=== PATIENT | female | born 1945 | race Caucasian/White ===

== ENCOUNTER → 2018-08-30 | Outpatient (CLI) | payer MEDICARE, OTHER ==
[~2018-08-30] MED LIST: GASTROGRAFIN SOLUTION 30ML (Q9963) As Ordered; ISOVUE-370 76% 100ML VIAL (Q9967) As Ordered
== END ==
LOC: M RAD 11:05
DX: R10.11 Right upper quadrant pain (principal)
CPT/HCPCS: Q9963

== ENCOUNTER 2018-09-27 08:17 | Day surgery (SDC) | payer MEDICARE, OTHER ==
[2018-09-27] MEDS ORDERED: PROPOFOL 200 MG/20 ML VIAL As Ordered (09:27)
[2018-09-27] MEDS ORDERED: ONDANSETRON 4MG/2ML VIAL (J2405) As Ordered (09:27)
[2018-09-27] MEDS ORDERED: fentaNYL 250 MCG/5 ML INJECTION (J3010) As Ordered (09:27)
[2018-09-27] MEDS ORDERED: LIDOCAINE 2% INJ 100 MG/5 ML SDV (FOR ANES.) As Ordered (09:27)
[2018-09-27] MEDS ORDERED: dexameTHASONE 4 MG/ML 1ML VIAL (J1100) As Ordered (09:27)
[2018-09-27] MEDS ORDERED: ROCURONIUM BROMIDE 50 MG/5 ML VIAL As Ordered (09:27)
[2018-09-27] MEDS ORDERED: MIDAZOLAM INJ 2 MG/2 ML VIAL (J2250) As Ordered (09:27)
[2018-09-27] MEDS ORDERED: GLYCOPYRROLATE INJ 0.2 MG/ML 2 ML VIAL As Ordered ×3 (09:27→09:28)
[2018-09-27] MEDS ORDERED: NEOSTIGMINE 10 MG/10 ML VIAL (J2710) As Ordered (09:28)
[2018-09-27] MEDS ORDERED: ePHEDrine SULFATE 25 MG/5 ML(5MG/ML) SYRINGE As Ordered (09:29)
[2018-09-27] MEDS: BUPIVACAINE/EPIN 0.25% 30 ML VIAL As Ordered (10:15)
[2018-09-27] MEDS: LR 1,000 ML IV (10:25)
[2018-09-27] MEDS ORDERED: NORCO, ANEXSIA 5/325MG TABLET (HYDROcodone/ACETAMINOPHEN) PO (10:45)
[2018-09-27] MEDS ORDERED: fentaNYL 100 MCG/2 ML INJECTION (J3010) IV (10:45)
[2018-09-27] MEDS: ONDANSETRON 4MG/2ML VIAL (J2405) IV (10:50)
[2018-09-27] MEDS: PERCOCET 5MG/325MG TAB PO ×2 (10:50→11:23)
[2018-09-27] MEDS: PANTOPRAZOLE 40MG TAB (PROTONIX) PO (11:35)
== END 2018-09-27 13:30 | disposition home or self-care (01) ==
LOC: M SDC 08:17
DX: K80.10 Calculus of gallbladder with chronic cholecystitis without obstruction (principal); I10 Essential (primary) hypertension; F41.9 Anxiety disorder, unspecified; F32.9 Major depressive disorder, single episode, unspecified; I73.9 Peripheral vascular disease, unspecified; M19.041 Primary osteoarthritis, right hand; M19.042 Primary osteoarthritis, left hand; M54.2 Cervicalgia; E66.9 Obesity, unspecified; Z68.39 Body mass index [BMI] 39.0-39.9, adult; Z79.899 Other long term (current) drug therapy; Z79.01 Long term (current) use of anticoagulants; Z79.82 Long term (current) use of aspirin; Z90.710 Acquired absence of both cervix and uterus; Z98.51 Tubal ligation status; Z85.43 Personal history of malignant neoplasm of ovary; Z92.3 Personal history of irradiation; Z98.41 Cataract extraction status, right eye; Z98.42 Cataract extraction status, left eye; Z96.1 Presence of intraocular lens; Z98.84 Bariatric surgery status; Z87.891 Personal history of nicotine dependence
CPT/HCPCS: 47562

== ENCOUNTER → 2018-12-02 | Outpatient (REF) | payer MEDICARE, OTHER ==
[~2018-12-02] MED LIST changes: +AMLO5TAB6 PO; +ASPI1TAB PO; +FLUO20CA8 PO; +GABA-843 PO; -GASTROGRAFIN SOLUTION 30ML (Q9963) As Ordered; -ISOVUE-370 76% 100ML VIAL (Q9967) As Ordered; +LOSA100T50 PO; +PANT40TA3 PO; +PLAV1TAB2 PO; +SPIR-10 PO; +TYLE325T5 PO
[2018-12-03 13:50] LABS: AMORPHOUS SEDIMENT SMALL (NEGATIVE); APPEARANCE, URINE CLEAR (CLEAR); BACTERIA, URINE AUTO NEGATIVE (NEGATIVE); BILIRUBIN, URINE AUTO NEGATIVE (NEGATIVE); BLOOD, URINE BLOOD NEGATIVE (NEGATIVE); COLOR, URINE AMBER (YELLOW); GLUCOSE, URINE (UA) AUTO NEGATIVE (NEGATIVE); KETONE, URINE AUTO NEGATIVE (NEGATIVE); LEUKOCYTE ESTERASE, URINE AUTO NEGATIVE (NEGATIVE); MUCUS, URINE SMALL (NEGATIVE); NITRITE, URINE AUTO POSITIVE (NEGATIVE); PROTEIN, URINE AUTO NEGATIVE (NEGATIVE); RBC, URINE AUTO 2 /HPF (0-3); SPECIFIC GRAVITY URINE AUTO 1.011 (1.002-1.035); SQUAMOUS EPITHELIAL CELL UR AU 0 /HPF (0-6); WBC, URINE AUTO 0 /HPF (0-3)
== END ==
LOC: M LAB REF 13:02
PROVIDERS: ATTEND Physician Assistant
DX: N39.0 Urinary tract infection, site not specified (principal)

== ENCOUNTER 2019-02-14 06:22 | Day surgery (SDC) | payer MEDICARE, OTHER ==
[~2019-02-14] VITALS: Ht 162.6 cm; Wt 97.9 kg
[~2019-02-14 06:22] MED LIST changes: -NORCOTAB PO
[2019-02-14] MEDS ORDERED: LR 1,000 ML IV ONE (07:00)
[2019-02-14] MEDS ORDERED: BUPIVACAINE/EPIN 0.25% 30 ML VIAL As Ordered ONE (07:07)
[2019-02-14] MEDS ORDERED: LIDOCAINE 2% INJ 100 MG/5 ML SDV (FOR ANES.) As Ordered ONE (07:18)
[2019-02-14] MEDS ORDERED: ROCURONIUM BROMIDE 50 MG/5 ML VIAL As Ordered ONE (07:18)
[2019-02-14] MEDS ORDERED: PROPOFOL 200 MG/20 ML VIAL As Ordered ONE (07:18)
[2019-02-14] MEDS ORDERED: fentaNYL 250 MCG/5 ML INJECTION (J3010) As Ordered ONE (07:19)
[2019-02-14] MEDS ORDERED: MIDAZOLAM INJ 2 MG/2 ML VIAL (J2250) As Ordered ONE (07:20)
[2019-02-14] MEDS ORDERED: ONDANSETRON 4MG/2ML VIAL (J2405) As Ordered ONE (08:51)
[2019-02-14] MEDS ORDERED: dexameTHASONE 4 MG/ML 1ML VIAL (J1100) As Ordered ONE (08:52)
[2019-02-14] MEDS ORDERED: KETOROLAC 60 MG/2 ML VIAL (J1885) As Ordered ONE (08:52)
[2019-02-14] MEDS ORDERED: SUGAMMADEX SODIUM 500 MG/5 ML VIAL (BRIDION) As Ordered ONE (09:24)
[2019-02-14] MEDS ORDERED: PHENYLephrine HCL 500 MCG/5 ML (100MCG/ML) SYRINGE (J2370) As Ordered ONE (09:28)
[2019-02-14] MEDS ORDERED: fentaNYL 100 MCG/2 ML INJECTION (J3010) IV PRN (10:00)
[2019-02-14] MEDS ORDERED: NORCO, ANEXSIA 5/325MG TABLET (HYDROcodone/ACETAMINOPHEN) PO PRN (10:00)
[2019-02-14] MEDS ORDERED: ONDANSETRON 4MG/2ML VIAL (J2405) IV PRN (10:00)
[2019-02-14] MEDS ORDERED: PERCOCET 5MG/325MG TAB PO PRN (10:00)
[2019-02-14] MEDS ORDERED: METOCLOPRAMIDE INJ 10MG/2ML VIAL (J2765) IV PRN (10:00)
[2019-02-14] MEDS ORDERED: LR 1,000 ML IV SCH (10:00)
[2019-02-14 12:30] VITALS: BP 119/65
[2019-02-14] MEDS ORDERED: NORCOTAB PO (12:47)
--- NOTE | 2019-02-14 17:48 | RO ---
DATE OF PROCEDURE: 02/14/2019 PREOPERATIVE DIAGNOSIS: Abdominal adhesions and small bowel obstruction. POSTOPERATIVE DIAGNOSIS: Abdominal adhesions and small bowel obstruction. PROCEDURE: Laparoscopic lysis of adhesions. SURGEON: Dr. Carlos Lyle AUTO RADIATOR MECHANIC: None. ANESTHESIA: General. ESTIMATED BLOOD LOSS: 5 mL. COMPLICATIONS: None. INDICATIONS FOR PROCEDURE: The patient is a 73-year-old female who has had multiple abdominal surgeries as well as extensive adhesions that I noticed on a laparoscopic cholecystectomy for her last year. Since her gallbladder surgery, she has had at least four hospitalizations for small bowel obstruction. Therefore, she is coming in today for lysis of adhesions. Risks and benefits of the procedure not limited to but including bleeding, infection, hernia formation, damage to surrounding structures, possible need for further surgery were discussed in detail with the patient, informed consent was obtained and procedure was planned. DESCRIPTION OF PROCEDURE: The patient was brought back to operating room three. after sufficient sedation, the abdomen was sterilely prepped and draped. Next, a time-out was done to confirm proper patient and proper procedure. Following that, a 5 mm incision was made in left lower quadrant, Veress needle was inserted and the abdomen was insufflated to 15 mmHg. Next, the Veress needle was removed and a 5 mm Optiview port was used to gain access to the abdomen. Once the abdomen was entered, there were extensive adhesions. I was able to place another port in the left lower quadrant. From there, using the Enseal, I was able to take down some of the omental adhesions laterally, enough to get a third port in the mid left abdomen as well. Next, using a combination of blunt and sharp dissection using some sharp scissors as well as the Enseal, I was able to take down multiple adhesions of small and large bowel along the entire left side of the abdomen past midline. Once this was all completed, there were no signs of any injury, was unable to run the bowel due to the multiple fibrous adhesions covering the entire small intestine but all the large, thick bands that were stuck to the abdominal wall were taken down; hopefully this will relieve some of her issues. The abdomen was then desufflated. Skin incisions were closed with #4-0 Vicryl subcuticular sutures. The abdomen was cleaned and dried. Steri-Strips, 4x4 and tape were applied thus ending procedure.
== END 2019-02-14 12:45 | disposition home or self-care (01) ==
LOC: M SDC 06:22
PROVIDERS: ATTEND Surgery
DX: N73.6 Female pelvic peritoneal adhesions (postinfective) (principal); I10 Essential (primary) hypertension; I73.9 Peripheral vascular disease, unspecified; I87.2 Venous insufficiency (chronic) (peripheral); F41.9 Anxiety disorder, unspecified; F32.9 Major depressive disorder, single episode, unspecified; K22.70 Barrett's esophagus without dysplasia; K21.9 Gastro-esophageal reflux disease without esophagitis; M12.9 Arthropathy, unspecified; M54.2 Cervicalgia; E66.9 Obesity, unspecified; Z68.37 Body mass index [BMI] 37.0-37.9, adult; Z79.899 Other long term (current) drug therapy; Z79.01 Long term (current) use of anticoagulants; Z79.82 Long term (current) use of aspirin; Z90.710 Acquired absence of both cervix and uterus; Z78.0 Asymptomatic menopausal state; Z98.51 Tubal ligation status; Z72.3 Lack of physical exercise; Z98.84 Bariatric surgery status; Z96.1 Presence of intraocular lens; Z98.41 Cataract extraction status, right eye; Z98.42 Cataract extraction status, left eye
CPT/HCPCS: 58660; 93925; 93970; J0690; J1100; J1885; J2250; J2370; J2405; J3010

== ENCOUNTER → 2019-02-14 | Outpatient (CLI) | payer MEDICARE, OTHER ==
[~2019-02-14] MED LIST changes: +COLA100C5 PO; +NORCOTAB PO
--- NOTE | 2019-02-14 17:40 | REP ---
Bilateral lower extremity arterial Doppler ultrasound: History: Peripheral vascular disease. Findings: Ankle brachial indices are essentially normal 0.9 on the right and 1.6 on the left. On the right, there is monophasic flow in the distal posterior tibial and distal anterior tibial artery segments which suggests mild distal calf disease. No proximal disease is apparent. The patient gives a history of a remote prior vascular surgery in the left groin, details unknown. The aorta and iliac vessels were obscured by bowel gas. The patient apparently underwent laparoscopic surgery than morning of this exam. Monophasic flow waveforms are noted in the left lower extremity arteries throughout. Velocity chart left lower extremity artery: left common femoral artery 201 cm/S Profunda 52 Proximal SFA 67 Mid SFA 64 Distal SFA 63 Popliteal 43 Proximal SUSY 16 Tibioperoneal trunk 35 Proximal ASSISTANT PROFESSOR OF CHEMISTRY 18 Distal ASSISTANT PROFESSOR OF CHEMISTRY 76 Distal SUSY 76 Velocity chart left lower extremity arteries: Left common femoral artery 121 cm/S Profunda 74 Proximal SFA 96 Mid SFA 110 Distal SFA 85 Popliteal 65 Proximal AT A 36 Tibioperoneal trunk 52 Proximal ASSISTANT PROFESSOR OF CHEMISTRY 35 Distal ASSISTANT PROFESSOR OF CHEMISTRY 33 Distal SUSY 54 Electronically Signed by Amandeep Castro MD 02/14/2019 07:19 P
--- NOTE | 2019-02-14 17:53 | REP ---
Bilateral lower extremity duplex venous ultrasound: Venous insufficiency study. Peripheral vascular disease. Findings: The deep veins are anechoic and fully compressible on two-dimensional scanning from the groin to the popliteal fossa bilaterally in the lower extremities. Color flow and spectral Doppler interrogation show no evidence of DVT. Reflux evaluation: No venous reflux was observed in the right lower extremity veins. The greater saphenous vein measures 5.2 mm in AP dimension at the proximal saphenofemoral junction, 3.4 mm at midthigh, and 3.2 mm at the knee. The lesser saphenous vein measures 2 mm in AP dimension. On the left there is a minimal common femoral vein segment reflux. No other reflux is seen in the left lower extremity. The greater saphenous vein measures 7.2 mm proximally, 3.1 mm at midthigh, and 3.8 mm at the knee. The lesser saphenous vein measures 1.5 mm. Electronically Signed by Amandeep Castro MD 02/14/2019 07:20 P
== END ==
LOC: M RAD 12:54
PROVIDERS: ATTEND Surgery Vascular Surgery
DX: I73.9 Peripheral vascular disease, unspecified (principal); I87.2 Venous insufficiency (chronic) (peripheral)

== ENCOUNTER → 2019-03-28 | Outpatient (CLI) | payer MEDICARE, OTHER ==
[~2019-03-28] MED LIST changes: -ASPI1TAB PO; +ASPI81TA26 PO; +ATROPINE SULF 1MG/10ML SYRINGE (J0461) As Ordered ONE; +BUPIVACAINE HCL 0.5% 10 ML VIAL As Ordered ONE; +HEPARIN 1,000 UNITS/ML 10ML VIAL (FOR RADIOLOGY& DIALYSIS ONLY) As Ordered ONE; +HYDR-3715 PO; +ISOVUE-300 61% 100ML VIAL (Q9967) As Ordered ONE; +LIDOCAINE 2% MDV 20 ML VIAL As Ordered ONE; +MIDAZOLAM INJ 2 MG/2 ML VIAL (J2250) As Ordered ONE; +diphenhydrAMINE INJ 50MG/ML VIAL (J1200) As Ordered ONE; +fentaNYL 100 MCG/2 ML INJECTION (J3010) As Ordered ONE
--- NOTE | 2019-04-06 11:00 | REPIR ---
DATE OF PROCEDURE: 03/28/2019 ATTENDING SURGEON: Dr. Jeffrey Hart ASSISTANTS: Zayra Chambers and Brittny Proctor PREOPERATIVE DIAGNOSES: 1. Bilateral lower extremity claudication. 2. Aortoiliac atherosclerotic occlusive disease. 3. Symptomatic claudication left greater, than right. POSTOPERATIVE DIAGNOSES: 1. Bilateral lower extremity claudication. 2. Aortoiliac atherosclerotic occlusive disease. 3. Symptomatic claudication left greater, than right. PROCEDURES: Aortogram. Iliofemoral angiogram. Selective left common femoral artery catheter placement with left lower extremity angiogram. MYNX closure of the right common femoral arteriotomy. Aortic angioplasty with 12 x 80 balloon and 18 x 40 balloon. INDICATION: The patient is a 73-year-old female with previous angioplasty and stenting of her iliac vessels who now has bilateral lower extremity claudication. The patient will undergo an angiogram with possible angioplasty, stent and/or atherectomy. Risks, benefits, and alternative treatment options have been discussed with the patient. ANESTHESIA: Local with sedation with 2 mg Versed, 100 mcg of fentanyl and 20 mL of 2% lidocaine mixed with 0.5% Marcaine, Benadryl 50 mg. FLUORO TIME: 28.2 minutes. CONTRAST: 16.5 mL PROCEDURE: Patient was taken to the angiography suite, placed supine on the angiography room table, and the right common femoral artery was cannulated using a micropuncture needle. Catheter was placed in the aorta and an aortogram was performed showing approximate 80% stenosis in the aorta. The aorta was then angioplastied with a 12 x 80 followed by an 18 x 40 balloon. A completion aortogram showed resolution of the stenosis with excellent flow through the aorta into the aorta by iliac and femoral graft. Catheters and wires were removed. The sheath was removed and the MYNX closure device was used to close the arteriotomy in the right common femoral artery with an additional 10 minutes adjunctive pressure applied for hemostasis. Dressings were then applied. The patient tolerated procedure well. All instrument, sponge and needle counts were correct at the end the case. There were no complications. Dr. Hart was present for and directed the entire case. The patient was transferred to [place] [facility] area and subsequently discharged in stable condition.
== END | disposition home or self-care (01) ==
LOC: M IRPRO 08:06
PROVIDERS: ATTEND Surgery Vascular Surgery
DX: I70.0 Atherosclerosis of aorta (principal); I70.213 Atherosclerosis of native arteries of extremities with intermittent claudication, bilateral legs
CPT/HCPCS: 36246; 37246; 75625; C1725; C1760; C1769; C1887; C1894; J1200; J2250; J3010; Q9967

== ENCOUNTER → 2019-04-05 | Outpatient (CLI) | payer MEDICARE, OTHER ==
[~2019-04-05] MED LIST changes: -ATROPINE SULF 1MG/10ML SYRINGE (J0461) As Ordered ONE; -BUPIVACAINE HCL 0.5% 10 ML VIAL As Ordered ONE; -HEPARIN 1,000 UNITS/ML 10ML VIAL (FOR RADIOLOGY& DIALYSIS ONLY) As Ordered ONE; -ISOVUE-300 61% 100ML VIAL (Q9967) As Ordered ONE; +ISOVUE-370 76% 100ML VIAL (Q9967) As Ordered ONE; -LIDOCAINE 2% MDV 20 ML VIAL As Ordered ONE; -MIDAZOLAM INJ 2 MG/2 ML VIAL (J2250) As Ordered ONE; -diphenhydrAMINE INJ 50MG/ML VIAL (J1200) As Ordered ONE; -fentaNYL 100 MCG/2 ML INJECTION (J3010) As Ordered ONE
--- NOTE | 2019-04-06 09:31 | REP ---
CT chest with IV contrast: History: Solitary pulmonary nodule. Comparison CT study: January 18, 2019. There is a chest CT study from December 17, 2018 as well. These to prior studies were done at [facility]. The earlier study was read as showing scattered areas of patchy ground-glass opacity in the right upper and right lower lobe. CT contrast dose: 75 ml of intravenous Isovue [address] findings: Preliminary steel post installer radiographs demonstrate surgical clips in the central abdomen. There are sutures along the greater curvature side of the stomach suggesting gastric sleeve resection. There is a hiatal hernia again noted. No adrenal lesion is seen on either side. There is a granulomatous calcification in the spleen. Fatty infiltration is noted in the liver. The visualized upper abdominal structures are otherwise unremarkable. There is no evidence of pleural or pericardial effusion. Moderate vascular calcification is seen including right and left coronary artery distribution calcifications. No hilar or mediastinal mass or adenopathy is observed. There is a granuloma in the right lower lobe. Above this, there is a 19 mm ground-glass opacity in the superior segment right lower lobe. This is unchanged from December 17, 2018 and January 18, 2019 prior studies. No other persistent ground-glass opacity is seen. No other significant pulmonary nodule is appreciated. No bony destructive lesion is seen. Impression: There is a persistent 19 mm ground-glass opacity nodule in the right lower lobe. Non solid nodules under 20 mm are Lung RADS category two lesions with the recommendation for a 12-month follow-up chest CT. Pulmonary medicine evaluation could be considered. Electronically Signed by Amandeep Castro MD 04/06/2019 03:37 P
== END ==
LOC: M RAD 14:09
PROVIDERS: ATTEND Physician Assistant
DX: R91.1 Solitary pulmonary nodule (principal)
CPT/HCPCS: 71260; Q9967

== ENCOUNTER → 2019-05-17 | Outpatient (CLI) | payer MEDICARE, OTHER ==
[~2019-05-17] MED LIST changes: -ISOVUE-370 76% 100ML VIAL (Q9967) As Ordered ONE
--- NOTE | 2019-05-17 11:32 | REP ---
Bilateral lower extremity arterial Doppler ultrasound: History: Atherosclerosis, peripheral vascular disease. Findings: Ankle brachial indices are 0.96 on the right and decreased at the 0.60 on the left. Monophasic flow waveforms are noted throughout the arteries in the left lower extremity. The left common femoral artery is somewhat dilated post endarterectomy. Diffuse atherosclerotic changes are noted. No high-grade stenosis is detected. Right lower extremity arterial Doppler velocity chart: Right KUNAL 148 cm/S D I A 79 CF A 104 Profunda 71 Proximal SFA 73 Mid SFA 76 Distal SFA 77 Popliteal 45 Proximal AT A 31 Tibioperoneal trunk 41 Proximal CHANNEL PROCESS PLANT OPERATOR 21 Distal CHANNEL PROCESS PLANT OPERATOR 17 Distal AT A 102 Left lower extremity arterial Doppler velocity chart: Left KUNAL 63 cm/S D I A 66 CF A 136/79 Profunda 32 Proximal SFA 61 Mid SFA 70 Distal SFA 64 Popliteal 67 Proximal AT A 26 Tibioperoneal trunk 58 Proximal CHANNEL PROCESS PLANT OPERATOR 58 Distal CHANNEL PROCESS PLANT OPERATOR 67 Distal AT A 33 Electronically Signed by Amandeep Castro MD 05/17/2019 11:22 A
--- NOTE | 2019-05-17 11:41 | REP ---
ABDOMINAL AORTIC SONOGRAPHY: HISTORY: Peripheral vascular disease. FINDINGS: Atherosclerotic plaquing is seen in the abdominal aorta. No aneurysm is observed. Aortic dimensions at the diaphragmatic hiatus proximally are 2.6 x 2.5 cm, AP by transverse respectively. The aorta borders are obscured by bowel gas at the level of the main renal arteries. At mid aortic level, normal-caliber is observed, 2.4 x 2.2 cm. The distal aorta measures 2.0 x 2.2 cm. Right and left common iliac arteries are normal in caliber measuring 0.9 and 1.0 cm in greatest AP dimension, respectively. IMPRESSION: No aneurysm seen. Electronically Signed by Amandeep Castro MD 05/17/2019 12:27 P
== END ==
LOC: M RAD 08:44
PROVIDERS: ATTEND Physician Assistant
DX: I70.0 Atherosclerosis of aorta (principal); I73.9 Peripheral vascular disease, unspecified; Z95.5 Presence of coronary angioplasty implant and graft

== ENCOUNTER 2019-10-12 08:06 | Inpatient (IN) | payer MEDICARE, OTHER ==
[~2019-10-12] VITALS: Ht 162.6 cm; Wt 106.8 kg
[2019-10-12] MEDS ORDERED: LOSA100T5 PO (09:21)
[2019-10-12] MEDS ORDERED: AZEL1SPR3 NARES (09:21)
[2019-10-12] MEDS ORDERED: APAP325T4 PO (09:21)
[2019-10-12] MEDS ORDERED: MORPHINE 4 MG/ML 1ML VIAL/SYRINGE (J2270) IV PRN (10:45)
[2019-10-12] MEDS ORDERED: NS 1,000 ML IV SCH (10:45)
[2019-10-12] MEDS ORDERED: NS 1,000 ML IV ONE (11:00)
--- NOTE | 2019-10-12 11:12 | REP ---
Portable chest x-ray: Sitting AP view. History: Preop. Comparison chest x-ray: January 18, 2019. Findings: Monitoring electrodes are seen. Heart is borderline in size unchanged. Pulmonary vasculature is slightly cephalized. . There is no evidence of infiltrate or pleural effusion. No evidence of pulmonary edema. Impression: Borderline heart size. Cephalization. Otherwise no acute disease. Electronically Signed by Amandeep Castro MD 10/12/2019 11:04 A
[2019-10-12] MEDS ORDERED: PERCOCET 5MG/325MG TAB PO PRN (15:00)
[2019-10-12] MEDS ORDERED: MORPHINE 2 MG/ML 1ML VIAL (J2270) IV PRN (15:00)
[2019-10-12] MEDS ORDERED: KETOROLAC 30 MG/ML VIAL (J1885) IV PRN (15:00)
[2019-10-12] MEDS ORDERED: ONDANSETRON 4MG/2ML VIAL (J2405) IV PRN (15:00)
[2019-10-12] MEDS ORDERED: ACETAMINOPHEN TAB 650MG DOSE (2X325MG) PO PRN (15:00)
[2019-10-12] MEDS: PERCOCET 5MG/325MG TAB PO PRN ×2 (16:17→23:25)
[2019-10-12 16:50] VITALS: BP 151/68
[2019-10-12] MEDS: ENOXAPARIN 40 MG/0.4 ML SYRINGE (J1650) SC SCH (17:39)
[2019-10-12] MEDS: PANTOPRAZOLE 40MG INJ (PROTONIX) (C9113) IV SCH (17:39)
[2019-10-12] MEDS: LR 1,000 ML IV SCH (17:39)
[2019-10-12 20:00] VITALS: BP 139/74
[2019-10-12] MEDS: SENOKOT S TAB PO SCH (20:44)
[2019-10-13] MEDS: LR 1,000 ML IV SCH ×3 (01:30→20:31)
--- NOTE | 2019-10-13 04:48 | HPEPDOC ---
General Surgery H&P Date of Admission Oct 12, 2019 Attending Physician: RAS MANRIQUE MD History and Physical CHIEF COMPLAINT: abdominal pain HISTORY OF PRESENT ILLNESS: Patient is a 74 year old female with multiple prior histories of adhesive small bowel obstruction got transferred to our institution after presenting at [facility] ED at about 2 am today with complaints of crampy abdominal pain on her upper abdomen that stated roughly at about 9 pm last night similar to her previous episodes of bowel obstruction. She felt nauseated and had at least one episode of vomiting. At [facility] was diagnosed to have bowel bostuction on CT and subsequently transferred to our ED. In the ED she felt better although she still has occasional crampy abdominal pain and has not had any vomiting, still felt bloated. Patient has had multiple abdominal surgeries including open aortic surgery of some sort so patient could not recall what the exact nature was. She also has had a hysterectomy performed. She had an elective lysis of adhesions performing Dr. Lyle on 02/14/2019 to hopefully alleviate her bowel obstructions. Since then patient reports at least 2 attacks. One lasted for a few days and she did not go to the hospital. Since being transferred patient continues to complain of bloating, mild cramps but there is no longer nauseated. Her last bowel movement was 4 days ago. Patient reports baseline constipation. ALLERGIES: Please see below. HOME MEDICATIONS: Please see below. PAST MEDICAL HISTORY: 1. Peripheral vascular disease. 2. Hypertension 3. Anxiety 4. Depression. PAST SURGICAL HISTORY: 1. Tubal ligation 1973 2. Leg bypass in 1985, 1988, 1999 3. Gastric sleeve 2012 4. Hysterectomy 2013 5. Laparoscopic cholecystectomy 2017 6. Laparoscopic lysis of adhesion 2018 7. Aortic surgery.. PERSONAL/SOCIAL HISTORY: Patient quit smoking more than 30 years ago. Reports light alcohol drinking about 4 a week, denies drug use. REVIEW OF SYSTEMS: GENERAL: Symptoms of the abdominal pain as been ongoing for a few days but otherwise was in her usual state of health. HEENT: Denies blurred vision and double vision. Denies ear symptoms. Denies hoarseness. NECK: Denies any neck pain. CARDIOVASCULAR: Denies chest pain and palpitations. MUSCULOSKELETAL: Denies arthralgias, back pain and thrombophlebitis. SKIN: Denies rash. NEUROLOGIC: Denies headache, stroke and transient ischemic attack. PSYCHIATRIC: Denies anxiety and depression. ENDOCRINE: Denies thyroid disease. HEMATOLOGY/ONCOLOGY: Denies any bleeding or clotting disorder. HEART: Denies any chest pains, palpitations, paroxysmal dyspnea, orthopnea. PULMONARY: She reports no history of COPD, asthma, sleep apnea but has a spot in her lungs which they are. The following up with CT. GASTROINTESTINAL: See HPI. GENITOURINARY: Denies dysuria, frequency, hematuria and nocturia. ENDOCRINE: Denies polydipsia, polyphagia, polyuria, heat or cold intolerance. INFECTIOUS: Denies any recent upper respiratory tract infection, UTI, need for use of antibiotics. NUTRITION: Reports good appetite. PHYSICAL EXAMINATION: VITAL SIGNS: Please see below. GENERAL APPEARANCE: Patient seen on the stretcher able to lay down flat and sitting up with minimal discomfort otherwise looks fairly comfortable in no acute distress. Awake, alert, oriented. HEENT: Normocephalic, atraumatic. [place] palpebral conjunctivae. Anicteric sclerae. Lips moist. CHEST: No chest wall abnormalities. Normal respiratory motion/effort. NECK: Supple. No thyromegaly. No lymphadenopathies. LUNGS: Lung sounds are clear to auscultation bilaterally. No wheezing appreciated. HEART: No chest wall abnormalities. Heart rate and rhythm are regular with no murmurs. ABDOMEN: Moderately obese abdomen, mildly distended, tympanitic to percussion. There is prominent tympany at the midabdomen just above the umbilicus. She is minimally uncomfortable on deep palpation at the center of her abdomen with no noticeable tenderness or guarding. SKIN: Warm, moist. EXTREMITIES: Extremities have no deformities. No edema identified. NEUROLOGICAL: Awake, alert, oriented. ANCILLARIES: . LABORATORY DATA: Please see below. Outside laboratories reviewed MICROBIOLOGY: Please see below. IMAGING: Outside CT from [facility] gastric sleeve. Postcholecystectomy. Post hysterectomy. Postsurgical changes in the retroperitoneum. Moderate hiatal hernia Dilated small bowel loops in the midabdomen with transition point in the pelvis to collapsed indicating obstruction. Proximal small bowel is also laceration suspicion for a closed loop obstruction. Trace free fluid IMPRESSION AND PLAN: Small bowel obstruction secondary to adhesions. Patient has had multiple adhesive bowel obstructions all of it has resolved with nonoperative therapy and is familiar with the treatment for bowel obstruction, rationale for it. She has entertained elective laparoscopic lysis of adhesions early this year but still has had repeated obstructions. This current obstruction was about roughly a day old. She is not showing any signs of peritonitis or severe systemic inflammatory response. Don't think she has any threatened bowel at this point. A think it is prudent to start with nonoperative therapy. She feels mildly improved and is not that much nauseated though he still suggest placing the nasogastric tube to decompress her proximal bowel. She is concerned about this as she has had a gastric sleeve and this NG tube may not work too well because of this as it does not accumulate much fluid since she is clinically improved (hold off on this. I reviewed the images of the outside CT and do agree that she most likely has an obstruction. I would continue to observe her and do serial examination and replete her electrolytes if need be for the next 48-72 hours and if it does not resolve she is aware that she might need surgery. I reviewed the operative notes by Dr. Lyle when he did the lysis of adhesions back in January and depending on the degree of distention the may start with laparoscopy but given the nature of the adhesions are not just at the abdominal wall and most likely located at the retroperitoneum and in the pelvis that there is a good possibility that this may need to be converted to open surgery if need be. Patient's been aware of this and voices understanding. Vital Signs Vital Signs Date Time Temp Pulse Resp B/P (MAP) Pulse Ox O2 Delivery O2 Flow Rate FiO2 10/12/19 23:55 18 10/12/19 23:25 Room Air 10/12/19 20:00 98.1 79 139/74 (95) 93 I&Os I&O- Last 24 Hours up to 6 AM 10/13/19 06:00 Intake Total 1090 ml Output Total 200 ml Balance 890 ml Laboratory Data Labs 24H Laboratory Tests 2 10/12/19 10:46: Lactic Acid Level 1.6 Home Medications Scheduled Amlodipine Besylate (Amlodipine Besylate) 5 Mg Tab, 5 MG PO DAILY, (Reported) Aspirin (Aspirin EC) 81 Mg Tab, 81 MG PO DAILY, (Reported) Clopidogrel Bisulfate (Plavix) 75 Mg Tab, 75 MG PO DAILY, (Reported) Docusate Sodium (Colace) 100 Mg Cap, 100 MG PO DAILY, (Reported) Fluoxetine Hcl (Fluoxetine HCl) 20 Mg Cap, 20 MG PO DAILY, (Reported) Losartan/Hydrochlorothiazide (Losartan-Hctz 100-25 mg Tab) 1 Each Tablet, 1 TAB PO DAILY, (Reported) Pantoprazole Sodium (Pantoprazole Sodium) 40 Mg Tab, 40 MG PO DAILY, (Reported) Spironolactone (Spironolactone) 25 Mg Tab, 25 MG PO DAILY, (Reported) Scheduled PRN Acetaminophen (Acetaminophen) 325 Mg Tablet, 650 MG PO Q4H PRN for PAIN, (Reported) Azelastine HCl (Azelastine HCl) 0.1% [place].pump, 2 SPRAY NARES BID PRN for ALLERGIES, (Reported) Allergies Coded Allergies: No Known Allergies (Unverified , 06/27/15) A-FIB/CHADSVASC A-FIB History Current/History of A-Fib/PAF?: No Current PO Anticoag Therapy: No RAS MANRIQUE MD Oct 13, 2019 04:47
[2019-10-13] MEDS ORDERED: MOM 30ML SUSPENSION UDC PO ONE (05:15)
[2019-10-13 06:00] VITALS: BP 133/61
[2019-10-13] MEDS: PERCOCET 5MG/325MG TAB PO PRN ×2 (06:33→14:51)
--- NOTE | 2019-10-13 07:21 | ECGEPIP ---
[facility] - ED Test Date: 2019-10-12 Pat Name: MOO BRIONES Department: Room: - Gender: Female [employer]: : [id number] Requested By: ZI Murphy Order Number: [id number] [place] MD: Kevon Gold Measurements Intervals Cade Rate: 70 P: 60 DE: 177 QRS: 33 QRSD: 81 T: 44 QT: 414 QTc: 449 Interpretive Statements SINUS RHYTHM NONSPECIFIC T WAVE ABNORMALITIES NO PRIORS FOR COMPARISON Electronically Signed on 10-13-2019 7:21:42 EST by Kevon Gold
[2019-10-13 07:33] LABS: BASO # 0.1 10^3/uL (0.0-0.2); BASO % 0.6 % (0.0-1.0); EOS # 0.1 10^3/uL (0.0-0.5); EOS % 1.6 % (0.0-3.0); HEMATOCRIT 33.6 % (36.0-47.0); HEMOGLOBIN 10.6 g/dl (12.0-15.5); LYMPH # 1.1 10^3/uL (1.5-5.0); LYMPH % 12.4 % (24.0-44.0); MEAN CORPUSCULAR HEMOGLOBIN 31.6 pg (27.0-33.0); MEAN CORPUSCULAR HGB CONC 31.5 g/dl (32.0-36.5); MEAN CORPUSCULAR VOLUME 100.3 fl (80.0-96.0); MONO # 1.1 10^3/uL (0.0-0.8); MONO % 12.1 % (0.0-5.0); NEUTROPHILS # 6.4 10^3/uL (1.5-8.5); NEUTROPHILS % 72.8 % (36.0-66.0); PLATELET COUNT, AUTOMATED 258 10^3/uL (150-450); RED BLOOD COUNT 3.35 10^6/uL (4.00-5.40); WHITE BLOOD COUNT 8.7 10^3/uL (4.0-10.0)
[2019-10-13 07:58] LABS: CALCIUM LEVEL 9.3 MG/DL (8.8-10.2); CREATININE FOR GFR 1.09 MG/DL (0.55-1.30); GLOMERULAR FILTRATION RATE 52.5 (>39); POTASSIUM SERUM 3.6 MEQ/L (3.5-5.1)
[2019-10-13] MEDS: SENOKOT S TAB PO SCH ×2 (09:27→20:30)
[2019-10-13] MEDS: ENOXAPARIN 40 MG/0.4 ML SYRINGE (J1650) SC SCH (09:27)
[2019-10-13] MEDS: PANTOPRAZOLE 40MG INJ (PROTONIX) (C9113) IV SCH (09:27)
--- NOTE | 2019-10-13 11:51 | REP ---
Abdomen series: Two views. History: Followup small bowel obstruction. Comparison study: December 19, 2018. Findings: There are surgical sutures in the left upper quadrant and surgical clips are seen distributed in periaortic and left inguinal region as well as in the right upper quadrant. There are air-fluid levels in multiple mildly dilated small bowel loops in the central abdomen. There is an air-fluid level in the right colon and some stool seen in the left colon. Air in the rectum. No colonic distension. Flank stripes are intact. Left psoas margin is intact. The right psoas margin is obscured by gas. There is no evidence of free intraperitoneal air. Impression: There are some dilated small bowel loops in the central abdomen displaying air-fluid levels. Partial small bowel obstruction pattern versus localized ileus. Postoperative changes. No evidence of free air. Electronically Signed by Amandeep Castro MD 10/13/2019 12:10 P
--- NOTE | 2019-10-13 12:57 | IPNPDOC ---
Subjective General Date/Time Seen The patient was seen on 10/13/19 at 12:51. Subject Chief Complaint/History The patient is a 74-year-old female admitted with a reason for visit of Small Bowel Obstruction. Patient feels mildly more distended today. She denies any nausea. She reports not passing any flatus. She reports occasional abdominal cramping. Current Medications Current Medications Current Medications Medications (Trade) Dose Ordered Sig/Mary Route PRN Reason Start Time Stop Time Status Last Admin Dose Admin Acetaminophen (Tylenol Tab) 650 mg Q4HP PRN PO MILD PAIN or TEMP > 101 10/12/19 15:00 Enoxaparin Sodium (Lovenox) 40 mg DAILY SC 10/12/19 09:00 10/13/19 09:27 Home Med (Med Rec Complete!) ASDIRECTED XX 10/12/19 09:30 10/12/19 09:28 DC Ketorolac Tromethamine (ToRADol) 15 mg Q6HP PRN IV MILD/MODERATE PAIN (PS 1-7) 10/12/19 15:00 10/17/19 14:59 Lactated Ringer's 1,000 ml @ 100 mls/hr Q10H IV 10/12/19 14:51 10/13/19 09:27 Morphine Sulfate (Morphine Sulfate Inj) 4 mg Q30M PRN IV SEVERE PAIN (PS 8-10) 10/12/19 10:45 10/12/19 15:00 DC 10/12/19 11:18 Morphine Sulfate (Morphine Sulfate Inj) 4 mg Q4H PRN IV SEVERE PAIN (PS 8-10) 10/12/19 15:00 Ondansetron HCl (ZOFRAN INJection) 4 mg Q6HP PRN IV NAUSEA OR VOMITING 10/12/19 15:00 Oxycodone/ Acetaminophen (Percocet 5mg/ 325mg Tablet) 1 tab Q4H PRN PO MILD/MODERATE PAIN (PS 1-7) 10/12/19 15:00 10/13/19 06:33 Oxycodone/ Acetaminophen (Percocet 5mg/ 325mg Tablet) 2 tab Q6H PRN PO SEVERE PAIN (PS 8-10) 10/12/19 15:00 Pantoprazole Sodium (Protonix) 40 mg DAILY IV 10/12/19 09:00 10/13/19 09:27 Senna/Docusate Sodium (Senokot S) 1 tab BID PO 10/12/19 21:00 10/13/19 09:27 Sodium Chloride 1,000 ml @ 125 mls/hr Q8H IV 10/12/19 10:45 10/12/19 10:48 DC Allergies Coded Allergies: No Known Allergies (Unverified , 06/27/15) Objective Physical Examination Examination GENERAL APPEARANCE: Overall looks comfortable. SKIN: Warm and dry. LUNGS: Clear to auscultation bilaterally. No wheezing appreciated. HEART: No chest wall abnormalities. Regular rate and rhythm with no murmurs ap preciated. ABDOMEN: Abdomen is seems little bit more distended, more tympanitic to percussion. Mild discomfort on deep palpation around mid abdomen with no guarding, soft. Vital Signs Vital Signs Date Time Temp Pulse Resp B/P (MAP) Pulse Ox O2 Delivery O2 Flow Rate FiO2 10/13/19 07:03 18 Room Air 10/13/19 06:00 97.7 83 133/61 (85) 95 I&Os I&O- Last 24 Hours up to 6 AM 10/13/19 06:00 Intake Total 2290 ml Output Total 200 ml Balance 2090 ml Laboratory Data Labs 24H Laboratory Tests 2 10/13/19 06:47: Immature Granulocyte % (Auto) 0.5, Neutrophils (%) (Auto) 72.8H, Lymphocytes (%) (Auto) 12.4L, Monocytes (%) (Auto) 12.1H, Eosinophils (%) (Auto) 1.6, Basophils (%) (Auto) 0.6, Neutrophils # (Auto) 6.4, Lymphocytes # (Auto) 1.1L, Monocytes # (Auto) 1.1H, Eosinophils # (Auto) 0.1, Basophils # (Auto) 0.1, Nucleated Red Blood Cells % (auto) 0.0, Anion Gap 6L, Glomerular Filtration Rate 52.5, Calcium Level 9.3 CBC/BMP Laboratory Tests 10/13/19 06:47 Impression Small bowel obstruction from adhesions [place] and she does not require a nasogastric tube for decompression and she is denying any nausea. On the other hand she seems a little bit more distended today. We will await the results of the x-ray. I told her that we may need to repeat the CT. I reviewed the CAT scan results as well as the previous operative report of Dr. Lyle on the diagnostic laparoscopy. Seems like she does have a lot of adhesions both interbowel and into the retroperitoneum and probably in the pelvis which may not be amenable to laparoscopic release. We will continue monitoring. Continue with nothing by mouth. Plan / VTE VTE Prophylaxis Ordered?: Yes RAS MANRIQUE MD Oct 13, 2019 12:57
[2019-10-13 14:08] VITALS: BP 132/61
[2019-10-13 20:26] VITALS: BP 117/57
[2019-10-14 06:48] VITALS: BP 135/64
[2019-10-14] MEDS: LR 1,000 ML IV SCH ×2 (06:52→21:01)
[2019-10-14] MEDS: PANTOPRAZOLE 40MG INJ (PROTONIX) (C9113) IV SCH (08:32)
[2019-10-14] MEDS: SENOKOT S TAB PO SCH ×2 (08:32→21:02)
[2019-10-14] MEDS: ENOXAPARIN 40 MG/0.4 ML SYRINGE (J1650) SC SCH (08:32)
[2019-10-14] MEDS: PERCOCET 5MG/325MG TAB PO PRN ×2 (08:44→16:01)
--- NOTE | 2019-10-14 10:00 | REP ---
Three views abdomen: 10/14/2019. Indication: Small bowel obstruction. Comparison: Yesterday. Findings: Multiple dilated bowel loops and air-fluid levels are redemonstrated. There is no free intraperitoneal air. Multiple surgical clips are present. There is no evidence of organomegaly. Impression: Persistent dilated small bowel loops and air-fluid levels. New small bowel obstruction versus ileus. Electronically Signed by Julio Acharya DO 10/14/2019 09:52 A
[2019-10-14 14:00] VITALS: BP 131/60
[2019-10-14 20:00] VITALS: BP 171/70
[2019-10-14 21:33] VITALS: BP 142/80
[2019-10-15] MEDS: LR 1,000 ML IV SCH (04:00)
[2019-10-15 06:13] VITALS: BP 160/80
[2019-10-15] MEDS: SENOKOT S TAB PO SCH (09:00)
[2019-10-15] MEDS: PANTOPRAZOLE 40MG INJ (PROTONIX) (C9113) IV SCH (09:00)
[2019-10-15] MEDS: ENOXAPARIN 40 MG/0.4 ML SYRINGE (J1650) SC SCH (09:00)
--- NOTE | 2019-10-15 11:53 | REP ---
ABDOMEN SERIES: THREE VIEWS. HISTORY: Followup small bowel obstruction. COMPARISON STUDY: October 14, 2019 FINDINGS: There are air-fluid levels again noted in mildly prominent small bowel loops. There are a few right colonic air-fluid levels and left colonic air-fluid levels visible today as well. There are sutures and clips in the abdomen. Air is seen in the rectum and descending colon. IMPRESSION: Air-fluid levels in mildly prominent small bowel loops persist. There is some gas in the proximal and distal colon with air-fluid levels in the large bowel as well. Electronically Signed by Amandeep Castro MD 10/15/2019 05:01 P
--- NOTE | 2019-10-25 09:48 | DS.PDOC ---
Discharge Summary General Date of Admission Oct 12, 2019 at 14:51 Date of Discharge 10/15/2019 Attending Physician: RAS MANRIQUE MD Discharge Summary PROCEDURES PERFORMED DURING STAY: None. ADMITTING DIAGNOSES: 1. Small bowel obstruction secondary to adhesions. DISCHARGE DIAGNOSES: 1. Small bowel obstruction resolved. COMPLICATIONS/CHIEF COMPLAINT: Small Bowel Obstruction. 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 She felt nauseated and had at least one episode of vomiting. At [facility] was diagnosed to have bowel bostuction on CT and subsequently transferred to our ED. In the ED she felt better although she still has occasional crampy abdominal pain and has not had any vomiting, still felt bloated. Patient has had multiple abdominal surgeries including open aortic surgery of some sort so patient could not recall what the exact nature was. She also has had a hysterectomy performed. She had an elective lysis of adhesions performing Dr. Lyle on 02/14/2019 to hopefully alleviate her bowel obstructions. Since then patient reports at least 2 attacks. One lasted for a few days and she did not go to the hospital. Since being transferred patient continues to complain of bloating, mild cramps but there is no longer nauseated. Her last bowel movement was 4 days ago. Patient reports baseline constipation. HOSPITAL COURSE: Patient was evaluated in the emergency room and noted to be stable. She was already starting to feel better at the time that I saw her, nasogastric tube placement for bowel decompression was held off. She was admitted and given IV fluid hydration. She slowly felt better by the next morning was having a lot less cramping and mild improvement off the abdominal distention. She reports nausea without had resolved at that time. I gave her. Wheezing that she has baseline constipation and she had 4 loose bowel movements that they continue to improve her abdominal distention. She was started on clear liquids which she to lerated and she had additional 2 spontaneous loose bowel movements so following day. She was evaluated by Dr. Lyle the next day and was deemed stable enough to go home and was instructed to maintain soft diet. DISCHARGE MEDICATIONS: Please see below. ALLERGIES: Please see below. PHYSICAL EXAMINATION ON DISCHARGE: VITAL SIGNS: Please see below. GENERAL: Comfortable HEENT: Normocephalic, atraumatic, pink palpebral conjunctiva NECK: Short, supple, no jugular venous distention CARDIOVASCULAR EXAMINATION: Regular heart rate and rhythm without murmurs RESPIRATORY EXAMINATION: Clear breath sounds auscultation bilaterally without wheezing ABDOMINAL EXAMINATION: Obese, round, soft, minimally distended. Nontender on palpation EXTREMITIES: No edema NEUROLOGICAL EXAMINATION: Awake, alert, oriented LABORATORY DATA: Please see below. IMAGING: She had a CT scan abdomen and pelvis performed at an outside hospital. Follow-up x-rays were performed in our institution on October 13, October 14 in 10/15/2019 PROGNOSIS: Good ACTIVITY: As tolerated. DIET: Maintain soft diet until reevaluated in the clinic DISCHARGE PLAN: Patient is instructed to call my office in follow-up within one week's time DISPOSITION: 01 Home, Self-Care. DISCHARGE INSTRUCTIONS: 1. As above. ITEMS TO FOLLOWUP ON ON OUTPATIENT: 1. Symptom check. DISCHARGE CONDITION: Stable. TIME SPENT ON DISCHARGE: Greater than 30 minutes. Discharge Medications Scheduled Amlodipine Besylate (Amlodipine Besylate) 5 Mg Tab, 5 MG PO DAILY, (Reported) Aspirin (Aspirin EC) 81 Mg Tab, 81 MG PO DAILY, (Reported) Clopidogrel Bisulfate (Plavix) 75 Mg Tab, 75 MG PO DAILY, (Reported) Docusate Sodium (Colace) 100 Mg Cap, 100 MG PO DAILY, (Reported) Fluoxetine Hcl (Fluoxetine HCl) 20 Mg Cap, 20 MG PO DAILY, (Reported) Losartan/Hydrochlorothiazide (Losartan-Hctz 100-25 mg Tab) 1 Each Tablet, 1 TAB PO DAILY, (Reported) Pantoprazole Sodium (Pantoprazole Sodium) 40 Mg Tab, 40 MG PO DAILY, (Reported) Spironolactone (Spironolactone) 25 Mg Tab, 25 MG PO DAILY, (Reported) Scheduled PRN Acetaminophen (Acetaminophen) 325 Mg Tablet, 650 MG PO Q4H PRN for PAIN, (Reported) Azelastine HCl (Azelastine HCl) 0.1% [place].pump, 2 SPRAY NARES BID PRN for ALLER GIES, (Reported) Allergies Coded Allergies: No Known Allergies (Unverified , 06/27/15) RAS MANRIQUE MD Oct 25, 2019 09:48
== END 2019-10-15 13:00 | disposition home or self-care (01) | DRG 390 ==
LOC: EDBD 08:06 → M ED 08:06 → M ED INP 14:51 → M MS4PR 16:55
PROVIDERS: ADMIT Surgery; ATTEND Surgery
DX: K56.50 Intestinal adhesions [bands], unspecified as to partial versus complete obstruction (principal); I10 Essential (primary) hypertension; I73.9 Peripheral vascular disease, unspecified; F41.9 Anxiety disorder, unspecified; F32.9 Major depressive disorder, single episode, unspecified; Z87.891 Personal history of nicotine dependence; Z79.899 Other long term (current) drug therapy; Z79.82 Long term (current) use of aspirin

== ENCOUNTER → 2019-10-31 | Outpatient (CLI) | payer MEDICARE, OTHER ==
[~2019-10-31] MED LIST changes: +APAP325T4 PO; +AZEL1SPR3 NARES; +E-Z-PAQUE 96% w/w SUSP 176GM BTL As Ordered ONE; +LOSA100T5 PO
--- NOTE | 2019-10-31 16:58 | REP ---
Small bowel follow-through The procedure was performed under the direct supervision of Dr. Browning. The images were reviewed with Dr. Browning. The lithographic photographer film shows no organomegaly or pathological masses. The intestinal gas pattern is nonspecific. There are multiple surgical clips noted throughout the abdomen. Liquid barium was administered and the barium column was followed through the small bowel to the level of the terminal ileum. Small bowel transit time is approximately 90 minutes . During fluoroscopy gentle palpation shows all loops are freely movable and pliable. There are no fixed or angulated loops. The small bowel mucosal pattern is normal in course and caliber. There is no transition to suggest a partial small bowel obstruction. Spot filming of the terminal ileum shows it to be unremarkable. Impression: Small bowel follow-through examination within normal limits. 1.2 minutes of fluoro time was utilized for this procedure. Electronically Signed by ARNALDO Bansal 10/31/2019 04:49 P Electronically Signed by Carlos Browning MD 10/31/2019 04:49 P
== END ==
LOC: M RAD 08:12
PROVIDERS: ATTEND Surgery
DX: K56.600 Partial intestinal obstruction, unspecified as to cause (principal)

== ENCOUNTER → 2019-12-21 | Outpatient (CLI) | payer MEDICARE, OTHER ==
[~2019-12-21] MED LIST changes: -E-Z-PAQUE 96% w/w SUSP 176GM BTL As Ordered ONE; +FLUO20CA20 PO; -FLUO20CA8 PO
--- NOTE | 2019-12-21 15:42 | REP ---
CT of the chest without IV contrast for follow-up of a single lesion in the right lung: Comparisons are the prior study of 04/05/2019 as well as an outside chest CT dated 01/18/2019. There is a focal ground-glass density in the right lower lobe on image 50 measuring 18 mm in diameter. This is unchanged in size from both prior studies, therefore likely benign. Just inferior to this on image 54 is a stable calcified granuloma in the right lower lobe, also unchanged from both prior studies. There are no other nodules or masses or pleural effusions. There is no mediastinal or axillary lymph node enlargement. The study is insensitive for hilar lymph node enlargement in the absence of IV contrast. The unenhanced thoracic aorta is unremarkable except for calcified atheroma. Cardiac size is normal. There is no pericardial effusion. The visualized upper abdominal contents are unremarkable except for splenic calcified granulomas, unchanged. The adrenals are unremarkable. There is a fixed hiatal hernia with surgical clips along the wall of the hernia, unchanged. Impression: Stable 18 ml ground-glass density in the right lower lobe, unchanged from both prior studies, therefore likely benign. Benign right lower lobe calcified granuloma, unchanged. Hiatal hernia with surgical clips, unchanged. No adenopathy. No acute cardiopulmonary findings. The the Electronically Signed by Carlos Almonte MD 12/21/2019 03:34 P
== END ==
LOC: M RAD 14:35
PROVIDERS: ATTEND Internal Medicine Pulmonary Disease
DX: R91.8 Other nonspecific abnormal finding of lung field (principal); J84.10 Pulmonary fibrosis, unspecified; I70.0 Atherosclerosis of aorta; K44.9 Diaphragmatic hernia without obstruction or gangrene; D73.89 Other diseases of spleen

== ENCOUNTER → 2020-01-19 | Outpatient (CLI) | payer MEDICARE, OTHER ==
--- NOTE | 2020-01-19 10:41 | REP ---
Clinical: Atherosclerotic disease. Screening for abdominal aortic aneurysm. Technique: Real time [place]utch[place] scale ultrasound examination using curved array transducer. Findings: Abdominal aorta demonstrates ectasia without evidence for aneurysm. No periaortic fluid collections are identified. Proximal aorta 2.4 x 2.6 cm. Mid aorta (renal artery level) 1.9 x 2.1 cm. Mid aorta 1.8 x 2.1 cm. Distal aorta 1.8 x 1.7 cm. Right common iliac artery 1.4 cm maximal diameter. Left common iliac artery 1.4 cm maximal diameter. Impression: Proximal ectasia without evidence for aneurysm. Electronically Signed by Shar Edmond MD 01/19/2020 10:32 A
--- NOTE | 2020-01-19 10:53 | REP ---
Bilateral lower extremity arterial Doppler ultrasound: History: Atherosclerotic disease. Claudication. Comparison study May 17, 2019. Ankle brachial indices are measured at 0.93 on the right and 0.62 on the left. Distal abdominal aortic peak systolic flow velocity is normal at the 124 cm/sec. The left common femoral artery is dilated at the left lung of the graft anastomoses as before. There is stenotic elevated flow velocity of 256 and 1 cm/sec at the level of the graft anastomoses at the CF A. Monophasic arterial Doppler waveforms are noted throughout the left lower extremity. Biphasic waveforms are noted on the right to the level of the proximal calf. Via peroneal trunk and distal posterior tibial and anterior tibial artery wave forms are monophasic. Velocity chart right lower extremity arteries: Right KUNAL 130 cm/S E I A 128 CF A 111 Profunda 95 Proximal SFA 100 Mid SFA 92 Distal SFA 79 Popliteal 46 Proximal AT A 57 Tibioperoneal trunk 29 Mid DRY MILL OPERATOR 828 Distal DRY MILL OPERATOR 38 Distal AT A 33 Dorsalis pedis artery 29 Velocity chart left lower extremity arteries: Left KUNAL 151 cm/S E I A 45 CF A 173/251 Profunda 35 Proximal SFA 83 Mid SFA 71 Distal SFA 68 Popliteal 60 Proximal AT A 47 Tibioperoneal trunk 65 Mid DRY MILL OPERATOR 52 Distal DRY MILL OPERATOR 35 Distal AT A 39 Dorsalis pedis 31 Electronically Signed by Amandeep Castro MD 01/19/2020 10:45 A
== END ==
LOC: M RAD 07:40
PROVIDERS: ATTEND Physician Assistant
DX: I70.213 Atherosclerosis of native arteries of extremities with intermittent claudication, bilateral legs (principal); I77.811 Abdominal aortic ectasia; I70.0 Atherosclerosis of aorta

== ENCOUNTER → 2020-03-05 | Outpatient (CLI) | payer MEDICARE, OTHER ==
[~2020-03-05] MED LIST changes: +HEPARIN 1,000 UNITS/ML 10ML VIAL (FOR RADIOLOGY& DIALYSIS ONLY)(J1644-10) As Ordered ONE; +ISOVUE-300 61% 50ML VIAL (Q9967) As Ordered ONE; +LIDOCAINE 1% MDV 20ML VIAL As Ordered ONE; +MIDAZOLAM INJ 2 MG/2 ML VIAL (J2250) As Ordered ONE; +fentaNYL 100 MCG/2 ML INJECTION (J3010) As Ordered ONE
[2020-03-05 09:04] LABS: HEMATOCRIT 37.8 % (36.0-47.0); HEMOGLOBIN 12.2 g/dl (12.0-15.5); MEAN CORPUSCULAR HEMOGLOBIN 30.7 pg (27.0-33.0); MEAN CORPUSCULAR HGB CONC 32.3 g/dl (32.0-36.5); MEAN CORPUSCULAR VOLUME 95.2 fl (80.0-96.0); PLATELET COUNT, AUTOMATED 315 10^3/uL (150-450); RED BLOOD COUNT 3.97 10^6/uL (4.00-5.40); WHITE BLOOD COUNT 7.9 10^3/uL (4.0-10.0)
[2020-03-05 09:15] LABS: INR 1.13; PROTHROMBIN TIME 14.2 SECONDS (11.8-14.0)
[2020-03-05 09:25] LABS: CREATININE FOR GFR 1.08 MG/DL (0.55-1.30); GLOMERULAR FILTRATION RATE 53.1 (>39); POTASSIUM SERUM 3.6 MEQ/L (3.5-5.1)
--- NOTE | 2020-03-05 10:37 | ROOPDOC ---
[facility] Report Of Operation Report of Operation DATE OF PROCEDURE: 03/05/20 PREPROCEDURE DIAGNOSES: 1. Atherosclerosis the [place] vessels with short distance lifestyle limiting claudication and increasing left lower extremity pain 2. Atherosclerosis of arterial non-autologous bypass graft, left femoral anastomosis POSTPROCEDURE DIAGNOSES: Same PROCEDURE: 1. Ultrasound-guided access right common femoral artery 2. Aortoiliofemoral arteriogram with oblique views of the right iliac vessels 3. Bilateral lower extremity runoff 4. Angioplasty right limb of bypass and external iliac artery with a 7 x 100 M ustang balloon 5. Completion arteriogram 6. Mynx closure right common femoral artery SURGEON: Mariano Moody MD ANESTHESIA: Local anesthesia 9 mL lidocaine. Moderate intravenous conscious sedation was supervised by Dr. Moody. The patient was independently monitored by registered nurse assigned to the Department of radiology using automated blood pressure, EKG, and pulse oximetry. The details sedation record is permanently stored in the hospital information system. The following is a presedation record: Start time 09:27, stop time 10:04, Versed 1 mg IV, fentanyl 50 g IV. INDICATION FOR PROCEDURE: This is a very pleasant 74-year-old patient with long- standing profound peripheral vascular disease status post unknown bypass operations in the past. She has had multiple abdominal surgeries so I'm not sure if her abdominal incision is due to an aorto femoral bypass or if it is simply due to her previous abdominal surgeries. She does have an incision in the left groin but not the right, so it is unclear she just had a bifurcated graft with an iliac anastomosis on the right femoral anastomosis on the left or possibly something different. Her surgeries were done a long time ago elsewhere, and she says she has had redo surgeries as well, but she is not sure with the original surgery was. We have a CT scan read from 2016, but no images with the read, and unfortunately the radiologist did not comment on her bypasses. Therefore we plan to access her right common femoral artery and attempt to perform images of the left lower extremity with potential intervention depending on the type of bypass we see, versus only imaging and future open intervention if needed. The patient did quit smoking in the past, which we are very pleased about, so we want to meet her residential with any additional intervention we can provide to help her with her perfusion. She can only walk very short distances and has a long recovery time with her claudication and has had increasing pain in the left lower extremity. We had a long talk about continuing exercise as tolerated, and the patient is willing to do so. She is very compliant in trying hard to improve her situation, but her pain is severe and she can do so little with her claudication limitations. INTERPRETATION: 1. It appears the patient has an aorto bi-limbed bypass with the right limb anastomosed to the distal common iliac artery near the origin of the external iliac artery. There is good flow distal to this in the external iliac artery and hypogastric, but on oblique images it appears there is some heavy posterior wall plaque right in this area. It was unclear if this is flow-limiting, but after angioplasty with a 7 x 100 balloon, we did not know a waist on the balloon and therefore I do not feel she required a stent for this area. The left limb of the bypasses anastomosis to the common femoral artery, and there is about an 80% stenosis at this anastomosis. 2. The right common femoral artery is widely patent and runs off until widely patent profunda and superficial femoral artery with good flow down through the popliteal artery. The tibial disease on the right is profound, as it is on the left. There is significant collateral circulation, but all 3 tibials on the right have heavy disease. The anterior tibial artery is the best flow, and is fairly well patent to the midcalf word occludes and faintly reconstitutes towards the ankle on the dorsal pedis artery. The tibioperoneal trunk is open for a centimeter or 2, then occludes and I do not see significant reconstitution of either the peroneal or the posterior tibial artery although there are dense collaterals throughout the calf that appeared to be perfusing the lower leg and foot. 3. The left common femoral artery distal to the anastomosis is patent and there is good flow into the profunda and the SFA. The popliteal artery is also patent but we see heavy tibial disease again on the left. The anterior tibial artery is again the best of the three-minute occludes by calf and then comes back to collateral circulation towards the ankle. The TP trunk is open for about a centimeter and then occludes but has collateral circulation that trickles down to faintly reperfuse the distal posterior tibial artery and peroneal artery at the ankle. REPORT OF OPERATION: Patient was brought to the angiographic suite in stable condition and placed supine on the fluoroscopic table. Her bilateral groins were prepped and draped in sterile fashion. A timeout was performed. Local anesthesia was administered to skin and subcutaneous tissue over her right common femoral artery and a microneedle was used to access the artery under ultrasound guidance. A wire was passed through this access and the needle was removed. A 4 Sami glide sheath was placed and flushed with saline. A Glidewire and on a flush catheter were advanced into the aorta just distal to the renal arteries and aortoiliofemoral arteriograms with oblique views were performed, please see interpretation above. We attempted to go up and over the bifurcation of the aortobifem bypass graft but were unable to do so, and the physics of this usually make it impossible but we thought we would try to see if we can get better pictures in the left, but were unsuccessful. We therefore advance the catheter as far as we could into the left limb of the aortobifem bypass and ru noff images were performed. Please see interpretation above. We then performed runoff of the right lower extremity through the existing sheath, please see interpretation above. We then exchange the sheath for a 5 Sami sheath and flushed sheath with saline, and then advanced a 7 x 100 [place] balloon across the distal limb of the right side of the bypass and the external iliac artery and with inflation, we did not note a waist in the balloon and I do not think the plaque we see is flow-limiting. We then removed the balloon and after completion images were obtained, we deployed a Mynx closure device under fluoroscopic guidance. Pressure was held for 10 minutes and sterile dressings were applied. The patient tolerated the procedure well and the sedation well, was taken to recovery in stable condition. ESTIMATED BLOOD LOSS: Approximately 2 mL. COMPLICATIONS: None. PLAN: We will see the patient back in clinic to check her groin access site and see how she is feeling. We have discussed with her at length the proper way to pursue an exercise program to help with her distal tibial disease claudication. As for her left common femoral anastomosis stenosis, I believe the patient will require an open revision. It appears that she either has stenosis from the way the graft was anastomosis the artery, new atherosclerosis, or possibly intimal hyperplasia, it is unclear from the images. I do not think a walking program alone will be enough to alleviate her symptoms on the left lower extremity due to this inflow stenosis. However, there is enough flow to keep the graft from clotting in my opinion at this time. Therefore, we will start with a walking program and work towards a revision in the near future. Her tibial disease is severe bilaterally, and may eventually require antegrade procedures to try to open outflow, but I like her to try walking program first. She does have a treadmill and is willing to try, so we will see how far she can get with this before pursuing a more risky antegrade procedure to improve tibial flow. Okay to resume home diet medications. MARIANO MOODY MD Mar 05, 2020 10:37
[2020-03-05 14:23] VITALS: BP 137/65
== END ==
LOC: M IRPRO 08:30
PROVIDERS: ATTEND Surgery Vascular Surgery
DX: I70.213 Atherosclerosis of native arteries of extremities with intermittent claudication, bilateral legs (principal); I70.222 Atherosclerosis of native arteries of extremities with rest pain, left leg; I70.511 Atherosclerosis of nonautologous biological bypass graft(s) of the extremities with intermittent claudication, right leg

== ENCOUNTER → 2020-04-27 | Outpatient (CLI) | payer MEDICARE, OTHER ==
[~2020-04-27] MED LIST changes: -HEPARIN 1,000 UNITS/ML 10ML VIAL (FOR RADIOLOGY& DIALYSIS ONLY)(J1644-10) As Ordered ONE; -ISOVUE-300 61% 50ML VIAL (Q9967) As Ordered ONE; -LIDOCAINE 1% MDV 20ML VIAL As Ordered ONE; -MIDAZOLAM INJ 2 MG/2 ML VIAL (J2250) As Ordered ONE; -fentaNYL 100 MCG/2 ML INJECTION (J3010) As Ordered ONE
--- NOTE | 2020-04-27 15:03 | REP ---
CAROTID ULTRASOUND: Real-time ultrasound evaluation and duplex Doppler interrogation of the extracranial carotid vasculature is performed. There is mild plaquing and narrowing in both carotid bulbs extending into the internal and external carotid arteries. Luminal narrowing is less than 50%. There is no evidence of hemodynamically significant stenosis of either internal carotid artery. Normal flow velocities are seen. The vertebral arteries demonstrate normal direction of flow. RIGHT LEFT Peak systolic velocity ICA 47.1 cm/s 61.7 cm/s End diastolic velocity ICA 19.8 cm/s 18.9 cm/s Peak systolic velocity CCA 75.6 cm/s 90.30 cm/s Peak systolic velocity ECA 113 cm/s 83.8 cm/s ICA/CCA ratio 0.62 0.68 IMPRESSION: Bilateral luminal narrowing of the internal carotid arteries less than 50%. No evidence of hemodynamically significant stenosis. Electronically Signed by Carlos Browning MD 04/27/2020 02:54 P
== END ==
LOC: M RAD 13:50
PROVIDERS: ATTEND Internal Medicine Cardiovascular Disease
DX: R09.89 Other specified symptoms and signs involving the circulatory and respiratory systems (principal); I65.23 Occlusion and stenosis of bilateral carotid arteries; I73.9 Peripheral vascular disease, unspecified

== ENCOUNTER → 2020-07-31 | Outpatient (CLI) | payer MEDICARE, OTHER ==
[~2020-07-31] MED LIST changes: +AMLO1TAB24 PO; -AMLO5TAB6 PO; +ATOR40TA75 PO; +DICY1CAP8 PO; +PANT40TA29 PO; -PANT40TA3 PO; +ZOFR4TAB16 PO
--- NOTE | 2020-08-27 17:27 | REP ---
NON-CONTRAST CHEST CT DATE: 07/31/2020 at 02:22 p.m. CLINICAL: Follow up abnormal lung findings. COMPARISON: 01/18/2020, 12/21/2019. FINDINGS: A part-solid lesion in the apical right lower lobe measures roughly 2.3 cm maximal diameter (image 53) and demonstrates central soft tissue component which may be slightly increased when compared to prior examination. Right hilar adenopathy cannot be excluded. Ongoing chronic emphysematous disease again noted. No effusion. No further consolidation or nodule. Mediastinum demonstrates atherosclerotic changes to the thoracic aorta and coronary arteries without aortic aneurysm or cardiomegaly. No pericardial effusion. A moderate paraesophageal gastric hiatal hernia is noted. Musculoskeletal structures demonstrate age-related degenerative changes. IMPRESSION: * Part-solid lesion in the apical right upper lobe appears slightly more prominent than prior examination. Consider PET CT followup and/or biopsy. * Chronic emphysematous disease with scattered bronchiectasis and scarring, stable. * Moderate stable hiatal hernia. MTDD
== END ==
LOC: M RAD 14:00
PROVIDERS: ATTEND Internal Medicine Pulmonary Disease
DX: R91.8 Other nonspecific abnormal finding of lung field (principal); J43.9 Emphysema, unspecified; K44.9 Diaphragmatic hernia without obstruction or gangrene

== ENCOUNTER 2020-08-19 12:35 | Inpatient (IN) | payer MEDICARE, OTHER ==
[~2020-08-19] VITALS: Ht 162.6 cm; Wt 92.2 kg
[~2020-08-19 12:35] MED LIST changes: -ATOR40TA75 PO; -DICY1CAP8 PO; -ZOFR4TAB16 PO
[2020-08-19 14:25] VITALS: BP 165/72
--- NOTE | 2020-08-19 15:09 | HPEPDOC ---
[facility] Medical History & Physical Date of Admission Aug 19, 2020 Date of Service: Aug 19, 2020 Attending Physician: SHEREE HILL MD History and Physical CHIEF COMPLAINT: DIARRHEA HISTORY OF PRESENT ILLNESS: 75 yo F with a hx of numerous abdominal surgeries and SBOs, HTN, depresion, anxiety and PVD, presenting to [facility] as a direct transfer [facility] due to persistent nausea and vomiting which started at approximately 1800 yesterday evening. Patient states that she ate at a baby shower, some calzone, chicken wings, and started vomiting and having profuse diarrhea which at first contained stool and progressed to watery consistency. She denies blood in vomitus or stool, denies hx of dark stools. She endorses moderate to severe epigastric as well as LUQ and RUQ pain. She is feeling chills. Denies palpitations, shortness of breath. Reviewed [facility] records. On arrival to ED BP 168/109, HR 116, RR 23, SpO2 97% on RA, T 97.1. WBC 17.2, neut 88%, Hgb 14.0, Hct 41.9, PLT 359. LA 6.0. AG 21. CL 94 CO2, BUN 23. Lipase and amylase wnl. Trop 0.01. EKG NSR. CT abdo pelvis wo contrast was performed, no acute findings incl SBO. Admitted to Med/Surg for treatment of acute volume depletion 2/2 vomiting and diarrhea likely related to gastroenteritis. PAST MEDICAL HISTORY: 1. Peripheral vascular disease. 2. Hypertension 3. Anxiety 4. Depression. 5. Hammer's Esophagus PAST SURGICAL HISTORY: 1. Tubal ligation 1973 2. Leg bypass in 1985, 1988, 1999 3. Gastric sleeve 2012 4. Hysterectomy 2013 5. Laparoscopic cholecystectomy 2017 6. Laparoscopic lysis of adhesion 2018 7. Aortic surgery. SOCIAL HISTORY: 1. Former smoker, quit ~30 years ago 2. Occasional etoh use 3. Denies illicit drug use FAMILY HISTORY: no family history of HTN, CAD, cancer ALLERGIES: Please see below. REVIEW OF SYSTEMS: CONSTITUTIONAL: denies fevers, chills, HEENT: denies vision changes CARDIOVASCULAR: denies chest pain, palpitations. RESPIRATORY: denies cough, shortness of breath. GASTROINTESTINAL: reports diarrhea, abdominal pain GENITOURINARY: denies dysuria, discharge. SKIN: denies rashes. MUSCULOSKELETAL: denies joint pain. NEUROLOGICAL: denies focal neurological weakness, numbness, headache, seizures. PSYCHIATRIC: denies active SI, plan. HOME MEDICATIONS: Please see below. PHYSICAL EXAMINATION: General: NAD, comfortable HEENT: PERRLA, EOMI, sclerae clear Neck: supple, normal ROM, no JVD Resp: lungs CTAB, no wheeze, no rales, no crackles CVS: RRR, normal S1, S2, no murmurs Abdo: moderate to severe pain in epigastriu, LUQ and RUQ. soft, no masses, no hepatosplenomegaly, BS+, no rebound tenderness, no involuntary guarding Extremities: no edema, pulses 2+ MSK: no joint deformities, normal ROM Neuro: no focal neuro deficits, moving all 4 extremities Psych: calm, cooperative, AAO x 3 LABORATORY DATA: See below. IMAGING: (08/19/20) [facility] CT abdo wo contrast: no acute intraabdominal pathology. MICROBIOLOGY: Please see below. ASSESSMENT: 75 yo F with a hx . PLAN: 75 yo F with a hx of numerous abdominal surgeries and SBOs, HTN, depresion, anxiety and PVD, presenting to [facility] as a direct transfer [facility] due to persistent nausea and vomiting. Hypovolemic secondary to GI losses, likely gastroenteritis. #Gastritis - obtain GI pane - IVF LR - Zofran prn for vomiting - CLD, AAT - labs reviewed, WBC 10.5 - at this stage, do not believe antibiotics to be warranted, will monitor overnight for fevers. - c/w fluid repletion #Hypovolemia 2/2 gastroenteritis - IVF LR 150 cc/hr - repeat LA (LA 6.0 in [facility] this morning) --> 1.5 - extra IVF boluses as needed - repeat BMP in am - does not meet SIRS criteria #HTN: - continue home meds - losartan 100 mg daily - amlodipine 5 mg daily - spironolactone 25 mg daily #GERD/Hammer's Esophagus - PPI daily #Chest pain - trop, EKG negative at OSH - repeat trop, EKG - resolved #Hx of Angina? - states follows with Dr. Crook - last stress test 4 months ago, reports normal - attempt to obtain records in the morning - check lipid panel - takes atorvastatin 40 mg qhs at home, resume #PVD: - takes ASA/plavix - gabapentin 300 mg daily - being followed by Dr. Moody as outpatient - being planned for Fem/Fem bypass in [facility] in near future #Depression - continue home med - fluoxetine 20 mg daily PO DVT ppx: lovenox 40 mg SC daily, TEDs, SCDs Admited for OBS Dispo: home upon medical clearance Home Medications Scheduled Amlodipine Besylate (Amlodipine Besylate) 5 Mg Tab, 5 MG PO DAILY Aspirin (Aspirin EC) 81 Mg Tab, 81 MG PO DAILY Atorvastatin Calcium (Atorvastatin Calcium) 40 Mg Tablet, 40 MG PO QHS Clopidogrel Bisulfate (Plavix) 75 Mg Tab, 75 MG PO DAILY Dicyclomine HCl (Dicyclomine HCl) 10 Mg Capsule, 10 MG PO BID Docusate Sodium (Colace) 100 Mg Cap, 100 MG PO DAILY Fluoxetine Hcl (Fluoxetine HCl) 20 Mg Cap, 20 MG PO DAILY Losartan/Hydrochlorothiazide (Losartan-Hctz 100-25 mg Tab) 1 Each Tablet, 1 TAB PO DAILY Pantoprazole Sodium (Pantoprazole Sodium) 40 Mg Tab, 40 MG PO DAILY Spironolactone (Spironolactone) 25 Mg Tab, 25 MG PO DAILY Scheduled PRN Acetaminophen (Acetaminophen) 325 Mg Tablet, 650 MG PO Q4H PRN for PAIN Azelastine HCl (Azelastine HCl) 0.1% [place].pump, 2 SPRAY NARES BID PRN for ALLERGIES Ondansetron HCl (Zofran) 4 Mg Tablet, 4 MG PO Q6-8HP PRN for nausea/vomiting Allergies Coded Allergies: No Known Allergies (Unverified , 06/27/15) A-FIB/CHADSVASC A-FIB History Current/History of A-Fib/PAF?: No Current PO Anticoag Therapy: No SHEREE HILL MD Aug 19, 2020 15:09
[2020-08-19] MEDS ORDERED: ONDANSETRON 4MG/2ML VIAL IV PRN (15:15)
[2020-08-19] MEDS ORDERED: ATOR40TA75 PO (15:31)
[2020-08-19 17:00] LABS: BASO % 0.2 % (0.0-1.0); EOS % 0.4 % (0.0-3.0); HEMATOCRIT 34.5 % (36.0-47.0); HEMOGLOBIN 11.2 g/dl (12.0-15.5); LYMPH # 1.6 10^3/uL (1.5-5.0); LYMPH % 14.4 % (24.0-44.0); MEAN CORPUSCULAR HEMOGLOBIN 30.4 pg (27.0-33.0); MEAN CORPUSCULAR HGB CONC 32.5 g/dl (32.0-36.5); MEAN CORPUSCULAR VOLUME 93.8 fl (80.0-96.0); MONO # 1.1 10^3/uL (0.0-0.8); MONO % 10.4 % (0.0-5.0); NEUTROPHILS # 8.1 10^3/uL (1.5-8.5); NEUTROPHILS % 74.1 % (36.0-66.0); PLATELET COUNT, AUTOMATED 286 10^3/uL (150-450); RED BLOOD COUNT 3.68 10^6/uL (4.00-5.40); WHITE BLOOD COUNT 10.9 10^3/uL (4.0-10.0)
[2020-08-19] MEDS: LR 1,000 ML IV SCH ×2 (17:03→23:51)
[2020-08-19 17:20] LABS: ALBUMIN 3.3 GM/DL (3.2-5.2); BILIRUBIN,TOTAL 0.3 MG/DL (0.2-1.0); CALCIUM LEVEL 8.4 MG/DL (8.8-10.2); CREATININE FOR GFR 0.99 MG/DL (0.55-1.30); GLOMERULAR FILTRATION RATE 58.5 (>39); MAGNESIUM LEVEL 1.9 MG/DL (1.8-2.4); POTASSIUM SERUM 3.9 MEQ/L (3.5-5.1); TOTAL PROTEIN 6.7 GM/DL (6.4-8.2)
[2020-08-19] MEDS ORDERED: ACETAMINOPHEN TAB 650MG DOSE (2X325MG) PO PRN (18:30)
[2020-08-19] MEDS: amLODIPine 5 MG TAB PO SCH (18:40)
[2020-08-19] MEDS ORDERED: ATORVASTATIN 20 MG TAB PO SCH (21:00)
[2020-08-19 22:00] VITALS: BP 128/68
[2020-08-20 06:00] VITALS: BP 106/50
[2020-08-20] MEDS: LR 1,000 ML IV SCH ×2 (06:39→13:23)
[2020-08-20 06:52] LABS: BASO % 0.5 % (0.0-1.0); EOS # 0.2 10^3/uL (0.0-0.5); EOS % 2.4 % (0.0-3.0); HEMATOCRIT 31.3 % (36.0-47.0); HEMOGLOBIN 10.4 g/dl (12.0-15.5); LYMPH # 1.4 10^3/uL (1.5-5.0); MEAN CORPUSCULAR HEMOGLOBIN 31.2 pg (27.0-33.0); MEAN CORPUSCULAR HGB CONC 33.2 g/dl (32.0-36.5); MONO # 0.9 10^3/uL (0.0-0.8); MONO % 11.4 % (0.0-5.0); NEUTROPHILS % 66.4 % (36.0-66.0); PLATELET COUNT, AUTOMATED 251 10^3/uL (150-450); RED BLOOD COUNT 3.33 10^6/uL (4.00-5.40); WHITE BLOOD COUNT 7.5 10^3/uL (4.0-10.0)
[2020-08-20 07:17] LABS: ALBUMIN 2.8 GM/DL (3.2-5.2); ALT/SGPT 14 U/L (12-78); BILIRUBIN,TOTAL 0.4 MG/DL (0.2-1.0); BLOOD UREA NITROGEN 14 MG/DL (7-18); CALCIUM LEVEL 8.6 MG/DL (8.8-10.2); CARBON DIOXIDE LEVEL 29 MEQ/L (21-32); CHLORIDE LEVEL 107 MEQ/L (98-107); CHOLESTEROL LEVEL 100 MG/DL (<200); CHOLESTEROL RISK RATIO 2.222 (<5); CREATININE FOR GFR 0.85 MG/DL (0.55-1.30); GLOMERULAR FILTRATION RATE > 60.0 (>39); GLUCOSE, FASTING 88 MG/DL (70-100); HDL CHOLESTEROL 45 MG/DL (>40); LDL CHOLESTEROL 38 MG/DL (<100); MAGNESIUM LEVEL 1.9 MG/DL (1.8-2.4); NON-HDL-C 55 MG/DL; POTASSIUM SERUM 3.7 MEQ/L (3.5-5.1); SODIUM LEVEL 139 MEQ/L (136-145); TRIGLYCERIDES LEVEL 86 MG/DL (<150)
[2020-08-20] MEDS ORDERED: PANTOPRAZOLE 40MG TAB (PROTONIX) PO SCH (09:00)
[2020-08-20] MEDS ORDERED: ENOXAPARIN 40MG/0.4ML SYRINGE (J1650 PER 10MG) SC SCH (09:00)
[2020-08-20] MEDS ORDERED: ASPIRIN 81 MG ENTERIC TAB PO SCH (09:00)
[2020-08-20] MEDS ORDERED: FLUoxetine 20 MG CAP PO SCH (09:00)
[2020-08-20] MEDS ORDERED: SPIRONOLACTONE 25 MG TAB PO SCH (09:00)
[2020-08-20] MEDS ORDERED: DOCUSATE SODIUM 100 MG CAP PO SCH (09:00)
[2020-08-20] MEDS ORDERED: CLOPIDOGREL 75 MG TAB PO SCH (09:00)
[2020-08-20 09:36] VITALS: BP 128/66
[2020-08-20] MEDS: amLODIPine 5 MG TAB PO SCH (09:36)
[2020-08-20 14:00] VITALS: BP 133/62
[2020-08-20] MEDS ORDERED: DICYCLOMINE 10 MG CAP PO SCH (15:00)
[2020-08-20] MEDS ORDERED: ZOFR4TAB16 PO (15:53)
[2020-08-20] MEDS ORDERED: DICY1CAP8 PO (15:53)
--- NOTE | 2020-08-20 16:33 | DS.PDOC ---
Discharge Summary General Date of Admission Aug 19, 2020 at 14:15 Date of Discharge 08/20/2020 Attending Physician: SHEREE HILL MD Discharge Summary PROCEDURES PERFORMED DURING STAY: [None]. ADMITTING DIAGNOSES: Gastritis Hypovolemia secondary to gastroenteritis Hypertension GERD Hammer's Esophagus Chest pain PVD Depression DISCHARGE DIAGNOSES: Gastritis Hypovolemia secondary to gastroenteritis Hypertension GERD Hammer's Esophagus Chest pain PVD Depression COMPLICATIONS/CHIEF COMPLAINT: Vomiting Diarrhea. HISTORY OF PRESENT ILLNESS: 75 yo F with a hx of numerous abdominal surgeries and SBOs, HTN, depresion, anxiety and PVD, presenting to [facility] as a direct [facility] due to persistent nausea and vomiting which started at approximately 1800 yesterday evening. Patient states that she ate at a baby shower, some calzone, chicken wings, and started vomiting and having profuse diarrhea which at first contained stool and progressed to watery consistency. She denies blood in vomitus or stool, denies hx of dark stools. She endorses moderate to severe epigastric as well as LUQ and RUQ pain. She is feeling chills. Denies palpitations, shortness of breath. Reviewed [facility] records. On arrival to ED BP 168/109, HR 116, RR 23, SpO2 97% on RA, T 97.1. WBC 17.2, neut 88%, Hgb 14.0, Hct 41.9, PLT 359. LA 6.0. AG 21. CL 94 CO2, BUN 23. Lipase and amylase wnl. Trop 0.01. EKG NSR. CT abdo pelvis wo contrast was performed, no acute findings incl SBO. Admitted to Med/Surg for treatment of acute volume depletion 2/2 vomiting and diarrhea likely related to gastroenteritis. HOSPITAL COURSE: #Gastritis #Gastroenteritis - GI panel negative - IVF LR - Zofran prn for vomiting - diet gradually advanced, tolerating regular diet on DC - labs reviewed, WBC 10.5 #Hypovolemia 2/2 gastroenteritis - IVF LR 150 cc/hr - repeat LA (LA 6.0 in [facility] this morning) --> 1.5 - extra IVF boluses as needed #HTN: - continue home meds - losartan 100 mg daily - amlodipine 5 mg daily - spironolactone 25 mg daily #GERD/Hammer's Esophagus - PPI daily #Chest pain - trop, EKG negative at OSH - repeat trop, EKG - resolved #Hx of Angina - states follows with Dr. Crook - last stress test 4 months ago, reports normal - takes atorvastatin 40 mg qhs at home, resume #PVD: - takes ASA/plavix - gabapentin 300 mg daily - being followed by Dr. Moody as outpatient - being planned for Fem/Fem bypass in [facility] in near future #Depression - continue home med - fluoxetine 20 mg daily PO DISCHARGE MEDICATIONS: Please see below. ALLERGIES: Please see below. PHYSICAL EXAMINATION ON DISCHARGE: VITAL SIGNS: Please see below. HEENT: PERRLA, EOMI, sclerae clear Neck: supple, normal ROM, no JVD Resp: lungs CTAB, no wheeze, no rales, no crackles CVS: RRR, normal S1, S2, no murmurs Abdo: mild pain in epigastrium, LUQ and RUQ. soft, no masses, no hepatosplenomegaly, BS+, no rebound tenderness, no involuntary guarding Extremities: no edema, pulses 2+ MSK: no joint deformities, normal ROM Neuro: no focal neuro deficits, moving all 4 extremities Psych: calm, cooperative, AAO x 3 LABORATORY DATA: Please see below. IMAGING: (08/19/20) [facility] CT abdo wo contrast: no acute intraabdominal pathology. PROGNOSIS: good ACTIVITY: [As tolerated]. DIET: as tolerated DISCHARGE PLAN: home with PCP follow up DISPOSITION: home DISCHARGE INSTRUCTIONS: 1. follow up with PCP in 3-5 days 2. take medications as prescribed 3. if you develop severe abdominal pain, nausea, vomiting, chest pain, seizure or otherwise worsening of your symptoms, please call 911 or return to the nearest ED. ITEMS TO FOLLOWUP ON ON OUTPATIENT: 1. Tolerating PO DISCHARGE CONDITION: [Stable]. TIME SPENT ON DISCHARGE: Greater than minutes. Vital Signs/I&Os Vital Signs Date Time Temp Pulse Resp B/P (MAP) Pulse Ox O2 Delivery O2 Flow Rate FiO2 08/20/20 14:00 98.1 75 16 133/62 (85) 95 Room Air I&O- Last 24 Hours up to 6 AM 08/20/20 06:00 Intake Total 750 ml Output Total 1000 ml Balance -250 ml Laboratory Data Labs 24H Laboratory Tests 2 08/20/20 06:06: Immature Granulocyte % (Auto) 0.3, Neutrophils (%) (Auto) 66.4H, Lymphocytes (%) (Auto) 19.0L, Monocytes (%) (Auto) 11.4H, Eosinophils (%) (Auto) 2.4, Basophils (%) (Auto) 0.5, Neutrophils # (Auto) 5.0, Lymphocytes # (Auto) 1.4L, Monocytes # (Auto) 0.9H, Eosinophils # (Auto) 0.2, Basophils # (Auto) 0.0, Nucleated Red Blood Cells % (auto) 0.0, Anion Gap 3L, Glomerular Filtration Rate > 60.0, Calcium Level 8.6L, Magnesium Level 1.9, Total Bilirubin 0.4, Aspartate Amino Transf (AST/SGOT) 9, Alanine Aminotransferase (ALT/SGPT) 14, Alkaline Phosphatase 74, Total Protein 6.0L, Albumin 2.8L, Albumin/Globulin Ratio 0.9L, Triglycerides Level 86, Total Cholesterol 100, LDL Cholesterol 38, Non-HDL Cholesterol (LDL + VLDL) 55, Total HDL Cholesterol 45, Cholesterol/HDL Ratio 2.222 CBC/BMP Laboratory Tests 08/20/20 06:06 Microbiology Microbiology 08/20/20 Stool Occult Blood ([facility]) - Final, Complete 08/20/20 Gastrointestinal Tract Panel (PCR), Received Pending Discharge Medications Scheduled Amlodipine Besylate (Amlodipine Besylate) 5 Mg Tab, 5 MG PO DAILY, (Reported) Aspirin (Aspirin EC) 81 Mg Tab, 81 MG PO DAILY, (Reported) Atorvastatin Calcium (Atorvastatin Calcium) 40 Mg Tablet, 40 MG PO QHS, (Reported) Clopidogrel Bisulfate (Plavix) 75 Mg Tab, 75 MG PO DAILY, (Reported) Dicyclomine HCl (Dicyclomine HCl) 10 Mg Capsule, 10 MG PO BID Docusate Sodium (Colace) 100 Mg Cap, 100 MG PO DAILY, (Reported) Fluoxetine Hcl (Fluoxetine HCl) 20 Mg Cap, 20 MG PO DAILY, (Reported) Losartan/Hydrochlorothiazide (Losartan-Hctz 100-25 mg Tab) 1 Each Tablet, 1 TAB PO DAILY, (Reported) Pantoprazole Sodium (Pantoprazole Sodium) 40 Mg Tab, 40 MG PO DAILY, (Reported) Spironolactone (Spironolactone) 25 Mg Tab, 25 MG PO DAILY, (Reported) Scheduled PRN Acetaminophen (Acetaminophen) 325 Mg Tablet, 650 MG PO Q4H PRN for PAIN, (Reported) Azelastine HCl (Azelastine HCl) 0.1% [place].pump, 2 SPRAY NARES BID PRN for ALLERGIES, (Reported) Ondansetron HCl (Zofran) 4 Mg Tablet, 4 MG PO Q6-8HP PRN for nausea/vomiting Allergies Coded Allergies: No Known Allergies (Unverified , 06/27/15) SHEREE HILL MD Aug 20, 2020 16:33
--- NOTE | 2020-08-21 06:16 | ECGEPIP ---
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
== END 2020-08-20 18:26 | disposition home or self-care (01) | DRG 392 ==
LOC: M MSPAV 14:15
PROVIDERS: ADMIT Internal Medicine; ATTEND Family Medicine
DX: K52.9 Noninfective gastroenteritis and colitis, unspecified (principal); I10 Essential (primary) hypertension; E86.1 Hypovolemia; Z79.899 Other long term (current) drug therapy; Z79.82 Long term (current) use of aspirin; F32.9 Major depressive disorder, single episode, unspecified; F41.9 Anxiety disorder, unspecified; Z87.891 Personal history of nicotine dependence; K22.70 Barrett's esophagus without dysplasia; I73.9 Peripheral vascular disease, unspecified; K21.9 Gastro-esophageal reflux disease without esophagitis

== ENCOUNTER → 2020-10-01 | Outpatient (CLI) | payer MEDICARE, OTHER ==
[~2020-10-01] MED LIST changes: +ATOR40TA75 PO; +DICY1CAP8 PO; +ISOVUE-370 76% 100ML VIAL As Ordered ONE; +ZOFR4TAB16 PO
--- NOTE | 2020-10-01 11:37 | REP ---
INDICATION: ATHSCL NONAUT BIO BYPASS OF EXTRM W/ CLAUDICATION. COMPARISON: 07/31/2020 01/18/2020 TECHNIQUE: Bolus of 100 mL Isovue 370 scanning to the chest with coronal and sagittal reconstructions FINDINGS: Lungs are less well inflated than on the previous study smaller lying interstitial fibrotic change in dependent atelectatic change peripherally and in the bases respectively. Ground-glass opacity lateral basal segment of the right lower lobe is again seen. Is similar in size to the 07/31/2020 exam a smaller solid component adjacent to it appears to be 6.5 mm, not much changed. No effusion, pleural-based mass or calcifications. No pneumothorax or no infiltrates. No other masses or opacities. Heart size unchanged. Specific chamber enlargement. The aorta shows calcification without aneurysm or dissection. The main, right and left pulmonary arteries and mediastinum were unremarkable. The lobar and visible segmental pulmonary arteries are without any definite filling defects or vessel cut off. There is no mediastinal, hilar, axillary or supraclavicular pathologic sized adenopathy. Bones show diffuse degenerative disc changes with disc space narrowing and marginal osteophytes throughout the thoracic spine but no compression deformity or destructive lesion. Medial clavicles, left AC joint and visualized scapula as well as ribs were unremarkable. A moderate-sized hiatal hernia again seen. Upper abdominal structures will be described in the CT abdomen report IMPRESSION: 1. There is no aortic aneurysm or dissection on this CT angiogram. The central mediastinal, hilar, lobar and segmental pulmonary arteries are without filling defects. 2. Chronic interstitial and fibrotic changes in the lung iglesias with ground-glass opacity and a smaller solid nodule lower component in the lateral basal segment right lower lobe unchanged from 07/31/2020. Ground-glass component seen as far back as 01/18/2019, the more solid nodular component to this opacity was new on the 08/19 study compared to the 01/19 study. Neoplasm not excluded. <Electronically signed by Jb Flowers > 10/01/20 [id number]
--- NOTE | 2020-10-01 12:40 | REP ---
INDICATION: ATHSCL NONAUT BIO BYPASS OF EXTRM W/ CLAUDICATION FILE RM COMPARISON: CT 01/18/2019, CTA 05/22/2016 TECHNIQUE: CT angiogram of the abdomen and pelvis was performed with intravenous administration of 100 cc of Isovue 370, without oral contrast. 3D MIP reconstruction images performed. FINDINGS: Abdominal aorta: There is no evidence of abdominal aortic aneurysm or dissection. Scattered small atherosclerotic calcifications in the aorta. There are multiple surgical clips adjacent to the aorta in the appearance unchanged from the outside CT 01/18/[address] angio 05/22/2016. There is some mild calcification of the origins of the celiac axis and SMA with minimal narrowing of those origins, stable. Likewise calcifications in the proximal renal arteries at their origins noted with mild narrowing on the left, less than 50%. Appears to be a left external iliac to femoral graft unchanged. Surgical clips and heavier calcifications at the anastomosis are stable. The right common and external iliac arteries were unremarkable. The right common femoral artery is unremarkable. These vessels are similar in diameter in the right and left groin below the anastomosis. Contrast density is symmetric on both sides. Lung bases: Some minor basilar fibrotic changes are noted, stable heart size unchanged. Moderate-sized hiatal hernia and surgical clips from prior gastric bypass noted. Liver: Normal Gallbladder: Surgically absent. Spleen: Normal. Adrenals: Slight thickening of adrenal limbs suggesting some mild adrenal hyperplasia. No mass. Pancreas: Normal. Kidneys: There is lobation evident without hydronephrosis, mass or stone. Some cortical thinning on the left interpolar region stable. No hydronephrosis Small and large bowel: Small bowel loops unremarkable. Colon with a few scattered diverticula on the left but no signs of colitis diverticulitis stricture or mass. Free fluid: None Adenopathy: None. Appendix: Not inflamed. Pelvis: Status post hysterectomy, no mass. No ventral or inguinal hernia. Osseous structures: Degenerative disc and facet arthritic changes noted in the lumbar and thoracic spine. No compression deformity. Degenerative changes pelvis hips and left greater than right SI joint stable. IMPRESSION: Postsurgical changes left external iliac to common femoral bypass graft with surgical clips in the inguinal region patency of vessel in graft and symmetric appearance of the common femoral and profunda femoral arteries both sides. Stable atherosclerotic calcifications aorta and origin of abdominal arteries with less than 50% stenosis left renal artery as before no significant stenosis celiac axis and SMA takeoff. The chronic changes left kidney with some cortical thinning interpolar region. No new findings Chronic degenerative changes of the spine pelvis stable. <Electronically signed by Jb Flowers > 10/01/20 [id number]
== END ==
LOC: M RAD 09:10
PROVIDERS: ATTEND Surgery Vascular Surgery
DX: I70.512 Atherosclerosis of nonautologous biological bypass graft(s) of the extremities with intermittent claudication, left leg (principal)
CPT/HCPCS: 71275; 74174; Q9967

== ENCOUNTER 2020-12-10 10:00 | Inpatient (IN) | payer MEDICARE, OTHER ==
--- NOTE | 2020-12-07 09:59 | HPEPDOC ---
[facility] Medical History & Physical Date of Admission Dec 17, 2020 Date of Service: Dec 17, 2020 History and Physical HISTORY OF PRESENT ILLNESS: The patient is a 75-year-old female with long- standing atherosclerosis of the [place] arteries and a history of aortobifemoral bypass with stenosis of the left limb of the bypass at the anastomosis with the left common femoral artery. The patient continues to report lifestyle limiting claudication. Plan is to proceed with revision of the femoral aspect of her iliofemoral bypass, new endarterectomy with patch angioplasty and a re- anastomosis of the distal graft as per Dr. Moody 12/17/20. PAST MEDICAL HISTORY: Hypertension Anxiety Depression Dyslipidemia GERD Obesity. BMI 39.5 PAST SURGICAL HISTORY: Tubal ligation 1974 Bypass procedures 1985, 1988, 1999 Gastric sleeve 2013 Hysterectomy 2013 Laparoscopic cholecystectomy 2017 Laparoscopic lysis of adhesions 2018 Left lower extremity arteriogram 03/05/[address] Moody SOCIAL HISTORY: Former smoker FAMILY HISTORY: Father with history of rheumatic fever, sister with history of lung cancer ALLERGIES: Please see below. REVIEW OF SYSTEMS: As noted in HPI otherwise 10 point review of systems unremarkable. HOME MEDICATIONS: Please see below. PHYSICAL EXAMINATION: GENERAL APPEARANCE: NAD HEENT:MMM CARDIOVASCULAR: RRR. LUNGS:CTA ABDOMEN: Soft, nontender EXTREMITIES: Gait steady, distal pulses not palpable but strong Doppler signals present right DP and PT, monophasic signals present left DP and PT. Feet are warm and well-perfused and no ulcers are noted. NEUROLOGICAL: Alert and oriented x3, moves all extremities equally, no focal neurologic deficits noted. 10/01/20 CTA of the chest reveals widely patent left subclavian axillary arterial system, with good runoff, which would be adequate inflow for a left axillopro jamal bypass. CT of the abdomen and pelvis shows good inflow through the proximal aspect of the left iliac bypass graft, but stenosis at the femoral anastomosis and within the femoral vessel near the anastomosis. ASSESSMENT/PLAN: 75 yo female with long-standing atherosclerosis of the [place] arteries and a history of aortobifemoral bypass with stenosis of the left limb of the bypass at the anastomosis with the left common femoral artery. The patient continues to report lifestyle limiting claudication. Plan is to proceed with revision of the femoral aspect of her iliofemoral bypass, new endarterectomy with patch angioplasty and a re-anastomosis of the distal graft as per Dr. Moody 12/17/20. The procedure, risks, benefits and alternatives have been reviewed with the patient as per Dr. Moody. Informed consent is obtained and placed with the chart. Transfusion consent is obtained and placed in the chart. Medical clearance has been requested and will be placed with the chart. Cardiac clearance and stress test has been requested and will be placed with the chart. NPO IV fluids as per anesthesia. Admission labs to include CBC, BMP, INR, PTT, type and screen Ancef 2 g IV preoperatively. Patient is advised not to hold aspirin. The pt is instructed to hold Plavix 5 days prior to surgery. Continue statin. Vital Signs Admission vital signs pending. Laboratory Data Labs 24H Admission labs pending. Home Medications Scheduled Amlodipine Besylate (Amlodipine Besylate) 5 Mg Tab, 5 MG PO DAILY Aspirin (Aspirin EC) 81 Mg Tab, 81 MG PO DAILY Atorvastatin Calcium (Atorvastatin Calcium) 40 Mg Tablet, 40 MG PO QHS Bifidobacterium Infantis (Align) 10.5 Mg Tab.chew, 1 TAB PO DAILY Biotin (Biotin) 1 Mg Capsule, 1 MG PO DAILY Cholecalciferol (Vitamin D3) (Vitamin D3) 1,000 Unit Tablet, 1,000 UNITS PO DAILY Clopidogrel Bisulfate (Plavix) 75 Mg Tab, 75 MG PO DAILY Docusate Sodium (Colace) 100 Mg Cap, 100 MG PO DAILY Fluoxetine Hcl (Fluoxetine HCl) 20 Mg Cap, 20 MG PO DAILY Losartan/Hydrochlorothiazide (Losartan-Hctz 100-25 mg Tab) 1 Each Tablet, 1 TAB PO DAILY Multivitamins (Thera M Plus Tablet) 1 Each Tablet, 1 TAB PO QAM Pantoprazole Sodium (Pantoprazole Sodium) 40 Mg Tab, 40 MG PO DAILY Spironolactone (Spironolactone) 25 Mg Tab, 25 MG PO DAILY Scheduled PRN Acetaminophen (Acetaminophen) 325 Mg Tablet, 650 MG PO Q4H PRN for PAIN Azelastine HCl (Azelastine HCl) 0.1% [place].pump, 2 SPRAY NARES BID PRN for ALLERGIES Allergies Coded Allergies: No Known Allergies (Unverified , 12/04/20) A-FIB/CHADSVASC A-FIB History Current/History of A-Fib/PAF?: No Sara Alexandra Dec 07, 2020 09:33
[~2020-12-10] VITALS: Ht 162.6 cm; Wt 104.3 kg
[~2020-12-10 10:00] MED LIST changes: +ALIG10.5 PO; +BIOT1CAP2 PO; +D31000TA2 PO; +GABA-282 PO; -GABA-843 PO; -ISOVUE-370 76% 100ML VIAL As Ordered ONE; +VITMTA PO
[2020-12-17] VITALS (8 sets, daily range): BP systolic 119–131; BP diastolic 51–67
--- OUTSIDE RECORDS SUMMARY | 2020-12-17 06:20 | CCD | Continuity of Care Document ---
Author Author Nicci BRANHAM PA Organization Unknown Address [address] [place] [address] Phone [phone] Care Team Providers Care Cold Working Supervisor Name Role Phone Fernando Wilkerson MD AUTM [phone] Bert Warner DO AUTM [phone] Mateo Crook MD AUTM [phone] Shar Tolbert MD AUTM [phone] Denis Blanca MD AUTM [phone] Israel Montenegro MD AUTM [phone] Parag Beckwith MD AUTM [phone] Problems Active Problems Provider Date Essential hypertension Andre Collins M.D. Onset: 05/2011 Mixed hyperlipidemia Andre Collins M.D. Onset: 03/06 Morbid obesity Andre Collins M.D. Onset: 2010 Gastroesophageal reflux disease Andre Collins M.D. O nset: 03/06/2011 Peripheral vascular disease Andre Collins M.D. Onset : 03/06/2011 Varicose veins of lower extremity with inflammation Rivka Collins M.D. Onset: 03/06/2011 Adjustment disorder with depressed mood Andre Collins M.D. Onset: 03/06/2011 Carcinoma in situ of uterus Andre Collins M.D. Onset : 03/15/2012 Degeneration of lumbar intervertebral disc Guido Collins M.D. Onset: 03/15/2012 History of bypass of stomach Andre Collins M.D. 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 Tobacco Use Start: Unknown Never Used Smokeless Tobacco ETOH Use Occasionally consumes alcohol Tobacco Use Start: Unknown End: Unknown Patient is a former smoker 1987 Recreational Drug Use Denies Drug Use Smoking Status Reviewed: 12/06/20 Patient is a former smoker qu it 1987 Exercise Type/Frequency Exercises regularly Sun Exposure Use less than 15 SPF Seat Belt/Car Seat Always uses seat belt Smoke Alarms Yes Smoke Alarms Carbon Monoxide Detector: Yes Allergies, Adverse Reactions, Alerts Description No Known Drug Allergies Medications Active Medications SIG Qnty Indications Ordering Provide r Date Zofran 4mg Tablets 1 by mouth every 6-8 hours as needed nausea and vomiting. Unknown 08/20/2020 Acetaminophen 325mg Tablets 2 by mouth every 4 h as needed pain Unknown 019 Aspirin Adult Low Dose 81mg Tablet s DR 1 by mouth every day 90tabs Beth Ross FNP 10/07/20 19 Amlodipine Besylate 5mg Tablets take one tablet by mouth daily for blood pressure 90tabs I10 Rajwinderac Beth carver FNP 03/23/2018 Pantoprazole Sodium 40mg Tablets D R take one tablet by mouth every day for heartburn/acid reflux 90tabs Eli Underwood M.D. 05/15/2017 Azelastine HCL (Nasal) 0.1% Soluti on 2 sprays in each nostril every evening 90ml Julio Underwood M.D. 05/15/2017 Losartan Potassium/Hydrochlorothiazide 100-25mg Tablets take one tablet by mouth every morning for blood pressure 90 tabs I10 Eli Underwood M.D. 02/03/2017 Plavix 75mg Tablets 1 by mouth every day 90tabs Beth Ross FNP 09/27/2013 Fluoxetine HCL 20mg Capsules 1 by mouth every day 90caps F43.21 Beth Ross FNP 01/08/2010 Stool Softener 100mg Capsules take one capsule by mouth daily 90caps Beth Ross FNP 00/ Milk Of Magnesia 400mg/5ML Suspens ion takes one capful every other day as needed Unkno wn Align 4mg Capsules daily Unknown Atorvastatin Calcium 80mg Tablets take one tablet by mouth every day for cholesterol Unknow n History Medications Dicyclomine HCL 10mg Capsules take 1 tablet 2 times a day Unknown 08/20/2020 - 12/06/2020 Immunizations CPT Code Status Date Vaccine Lot # [id number] Given 09/18/2017 Pneumococcal Vaccine [id number] Given 08/05/2016 Prevnar 13 For Adults [id number] Vital Signs Date Vital Result Comment 12/06/2020 1:34pm BP Systolic 133 mmHg BP Diastolic 70 mmHg Heart Rate 102 /min Body Temperature 96.8 F Respiratory Rate 20 /min Height 63.0 inches 5'3" Weight 232.38 lb O2 % BldC Oximetry 98 % Peak Expiratory Flow Rate 314 Estimated Peak Flow Rate Welch Body Weight 115 lb BMI (Body Mass Index) 41.2 kg/m2 08/29/2020 11:19am BP Systolic 123 mmHg BP Diastolic 65 mmHg Heart Rate 76 /min Body Temperature 97.8 F Respiratory Rate 22 /min Height 63.0 inches 5'3" Weight 228.12 lb O2 % BldC Oximetry 98 % Peak Expiratory Flow Rate 314 Estimated Peak Flow Rate Welch Body Weight 115 lb BMI (Body Mass Index) 40.4 kg/m2 Results Test Acquired Date Facility Test Result H/L Range Note CBC No Diff 12/07/2020 [facility] CBC No Diff (SEE NOTE) 1 WBC 8.7 10^3/uL 4.2 - 11.0 RBC 3.94 10^6/uL Low 4.20 - 5.40 Hemoglobin 12.2 g/dL 12.0 - 16.0 Hematocrit 36.7 % Low 37.0 - 47.0 MCV 93.1 fL 81.0 - 101 MCH 31.0 pg 27.0 - 34.0 MCHC 33.2 g/dL 31.0 - 36.0 RDW 12.9 % 11.5 - 14.5 Platelets 275 10^3/uL 150 - 450 MPV 9.3 fL 7.4 - 10.4 Basic Metabolic Panel 12/07/2020 [facility] Basic Metabolic Pane (SEE NOTE) 2 Sodium 136 mEq/L 134 - 153 Potassium 4.0 mEq/L 3.6 - 5.0 Chloride 96 mEq/L Low 98 - 107 Co2 29 mEq/L 22 - 30 Glucose 116 mg/dL High 65 - 110 BUN 24 mg/dL High 7 - 21 Creatinine 1.1 mg/dL 0.7 - 1.5 BUN/Creat 22 8 - 27 Calcium 9.2 mg/dL 8.4 - 10.2 Anion Gap 11.0 mmol/L 8.0 - 16.0 Age 75 yrs Afr Amer GFR >60 Non-Aa GFR 52 mL/min 3 Laboratory test finding 09/29/2020 [facility] Coronavirus Covid-19 Not Detected Not Detected 4 Laboratory test finding 09/25/2020 [facility] BUN 17 mg/dL 7 - 21 Creatinine Serum 09/25/2020 [facility] Creatinine 1.1 mg/dL 0.7 - 1.5 Age 75 yrs Non-Aa GFR 52 mL/min Afr Amer GFR >60 5 Comprehensive Metabolic Panel 09/05/2020 [facility] Comprehensive Metabo (SEE NOTE) 6 Sodium 135 mEq/L 134 - 153 Potassium 4.2 mEq/L 3.6 - 5.0 Chloride 99 mEq/L 98 - 107 Co2 23 mEq/L 22 - 30 Glucose 152 mg/dL High 65 - 110 BUN 24 mg/dL High 7 - 21 Creatinine 1.1 mg/dL 0.7 - 1.5 BUN/Creat 22 8 - 27 Total Protein 7.9 g/dL 6.3 - 8.2 Albumin 4.7 g/dL 3.9 - 5.0 Globulin 3.2 GM/DL 2.4 - 3.2 A/G Ratio 1.5 0.8 - 2.0 Calcium 10.5 mg/dL High 8.4 - 10.2 Total Bili <0.7 mg/dL 0.2 - 1.3 Alkaline Phos 116 U/L 38 - 126 Sgot/Ast 15 U/L 5 - 40 SGPT/Alt 15 U/L 7 - 56 Anion Gap 13.0 mmol/L 8.0 - 16.0 Age 75 yrs Non-Aa GFR 52 mL/min Afr Amer GFR >60 7 Laboratory test finding [facility]05[facility] Lipase Serum 28 U/L 13 - 60 Lactic Acid (Lactate) B 09/05/2020 [facility] Lactic Acid 3.5 mmol/L Critical high 0.2 - 2.2 Call/ Read Back CALLED TO RICH By: [facility] Date/Time 09.05.20 @ 1145 CBC W/Automated Diff 09/05/2020 [facility] CBC W/Automated Diff (SEE NOTE) 8 WBC 12.8 10^3/uL High 4.2 - 11.0 RBC 4.24 10^6/uL 4.20 - 5.40 Hemoglobin 12.9 g/dL 12.0 - 16.0 Hematocrit 38.5 % 37.0 - 47.0 MCV 90.8 fL 81.0 - 101 MCH 30.4 pg 27.0 - 34.0 MCHC 33.5 g/dL 31.0 - 36.0 RDW 13.3 % 11.5 - 14.5 Platelets 363 10^3/uL 150 - 450 MPV 9.6 fL 7.4 - 10.4 Neut 84.4 % High 37.0 - 80.0 Lymph 8.4 % Low 25.0 - 40.0 Cache 5.9 % 3.0 - 8.0 Eos 0.5 % 0.0 - 7.0 Baso 0.3 % 0.0 - 2.5 %Ig 0.5 % High 0.0 - 0.0 %NRBC 0.0 % 0.0 - 0.0 #Neut 10.81 10^3/uL High 2.00 - 6.90 #Lymph 1.08 10^3/uL 0.60 - 3.40 #Cache 0.76 10^3/uL 0.00 - 0.90 #Eos 0.06 10^3/uL 0.00 - 0.70 #Baso 0.04 10^3/uL 0.00 - 0.20 #Ig 0.06 10^3/uL 0.00 - 0.10 #NRBC 0.00 10^3/uL 0.00 - 0.00 Manual Diff NOT INDICATED RBC Morph NOT INDICATED Laboratory test finding 08/19/2020 [facility] Culture Blood (SEE NOTE) 9 Laboratory test finding 08/19/2020 [facility] Culture Blood (SEE NOTE) 10 Laboratory test finding 08/19/2020 [facility] GI Panel COMMENT 11 CBC W/Automated Diff 08/19/2020 [facility] CBC W/Automated Diff (SEE NOTE) 12 WBC 17.3 10^3/uL High 4.2 - 11.0 RBC 4.62 10^6/uL 4.20 - 5.40 Hemoglobin 14.0 g/dL 12.0 - 16.0 Hematocrit 41.9 % 37.0 - 47.0 MCV 90.7 fL 81.0 - 101 MCH 30.3 pg 27.0 - 34.0 MCHC 33.4 g/dL 31.0 - 36.0 RDW 13.2 % 11.5 - 14.5 Platelets 359 10^3/uL 150 - 450 MPV 9.7 fL 7.4 - 10.4 Neut 88.0 % High 37.0 - 80.0 Lymph 6.8 % Low 25.0 - 40.0 Cache 4.1 % 3.0 - 8.0 Eos 0.1 % 0.0 - 7.0 Baso 0.3 % 0.0 - 2.5 %Ig 0.7 % High 0.0 - 0.0 %NRBC 0.0 % 0.0 - 0.0 #Neut 15.26 10^3/uL High 2.00 - 6.90 #Lymph 1.18 10^3/uL 0.60 - 3.40 #Cache 0.71 10^3/uL 0.00 - 0.90 #Eos 0.02 10^3/uL 0.00 - 0.70 #Baso 0.05 10^3/uL 0.00 - 0.20 #Ig 0.12 10^3/uL High 0.00 - 0.10 #NRBC 0.00 10^3/uL 0.00 - 0.00 Manual Diff NOT INDICATED RBC Morph NOT INDICATED Lactic Acid (Lactate) B 08/19/2020 [facility] Lactic Acid 6.0 mmol/L Critical high 0.2 - 2.2 Call/ Read Back CALLED TO DR. GONZALEZ <SEE NOTE> 13 By: JUSTO Date/Time 08/19/20 @ 0800 Laboratory test finding 08/19/2020 [facility] Troponin T <0.01 NG/ML 0.00 - 0.10 14 Amylase 57 U/L 30 - 110 Lipase Serum 28 U/L 13 - 60 Comprehensive Metabolic Panel 08/19/2020 [facility] Comprehensive Metabo (SEE NOTE) 15 Sodium 135 mEq/L 134 - 153 Potassium 4.0 mEq/L 3.6 - 5.0 Chloride 94 mEq/L Low 98 - 107 Co2 20 mEq/L Low 22 - 30 Glucose 195 mg/dL High 65 - 110 BUN 23 mg/dL High 7 - 21 Creatinine 1.3 mg/dL 0.7 - 1.5 BUN/Creat 18 8 - 27 Total Protein 8.1 g/dL 6.3 - 8.2 Albumin 4.9 g/dL 3.9 - 5.0 Globulin 3.2 GM/DL 2.4 - 3.2 A/G Ratio 1.5 0.8 - 2.0 Calcium 10.7 mg/dL High 8.4 - 10.2 Total Bili <0.7 mg/dL 0.2 - 1.3 Alkaline Phos 115 U/L 38 - 126 Sgot/Ast 15 U/L 5 - 40 SGPT/Alt 14 U/L 7 - 56 Anion Gap 21.0 mmol/L High 8.0 - 16.0 Age 75 yrs Non-Aa GFR 43 mL/min Afr Amer GFR >60 16 1 COMPLETE BLOOD COUNT 2 BASIC METABOLIC PANEL 3 Male GFR Interprentation 20-49 yrs >60 mL/min Normal 50-59 yrs >56 mL/min Normal 60-69 yrs >49 mL/min Normal 70-79yrs >42 mL/min Normal 80 and above >35 mL/min Normal Female GFR Interpretation 20-39 yrs >60 mL/min Normal 40-49 yrs >58 mL/min Normal 50-59 yrs >51 mL/min Normal 60-69 yrs >45 mL/min Normal 70-79 yrs >39 mL/min Normal 80 and above >32 mL/min Normal 4 This nucleic acid amplificat ion test was developed and its performance characteristics determined by [employer]. Nucleic acid amplification tests include PCR and TMA. This test has not been FDA cleared or approved. This test has been authorized by FDA under an Emergency Use Authorization (EUA). This test is only authorized for the duration of time the declaration that circumstances exist justifying the authorization of the emergency use of in vitro diagnostic tests for detection of SARS-CoV-2 virus and/or diagnosis of COVID-19 infection under section 564(b)(1) of the Act, 21 U.S.C. 360bbb-3(b) (1), unless the authorizatio n is terminated or revoked sooner. When diagnostic testing is negative, the possibility of a false negative result should be considered in the context of a patient's recent exposures and the presence of clinical signs and symptoms consistent with COVID-19. An individual without symptoms of COVID-19 and who is not shedding SARS-CoV-2 virus would expect to have a negative (not detected) result in this assay. 5 Male GFR Interprentation 20-49 yrs >60 mL/min Normal 50-59 yrs >56 mL/min Normal 60-69 yrs >49 mL/min Normal 70-79yrs >42 mL/min Normal 80 and above >35 mL/min Normal Female GFR Interpretation 20-39 yrs >60 mL/min Normal 40-49 yrs >58 mL/min Normal 50-59 yrs >51 mL/min Normal 60-69 yrs >45 mL/min Normal 70-79 yrs >39 mL/min Normal 80 and above >32 mL/min Normal 6 COMPREHENSIVE METABOLIC PANE L 7 Male GFR Interprentation 20-49 yrs >60 mL/min Normal 50-59 yrs >56 mL/min Normal 60-69 yrs >49 mL/min Normal 70-79yrs >42 mL/min Normal 80 and above >35 mL/min Normal Female GFR Interpretation 20-39 yrs >60 mL/min Normal 40-49 yrs >58 mL/min Normal 50-59 yrs >51 mL/min Normal 60-69 yrs >45 mL/min Normal 70-79 yrs >39 mL/min Normal 80 and above >32 mL/min Normal 8 COMPLETE BLOOD COUNT 9 _CULTURE BLOOD_ TEST [place] [address] CLIA# [id number] SEE SCANNED REPORT { PRELIM 10 _CULTURE BLOOD_ TEST PERFORMED AT [address] [address] CLIA# [id number] SEE SCANNED REPORT { PRELIM 11 Test cancelled at client's r equest. PER MANIFEST: NO SPEC Test not performed Test not performed Test not performed Test not performed Test not performed Test not performed Test not performed Test not performed Test not performed Test not performed Test not performed Test not performed Test not performed Test not performed Test not performed Test not performed Test not performed Test not performed Test not performed Test not performed Test not performed 12 COMPLETE BLOOD COUNT [address] MEREDITH 14 TROPONIN T 0.1 ng/ml Recommended as the clinical th reshold value for Troponin T. 15 COMPREHENSIVE METABOLIC PANE L 16 Male GFR Interprentation 20-49 yrs >60 mL/min Normal 50-59 yrs >56 mL/min Normal 60-69 yrs >49 mL/min Normal 70-79yrs >42 mL/min Normal 80 and above >35 mL/min Normal Female GFR Interpretation 20-39 yrs >60 mL/min Normal 40-49 yrs >58 mL/min Normal 50-59 yrs >51 mL/min Normal 60-69 yrs >45 mL/min Normal 70-79 yrs >39 mL/min Normal 80 and above >32 mL/min Normal Procedures Date Code Description Status 06/20/2020 [id number] Bone Mineral Density Test Comple keren 2018 [id number] Mammogram Completed Medical Devices Description No Information Available Encounters Type Date Location Provider Dx Diagnosis Office Visit 12/06/2020 1:30p Main Office Lila Branham PA Z01.818 Encounter for other preprocedural examination I10 Essential (primary) hyperten saloni E78.2 Mixed hyperlipidemia I70.213 Athscl [place] arteries of ex trm w intrmt juwan, bi legs Office Visit 08/29/2020 10:45a Main Office Lila Branham PA K29.60 Other gastritis without bleeding I73.9 Peripheral vascular disease, unspecified I10 Essential (primary) hyperten saloni R19.7 Diarrhea, unspecified Assessments Date Code Description Provider 12/06/2020 Z01.818 Encounter for other preprocedura l examination Lila Branham PA 12/06/2020 I10 Essential (primary) hypertension Lila Branham PA 12/06/2020 E78.2 Mixed hyperlipidemia Lila Branham PA 12/06/2020 I70.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 Lila Branham PA 08/29/2020 K29.60 Other gastritis without bleeding Lila Branham PA 08/29/2020 I73.9 Peripheral vascular disease, uns pecified Lila Branham PA 08/29/2020 I10 Essential (primary) hypertension Lila Branham PA 08/29/2020 R19.7 Diarrhea, unspecified Lila Morris PA Plan of Treatment No Information Available Functional Status Functional Condition Comment Date Status Glasses Active Independent with all ADL's Activ e Independent with all IADL's Acti ve Mental Status Mental Condition Comment Date Status None Active Referrals Refer to Reason for Referral Status Appt Date Andrea Lopez MD pc due for routine EGD with hi story of Hammer's Esophagus and hiatal hernia but recently she has been experiencing "attacks" of diarrhea and abdominal pain- should have colonoscopy at the same time as EGD Closed 09/13/2020 [phone]
--- OUTSIDE RECORDS SUMMARY | 2020-12-17 06:21 | CCD | Continuity of Care Document ---
Author Author Maria De Jesus Resource Schedule, Lawrence C Organization Unknown Address [address] [place] [address] Phone [phone] Care Team Providers Care Link Trainer Mechanic Name Role Phone [facility] AUTM Unav ailable Problems Active Problems Provider Date Essential hypertension Andrea Lopez MD Onset: 09/11/2020 Pure hypercholesterolemia Andrea Lopez MD Onset: 020 Screening for malignant neoplasm of colon Andrea Lopez MD Onset: 09/18/2020 Intestinal obstruction Andrea Lopez MD Onset: 09/13/2020 Social History Type Date Description Comments Sex Unknown Tobacco Use Start: Unknown End: Unknown Quit Tobacco Use Start: Unknown Never Smoked Cigars Tobacco Use Start: Unknown Never Smoked A Pipe Tobacco Use Start: Unknown Never Used Smokeless Tobacco ETOH Use Occasionally consumes alcohol Tobacco Use Start: Unknown End: Unknown Patient is a former smoker Recreational Drug Use Denies Drug Use Allergies, Adverse Reactions, Alerts Description No Known Drug Allergies Medications Active Medications SIG Qnty Indications Ordering Provide r Date Suprep Bowel Prep Kit 17.5-3.13-1.6GM/177ML Solution use as directed 7pm and 6 hours before colonoscopy Andrea Lopez MD 09/19/[address] see preprocedure instructions 4tabs Andrea Lopez MD 09/19/2020 Miralax 17GM/Scoop Powder see preprocedure instructions. 238gm Andrea Lopez MD 09/19/2020 Zofran 4mg Tablets take 1 tab by mouth every 8 hours for nausea 2tabs Andrea Lopez MD 2019 Zofran 4mg Tablets take 1 tab by mouth every 6-8 hours for nausea. max daily dose is 4 tabs. Unknown Amlodipine Besylate 5mg Tablets 1 by mouth every day Unknown Pantoprazole Sodium 40mg Tablets D R 1 by mouth every day Unknown Losartan Potassium/Hydrochlorothiazide 100-25mg Tablets 1 by mouth every day Unknown 000 Plavix 75mg Tablets 1 by mouth every day Unknown Fluoxetine HCL 20mg Capsules 1 by mouth every day Unknown Stool Softener 100mg Capsules take one capsule by mouth daily Unknown 0 Atorvastatin Calcium 40mg Tablets 1 by mouth every day Unknown Spironolactone 25mg Tablets 1 by mouth every day Unknown Align 4mg Capsules 1 by mo uth every day Unknown Immunizations Description No Information Available Vital Signs Date Vital Result Comment 09/13/2020 1:41pm BP Systolic 136 mmHg BP Diastolic 69 mmHg Heart Rate 82 /min Body Temperature 97.8 F Respiratory Rate 16 /min Weight 222.00 lb Weight 100.699 kg Height 64 inches 5'4" BMI (Body Mass Index) 38.1 kg/m2 BSA (Body Surface Area) 2.05 m2 Results Description No Information Available Procedures Description No Information Available Medical Devices Description No Information Available Encounters Description No Information Available Assessments Date Code Description Provider 09/18/2020 Z12.11 Encounter for screening for aga gnant neoplasm of colon Andrea Lopez MD 09/13/2020 K56.600 Partial intestinal obstruction, unspecified as to cause Andrea Lopez MD Plan of Treatment Future Appointment(s):* 10/04/2020 6:00 am - Andrea Lopez MD at [facility] 09/18/2020 - Andrea Lopez MD* Z12.11 Encounter for screening for malignant neoplasm of colon* Comments:* Impression: Screening colonoscopy without GI symptomsPlan: Colonoscopy. The operative procedure with its risks benefits and alternatives were also reviewed. Risks include but are not limited to perforation and bleeding. Patient tells me that she understands and has no questions Functional Status Description No Information Available Mental Status Description No Information Available Referrals Description No Information Available
--- OUTSIDE RECORDS SUMMARY | 2020-12-17 06:21 | CCD | Continuity of Care Document ---
Author Author Nicci PETTY PA-C Organization Unknown Address [address] [place] [address], [facility] [place] [address] Phone [phone] Care Team Providers Care Nurse Epidemiologist Name Role Phone Sara Alexandra AUTM [phone] Calvin Kaye MD AUTM [phone] France Moody MD AUTM [phone] Eli Underwood MD AUTM [phone] Problems Active Problems Provider Date Dyspnea Mateo Crook MD Onset: 04/09/2020 Mitral valve disorder Mateo Crook MD Onset: 04/09/2020 Chronic pulmonary heart disease Mateo Crook MD Onset: 0 04/09/2020 Peripheral vascular disease Mateo Crook MD Onset: 04/09 Body mass index 30+ - obesity Mateo Crook MD Onset: 09/2020 Benign hypertensive heart disease without congestive h eart failure Mateo Crook MD Onset: 04/09/2020 Precordial pain Mateo Crook MD Onset: 04/09/2020 Electrocardiogram abnormal Mateo Crook MD Onset: 2019 Carotid bruit Mateo Crook MD Onset: 04/09/2020 Dietary management surveillance Danielle Petty PA-C Onset: 10/03/2020 Carotid artery occlusion Danielle Petty PA-C Onset: 020 Pure hypercholesterolemia Danielle Petty PA-C Onset: 2019 Aortic valve disorder Danielle Petty PA-C Onset: 10/03/2020 Social History Type Date Description Comments Sex Unknown ETOH Use Consumes 3 beers per week Tobacco Use Start: Unknown End: Unknown Patient is a former smoker Quit 1985 smoked 2ppd for 18 years Smoking Status Reviewed: 10/03/20 Patient is a former smoker Qu it 1985 smoked 2ppd for 18 years Exercise Type/Frequency Walks sporadically On Tr eadmill very short amount of time Exercise Type/Frequency Does housework daily Exercise Limitations Shortness Of Breath Exercise Limitations Weakness Exercise Limitations Fatigue Exercise Limitations Muscle Pain Allergies, Adverse Reactions, Alerts Description No Known Drug Allergies Medications Active Medications SIG Qnty Indications Ordering Provide r Date Atorvastatin Calcium 40mg Tablets 1 by mouth every night at bedtime 30tabs R07.2 Mateo Crook MD 04/09/2020 I73.9 R09.89 Amlodipine Besylate 5mg Tablets 1 by mouth every day Unknown 04/08/[address] 1 by mouth every day Unknown 04/08/2020 Colace 100mg Capsules 1 by mouth once a day Unknown 04/08/2020 Pantoprazole Sodium 40mg Tablets D R 1 by mouth every day Unknown 04/08/2020 Acetaminophen 325mg Tablets 1-2 every 4 hours as needed Unknown 04/08/2020 Losartan Potassium/Hydrochlorothiazide 100-25mg Tablets 1 by mouth every day Unknown 020 Spironolactone 25mg Tablets 1 by mouth every day Unknown 04/08/2020 Fluoxetine HCL 20mg Capsules 1 po qd Unknown 09/19/2010 Plavix 75mg Tablets 1 po qd 14tabs Unknown 09/19/2010 History Medications Gabapentin 300mg Capsules 1 by mouth two times a day Unknown 04/08/2020 - 08/2020 Losartan Potassium 100mg Tablets 1 by mouth every night at bedtime Unknown 08/2020 - 04/08/2020 Gabapentin 300mg Capsules 1 by mouth as needed Unknown 04/08/2020 - 01/2020 Immunizations Description No Information Available Vital Signs Date Vital Result Comment 10/03/2020 10:07am Weight 226.00 lb Home Weight 224lb Height 64 inches 5'4" BMI (Body Mass Index) 38.8 kg/m2 Heart Rate 68 /min Regular Respiratory Rate 16 /min BP Systolic Right Arm 126 mmHg sitting, large cuf f BP Diastolic Right Arm 74 mmHg sitting, large cu ff BP Systolic Left Arm 128 mmHg sitting BP Diastolic Left Arm 74 mmHg sitting 06/06/2020 12:29pm Weight 229.00 lb Home Weight 227lb Height 64 inches 5'4" BMI (Body Mass Index) 39.3 kg/m2 Heart Rate 72 /min regular Respiratory Rate 16 /min BP Systolic Sitting 111 mmHg large cuff, Ra BP Diastolic Sitting 66 mmHg large cuff, Ra BP Systolic Lying Down 123 mmHg BP Diastolic Lying Down 72 mmHg Results Description No Information Available Procedures Date Code Description Status 10/03/2020 72553 ECG 12-Lead Completed 05/07/2020 40706 Treadmill/Pharmacological Monito ring Completed 05/07/2020 15518 Myocardial Perfusion Spect Multi ple Completed 04/27/2020 89364 Echocardiogram 2-D Doppler Color Completed 04/09/2020 17197 ECG 12-Lead Completed Medical Devices Description No Information Available Encounters Type Date Location Provider Dx Diagnosis Office Visit 10/03/2020 10:15a Main Office Danielle Petty PA-C Z01.8 10 Encounter for preprocedural cardiovascular examination I11.9 Hypertensive heart disease w ithout heart failure R94.31 Abnormal electrocardiogram [ ECG] [EKG] I35.8 Other nonrheumatic aortic va lve disorders I34.8 Other nonrheumatic mitral va lve disorders E78.00 Pure hypercholesterolemia, u nspecified I65.23 Occlusion and stenosis of bi lateral carotid arteries I73.9 Peripheral vascular disease, unspecified Z71.3 Dietary counseling and surve illance Office Visit 06/06/2020 12:00p Main Office Mateo Crook MD R07.2 Precordial pain R06.02 Shortness of breath R94.31 Abnormal electrocardiogram [ ECG] [EKG] I11.9 [facility] I34.0 Nonrheumatic mitral (valve) insufficiency I73.9 Peripheral vascular disease, unspecified Office Visit 04/09/2020 2:00p Main Office Mateo Crook MD R07.2 Precordial pain R06.02 Shortness of breath R94.31 Abnormal electrocardiogram [ ECG] [EKG] I11.9 Hypertensive heart disease w ithout heart failure I34.0 Nonrheumatic mitral (valve) insufficiency I27.81 Cor pulmonale (chronic) I73.9 Peripheral vascular disease, unspecified R09.89 Oth symptoms and signs invol ving the circ and resp systems Z68.39 Body mass index (BMI) 39.0-3 9.9, adult Assessments Date Code Description Provider 10/03/2020 Z01.810 Encounter for preprocedural card iovascular examination Danielle Petty, PA-C 10/03/2020 I11.9 Hypertensive heart disease witho ut heart failure Danielle Petty, PA-C 10/03/2020 R94.31 Abnormal electrocardiogram [ECG] [EKG] Danielle Petty, PA-C 10/03/2020 I35.8 Other nonrheumatic aortic valve disorders Danielle Handyw, PA-C 10/03/2020 I34.8 Other nonrheumatic mitral valve disorders Danielle Handyw, PA-C 10/03/2020 E78.00 Pure hypercholesterolemia, unspe cified Danielle Handyw, PA-C 10/03/2020 I65.23 Occlusion and stenosis of bilate ral carotid arteries Danielle Handyjazmyne, PA-C 10/03/2020 I73.9 Peripheral vascular disease, uns pecified Danielle Handyjazmyne, PA-C 10/03/2020 Z71.3 Dietary counseling and surveilla nce Danielle Handyjazmyne, CO-C 06/06/2020 R07.2 Precordial pain Mateo Crook MD 06/06/2020 R06.02 Shortness of breath Mateo arce MD 06/06/2020 R94.31 Abnormal electrocardiogram [ECG] [EKG] Mateo Crook MD 06/06/2020 I11.9 Hypertensive heart disease witho fl heart failure Mateo Crook MD 06/06/2020 I34.0 Nonrheumatic mitral (valve) insu fficiency Mateo Crook MD 06/06/2020 I73.9 Peripheral vascular disease, uns pecified Mateo Crook MD 05/07/2020 R07.2 Precordial pain Stress Nuclear/R eg Treadmill 05/07/2020 R06.02 Shortness of breath Stress Nucle ar/Reg Treadmill 05/07/2020 R94.31 Abnormal electrocardiogram [ECG] [EKG] Stress Nuclear/Reg Treadmill 05/07/2020 I73.9 Peripheral vascular disease, uns pecified Stress Nuclear/Reg Treadmill 04/27/2020 R06.02 Shortness of breath ECHO 04/27/2020 R94.31 Abnormal electrocardiogram [ECG] [EKG] ECHO 04/27/2020 I11.9 Hypertensive heart disease witho ut heart failure ECHO 04/27/2020 I34.0 Nonrheumatic mitral (valve) insu fficiency ECHO 04/27/2020 I27.20 Pulmonary hypertension, unspecif ied ECHO 04/09/2020 R07.2 Precordial pain Mateo Crook MD 04/09/2020 R06.02 Shortness of breath Mateo arce MD 04/09/2020 R94.31 Abnormal electrocardiogram [ECG] [EKG] Mateo Crook MD 04/09/2020 I11.9 Hypertensive heart disease witho ut heart failure Mateo Crook MD 04/09/2020 I34.0 Nonrheumatic mitral (valve) insu fficiency Mateo Crook MD 04/09/2020 I27.81 Cor pulmonale (chronic) Mateo Crook MD 04/09/2020 I73.9 Peripheral vascular disease, uns pecified Mateo Crook MD 04/09/2020 R09.89 Other specified symp toms and signs involving the circulatory and respiratory systems Mateo Crook MD 04/09/2020 Z68.39 Body mass index (BMI) 39.0-39.9, adult Mateo Crook MD Plan of Treatment Future Appointment(s):* 04/04/2021 9:45 am - Danielle Petty PA-C at Main Office 10/03/2020 - Danielle Petty PA-C* Z01.810 Encounter for preprocedural cardiovascular examination * I11.9 Hypertensive heart disease without heart failure * R94.31 Abnormal electrocardiogram [ECG] [EKG] * I35.8 Other nonrheumatic aortic valve disorders * I34.8 Other nonrheumatic mitral valve disorders * E78.00 Pure hypercholesterolemia, unspecified * I65.23 Occlusion and stenosis of bilateral carotid arteries * I73.9 Peripheral vascular disease, unspecified * Z71.3 Dietary counseling and surveillance * All * Follow up:* 6 month follow up. Functional Status Functional Condition Comment Date Status Independent with all ADL's Activ e Mental Status Description No Information Available Referrals Description No Information Available
--- OUTSIDE RECORDS SUMMARY | 2020-12-17 06:21 | CCD | Continuity of Care Document ---
Author Author Nicci MOODY MD Organization Unknown Address [address] [facility], [address] [place] [address] Phone [phone] Care Team Providers Care Judge Clerk Name Role Phone AUTM Unavailable Eli Underwood M.D. AUTM [phone] Problems Description No Information Available Social History Type Date Description Comments Sex Unknown ETOH Use 4 A Week Recreational Drug Use Denies Drug Use Tobacco Use Start: 11/30/61 End: 11/30/89 Patient is a forme r smoker Hx: 2 ppd x 28 years. Quit 30 years ago. Smoking Status Reviewed: 08/23/20 Patient is a former smoker Hx : 2 ppd x 28 years. Quit 30 years ago. Allergies, Adverse Reactions, Alerts Description No Known Drug Allergies Medications Active Medications SIG Qnty Indications Ordering Provide r Date Losartan Potassium 100mg Tablets 1 by mouth once a day Unknown Aspir-[address] 1 by mouth every day Unknown Clopidogrel Bisulfate 75mg Tablets 1 by mouth every day Unknown Fluoxetine HCL 20mg Capsules 1 by mouth every day Unknown Pantoprazole Sodium 40mg Tablets D R daily -- one tablet in morning 1/2 hour before breakfast Unknown Spironolactone 25mg Tablets 1 by mouth every day Unknown Amlodipine Besylate 5mg Tablets by mouth every night Unknown Acetaminophen 325mg Tablets take 2 tabs, every 6 hours as needed for pain. Unknown Colace 100mg Capsules 1 by mouth every day Unknown Atorvastatin Calcium 40mg Tablets 1 qd Unknown Immunizations Description No Information Available Vital Signs Date Vital Result Comment 10/22/2020 2:26pm BP Systolic 126 mmHg BP Diastolic 68 mmHg Height 64 inches 5'4" Weight 230.00 lb BMI (Body Mass Index) 39.5 kg/m2 [place] Body Weight 120 lb Weight 104.328 kg BSA (Body Surface Area) 2.08 m2 09/20/2020 11:01am BP Systolic 139 mmHg BP Diastolic 85 mmHg Height 64 inches 5'4" Weight 229.38 lb BMI (Body Mass Index) 39.4 kg/m2 [place] Body Weight 120 lb Weight 104.044 kg BSA (Body Surface Area) 2.07 m2 Results Test Acquired Date Facility Test Result H/L Range Note BUN & Creatinine ([facility]) 09/25/[address] [address] [phone] BUN 17 mg/dL 7 - 21 Creatinine Serum 09/25/[address] [address] [phone] Creatinine 1.1 mg/dL 0.7 - 1.5 Age 75 yrs Non-Aa GFR 52 mL/min Afr Amer GFR >60 1 1 Male GFR Interprentation 20-49 yrs >60 mL/min Normal 50-59 yrs >56 mL/min Normal 60-69 yrs >49 mL/min Normal 70-79yrs >42 mL/min Normal 80 and above >35 mL/min Normal Female GFR Interpretation 20-39 yrs >60 mL/min Normal 40-49 yrs >58 mL/min Normal 50-59 yrs >51 mL/min Normal 60-69 yrs >45 mL/min Normal 70-79 yrs >39 mL/min Normal 80 and above >32 mL/min Normal Procedures Description No Information Available Medical Devices Description No Information Available Encounters Type Date Location Provider Dx Diagnosis Office Visit 09/20/2020 10:45a [facility] France howard MD I70.512 Athscl nonaut bio bypass of extrm w intr [place], left leg R09.89 Oth symptoms and signs invol ving the circ and resp systems Office Visit 08/23/2020 10:30a [facility] Shon Kaye MD R91.8 Other nonspecific abnormal finding of arlette ng field Z87.891 Personal history of nicotine dependence 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/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 Office Visit 06/11/2020 1:45p [facility] France howard MD I70.213 Athscl [place] arteries of extrm w intrmt juwan, bi legs 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ju[place], right leg Office Visit 05/10/2020 9:30a [facility] France howard MD I70.213 Athscl [place] arteries of extrm w intrmt [place], bi legs Z95.828 Presence of other vascular i mplants and grafts 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juwan, right leg Assessments Date Code Description Provider 09/20/2020 I70.512 Atherosclerosis of n onautologous biological bypass graft(s) of the extremities with intermittent claudication, left leg France Moody MD 09/20/2020 R09.89 Other specified symp toms and signs involving the circulatory and respiratory systems France Moody MD 08/23/2020 R91.8 Other nonspecific abnormal findi ng of lung field Calvin Kaye MD 08/23/2020 Z87.891 Personal history of nicotine dep endence Calvin Kaye MD 08/23/2020 Z79.02 halfway (current) use of a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/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 Calvin Kaye MD 06/11/2020 I70.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, bilateral legs France Moody MD 06/11/2020 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, right leg France Moody MD 05/10/2020 I70.213 Atherosclerosis of [place] arteri es of extremities with inter France Moody MD 05/10/2020 Z95.828 Presence of other vascular impla nts and grafts France Moody MD 05/10/2020 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, right leg France Moody MD Plan of Treatment Future Appointment(s):* 02/28/2021 11:00 am - Calvin Kaye MD at [facility] 09/20/2020 - France Moody MD* I70.512 Atherosclerosis of nonautologous biological bypass graft(s) of the extremities with intermittent claudication, left leg * R09.89 Other specified symptoms and signs involving the circulatory and respiratory systems Functional Status Description No Information Available Mental Status Description No Information Available Referrals Refer to Reason for Referral Status Appt Date Radiology/Procedure NO PRIOR AUTH REQ [id number] Closed
--- OUTSIDE RECORDS SUMMARY | 2020-12-17 06:21 | CCD | Continuity of Care Document ---
Author Organization Unknown Address Unknown Phone Unavailable Care Team Providers Care Resident Programs Assistant Name Role Phone Fernando Wilkerson MD AUTM [phone] Bert Warner DO AUTM [phone] Mateo Crook MD AUTM [phone] Shar Tolbert MD AUTM [phone] Denis Blanca MD AUTM [phone] Israel Montenegro MD AUTM [phone] Parag Beckwith MD AUTM [phone] Problems Active Problems Provider Date Essential hypertension [...] End: Unknown Patient is a former smoker quit 1987 Recreational Drug Use Denies Drug Use Smoking Status Reviewed: 08/29/20 Patient is a former smoker qu it 1987 Exercise Type/Frequency Exercises regularly Sun Exposure Use less than 15 SPF Seat Belt/Car Seat Always uses seat belt Smoke Alarms Yes Smoke Alarms Carbon Monoxide Detector: Yes Allergies, Adverse Reactions, Alerts Description No Known Drug Allergies Medications Active Medications SIG Qnty Indications Ordering Provide r Date Dicyclomine HCL 10mg Capsules take 1 tablet 2 times a day Unknown 08/20/2020 Zofran 4mg Tablets 1 by mouth every 6-8 hours as needed nausea and vomiting. Unknown 08/20/2020 Acetaminophen 325mg Tablets 2 by mouth every 4 h as needed pain Unknown 019 Aspirin Adult Low Dose 81mg Tablet s DR 1 by mouth every day 90tabs Eli Underwood M.D. 06/2019 Gabapentin 300mg Capsules 1 by mouth every night for radicular hand symptoms prn 90caps M47.22 Eli Underwood M.D. 03/23/2018 Amlodipine Besylate 5mg Tablets take one tablet by mouth daily for blood pressure 90tabs I10 Beth Brenner FNP 03/23/2018 Pantoprazole Sodium 40mg Tablets D [...] Tablets 1 by mouth every day 90tabs Eli Underwood M.D. 09/27/2013 Fluoxetine HCL 20mg Capsules 1 by mouth every day 90caps F43.21 Eli Underwood M.D. 010 Stool Softener 100mg Capsules take one capsule by mouth daily Eli Le M.D. Milk Of Magnesia 400mg/5ML Suspens ion takes one capful every other day Unknown Atorvastatin Calcium 40mg Tablets take one tablet by mouth every day for cholesterol Unknow n Immunizations CPT Code Status Date Vaccine Lot # [id number] Given 09/18/2017 Pneumococcal Vaccine [id number] Given 08/05/2016 Prevnar 13 For Adults [id number] Vital Signs Date Vital Result Comment 08/29/2020 11:19am BP Systolic 123 mmHg BP Diastolic 65 mmHg Heart Rate 76 /min Body Temperature 97.8 F Respiratory Rate 22 /min Height 63.0 inches 5'3" Weight 228.12 lb O2 % BldC Oximetry 98 % Peak Expiratory Flow Rate 314 Estimated Peak Flow Rate [place] Body Weight 115 lb BMI (Body Mass Index) 40.4 kg/m2 05/01/2020 4:33pm BP Systolic 149 mmHg BP Diastolic 76 mmHg Heart Rate 87 /min Body Temperature 96.5 F Respiratory Rate 32 /min Height 63.0 inches 5'3" O2 % BldC Oximetry 97 % Peak Expiratory Flow Rate 315 Estimated Peak Flow Rate [place] Body Weight 115 lb Results Test Acquired Date Facility Test Result H/L Range Note Laboratory test finding 09/29/2020 [facility] Coronavirus Covid-19 Not Detected Not Detected 1 Laboratory test finding 09/25/2020 [facility] BUN 17 mg/dL 7 - 21 Creatinine Serum 09/25/2020 [facility] Creatinine 1.1 mg/dL 0.7 - 1.5 Age 75 yrs Non-Aa GFR 52 mL/min Afr Amer GFR >60 2 CBC W/Automated Diff 09/05/2020 [facility] CBC W/Automated Diff (SEE NOTE) 3 WBC 12.8 10^3/uL High 4.2 - 11.0 [...] Lymph 8.4 % Low 25.0 - 40.0 [place] 5.9 % 3.0 - 8.0 Eos 0.5 % 0.0 - 7.0 Baso 0.3 % 0.0 - 2.5 %Ig 0.5 % High 0.0 - 0.0 %NRBC 0.0 % 0.0 - 0.0 #Neut 10.81 10^3/uL High 2.00 - 6.90 #Lymph 1.08 10^3/uL 0.60 - 3.40 #[place] 0.76 10^3/uL 0.00 - 0.90 #Eos 0.06 10^3/uL 0.00 - 0.70 #Baso 0.04 10^3/uL 0.00 - 0.20 #Ig 0.06 10^3/uL 0.00 - 0.10 #NRBC 0.00 10^3/uL 0.00 - 0.00 Manual Diff NOT INDICATED RBC Morph NOT INDICATED Lactic Acid (Lactate) B 09/05/2020 [facility] Lactic Acid 3.5 mmol/L Critical high 0.2 - 2.2 Call/ Read Back CALLED TO RICH By: [facility] Date/Time 09.05.20 @ 2024 Laboratory test finding 09/05/2020 [facility] Lipase Serum 28 U/L 13 - 60 Comprehensive Metabolic Panel 09/05/2020 [facility] Comprehensive Metabo (SEE NOTE) 4 Sodium 135 mEq/L 134 - 153 Potassium [...] 52 mL/min Afr Amer GFR >60 5 Laboratory test finding 08/19/2020 [facility] Culture Blood (SEE NOTE) 6 Laboratory test finding 08/19/2020 [facility] l Culture Blood (SEE NOTE) 7 Laboratory test finding 08/19/2020 [facility] GI Panel COMMENT 8 CBC W/Automated Diff 08/19/2020 [facility] CBC W/Automated Diff (SEE NOTE) 9 WBC 17.3 10^3/uL High 4.2 - 11.0 [...] Lymph 6.8 % Low 25.0 - 40.0 [place] 4.1 % 3.0 - 8.0 Eos 0.1 % 0.0 - 7.0 Baso 0.3 % 0.0 - 2.5 %Ig 0.7 % High 0.0 - 0.0 %NRBC 0.0 % 0.0 - 0.0 #Neut 15.26 10^3/uL High 2.00 - 6.90 #Lymph 1.18 10^3/uL 0.60 - 3.40 #[place] 0.71 10^3/uL 0.00 - 0.90 #Eos 0.02 10^3/uL 0.00 - 0.70 #Baso 0.05 10^3/uL 0.00 - 0.20 #Ig 0.12 10^3/uL High 0.00 - 0.10 #NRBC 0.00 10^3/uL 0.00 - 0.00 Manual Diff NOT INDICATED RBC Morph NOT INDICATED Lactic Acid (Lactate) B 08/19/2020 [facility] Lactic Acid 6.0 mmol/L Critical high 0.2 - 2.2 Call/ Read Back CALLED TO DR. GONZALEZ <SEE NOTE> 10 By: JUSTO Date/Time 08/19/20 @ 0800 Laboratory test finding 08/19/2020 [facility] Troponin T <0.01 NG/ML 0.00 - 0.10 11 Amylase 57 U/L 30 - 110 Lipase Serum 28 U/L 13 - 60 Comprehensive Metabolic Panel 08/19/2020 [facility] Comprehensive Metabo (SEE NOTE) 12 Sodium 135 mEq/L 134 - 153 Potassium [...] GFR 43 mL/min Afr Amer GFR >60 13 1 This nucleic acid amplificat ion test was developed and its performance characteristics determined by [employer]. Nucleic acid amplification tests include PCR and [...] negative (not detected) result in this assay. 2 Male GFR Interprentation 20-49 yrs >60 mL/min Normal 50-59 yrs >56 mL/min Normal 60-69 yrs >49 mL/min Normal 70-79yrs >42 mL/min Normal 80 and above >35 mL/min Normal Female GFR Interpretation 20-39 yrs >60 mL/min Normal 40-49 yrs >58 mL/min Normal 50-59 yrs >51 mL/min Normal 60-69 yrs >45 mL/min Normal 70-79 yrs >39 mL/min Normal 80 and above >32 mL/min Normal 3 COMPLETE BLOOD COUNT 4 COMPREHENSIVE METABOLIC PANE L 5 Male GFR Interprentation 20-49 yrs >60 [...] 80 and above >32 mL/min Normal 6 _CULTURE BLOOD_ [place] [address] CLIA# [id number] SEE SCANNED REPORT { PRELIM 7 _CULTURE BLOOD_ [place] [address] CLIA# [id number] SEE SCANNED REPORT { PRELIM 8 Test cancelled at client's r equest. PER [...] performed Test not performed Test not performed 9 COMPLETE BLOOD COUNT [address] MEREDITH 11 TROPONIN T 0.1 ng/ml Recommended as the clinical th reshold value for Troponin T. 12 COMPREHENSIVE METABOLIC PANE L 13 Male GFR Interprentation 20-49 yrs >60 mL/min [...] Normal Procedures Date Code Description Status 06/20/2020 [id number] Bone Mineral Density Test Comple keren 2018 [id number] Mammogram Completed Medical Devices Description No Information Available Encounters Type Date Location Provider Dx Diagnosis Office Visit 08/29/2020 10:45a Main Office Petrmaliaosta, Lila Sj PA K29.60 Other gastritis without bleeding I73.9 Peripheral vascular disease, unspecified I10 Essential (primary) hyperten saloni R19.7 Diarrhea, unspecified Office Visit 05/01/2020 4:30p Main Office Roseanna Davis PA-C I10 Essential (primary) hypertension E78.2 Mixed hyperlipidemia R06.02 Shortness of breath Assessments Date Code Description Provider 08/29/2020 K29.60 Other gastritis without bleeding Petrancosta, Lila [place], PA 08/29/2020 I73.9 Peripheral vascular disease, uns pecified Petrancosta, Illa [place], PA 08/29/2020 I10 Essential (primary) hypertension Petrancosta, Lila [place], PA 08/29/2020 R19.7 Diarrhea, unspecified Petrancost a, Lila [place], PA 05/01/2020 I10 Essential (primary) hypertension Roseanna Davis PA-C 05/01/2020 E78.2 Mixed hyperlipidemia Simona Davis PA-C 05/01/2020 R06.02 Shortness of breath Mindy Davis by, KOURTNEY Plan of Treatment No Information Available Functional [...] colonoscopy at the same time as EGD Scheduled 09/13/2020 [phone]
--- OUTSIDE RECORDS SUMMARY | 2020-12-17 06:21 | CCD | Continuity of Care Document ---
Author Author Nicci BRANHAM PA Organization Unknown Address [address] [place] [address] Phone [phone] Care Team Providers Care Turnaround Engineer Name Role Phone Fernando Wilkerson MD AUTM [phone] Bert Warner DO AUTM [phone] Mateo Crook MD AUTM [phone] Shar Tolbert MD AUTM [phone] Denis Blanca MD AUTM [phone] Israel Montenegro MD AUTM [phone] Parag Beckwith MD AUTM [phone] Problems Active Problems Provider Date Essential hypertension [...] CPT Code Status Date Vaccine Lot # [id number] Given 09/18/2017 Pneumococcal Vaccine [id number] Given 08/05/2016 Prevnar 13 For Adults [id number] Vital Signs Date Vital Result Comment 12/06/2020 1:34pm BP Systolic 133 mmHg BP Diastolic 70 mmHg Heart Rate 102 /min Body Temperature 96.8 F Respiratory Rate 20 /min Height 63.0 inches 5'3" Weight 232.38 lb O2 % BldC Oximetry 98 % Peak Expiratory Flow Rate 314 Estimated Peak Flow Rate [place] Body Weight 115 lb BMI (Body Mass Index) 41.2 kg/m2 08/29/2020 11:19am BP Systolic 123 mmHg BP Diastolic 65 mmHg Heart Rate 76 /min Body Temperature 97.8 F Respiratory Rate 22 /min Height 63.0 inches 5'3" Weight 228.12 lb O2 % BldC Oximetry 98 % Peak Expiratory Flow Rate 314 Estimated Peak Flow Rate [place] Body Weight 115 lb BMI (Body Mass Index) 40.4 kg/m2 Results Test Acquired Date Facility Test Result H/L Range Note Laboratory test finding 09/29/2020 [facility] Coronavirus Covid-19 Not Detected Not Detected 1 Laboratory test finding 09/25/2020 [facility] BUN 17 mg/dL 7 - 21 Creatinine Serum 09/25/2020 [facility] Creatinine 1.1 mg/dL 0.7 - 1.5 Age 75 yrs Non-Aa GFR 52 mL/min Afr Amer GFR >60 2 CBC W/Automated Diff 09/05/2020 [facility] CBC W/Automated Diff (SEE NOTE) 3 WBC [...] Lymph 8.4 % Low 25.0 - 40.0 [place]offey 5.9 % 3.0 - 8.0 Eos 0.5 % 0.0 - 7.0 Baso 0.3 % 0.0 - 2.5 %Ig 0.5 % High 0.0 - 0.0 %NRBC 0.0 % 0.0 - 0.0 #Neut 10.81 10^3/uL High 2.00 - 6.90 #Lymph 1.08 10^3/uL 0.60 - 3.40 #Coffey 0.76 10^3/uL 0.00 - 0.90 #Eos 0.06 10^3/uL 0.00 - 0.70 #Baso 0.04 10^3/uL 0.00 - 0.20 #Ig 0.06 10^3/uL 0.00 - 0.10 #NRBC 0.00 10^3/uL 0.00 - 0.00 Manual Diff NOT INDICATED RBC Morph NOT INDICATED Lactic Acid (Lactate) B 09/05/2020 [facility] Lactic Acid 3.5 mmol/L Critical high 0.2 - 2.2 Call/ Read Back CALLED TO RICH By: [facility] Date/Time 09.05.20 @ 3739 Laboratory test finding 09/05/2020 [facility] Lipase Serum 28 U/L 13 - 60 Comprehensive Metabolic Panel 09/05/2020 [facility] Comprehensive Metabo (SEE NOTE) 4 [...] GFR >60 5 Laboratory test finding 08/19/2020 [facility] l Culture Blood (SEE NOTE) 6 Laboratory test finding 08/19/2020 [facility] l Culture Blood (SEE NOTE) 7 Laboratory test finding 08/19/2020 [facility] GI Panel COMMENT 8 CBC W/Automated Diff 08/19/2020 [facility] CBC W/Automated Diff (SEE NOTE) 9 WBC [...] Lymph 6.8 % Low 25.0 - 40.0 Coffey 4.1 % 3.0 - 8.0 Eos 0.1 % 0.0 - 7.0 Baso 0.3 % 0.0 - 2.5 %Ig 0.7 % High 0.0 - 0.0 %NRBC 0.0 % 0.0 - 0.0 #Neut 15.26 10^3/uL High 2.00 - 6.90 #Lymph 1.18 10^3/uL 0.60 - 3.40 #Coffey 0.71 10^3/uL 0.00 - 0.90 #Eos 0.02 10^3/uL 0.00 - 0.70 #Baso 0.05 10^3/uL 0.00 - 0.20 #Ig 0.12 10^3/uL High 0.00 - 0.10 #NRBC 0.00 10^3/uL 0.00 - 0.00 Manual Diff NOT INDICATED RBC Morph NOT INDICATED Lactic Acid (Lactate) B 08/19/2020 [facility] Lactic Acid 6.0 mmol/L Critical high 0.2 - 2.2 Call/ Read Back CALLED TO DR. GONZALEZ <SEE NOTE> 10 By: [facility] Date/Time 08/19/20 @ 0800 Laboratory test finding 08/19/2020 [facility] Troponin T <0.01 NG/ML 0.00 - 0.10 11 Amylase 57 U/L 30 - 110 Lipase Serum 28 U/L 13 - 60 Comprehensive Metabolic Panel 08/19/2020 [facility] Comprehensive Metabo (SEE NOTE) 12 [...] developed and its performance characteristics determined by [employer]. Nucleic acid amplification tests include PCR and [...] Normal 6 _CULTURE BLOOD_ TEST PERFORMED AT [address] [address] CLIA# [id number] SEE SCANNED REPORT { PRELIM 7 _CULTURE BLOOD_ TEST PERFORMED AT [address] [id number] CLIA# [id number] SEE SCANNED REPORT { PRELIM 8 Test [...] Normal Procedures Date Code Description Status 06/20/2020 411185032 Bone Mineral Density Test Comple keren 2018 [id number] Mammogram Completed Medical Devices Description No Information Available Encounters Type Date Location Provider Dx Diagnosis Office Visit 08/29/2020 10:45a Main Office Lila Branham PA K29.60 Other gastritis without bleeding I73.9 Peripheral vascular disease, unspecified I10 Essential (primary) hyperten saloni R19.7 Diarrhea, unspecified Assessments Date Code Description Provider 12/06/2020 I10 Essential (primary) hypertension Lila Branham PA 12/06/2020 I73.9 Peripheral vascular disease, uns pecified Lila Branham PA 12/06/2020 E78.2 Mixed hyperlipidemia Lila Branham PA 12/06/2020 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
--- OUTSIDE RECORDS SUMMARY | 2020-12-17 06:21 | CCD | Continuity of Care Document ---
Author Author Nicci CARPIO M.D. Organization Unknown Address [address] [place] [address] Phone [phone] Care Team Providers Care Pressure Tank Operator Name Role Phone Fernando Wilkerson MD AUTM [phone] Bert Warner DO AUTM [phone] Mateo Crook MD AUTM [phone] Shar Tolbert MD AUTM [phone] Denis Blanca MD AUTM [phone] Israel Montenegro MD AUTM [phone] Parag Beckwith MD AUTM [phone] Problems Active Problems Provider Date Essential hypertension [...] every day for heartburn/acid reflux 90tabs Eli Carpio M.D. 05/15/2017 Azelastine HCL (Nasal) 0.1% Soluti on 2 sprays in each nostril every evening 90ml Julio Carpio M.D. 05/15/2017 Losartan Potassium/Hydrochlorothiazide 100-25mg Tablets take one tablet by mouth every morning for blood pressure 90 tabs I10 Eli Carpio M.D. 02/03/2017 Plavix 75mg Tablets 1 by [...] CPT Code Status Date Vaccine Lot # [id number] Given 09/18/2017 Pneumococcal Vaccine [id number] Given 08/05/2016 Prevnar 13 For Adults [id number] Vital Signs Date Vital Result Comment 12/06/2020 1:34pm BP Systolic 133 mmHg BP Diastolic 70 mmHg Heart Rate 102 /min Body Temperature 96.8 F Respiratory Rate 20 /min Height 63.0 inches 5'3" Weight 232.38 lb O2 % BldC Oximetry 98 % Peak Expiratory Flow Rate 314 Estimated Peak Flow Rate [place] Body Weight 115 lb BMI (Body Mass Index) 41.2 kg/m2 08/29/2020 11:19am BP Systolic 123 mmHg BP Diastolic 65 mmHg Heart Rate 76 /min Body Temperature 97.8 F Respiratory Rate 22 /min Height 63.0 inches 5'3" Weight 228.12 lb O2 % BldC Oximetry 98 % Peak Expiratory Flow Rate 314 Estimated Peak Flow Rate [place] Body Weight 115 lb BMI (Body Mass Index) 40.4 kg/m2 Results Test Acquired Date Facility Test Result H/L Range Note CBC No Diff 12/07/2020 [facility] CBC No Diff (SEE NOTE) 1 [...] 7.4 - 10.4 Basic Metabolic Panel 12/07/2020 [facility] Basic Metabolic Pane (SEE NOTE) 2 [...] 52 mL/min 3 Laboratory test finding 09/29/2020 [facility] Coronavirus Covid-19 Not Detected Not Detected 4 Laboratory test finding 09/25/2020 [facility] BUN 17 mg/dL 7 - 21 Creatinine Serum 09/25/2020 [facility] Creatinine 1.1 mg/dL 0.7 - 1.5 Age 75 yrs Non-Aa GFR 52 mL/min Afr Amer GFR >60 5 Comprehensive Metabolic Panel 09/05/2020 [facility] Comprehensive Metabo (SEE NOTE) 6 Sodium [...] GFR >60 7 Laboratory test finding 09/05[facility] Lipase Serum 28 U/L 13 - 60 Lactic Acid (Lactate) B 09/05/2020 [facility] Lactic Acid 3.5 mmol/L Critical high 0.2 - 2.2 Call/ Read Back CALLED TO RICH By: [facility] Date/Time 09.05.20 @ 1145 CBC W/Automated Diff 09/05/2020 [facility] CBC W/Automated Diff (SEE NOTE) 8 [...] Lymph 8.4 % Low 25.0 - 40.0 [place] 5.9 % 3.0 - 8.0 Eos 0.5 % 0.0 - 7.0 Baso 0.3 % 0.0 - 2.5 %Ig 0.5 % High 0.0 - 0.0 %NRBC 0.0 % 0.0 - 0.0 #Neut 10.81 10^3/uL High 2.00 - 6.90 #Lymph 1.08 10^3/uL 0.60 - 3.40 #[place]orter 0.76 10^3/uL 0.00 - 0.90 #Eos 0.06 10^3/uL 0.00 - 0.70 #Baso 0.04 10^3/uL 0.00 - 0.20 #Ig 0.06 10^3/uL 0.00 - 0.10 #NRBC 0.00 10^3/uL 0.00 - 0.00 Manual Diff NOT INDICATED RBC Morph NOT INDICATED Laboratory test finding 08/19/2020 [facility] Culture Blood (SEE NOTE) 9 Laboratory test finding 08/19/2020 [facility] Culture Blood (SEE NOTE) 10 Laboratory test finding 08/19/2020 [facility] GI Panel COMMENT 11 CBC W/Automated Diff 08/19/2020 [facility] CBC W/Automated Diff (SEE NOTE) 12 [...] Lymph 6.8 % Low 25.0 - 40.0 [place] 4.1 % 3.0 - 8.0 Eos 0.1 % 0.0 - 7.0 Baso 0.3 % 0.0 - 2.5 %Ig 0.7 % High 0.0 - 0.0 %NRBC 0.0 % 0.0 - 0.0 #Neut 15.26 10^3/uL High 2.00 - 6.90 #Lymph 1.18 10^3/uL 0.60 - 3.40 #Porter 0.71 10^3/uL 0.00 - 0.90 #Eos 0.02 10^3/uL 0.00 - 0.70 #Baso 0.05 10^3/uL 0.00 - 0.20 #Ig 0.12 10^3/uL High 0.00 - 0.10 #NRBC 0.00 10^3/uL 0.00 - 0.00 Manual Diff NOT INDICATED RBC Morph NOT INDICATED Lactic Acid (Lactate) B 08/19/2020 [facility] Lactic Acid 6.0 mmol/L Critical high 0.2 - 2.2 Call/ Read Back CALLED TO DR. GONZALEZ <SEE NOTE> 13 By: JUSTO Date/Time 08/19/20 @ 0800 Laboratory test finding 08/19/2020 [facility] Troponin T <0.01 NG/ML 0.00 - 0.10 14 Amylase 57 U/L 30 - 110 Lipase Serum 28 U/L 13 - 60 Comprehensive Metabolic Panel 08/19/2020 [facility] Comprehensive Metabo (SEE NOTE) 15 [...] developed and its performance characteristics determined by [employer]. Nucleic acid amplification tests include PCR and [...] COUNT 9 _CULTURE BLOOD_ [place] [address] CLIA# [id number] SEE SCANNED REPORT { PRELIM 10 _CULTURE BLOOD_ TEST PERFORMED AT [address] [address] CLIA# [id number] SEE SCANNED REPORT { PRELIM 11 Test [...] Normal Procedures Date Code Description Status 06/20/2020 [id number] Bone Mineral Density Test Comple keren 2018 [id number] Mammogram Completed Medical Devices Description No Information Available Encounters Type Date Location Provider Dx Diagnosis Office Visit 12/06/2020 1:30p Main Office Lila Branham PA Z01.818 Encounter for other preprocedural examination I10 Essential (primary) hyperten saloni E78.2 Mixed hyperlipidemia I70.213 Athscl [place] arteries of ex trm w intrmt juwan, [...] Lila Branham PA 12/06/2020 I70.213 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
--- OUTSIDE RECORDS SUMMARY | 2020-12-17 06:21 | CCD | Continuity of Care Document ---
Author Author Nicci PETTY PA-C Organization Unknown Address [address] [place] [address], [facility] [place] [address] Phone [phone] Care Team Providers Care Manager Of Construction Name Role Phone Sara Alexandra AUTM [phone] Calvin Kaye MD AUTM [phone] France Moody MD AUTM [phone] Eli Underwood MD AUTM [phone] Andrea Lopez MD AUTM [phone] Problems Active Problems Provider Date Dyspnea Mateo [...] Carotid bruit Mateo Crook MD Onset: 04/09/2020 Aortic valve disorder LISA Galvez-Rivka Onset: 10/03/2020 Pure hypercholesterolemia LISA Galvez-C Onset: 2019 Carotid artery occlusion LISA Galvez-C Onset: 020 Dietary management surveillance Danielle Petty PA-C Onset: 10/03/2020 Social History Type Date Description Comments Sex Unknown ETOH Use Consumes 3 beers per week Tobacco Use Start: Unknown End: Unknown Patient is a former smoker Quit 1985 smoked 2ppd for 18 years Smoking Status Reviewed: 12/03/20 Patient is a former smoker Qu it 1986 smoked 2ppd for 18 years Exercise Type/Frequency Walks sporadically On Tr eadmill very short amount of time Exercise Type/Frequency Does housework daily Exercise Limitations Shortness Of Breath Exercise Limitations Weakness Exercise Limitations Fatigue Exercise Limitations Muscle Pain Allergies, Adverse Reactions, Alerts Description No Known Drug Allergies Medications Active Medications SIG Qnty Indications Ordering Provide r Date Atorvastatin Calcium 80mg Tablets 1 by mouth every night at bedtime 90tabs R07.2 Mateo Crook MD 12/03/2020 I73.9 R09.89 Align 4mg Capsules 1 by mo [facility] every day Unknown 12/02/2020 Amlodipine Besylate 5mg Tablets 1 by mouth every day Unknown 04/08/[address] 1 by mouth every day Unknown 04/08/2020 Colace 100mg Capsules 1 by mouth once a day Unknown 04/08/2020 Pantoprazole Sodium 40mg Tablets D R 1 by mouth every day Unknown 04/08/2020 Losartan Potassium/Hydrochlorothiazide 100-25mg Tablets 1 by mouth every day Unknown 020 Spironolactone 25mg Tablets 1 by mouth every day Unknown 04/08/2020 Fluoxetine HCL 20mg Capsules 1 po qd Unknown 09/19/2010 Plavix 75mg Tablets 1 po qd 14tabs Unknown 09/19/2010 Immunizations Description No Information Available Vital Signs Date Vital Result Comment 12/03/2020 9:09am Weight 228.00 lb Home Weight 223lb Home weight Height 64 inches 5'4" BMI (Body Mass Index) 39.1 kg/m2 Heart Rate 72 /min Regular Respiratory Rate 16 /min BP Systolic Right Arm 128 mmHg sitting, large cuf f BP Diastolic Right Arm 76 mmHg sitting, large cu ff BP Systolic Left Arm 132 mmHg sitting BP Diastolic Left Arm 76 mmHg sitting 10/03/2020 10:07am Weight 226.00 lb Home Weight 224lb Height 64 inches 5'4" BMI (Body Mass Index) 38.8 kg/m2 Heart Rate 68 /min Regular Respiratory Rate 16 /min BP Systolic Right Arm 126 mmHg sitting, large cuf f BP Diastolic Right Arm 74 mmHg sitting, large cu ff BP Systolic Left Arm 128 mmHg sitting BP Diastolic Left Arm 74 mmHg sitting Results Description No Information Available Procedures Date Code Description Status 12/03/2020 67920 ECG 12-Lead Completed 10/03/2020 70897 ECG 12-Lead Completed Medical Devices Description No Information Available Encounters Type Date Location Provider Dx Diagnosis Office Visit 12/03/2020 9:15a Main Office Danielle Petty PA-C Z01.8 10 [...] Dietary counseling and surve illance Office Visit 10/03/2020 10:15a Main Office Danielle [...] (valve) insufficiency I73.9 Peripheral vascular disease, unspecified Assessments Date Code Description Provider 12/03/2020 Z01.810 Encounter for preprocedural card iovascular examination Danielle Petty PA-C 12/03/2020 I11.9 Hypertensive heart disease witho ut heart failure Danielle Petty PA-C 12/03/2020 R94.31 Abnormal electrocardiogram [ECG] [EKG] Danielle Petty PA-C 12/03/2020 I35.8 Other nonrheumatic aortic valve disorders Danielle Handyw, PA-C 12/03/2020 I34.8 Other nonrheumatic mitral valve disorders Danielle Handyw, PA-C 12/03/2020 E78.00 Pure hypercholesterolemia, unspe cified Danielle Handyw, PA-C 12/03/2020 I65.23 Occlusion and stenosis of bilate ral carotid arteries Danielle Handyw, PA-C 12/03/2020 I73.9 Peripheral vascular disease, uns pecified Danielle Handyw, PA-C 12/03/2020 Z71.3 Dietary counseling and surveilla nce Danielle Petty, PA-C 10/03/2020 Z01.810 Encounter for preprocedural card iovascular examination Danielle Petty, PA-C 10/03/2020 I11.9 Hypertensive heart disease witho ut heart failure Danielle Petty, HI-C 10/03/2020 R94.31 Abnormal electrocardiogram [ECG] [EKG] Danielle Handyw, PA-C 10/03/2020 I35.8 Other nonrheumatic aortic valve disorders Danielle Handyw, PA-C 10/03/2020 I34.8 Other nonrheumatic mitral valve disorders Danielle Handyw, PA-C 10/03/2020 E78.00 Pure hypercholesterolemia, unspe cified Danielle Handyw, PA-C 10/03/2020 I65.23 Occlusion and stenosis of bilate ral carotid arteries Danielle Handyw, PA-C 10/03/2020 I73.9 Peripheral vascular disease, uns pecified Danielle Handyw, PA-C 10/03/2020 Z71.3 Dietary counseling and surveilla nce Danielle Petty, PA-C 06/06/2020 R07.2 Precordial pain Mateo Crook MD 06/06/2020 R06.02 Shortness of breath Mateo arce MD 06/06/2020 R94.31 Abnormal electrocardiogram [ECG] [EKG] Mateo Crook MD 06/06/2020 I11.9 Hypertensive heart disease witho ut heart failure Mateo Crook MD 06/06/2020 I34.0 Nonrheumatic mitral (valve) insu fficiency Mateo Crook MD 06/06/2020 I73.9 Peripheral vascular disease, uns pecified Mateo Crook MD Plan of Treatment Future Appointment(s):* 06/04/2021 10:15 am - Danielle Petty PA-C at Main Office 12/03/2020 - Danielle Petty PA-C* Z01.810 Encounter for preprocedural cardiovascular examination* New Labs:* Basic Metabolic Profile, Scheduled: 12/03/20 * Complete Blood Count, Scheduled: 12/03/20 * I11.9 Hypertensive heart disease without heart failure* New Labs:* Comprehensive Metabolic Profil, Scheduled: 01/28/21 * R94.31 Abnormal electrocardiogram [ECG] [EKG] * I35.8 Other nonrheumatic aortic valve disorders * I34.8 Other nonrheumatic mitral valve disorders * E78.00 Pure hypercholesterolemia, unspecified* New Labs:* Comprehensive Metabolic Profil, Scheduled: 01/28/21 * Lipid Panel, Scheduled: 01/28/21 * Recommendations:* 1. Increase atorvastatin to 80 mg one pill every evening. 2. Do fasting lab work in about 8 weeks. * I65.23 Occlusion and stenosis of bilateral carotid arteries * I73.9 Peripheral vascular disease, unspecified* New Medication:* Atorvastatin Calcium 80 mg - 1 by mouth every night at bedtime * Z71.3 Dietary counseling and surveillance * All * Follow up:* 6 month follow up. Functional Status Functional Condition Comment Date Status Independent with all ADL's Activ e Mental Status Description No Information Available Referrals Description No Information Available
--- OUTSIDE RECORDS SUMMARY | 2020-12-17 06:21 | CCD | Continuity of Care Document ---
Author Author Nicci PETTY PA-C Organization Unknown Address [address] [place] [address], [place] [address] Phone [phone] Care Team Providers Care Business Specialist Name Role Phone Sara Alexandra AUTM [phone] Calvin Kaye MD AUTM [phone] France Moody MD AUTM [phone] Eli Underwood MD AUTM [phone] Andrea Lopez MD AUTM [phone] Problems Active Problems Provider Date Dyspnea Mateo [...] by mouth every night at bedtime 90tabs E78.00 Mateo Crook MD 12/03/2020 I65.23 I73.9 Align 4mg Capsules 1 by mo [facility] every day Unknown 12/02/2020 Amlodipine Besylate [...] Diastolic Left Arm 74 mmHg sitting Results Test Acquired Date Facility Test Result H/L Range Note CBC No Diff 12/07/2020 [place] [address] [phone] CBC No Diff (SEE NOTE) 1 WBC [...] 7.4 - 10.4 Basic Metabolic Panel 12/07/2020 [place], [place] [id number] [phone] Basic Metabolic Pane (SEE NOTE) 2 Sodium [...] GFR >60 Non-Aa GFR 52 mL/min 3 1 COMPLETE BLOOD COUNT 2 BASIC METABOLIC [...] mL/min Normal Procedures Date Code Description Status 12/03/2020 75603 ECG 12-Lead Completed 10/03/2020 74220 ECG 12-Lead Completed Medical Devices Description No [...] unspecified Z71.3 Dietary counseling and surve illance Assessments Date Code Description Provider 12/03/2020 Z01.810 Encounter for preprocedural card iovascular examination Danielle Petty PA-C 12/03/2020 I11.9 Hypertensive heart disease witho ut heart failure Danielle Petty PA-C 12/03/2020 R94.31 Abnormal electrocardiogram [ECG] [EKG] Danielle Petty PA-C 12/03/2020 I35.8 Other nonrheumatic aortic valve disorders Danielle Petty PA-C 12/03/2020 I34.8 Other nonrheumatic mitral valve disorders Danielle Petty PA-C 12/03/2020 E78.00 Pure hypercholesterolemia, unspe cified Danielle Petty PA-C 12/03/2020 I65.23 Occlusion and stenosis of bilate ral carotid arteries Danielle Petty PA-C 12/03/2020 I73.9 Peripheral vascular disease, uns pecified Danielle Petty, PA-C 12/03/2020 Z71.3 Dietary counseling and surveilla LISA Chen-C 10/03/2020 Z01.810 Encounter for preprocedural card iovascular examination VALDEMAR GalvezC 10/03/2020 I11.9 Hypertensive heart disease witho ut heart failure LISA Galvez-C 10/03/2020 R94.31 Abnormal electrocardiogram [ECG] [EKG] LISA Galvez-C 10/03/2020 I35.8 Other nonrheumatic aortic valve disorders LISA Galvez-C 10/03/2020 I34.8 Other nonrheumatic mitral valve disorders LISA Galvez-C 10/03/2020 E78.00 Pure hypercholesterolemia, unspe cified LISA Galvez-C 10/03/2020 I65.23 Occlusion and stenosis of bilate ral carotid arteries LISA Galvez-C 10/03/2020 I73.9 Peripheral vascular disease, uns pecified Danielle Petty, LISA-C 10/03/2020 Z71.3 Dietary counseling and surveilla lisette Petty PA-C Plan of Treatment Future Appointment(s):* 06/04/2021 10:15 [...] disorders * E78.00 Pure hypercholesterolemia, unspecified* New Medication:* Atorvastatin Calcium 80 mg - 1 by mouth every night at bedtime * New Labs:* Comprehensive Metabolic Profil, Scheduled: 01/28/21 * Lipid Panel, Scheduled: 01/28/21 * Recommendations:* 1. Increase atorvastatin to 80 mg one pill every evening. 2. Do fasting lab work in about 8 weeks. * I65.23 Occlusion and stenosis of bilateral carotid arteries* New Medication:* Atorvastatin Calcium 80 mg - 1 by mouth every night at bedtime * I73.9 Peripheral vascular disease, unspecified* New [...]
--- OUTSIDE RECORDS SUMMARY | 2020-12-17 06:22 | CCD | Continuity of Care Document ---
Author Author Nicci CARPIO M.D. Organization Unknown Address [address] [place] [address] Phone [phone] Care Team Providers Care Memory Care Program Resident Name Role Phone Fernando Wilkerson MD AUTM [phone] Bert Warner DO AUTM [phone] Mateo Crook MD AUTM [phone] Shar Tolbert MD AUTM [phone] Denis Blanca MD AUTM [phone] Israel Montenegro MD AUTM [phone] Parag Beckwith MD AUTM [phone] Problems Active Problems Provider Date Essential hypertension [...] 1 by mouth every day 90tabs Eli Carpio M.D. 06/2019 Gabapentin 300mg Capsules 1 by mouth every night for radicular hand symptoms prn 90caps M47.22 Eli Carpio M.D. 03/23/2018 Amlodipine Besylate 5mg Tablets take one tablet by mouth daily for blood pressure 90tabs I10 PleBeth de la cruz FNP 03/23/2018 Pantoprazole Sodium 40mg Tablets D [...] 1 by mouth every day 90tabs Eli Carpio M.D. 09/27/2013 Fluoxetine HCL 20mg Capsules 1 by mouth every day [facility] F43.21 Eli Carpio M.D. 010 Stool Softener 100mg Capsules take one capsule by mouth daily 90caps Eli Carpio M.D. Milk Of Magnesia 400mg/5ML Suspens ion takes one capful every other day Unknown Atorvastatin Calcium 40mg Tablets take one tablet by mouth every day for cholesterol Unknow n Immunizations CPT Code Status Date Vaccine Lot # [id number] Given 09/18/2017 Pneumococcal Vaccine [id number] Given 08/05/2016 Prevnar 13 For Adults [id number] Vital Signs Date Vital Result Comment 08/29/2020 11:19am BP Systolic 123 mmHg BP Diastolic 65 mmHg Heart Rate 76 /min Body Temperature 97.8 F Respiratory Rate 22 /min Height 63.0 inches 5'3" Weight 228.12 lb O2 % BldC Oximetry 98 % Peak Expiratory Flow Rate 314 Estimated Peak Flow Rate [place] Body Weight 115 lb BMI (Body Mass Index) 40.4 kg/m2 05/01/2020 4:33pm BP Systolic 149 mmHg BP Diastolic 76 mmHg Heart Rate 87 /min Body Temperature 96.5 F Respiratory Rate 32 /min Height 63.0 inches 5'3" O2 % BldC Oximetry 97 % Peak Expiratory Flow Rate 315 Estimated Peak Flow Rate [place] Body Weight 115 lb Results Test Acquired Date Facility Test Result H/L Range Note Laboratory test finding 09/25/2020 [facility] BUN 17 mg/dL 7 - 21 Creatinine Serum 09/25/2020 [facility] Creatinine 1.1 mg/dL 0.7 - 1.5 Age 75 yrs Non-Aa GFR 52 mL/min Afr Amer GFR >60 1 CBC W/Automated Diff 09/05/2020 [facility] CBC W/Automated Diff (SEE NOTE) 2 WBC 12.8 10^3/uL High 4.2 - 11.0 [...] Lymph 8.4 % Low 25.0 - 40.0 [place] 5.9 % 3.0 - 8.0 Eos 0.5 % 0.0 - 7.0 Baso 0.3 % 0.0 - 2.5 %Ig 0.5 % High 0.0 - 0.0 %NRBC 0.0 % 0.0 - 0.0 #Neut 10.81 10^3/uL High 2.00 - 6.90 #Lymph 1.08 10^3/uL 0.60 - 3.40 #[place] 0.76 10^3/uL 0.00 - 0.90 #Eos 0.06 10^3/uL 0.00 - 0.70 #Baso 0.04 10^3/uL 0.00 - 0.20 #Ig 0.06 10^3/uL 0.00 - 0.10 #NRBC 0.00 10^3/uL 0.00 - 0.00 Manual Diff NOT INDICATED RBC Morph NOT INDICATED Lactic Acid (Lactate) B 09/05/2020 [facility] Lactic Acid 3.5 mmol/L Critical high 0.2 - 2.2 Call/ Read Back CALLED TO RICH By: [facility] Date/Time 09.05.20 @ 4927 Laboratory test finding 09/05/2020 [facility] Lipase Serum 28 U/L 13 - 60 Comprehensive Metabolic Panel 09/05/2020 [facility] Comprehensive Metabo (SEE NOTE) 3 Sodium 135 mEq/L 134 - 153 Potassium [...] GFR 52 mL/min Afr Amer GFR >60 4 Laboratory test finding 08/19/2020 [facility] Culture Blood (SEE NOTE) 5 Laboratory test finding 08/19/2020 [facility] Culture Blood (SEE NOTE) 6 Laboratory test finding 08/19/2020 [facility] GI Panel COMMENT 7 CBC W/Automated Diff 08/19/2020 [facility] CBC W/Automated Diff (SEE NOTE) 8 WBC 17.3 10^3/uL High 4.2 - 11.0 [...] Lymph 6.8 % Low 25.0 - 40.0 [place] 4.1 % 3.0 - 8.0 Eos 0.1 % 0.0 - 7.0 Baso 0.3 % 0.0 - 2.5 %Ig 0.7 % High 0.0 - 0.0 %NRBC 0.0 % 0.0 - 0.0 #Neut 15.26 10^3/uL High 2.00 - 6.90 #Lymph 1.18 10^3/uL 0.60 - 3.40 #[place] 0.71 10^3/uL 0.00 - 0.90 #Eos 0.02 10^3/uL 0.00 - 0.70 #Baso 0.05 10^3/uL 0.00 - 0.20 #Ig 0.12 10^3/uL High 0.00 - 0.10 #NRBC 0.00 10^3/uL 0.00 - 0.00 Manual Diff NOT INDICATED RBC Morph NOT INDICATED Lactic Acid (Lactate) B 08/19/2020 [facility] Lactic Acid 6.0 mmol/L Critical high 0.2 - 2.2 Call/ Read Back CALLED TO DR. GONZALEZ <SEE NOTE> 9 By: [facility] Date/Time 08/19/20 @ 0800 Laboratory test finding 08/19/2020 [facility] Troponin T <0.01 NG/ML 0.00 - 0.10 10 Amylase 57 U/L 30 - 110 Lipase Serum 28 U/L 13 - 60 Comprehensive Metabolic Panel 08/19/2020 [facility] Comprehensive Metabo (SEE NOTE) 11 Sodium 135 mEq/L 134 - 153 Potassium [...] GFR 43 mL/min Afr Amer GFR >60 12 1 Male GFR Interprentation 20-49 yrs >60 mL/min Normal 50-59 yrs >56 mL/min Normal 60-69 yrs >49 mL/min Normal 70-79yrs >42 mL/min Normal 80 and above >35 mL/min Normal Female GFR Interpretation 20-39 yrs >60 mL/min Normal 40-49 yrs >58 mL/min Normal 50-59 yrs >51 mL/min Normal 60-69 yrs >45 mL/min Normal 70-79 yrs >39 mL/min Normal 80 and above >32 mL/min Normal 2 COMPLETE BLOOD COUNT 3 COMPREHENSIVE METABOLIC PANE L 4 Male GFR Interprentation 20-49 yrs >60 mL/min Normal 50-59 yrs >56 mL/min Normal 60-69 yrs >49 mL/min Normal 70-79yrs >42 mL/min Normal 80 and above >35 mL/min Normal Female GFR Interpretation 20-39 yrs >60 mL/min Normal 40-49 yrs >58 mL/min Normal 50-59 yrs >51 mL/min Normal 60-69 yrs >45 mL/min Normal 70-79 yrs >39 mL/min Normal 80 and above >32 mL/min Normal 5 _CULTURE BLOOD_ [place] [address] CLIA# [id number] SEE SCANNED REPORT { PRELIM 6 _CULTURE BLOOD_ [place] [address] CLIA# [id number] SEE SCANNED REPORT { PRELIM 7 Test cancelled at [facility] equ[facility]. PER MANIFEST: NO SPEC Test [...] performed Test not performed Test not performed 8 COMPLETE BLOOD COUNT [address] MEREDITH 10 TROPONIN T 0.1 ng/ml Recommended as the clinical th reshold value for Troponin T. 11 COMPREHENSIVE METABOLIC PANE L 12 Male GFR Interprentation 20-49 yrs >60 mL/min [...] Normal Procedures Date Code Description Status 06/20/2020 [id number] Bone Mineral Density Test Comple keren 2018 [id number] Mammogram Completed Medical Devices Description No Information [...] Provider 08/29/2020 K29.60 Other gastritis without bleeding Petrancosta Lila Vigo, PA 08/29/2020 I73.9 Peripheral vascular disease, uns pecified Petrancosta, Lila Vigo, PA 08/29/2020 I10 Essential (primary) hypertension JordanaLila PA 08/29/2020 R19.7 Diarrhea, unspecified Petrancost a Lila Sj, PA 05/01/2020 I10 Essential (primary) hypertension Roseanna Davis PA-C 05/01/2020 E78.2 Mixed hyperlipidemia Sctimothy, She KOURTNEY ambrose 05/01/2020 R06.02 Shortness of breath Mindy Davis PA-C Plan of Treatment No Information Available Functional [...] the same time as EGD Scheduled 09/13/2020 [phone]
--- OUTSIDE RECORDS SUMMARY | 2020-12-17 06:22 | CCD | Continuity of Care Document ---
Author Author Nicci MOODY MD Organization Unknown Address [address] [facility] [address] [facility], [address] [place] [address] Phone [phone] Care Team Providers Care It Manager Name Role Phone AUTM Unavailable Eli Underwood M.D. AUTM [phone] Problems Description No Information Available Social History [...] Capsules 1 by mouth every day Unknown Gabapentin 300mg Capsules 1 by mouth twice a day Unknown Pantoprazole Sodium 40mg Tablets D [...] every day Unknown Atorvastatin Calcium 40mg Tablets Mateo Crook M.D. Immunizations Description No Information Available Vital Signs Date Vital Result Comment 09/20/2020 11:01am BP Systolic 139 mmHg BP Diastolic 85 mmHg Height 64 inches 5'4" Weight 229.38 lb BMI (Body Mass Index) 39.4 kg/m2 [place] Body Weight 120 lb Weight 104.044 kg 08/23/2020 10:31am BP Systolic 120 mmHg BP Diastolic 78 mmHg Heart Rate 80 /min O2 % BldC Oximetry 97 % Room Air Height 64 inches 5'4" Weight 230.00 lb BMI (Body Mass Index) 39.5 kg/m2 [place] Body Weight 120 lb Weight 104.328 kg Results Description No Information Available Procedures Description No Information Available Medical Devices Description No Information Available Encounters Type Date Location Provider Dx Diagnosis Office Visit 08/23/2020 10:30a [facility] Pulmonary/Thoracic [facility] freda Kaye MD R91.8 Other nonspecific abnormal finding of arlette ng [facility] Z87.891 Personal history of nicotine dependence Z79.02 group home (current) use of a 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/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 Office Visit 06/11/2020 1:45p [facility] France howard MD I70.213 Athscl [place] arteries of extrm w intrmt [place], bi legs 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[place], right leg Office Visit 05/10/2020 9:30a [facility] France howard MD I70.213 Athscl [place] arteries of extrm w intrmt [place], bi legs Z95.828 Presence of other vascular i mplants and grafts 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[place], right leg Assessments Date Code Description Provider 08/23/2020 R91.8 Other nonspecific abnormal findi ng of lung field Calvin Kaye MD 08/23/2020 Z87.891 Personal history of nicotine dep endence Calvin Kaye MD 08/23/2020 Z79.02 manager terminal (current) use of a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/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 Calvin Kaye MD 06/11/2020 I70.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, bilateral legs France Moody MD 06/11/2020 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, right leg France Moody MD 05/10/2020 I70.213 Atherosclerosis of [place] arteri es of extremities with inter France Moody MD 05/10/2020 Z95.828 Presence of other vascular impla nts and grafts France Moody MD 05/10/2020 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
--- OUTSIDE RECORDS SUMMARY | 2020-12-17 06:22 | CCD | Continuity of Care Document ---
Author Author Nicci LOPEZ MD Organization Unknown Address [address] [place] [address] Phone [phone] Care Team Providers Care Drapery Worker Name Role Phone [facility] AUTM Unav ailable Problems Active Problems Provider Date Essential hypertension Andrea Lopez MD Onset: 09/11/2020 Pure hypercholesterolemia Andrea Lopez MD Onset: 020 Intestinal obstruction Andrea Lopez MD Onset: 09/13/2020 [...] Ordering Provide r Date Zofran 4mg Tablets take 1 tab by [...] Date Location Provider Dx Diagnosis Office Visit 09/13/2020 1:30p [facility] Andrea Lopez MD K 56.600 Partial intestinal obstruction, unspecified as to cause Assessments Date Code Description Provider 09/13/2020 K56.600 Partial intestinal obstruction, unspecified as to cause Andrea Lopez MD Plan of Treatment No Information Available Functional Status Description No Information Available Mental Status Description No Information Available Referrals Description No Information Available
--- OUTSIDE RECORDS SUMMARY | 2020-12-17 06:23 | CCD ---
Author Author [facility] Organization [facility] Address Unknown Phone Unavailable Care Team Providers Care Android Platform Developer Name Role Phone Ya Moody MD Unavailable Unavailable Ya Moody MD Unavailable Unavailable Ya Moody MD Unavailable Unavailable Ya Moody MD Unavailable Unavailable Ya Moody MD Unavailable Unavailable Ya Moody MD Unavailable Unavailable Ya Moody MD Unavailable Unavailable Ya Moody MD Unavailable Unavailable Ya Moody MD Unavailable Unavailable Ya Moody MD Unavailable Unavailable Ya Moody MD Unavailable Unavailable Ya Moody MD Unavailable Unavailable Ya Moody MD Unavailable Unavailable Ya Moody MD Unavailable Unavailable Autumn Fox Unavailable Unavailable Autumn Fox Unavailable Unavailable Autumn Fox Unavailable Unavailable Autumn Fox Unavailable Unavailable Autumn Fox Unavailable Unavailable Symenow, Autumn Danielle PA Unavailable Unavailable Symenow, Autumn Danielle PA Unavailable Unavailable Symenow, Autumn Danielle PA Unavailable Unavailable Symenow, Autumn Danielle PA Unavailable Unavailable Symenow, Autumn Danielle PA Unavailable Unavailable Symenow, Autumn Danielle PA Unavailable Unavailable Symenow, Autumn Danielle PA Unavailable Unavailable Symenow, Autumn Danielle PA Unavailable Unavailable Symenow, Autumn Danielle PA Unavailable Unavailable Symenow, Autumn Danielle PA Unavailable Unavailable Symenow, Autumn Danielle PA Unavailable Unavailable Symenow, Autumn Danielle PA Unavailable Unavailable Symenow, Autumn Danielle PA Unavailable Unavailable Symenow, Autumn Danielle PA Unavailable Unavailable Symenow, Autumn Danielle PA Unavailable Unavailable Symenow, Autumn Danielle PA Unavailable Unavailable Symenow, Autumn Danielle PA Unavailable Unavailable Symenow, Autumn Danielle PA Unavailable Unavailable Symenow, Autumn Danielle PA Unavailable Unavailable Symenow, Autumn Danielle PA Unavailable Unavailable Symenow, Autumn Danielle PA Unavailable Unavailable Symenow, Autumn Danielle PA Unavailable Unavailable Symenow, Autumn Danielle PA Unavailable Unavailable Symenow, Autumn Danielle PA Unavailable Unavailable Symenow, Autumn Danielle PA Unavailable Unavailable Symenow, Autumn Danielle PA Unavailable Unavailable Symenow, Autumn Danielle PA Unavailable Unavailable Symenow, Autumn Danielle PA Unavailable Unavailable Symenow, Autumn Danielle PA Unavailable Unavailable Symenow, Autumn Danielle PA Unavailable Unavailable Symenow, Autumn Danielle PA Unavailable Unavailable JULIANAAYCarlos CORTES MD Unavailable Unavailable JULIANAAYCarlos CORTES MD Unavailable Unavailable Carlos MANRIQUE MD Unavailable Unavailable Carlos MANRIQUE MD Unavailable Unavailable Carlos MANRIQUE MD Unavailable Unavailable Carlos MANRIQUE MD Unavailable Unavailable Carlos MANRIQUE MD Unavailable Unavailable Carlos MANRIQUE MD Unavailable Unavailable Carlos MANRIQUE MD Unavailable Unavailable Carlos MANRIQUE MD Unavailable Unavailable BARAYUGACarlos MD Unavailable Unavailable BARAYUGACarlos MD Unavailable Unavailable BARAYUGACarlos MD Unavailable Unavailable BARAYUGACarlos MD Unavailable Unavailable BARAYUGA, Carlos MCGINNIS MD Unavailable Unavailable BARAYUGACarlos MD Unavailable Unavailable BARAYCarlos CORTES MD Unavailable Unavailable BARAYUGA, Carlos MCGINNIS MD Unavailable Unavailable BARAYUGA, Carlos MCGINNIS MD Unavailable Unavailable BARAYUGA, Carlos MCGINNIS MD Unavailable Unavailable BARAYUGA, Carlos MCGINNIS MD Unavailable Unavailable BARAYUGACarlos MD Unavailable Unavailable BARAYUGACarlos MD Unavailable Unavailable BARAYUGA, Carlos MCGINNIS MD Unavailable Unavailable BARAYUGA, Carlos MCGINNIS MD Unavailable Unavailable BARAYUGA, Carlos MCGINNIS MD Unavailable Unavailable BARAYUGA, Carlos MCGINNIS MD Unavailable Unavailable BARAYUGACarlos MD Unavailable Unavailable BARAYUGACarlos MD Unavailable Unavailable BARAYUGACarlos MD Unavailable Unavailable BARAYUGACarlos MD Unavailable Unavailable BARAYUGACarlos MD Unavailable Unavailable BARAYUGACarlos MD Unavailable Unavailable Alexandra, L Sara RPA Unavailable Unavailable Alexandra, L Sara RPA Unavailable Unavailable Alexandra, L Sara RPA Unavailable Unavailable Alexandra, L Sara RPA Unavailable Unavailable Alexandra, L Sara RPA Unavailable Unavailable Alexandra, L Sara RPA Unavailable Unavailable Alexandra, L Sara RPA Unavailable Unavailable Alexandra, L Sara RPA Unavailable Unavailable Alexandra, L Sara RPA Unavailable Unavailable Alexandra, L Sara RPA Unavailable Unavailable Alexandra, L Sara RPA Unavailable Unavailable Alexandra, L Sara RPA Unavailable Unavailable Alexandra, L Sara RPA Unavailable Unavailable Alexandra, L Sara RPA Unavailable Unavailable Alexandra, L Sara RPA Unavailable Unavailable Alexandra, L Sara RPA Unavailable Unavailable Alexandra, L Sara RPA Unavailable Unavailable Alexandra, L Sara RPA Unavailable Unavailable Alexandra, L Sara RPA Unavailable Unavailable Alexandra, L Sara RPA Unavailable Unavailable Alexandra, L Sara RPA Unavailable Unavailable Alexandra, L Sara RPA Unavailable Unavailable Alexandra, L Sara RPA Unavailable Unavailable Alexandra, L Sara RPA Unavailable Unavailable Alexandra, L Sara RPA Unavailable Unavailable Alexandra, L Sara RPA Unavailable Unavailable Alexandra, L Sara RPA Unavailable Unavailable Alexandra, L Sara RPA Unavailable Unavailable Alexandra, L Sara RPA Unavailable Unavailable Alexandra, L Sara RPA Unavailable Unavailable Alexandra, L Sara RPA Unavailable Unavailable Alexandra, L Sara RPA Unavailable Unavailable Scordo, M Roseanna PA Unavailable Unavailable Scordo, M Roseanna PA Unavailable Unavailable Scordo, M Roseanna PA Unavailable Unavailable Scordo, M Roseanna PA Unavailable Unavailable Scordo, M Roseanna PA Unavailable Unavailable Scordo, M Roseanna PA Unavailable Unavailable Scordo, M Roseanna PA Unavailable Unavailable Scordo, M Roseanna PA Unavailable Unavailable Scordo, M Roseanna PA Unavailable Unavailable Scordo, M Roseanna PA Unavailable Unavailable Scordo, M Roseanna PA Unavailable Unavailable Scordo, M Roseanna PA Unavailable Unavailable Scordo, M Roseanna PA Unavailable Unavailable Scordo, M Roseanna PA Unavailable Unavailable Scordo, M Roseanna PA Unavailable Unavailable Scordo, M Roseanna PA Unavailable Unavailable Scordo, M Roseanna PA Unavailable Unavailable Scordo, M Roseanna PA Unavailable Unavailable Scordo, M Roseanna PA Unavailable Unavailable Scordo, M Roseanna PA Unavailable Unavailable Scordo, M Roseanna PA Unavailable Unavailable Scordo, M Roseanna PA Unavailable Unavailable Scordo, M Roseanna PA Unavailable Unavailable Scordo, M Roseanna PA Unavailable Unavailable Scordo, M Roseanna PA Unavailable Unavailable Scordo, M Roseanna PA Unavailable Unavailable Scordo, M Roseanna PA Unavailable Unavailable Scordo, M Roseanna PA Unavailable Unavailable Scordo, M Roseanna PA Unavailable Unavailable Scordo, M Roseanna PA Unavailable Unavailable Scordo, M Roseanna PA Unavailable Unavailable Scordo, M Roseanna PA Unavailable Unavailable Scordo, M Roseanna PA Unavailable Unavailable Scordo, M Roseanna PA Unavailable Unavailable Scordo, M Roseanna PA Unavailable Unavailable Scordo, M Roseanna PA Unavailable Unavailable Scordo, M Roseanna PA Unavailable Unavailable Scordo, M Roseanna PA Unavailable Unavailable Scordo, M Roseanna PA Unavailable Unavailable Scordo, M Roseanna PA Unavailable Unavailable Alexandra, L Sara RPA Unavailable Unavailable Alexandra, L Sara RPA Unavailable Unavailable Alexandra, L Sara RPA Unavailable Unavailable Alexandra, L Sara RPA Unavailable Unavailable Alexandra, L Sara RPA Unavailable Unavailable Alexandra, L Sara RPA Unavailable Unavailable Alexandra, L Sara RPA Unavailable Unavailable Alexandra, L Sara RPA Unavailable Unavailable Alexandra, L Sara RPA Unavailable Unavailable Alexandra, L Sara RPA Unavailable Unavailable Alexandra, L Sara RPA Unavailable Unavailable Alexandra, L Sara RPA Unavailable Unavailable Alexandra, L Sara RPA Unavailable Unavailable Alexandra, L Sara RPA Unavailable Unavailable Alexandra, L Sara RPA Unavailable Unavailable Alexandra, L Sara RPA Unavailable Unavailable Alexandra, L Sara RPA Unavailable Unavailable Alexandra, L Sara RPA Unavailable Unavailable Alexandra, L Sara RPA Unavailable Unavailable Alexandra, L Sara RPA Unavailable Unavailable Alexandra, L Sara RPA Unavailable Unavailable Alexandra, L Asra RPA Unavailable Unavailable Alexandra, L Sara RPA Unavailable Unavailable Alexandra, L Sara RPA Unavailable Unavailable Alexandra, L Sara RPA Unavailable Unavailable Alexandra, L Sara RPA Unavailable Unavailable Alexandra, L Sara RPA Unavailable Unavailable Alexandra, L Sara RPA Unavailable Unavailable Alexandra, L Sara RPA Unavailable Unavailable Alexandra, L Sara RPA Unavailable Unavailable Alexandra, L Sara RPA Unavailable Unavailable Alexandra, L Sara RPA Unavailable Unavailable Shirin, A Eli MD Unavailable Unavailable Shirin, A Eli MD Unavailable Unavailable Shirin, A Eli MD Unavailable Unavailable Shirin, A Eli MD Unavailable Unavailable Shirin, A Eli MD Unavailable Unavailable Shirin, A Eli MD Unavailable Unavailable Shirin, A Eli MD Unavailable Unavailable Shirin, A Eli MD Unavailable Unavailable Shirin, A Eli MD Unavailable Unavailable Shirin, A Eli MD Unavailable Unavailable Shirin, A Eli MD Unavailable Unavailable Shirin, A Eli MD Unavailable Unavailable Shirin, A Eli MD Unavailable Unavailable Shirin, A Eli MD Unavailable Unavailable Shirin, A Eli MD Unavailable Unavailable Shirin, A Eli MD Unavailable Unavailable Shirin, A Eli MD Unavailable Unavailable Shirin, A Eli MD Unavailable Unavailable Shirin, A Eli MD Unavailable Unavailable Shirin, A Eli MD Unavailable Unavailable Shirin, A Eli MD Unavailable Unavailable Shirin, A Eli MD Unavailable Unavailable Shirin, A Eli MD Unavailable Unavailable Shirin, A Eli MD Unavailable Unavailable Shirin, A Eli MD Unavailable Unavailable Shirin, A Eli MD Unavailable Unavailable Shirin, A Eli MD Unavailable Unavailable Shirin, A Eli MD Unavailable Unavailable Shirin, A Eli MD Unavailable Unavailable Shirin, A Eli MD Unavailable Unavailable Shirin, A Eli MD Unavailable Unavailable Shirin, A Eli MD Unavailable Unavailable Shirin, A Eli MD Unavailable Unavailable Shirin, A Eli MD Unavailable Unavailable Shirin, A Eli DELUCA Unavailable Unavailable Shirin, A Eli DELUCA Unavailable Unavailable Shirin, A Eli DELUCA Unavailable Unavailable Shirin, A Eli DELUCA Unavailable Unavailable Shirin, A Eli DELUCA Unavailable Unavailable Shirin, A Eli DELUCA Unavailable Unavailable Shirin, A Eli DELUCA Unavailable Unavailable Shirin, A Eli DELUCA Unavailable Unavailable Shirin, A Eli DELUCA Unavailable Unavailable Shirin, A Eli DELUCA Unavailable Unavailable Shirin, A Eli DELUCA Unavailable Unavailable Shirin, A Eli DELUCA Unavailable Unavailable Shirin, A Eli DELUCA Unavailable Unavailable Shirin, A Eli DELUCA Unavailable Unavailable Shirin, A Eli DELUCA Unavailable Unavailable Shirin, A Eli DELUCA Unavailable Unavailable Shirin, A Eli DELUCA Unavailable Unavailable Shirin, A Eli DELUCA Unavailable Unavailable Shirin, A Eli DELUCA Unavailable Unavailable Shirin, A Eli DELUCA Unavailable Unavailable Shirin, A Eli DELUCA Unavailable Unavailable Shirin, A Eli DELUCA Unavailable Unavailable Shirin, A Eli DELUCA Unavailable Unavailable Shirin, A Eli DELUCA Unavailable Unavailable Shirin, A Eli DELUCA Unavailable Unavailable Shirin, A Eli DELUCA Unavailable Unavailable Shirin, A Eli DELUCA Unavailable Unavailable Shirin, A Eli DELUCA Unavailable Unavailable Shirin, A Eli DELUCA Unavailable Unavailable Shirin, A Eli DELUCA Unavailable Unavailable Shirin, A Eli DELUCA Unavailable Unavailable Shirin, A Eli DELUCA Unavailable Unavailable Shirin, A Eli DELUCA Unavailable Unavailable Shirin, A Eli DELUCA Unavailable Unavailable Shirin, A Eli DELUCA Unavailable Unavailable Shirin, A Eli DELUCA Unavailable Unavailable Shirin, A Eli DELUCA Unavailable Unavailable Shirin, A Eli DELUCA Unavailable Unavailable Shirin, A Eli DELUCA Unavailable Unavailable Shirin, A Eli DELUCA Unavailable Unavailable Shirin, A Eli DELUCA Unavailable Unavailable Symenow, Autumn Danielle PA Unavailable Unavailable Symenow, Autumn Danielle PA Unavailable Unavailable Symenow, Autumn Danielle PA Unavailable Unavailable Symenow, Autumn Danielle PA Unavailable Unavailable Symenow, Autumn Danielle PA Unavailable Unavailable Symenow, Autumn Danielle PA Unavailable Unavailable Symenow, Autumn Danielle PA Unavailable Unavailable Symenow, Autumn Danielle PA Unavailable Unavailable Symenow, Autumn Danielle PA Unavailable Unavailable Symenow, Autumn Danielle PA Unavailable Unavailable Symenow, Autumn Danielle PA Unavailable Unavailable Symenow, Autumn Danielle PA Unavailable Unavailable Symenow, Autumn Danielle PA Unavailable Unavailable Symenow, Autumn Danielle PA Unavailable Unavailable Symenow, Autumn Danielle PA Unavailable Unavailable Symenow, Autumn Danielle PA Unavailable Unavailable Symenow, Autumn Danielle PA Unavailable Unavailable Symenow, Autumn Danielle PA Unavailable Unavailable Symenow, Autumn Danielle PA Unavailable Unavailable Symenow, Autumn Danielle PA Unavailable Unavailable Symenow, Autumn Danielle PA Unavailable Unavailable Symenow, Autumn Danielle PA Unavailable Unavailable Symenow, Autumn Danielle PA Unavailable Unavailable Symenow, Autumn Danielle PA Unavailable Unavailable Symenow, Autumn Danielle PA Unavailable Unavailable Symenow, Autumn Danielle PA Unavailable Unavailable Symenow, Autumn Danielle PA Unavailable Unavailable Symenow, Autumn Danielle PA Unavailable Unavailable Symenow, Autumn Danielle PA Unavailable Unavailable Symenow, Autumn Danielle PA Unavailable Unavailable Symenow, Autumn Danielle PA Unavailable Unavailable Symenow, Autumn Danielle PA Unavailable Unavailable Symenow, Autumn Danielle PA Unavailable Unavailable Symenow, Autumn Danielle PA Unavailable Unavailable Symenow, Autumn Danielle PA Unavailable Unavailable Symenow, Autumn Danielle PA Unavailable Unavailable Silvia VILLALOBOS MD Unavailable Unavailable Silvia VILLALOBOS MD Unavailable Unavailable Silvia VILLALOBOS MD Unavailable Unavailable Silvia VILLALOBOS MD Unavailable Unavailable Silvia VILLALOBOS MD Unavailable Unavailable Silvia VILLALOBOS MD Unavailable Unavailable Silvia VILLALOBOS MD Unavailable Unavailable Silvia VILLALOBOS MD Unavailable Unavailable Silvia VILLALOBOS MD Unavailable Unavailable Silvia VILLALOBOS MD Unavailable Unavailable Silvia VILLALOBOS MD Unavailable Unavailable Silvia VILLALOBOS MD Unavailable Unavailable Silvia VILLALOBOS MD Unavailable Unavailable Silvia VILLALOBOS MD Unavailable Unavailable Silvia VILLALOBOS MD Unavailable Unavailable Silvia VILLALOBOS MD Unavailable Unavailable Silvia VILLALOBOS MD Unavailable Unavailable Silvia VILLALOBOS MD Unavailable Unavailable Silvia VILLALOBOS MD Unavailable Unavailable Silvia VILLALOBOS MD Unavailable Unavailable Silvia VILLALOBOS MD Unavailable Unavailable Silvia VILLALOBOS MD Unavailable Unavailable Silvia VILLALOBOS MD Unavailable Unavailable Silvia VILLALOBOS MD Unavailable Unavailable Silvia VILLALOBOS MD Unavailable Unavailable VILLALOBOSSilvia MD Unavailable Unavailable VILLALOBOS, Silvia JNOES MD Unavailable Unavailable VILLALOBOS, Silvia JONES MD Unavailable Unavailable VILLALOBOS, Silvia JONES MD Unavailable Unavailable VILLALOBOS, Silvia JONES MD Unavailable Unavailable VILLALOBOS, Silvia JONES MD Unavailable Unavailable VILLALOBOS, Silvia JONES MD Unavailable Unavailable VILLALOBOS, Silvia JONES MD Unavailable Unavailable VILLALOBOSSilvia MD Unavailable Unavailable VILLALOBOS, Silvia JONES MD Unavailable Unavailable VILLALOBOS, Silvia JONES MD Unavailable Unavailable VILLALOBOS, Silvia JONES MD Unavailable Unavailable VILLALOBOS, Silvia JONES MD Unavailable Unavailable VILLALOBOS, Silvia JONES MD Unavailable Unavailable VILLALOBOS, Silvia JONES MD Unavailable Unavailable VILLALOBOS, Silvia JONES MD Unavailable Unavailable VILLALOBOS, Silvia JONES MD Unavailable Unavailable VILLALOBOS, Silvia JONES MD Unavailable Unavailable VILLALOBOS, Silvia JONES MD Unavailable Unavailable VILLALOBOS, Silvia JONES MD Unavailable Unavailable VILLALOBOS, Silvia JONES MD Unavailable Unavailable VILLALOBOS, Silvia JONES MD Unavailable Unavailable VILLALOBOS, Silvia JONES MD Unavailable Unavailable VILLALOBOS, Silvia JONES MD Unavailable Unavailable VILLALOBOS, Silvia JONES MD Unavailable Unavailable VILLALOBOS, Silvia JONES MD Unavailable Unavailable VILLALOBOS, Silvia JONES MD Unavailable Unavailable VILLALOBOS, Silvia JONES MD Unavailable Unavailable VILLALOBOS, Silvia JONES MD Unavailable Unavailable VILLALOBOS, Silvia JONES MD Unavailable Unavailable VILLALOBOS, Silvia JONES MD Unavailable Unavailable VILLALOBOSSilvia MD Unavailable Unavailable Jessica, Tono Mendez MD Unavailable Unavailable Jessica, Tono Mendez MD Unavailable Unavailable Jessica, Tono Mendez MD Unavailable Unavailable Jessica, Tono Mendez MD Unavailable Unavailable Jessica, Tono Mendez MD Unavailable Unavailable Jessica, Tono Mendez MD Unavailable Unavailable Jessica, Tono Mendez MD Unavailable Unavailable JessicaTono allison MD Unavailable Unavailable JessicaTono allison MD Unavailable Unavailable JessicaTono allison MD Unavailable Unavailable JessicaTono allison MD Unavailable Unavailable JessicaTono allison MD Unavailable Unavailable JessicaTono allison MD Unavailable Unavailable JessicaTono allison MD Unavailable Unavailable JessicaTono allison MD Unavailable Unavailable JessicaTono allison MD Unavailable Unavailable JessicaTono allison MD Unavailable Unavailable JesiscaTono allison MD Unavailable Unavailable JessicaTono allison MD Unavailable Unavailable Jessica, Tono Mendez MD Unavailable Unavailable Jessica, oTno Mendez MD Unavailable Unavailable Jessica, Tono Mendez MD Unavailable Unavailable Jessica, Tono Mendez MD Unavailable Unavailable Jessica, Tono Mendez MD Unavailable Unavailable JessicaTono allison MD Unavailable Unavailable Jessica, Tono Mendez MD Unavailable Unavailable JessicaTono allison MD Unavailable Unavailable Jessica, Tono Mendez MD Unavailable Unavailable Jessica, Tono Mendez MD Unavailable Unavailable Jessica, Tono Mendez MD Unavailable Unavailable Jessica, Tono Mendez MD Unavailable Unavailable Jessica, F Andrea MD Unavailable Unavailable Tono Lopez MD Unavailable Unavailable Tono Lopez MD Unavailable Unavailable Tono Lopez MD Unavailable Unavailable Tono Lopez MD Unavailable Unavailable Tono Lopez MD Unavailable Unavailable Tono Lopez MD Unavailable Unavailable Tono Lopez MD Unavailable Unavailable Tono Lopez MD Unavailable Unavailable Tono Lopez MD Unavailable Unavailable Tono Lopez MD Unavailable Unavailable Tono Lopez MD Unavailable Unavailable Tono Lopez MD Unavailable Unavailable NICOLE RIBEIRO MD Unavailable [phone] BLACKNICOLE MD Unavailable [phone] BLACKNICOLE MD Unavailable [phone] NICOLE RIBEIRO MD Unavailable [phone] NICOLE RIBEIRO MD Unavailable [phone] NICOLE RIBEIRO MD Unavailable [phone] NICOLE RIBEIRO MD Unavailable [phone] BLACKNICOLE MD Unavailable [phone] BLACKNICOLE MD Unavailable [phone] BLACKNICOLE MD Unavailable [phone] NICOLE RIBEIRO MD Unavailable [phone] NICOLE RIBEIRO MD Unavailable [phone] NICOLE RIBEIRO MD Unavailable [phone] NICOLE RIBEIRO MD Unavailable [phone] NICOLE RIBEIRO MD Unavailable [phone] BLACKNICOLE MD Unavailable [phone] NICOLE RIBEIRO MD Unavailable [phone] BLACKNICOLE MD Unavailable [phone] NICOLE RIBEIRO MD Unavailable [phone] BLACKNICOLE MD Unavailable [phone] BLACKNICOLE MD Unavailable [phone] BLACKNICOLE MD Unavailable [phone] BLACKNICOLE MD Unavailable [phone] BLACK, NICOLE CRAIG MD Unavailable [phone] BLACK, NICOLE CRAIG MD Unavailable [phone] BLACK, NICOLE CRAIG MD Unavailable [phone] BLACK, NICOLE CRAIG MD Unavailable [phone] BLACK, NICOLE CRAIG MD Unavailable [phone] BLACK, NICOLE CRAIG MD Unavailable [phone] BLACK, NICOLE CRAIG MD Unavailable [phone] BLACK, NICOLE CRAIG MD Unavailable [phone] BLACK, NICOLE CRAIG MD Unavailable [phone] BLACK, NICOLE CRAIG MD Unavailable [phone] BLACK, NICOLE CRAIG MD Unavailable [phone] BLACK, NICOLE CRAIG MD Unavailable [phone] BLACK, NICOLE CRAIG MD Unavailable [phone] BLACK, NICOLE CRAIG MD Unavailable [phone] BLACK, NICOLE CRAIG MD Unavailable [phone] BLACK, NICOLE CRAIG MD Unavailable [phone] BLACK, NICOLE CRAIG MD Unavailable [phone] BLACK, NICOLE CRAIG MD Unavailable [phone] BLACK, NICOLE CRAIG MD Unavailable [phone] BLACK, NICOLE CRAIG MD Unavailable [phone] BLACK, NICOLE CRAIG MD Unavailable [phone] BLACK, NICOLE CRAIG MD Unavailable [phone] BLACK, NICOLE CRAIG MD Unavailable [phone] BLACK, NICOLE CRAIG MD Unavailable [phone] BLACK, NICOLE CRAIG MD Unavailable [phone] BLACK, NICOLE CRAIG MD Unavailable [phone] Sj Branhama PA-C Unavailable Unavailabl e LitoancostSj helton Lila PA-C Unavailable Unavailabl e Sj Branham Lila PA-C Unavailable Unavailabl e Roselineosta, [place] Lila PA-C Unavailable Unavailabl e Petrancosta, [place] Lila PA-C Unavailable Unavailabl e Petrancosta, [place] Lila PA-C Unavailable Unavailabl e Petrancosta, [place] Lila PA-C Unavailable Unavailabl e Petrancosta, [place] Lila PA-C Unavailable Unavailabl e Petrancosta, [place] Lila PA-C Unavailable Unavailabl e Petrancosta, [place] Lila PA-C Unavailable Unavailabl e Petrancosta, [place] Lila PA-C Unavailable Unavailabl e Petrancosta, [place] Lila PA-C Unavailable Unavailabl e Petrancosta, [place] Lila PA-C Unavailable Unavailabl e Petrancosta, [place] Lila PA-C Unavailable Unavailabl e Petrancosta, [place] Lila PA-C Unavailable Unavailabl e Petrancosta, [place] Lila PA-C Unavailable Unavailabl e Petrancosta, [place] Lila PA-C Unavailable Unavailabl e Petrancosta, [place] Lila PA-C Unavailable Unavailabl e Petrancosta, [place] Lila PA-C Unavailable Unavailabl e Petrancosta, [place] Lila PA-C Unavailable Unavailabl e Petrancosta, [place] Lila PA-C Unavailable Unavailabl e Petrancosta, [place] Lila PA-C Unavailable Unavailabl e Petrancosta, [place] Lila PA-C Unavailable Unavailabl e TURRIN, BRIDGETT Unavailable Unavailable TURRIN, BRIDGETT Unavailable Unavailable TURRIN, BRIDGETT Unavailable Unavailable TURRIN, BRIDGETT Unavailable Unavailable NRI, 39 Unavailable Unavailable Tono Lopez MD Unavailable Unavailable Tono Lopez MD Unavailable Unavailable Tono Lopez MD Unavailable Unavailable Tono Lopez MD Unavailable Unavailable Tono Lopez MD Unavailable Unavailable Tono Lopez MD Unavailable Unavailable Tono Lopez MD Unavailable Unavailable Tono Lopez MD Unavailable Unavailable Tono Lopez MD Unavailable Unavailable Tono Lopez MD Unavailable Unavailable Tono Lopez MD Unavailable Unavailable Tono Lopez MD Unavailable Unavailable Tono Lopez MD Unavailable Unavailable Tono Lopez MD Unavailable Unavailable Tono Lopez MD Unavailable Unavailable Tono Lopez MD Unavailable Unavailable Tono Lopez MD Unavailable Unavailable Tono Lopez MD Unavailable Unavailable Tono Lopez MD Unavailable Unavailable Tono Lopez MD Unavailable Unavailable Tono Lopez MD Unavailable Unavailable Tono Lopez MD Unavailable Unavailable Tono Lopez MD Unavailable Unavailable Tono Lopez MD Unavailable Unavailable Tono Lopez MD Unavailable Unavailable Tono Lopez MD Unavailable Unavailable Tono Lopez MD Unavailable Unavailable Tono Loepz MD Unavailable Unavailable Tono Lopez MD Unavailable Unavailable Tono Lopez MD Unavailable Unavailable Tono Lopez MD Unavailable Unavailable Tono Lopez MD Unavailable Unavailable Tono Lopez MD Unavailable Unavailable Tono Lopez MD Unavailable Unavailable Tono Lopez MD Unavailable Unavailable Tono Lopez MD Unavailable Unavailable Tono Lopez MD Unavailable Unavailable Tono Lopez MD Unavailable Unavailable Tono Lopez MD Unavailable Unavailable Tono Lopez MD Unavailable Unavailable Tono Lopez MD Unavailable Unavailable Tono Lopez MD Unavailable Unavailable Tono Lopez MD Unavailable Unavailable Tono Lopez MD Unavailable Unavailable Cederstrand, Ya Hough MD Unavailable Unavailable Cederstrand, Ya Hough MD Unavailable Unavailable Cederstrand, Ya Hough MD Unavailable Unavailable Cederstrand, Ya Hough MD Unavailable Unavailable Cederstrand, Ya Hough MD Unavailable Unavailable Cederstrand, Ya Hough MD Unavailable Unavailable Cederstrand, Ya Hough MD Unavailable Unavailable Cederstrand, Ya Hough MD Unavailable Unavailable Khriserstranjuanita, Ya Hough MD Unavailable Unavailable Cederstrand, Ya Hough MD Unavailable Unavailable Cederstrand, Ya Hough MD Unavailable Unavailable Cederstrand, Ya Hough MD Unavailable Unavailable Cederstrand, Ya Hough MD Unavailable Unavailable Cederstrand, Ya Hough MD Unavailable Unavailable Phoenix Kaye MD Unavailable Unavailable Phoenix Kaye MD Unavailable Unavailable Phoenix Kaye MD Unavailable Unavailable Phoenix Kaye MD Unavailable Unavailable Phoenix Kaye MD Unavailable Unavailable Phoenix Kaye MD Unavailable Unavailable Phoenix Kaye MD Unavailable Unavailable Phoenix Kaye MD Unavailable Unavailable Phoenix Kaye MD Unavailable Unavailable Phoenix Kaye MD Unavailable Unavailable Phoenix Kaye MD Unavailable Unavailable Phoenix Kaye MD Unavailable Unavailable Phoenix Kaye MD Unavailable Unavailable Phoenix Kaye MD Unavailable Unavailable Phoenix Kaye MD Unavailable Unavailable Phoenix Kaye MD Unavailable Unavailable Kaye, Phoenix Simpson MD Unavailable Unavailable Kaye, Phoenix Simpson MD Unavailable Unavailable Kaye, Phoenix Simpson MD Unavailable Unavailable Kaye, Phoenix Simpson MD Unavailable Unavailable Kaye, Phoenix Simpson MD Unavailable Unavailable Kaye, Phoenix Simpson MD Unavailable Unavailable Kaye, Phoenix Simpson MD Unavailable Unavailable Kaye, Phoenix Simpson MD Unavailable Unavailable Kaye, Phoenix Simpson MD Unavailable Unavailable Kaye, Phoenix Simpson MD Unavailable Unavailable Kaye, Phoenix Simpson MD Unavailable Unavailable Kaye, Phoenix Simpson MD Unavailable Unavailable Kaye, Phoenix Simpson MD Unavailable Unavailable Kaye, Phoenix Simpson MD Unavailable Unavailable Kaye, Phoenix Simpson MD Unavailable Unavailable Kaye, Phoenix Simpson MD Unavailable Unavailable Kaye, Phoenix Simpson MD Unavailable Unavailable Kaye, Phoenix Simpson MD Unavailable Unavailable Kaye, Phoenix Simpson MD Unavailable Unavailable Kaye, Phoenix Simpson MD Unavailable Unavailable Kaye, Phoenix Simpson MD Unavailable Unavailable Kaye, Phoenix Simpson MD Unavailable Unavailable Kaye, Phoenix Simpson MD Unavailable Unavailable Kaye, Phoenix Simpson MD Unavailable Unavailable Kaye, Phoenix Simpson MD Unavailable Unavailable Kaye, Phoenix Simpson MD Unavailable Unavailable Kaye, Phoenix Simpson MD Unavailable Unavailable Kaye, Phoenix Simpson MD Unavailable Unavailable Kaye, Phoenix Simpson MD Unavailable Unavailable Kaye, Phoenix Simpson MD Unavailable Unavailable Kaye, Phoenix Simpson MD Unavailable Unavailable Kaye, Phoenix Simpson MD Unavailable Unavailable Kaye, Phoenix Simpson MD Unavailable Unavailable Kaye, Phoenix Simpson MD Unavailable Unavailable VIRI, F JEFFERSON DO Unavailable Unavailable VIRI, F JEFFERSON DO Unavailable Unavailable VIRI, F JEFFERSON DO Unavailable Unavailable VIRI, F JEFFERSON DO Unavailable Unavailable VIRI, F JEFFERSON DO Unavailable Unavailable VIRI, F JEFFERSON DO Unavailable Unavailable VIRI, F JEFFERSON DO Unavailable Unavailable VIRI, F JEFFERSON DO Unavailable Unavailable VIRI, F JEFFERSON DO Unavailable Unavailable VIRI, F JEFFERSON DO Unavailable Unavailable VIRI, F JEFFERSON DO Unavailable Unavailable VIRI, F JEFFERSON DO Unavailable Unavailable VIRI, F JEFFERSON DO Unavailable Unavailable VIRI, F JEFFERSON DO Unavailable Unavailable VIRI, F JEFFERSON DO Unavailable Unavailable VIRI, F JEFFERSON DO Unavailable Unavailable VIRI, F JEFFERSON DO Unavailable Unavailable VIRI, F JEFFERSON DO Unavailable Unavailable VIRI, F JEFFERSON DO Unavailable Unavailable VIRI, F JEFFERSON DO Unavailable Unavailable VIRI, F JEFFERSON DO Unavailable Unavailable VIRI, F JEFFERSON DO Unavailable Unavailable VIRI, F JEFFERSON DO Unavailable Unavailable VIRI, F JEFFERSON DO Unavailable Unavailable VIRI, F JEFFERSON DO Unavailable Unavailable VIRI, F JEFFERSON DO Unavailable Unavailable VIRI, F JEFFERSON DO Unavailable Unavailable VIRI, F JEFFERSON DO Unavailable Unavailable VIRI, F JEFFERSON DO Unavailable Unavailable VIRI, F JEFFERSON DO Unavailable Unavailable VIRI, F JEFFERSON DO Unavailable Unavailable VIRI, F JEFFERSON DO Unavailable Unavailable Re-disclosure Warning The records that you are about to access may contain information from federally-assisted alcohol or drug abuse programs. If such information is present, then the following federally mandated warning applies: This information has been disclosed to you from records protected by federal confidentiality rules (42 CFR part 2). The federal rules prohibit you from making any further disclosure of this information unless further disclosure is expressly permitted by the written consent of the person to whom it pertains or as otherwise permitted by 42 CFR part 2. A general authorization for the release of medical or other information is NOT sufficient for this purpose. The Federal rules restrict any use of the information to criminally investigate or prosecute any alcohol or drug abuse patient.The records that you are about to access may contain highly sensitive health information, the redisclosure of which is protected by Article 27-F of the [facility] Public Health law. If you continue you may have access to information: Regarding HIV / AIDS; Provided by facilities licensed or operated by the [facility] Office of Mental Health; or Provided by the [facility] Office for People With Developmental Disabilities. If such information is present, then the following [facility] mandated warning applies: This information has been disclosed to you from confidential records which are protected by state law. State law prohibits you from making any further disclosure of this information without the specific written consent of the person to whom it pertains, or as otherwise permitted by law. Any unauthorized further disclosure in violation of state law may result in a fine or prison sentence or both. A general authorization for the release of medical or other information is NOT sufficient authorization for further disc losure. Allergies and Adverse Reactions Type Description Substance Reaction Status Data Source(s ) No Known Drug Allergies No Known Drug Allergies [facility] Family History Family Member Name Family Member Gender Family Member Status Date o f Status Description Data Source(s) Unknown Male Problem [facility] ([facility] ) () Unknown Female Problem [facility] ([facility] Encounters Encounter Providers Location Date Indications Data Source(s ) Outpatient Attender: Danielle Fox PAConsultant: Eli Kay ams, MD 12/07/2020 02:17:00 PM EST - 12/07/2020 03:17:00 PM EST [facility] Outpatient Attender: Lila Branham PA-C Main Office 12/06/2020 12:30:00 PM EST [facility] ([facility] Outpatient Attender: Danielle GONZALEZ Main Office 12/03/2020 08:15:00 AM EST [facility] ([facility]) Outpatient Attender: Andrea Lopez MDConsultant: Eli Kay ams, MD 10/04/2020 06:30:00 AM EST - 10/04/2020 09:03:00 AM EST [facility] Patient discharged. Outpatient Attender: Danielle GONZALEZ Main Office 10/03/2020 09:15:00 AM EST [facility] ([facility]) Outpatient Attender: Andrea Lopez MDConsultant: Eli Kay ams, MD 09/29/2020 08:57:00 AM EDT - 09/29/2020 09:57:00 AM EDT [facility] Patient discharged. Outpatient Attender: Andrea Lopez MDConsultant: Eli Kay ams, MD 09/27/2020 01:28:10 PM EDT - 09/28/2020 05:20:00 PM EDT [facility] Patient discharged. Outpatient Attender: France Mooyd MDConsultant: Eli kilpatrick MD 09/25/2020 09:19:00 AM EDT - 09/25/2020 10:19:00 AM EDT [facility] Outpatient Attender: France Caldwell/Ellen/Richi/ Callie 09/20/2020 10:45:00 AM EDT [facility] ([facility] Outpatient Attender: Andrea Lopez MDConsultant: Eli Kay ams, MD 09/19/2020 03:08:00 PM EDT - 09/13/2020 03:08:00 PM EDT [facility] Patient discharged. Outpatient Attender: Andrea Lopez MDConsultant: Eli Kay ams, MD 09/18/2020 01:08:00 PM EDT - 09/18/2020 01:08:00 PM T [facility] Outpatient Attender: Andrea Lopez MD Family Practice 09/13/2020 0 1:30:00 PM EDT [facility] ([facility]) Emergency Attender: BRIDGETT CAMPBELLConsultant: Eli Kay ams, MD 09/05/2020 10:52:00 AM EDT - 09/05/2020 02:44:00 PM EDT [facility] Patient discharged. Outpatient Attender: Lila Branham PA-C Main Office 08/29/2020 10:45:00 AM EDT [facility] ([facility] Outpatient Attender: Calvin Caldwell/Granite/Richi/R eindl 08/23/2020 10:30:00 AM EDT [facility] ([facility] Outpatient 08/19/2020 10:10:[address] [facility] Emergency Attender: JEFFERSON SMALL DOConsultant: Eli Kay ams, MD 08/19/2020 06:48:00 AM EDT - 08/19/2020 01:42:00 PM EDT [facility] Patient discharged. Outpatient Attender: France Caldwell/Granite/Richi/ Reindl 06/11/2020 01:45:00 PM EDT [facility] ([facility] Outpatient Attender: ROBERT VILLALOBOS MD Main Office 06/06/2020 12:00:00 PM EDT [facility] ([facility]) Outpatient Attender: France Caldwell/Ellen/Richi/ Reindl 05/10/2020 09:30:00 AM EDT [facility] ([facility] Outpatient Attender: Roseanna GONZALEZ Main Office 05/01/2020 04:30:00 PM EDT [facility] ([facility] Outpatient Attender: ROBERT VILLALOBOS MD Main Office 04/09/2020 02:00:00 PM EDT [facility] ([facility]) Outpatient Attender: Sara Caldwell/Granite/Richi/R eindl 03/21/2020 09:30:00 AM EDT [facility] ([facility] Outpatient Attender: Sara Alexandra RPAConsultant: Eli candelaria MD 02/28/2020 02:46:00 PM EDT - 02/28/2020 03:46:00 PM EDT [facility] Outpatient Attender: Sara Alexandra RPA Javi/Granite/Richi/R eindl 02/07/2020 10:30:00 AM EDT [facility] ([facility] Outpatient Referrer: 39 NRI 01/26/2020 07:19:00 PM EST [facility] Outpatient Attender: Calvin Caldwell/Ellen/Richi/R eindl 01/05/2020 02:00:00 PM EST [facility] ([facility] Outpatient Referrer: 39 NRI 12/26/2019 01:05:00 PM EST [facility] Outpatient Attender: RAS Caldwell/Granite/Richi/ Reindl 11/03/2019 08:30:00 AM EST [facility] ([facility] Outpatient Attender: RAS Caldwell/Ellen/Richi/ Reindl 10/18/2019 10:30:00 AM EST [facility] ([facility] Outpatient Attender: [facility] MDConsultant: ANDREA RIBEIRO MD 10/11/2019 09:43:00 AM EST - 10/11/2019 10:43:00 AM EST [facility] Medications Medication Brand Name Start Date Product Form Dose Route Admi nistrative Instructions Pharmacy Instructions Status Indications Reaction Description Data Source(s) atorvastatin 80 MG Oral Tablet Atorvastatin Calcium 12/03/2020 1 2:00:00 AM EST ORAL active [facility] ( [facility]) Bifidobacterium Infantis 4 MG Oral Capsule [Align] Align 12/02/2020 12:00:00 AM EST ORAL active [facility] 4 mg 09/25/2020 12:00:00 AM EDT tablet 16 TAKE ONE TABLET BY MOUTH FOUR TIMES A DAY NEEDED TAKE ONE TABLET BY MOUTH FOUR TIMES A DAY NEEDED SO LD: 09/25/2020 [facility] 17.5-3.13-1.6 gram 09/25/2020 12:00:00 AM EDT recon soln 354 USE DIRECTED USE DIRECTED SOLD: 09/25/2020 [facility] Suprep Bowel Prep Kit Suprep Bowel Prep Kit 09/19/2020 12:00:00 AM EDT active [facility] ([facility]) Bisacodyl 5 MG Delayed Release Oral Tablet [Dulcolax] Dulcol ax 09/19/2020 12:00:00 AM EDT active M EDENT ([facility]) POLYETHYLENE GLYCOL 3350 142 MG/ML Oral Solution [Miralax] M iralax 09/19/2020 12:00:00 AM EDT active M [facility]ENT ([facility]) Ondansetron 4 MG Oral Tablet [Zofran] Zofran 09/19/2020 12:00:00 AM EDT ORAL active [facility] ([facility]) 4 mg 08/20/2020 12:00:00 AM EDT tablet 5 TAKE ONE TABLET BY MOUTH EVERY 6 TO 8 HOURS NEEDED FOR NAUSEA/VOMITING TAKE ONE TABLET BY MOUTH EVERY 6 TO 8 HOURS NEEDED FOR NAUSEA/VOMITING SOLD: 08/21/2020 [facility] 10 mg 08/20/2020 12:00:00 AM EDT capsule 14 TAKE ONE CAPSULE BY MOUTH TWICE A DAY FOR 7 DAYS TAKE ONE CAPSULE BY MOUTH TWICE A DAY FOR 7 DAYS SOLD: 08/21/2020 [facility] Dicyclomine Hydrochloride 10 MG Oral Capsule Dicyclomine HCL 08/20/2020 12:00:00 AM EDT completed [facility] ([facility] Ondansetron 4 MG Oral Tablet [Zofran] Zofran 08/20/2020 12:00:00 AM EDT ORAL active [facility] ([facility] atorvastatin 40 MG Oral Tablet Atorvastatin Calcium 04/09/2020 1 2:00:00 AM EDT ORAL active [facility] ( [facility]) Hydrochlorothiazide 25 MG / Losartan Potassium 100 MG Oral Tablet Losartan Potassium/Hydrochlorothiazide 04/08/2020 12:00:00 AM EDT ORAL active [facility] ([facility] Spironolactone 25 MG Oral Tablet Spironolactone 04/08/2020 12:00:00 A M EDT ORAL active [facility] ([facility] Losartan Potassium 100 MG Oral Tablet Losartan Potassium 12:00:00 AM EDT ORAL completed [facility] ([facility]) pantoprazole 40 MG Delayed Release Oral Tablet Pantoprazole Sodium 04/08/2020 12:00:00 AM EDT ORAL active M [facility]ENT ([facility]) Acetaminophen 325 MG Oral Tablet Acetaminophen 04/08/2020 12:00:00 AM EDT active [facility] ([facility]) Aspirin 81 MG Delayed Release Oral Tablet Aspirin 81 2019 12:00:00 AM EDT ORAL active [facility] ( [facility]) Amlodipine 5 MG Oral Tablet Amlodipine Besylate 04/08/2020 12:00:00 A M EDT ORAL active [facility] ([facility]) gabapentin 300 MG Oral Capsule Gabapentin 04/08/2020 12:00:00 AM EDT ORAL completed [facility] ([facility]) Docusate Sodium 100 MG Oral Capsule [Colace] Colace 08/2020 12:00:00 AM EDT ORAL active [facility] ( [facility]) gabapentin 300 MG Oral Capsule Gabapentin 04/08/2020 12:00:00 AM EDT ORAL completed [facility] ([facility]) Insurance Providers Payer name Policy type / Coverage type Policy ID Covered alliance party ID Covered alliance party's relationship to rogel Policy Rogel Plan Information FOR LIFE [id number] SP [id number] MEDICARE [id number] SP [id number] MEDICARE PART A-O/P [id number] 18 [id number] FOR LIFE-O/P [id number] 18 [id number] FOR LIFE CO UNAVAILABLE 01 U NAVAILABLE MEDICARE PART A [facility] [id number] 18 [id number] MEDICARE C [id number] S [id number] FOR LIFE O [id number] S [id number] FOR LIFE [id number] SP [id number] MEDICARE PART A-O/P [id number] 18 [id number] WPS For Life Medigap Part B [id number] Family Depende nt [id number] [place] Primary [id number] Self [id number] For Life Medigap Part B [id number] Family Dependent [id number] [place] Primary [id number] Self [id number] FOR LIFE [id number] SP [id number] MEDICARE [id number] SP [id number] For Life Medigap Part B [id number] Family Dependent [id number] [place] Primary [id number] Self [id number] WPS For Life Medigap Part B [id number] Family Depende nt [id number] [place] Primary [id number] Self [id number] For Life Medigap Part B [id number] Family Dependent [id number] [place] Primary [id number] Self [id number] FOR LIFE [id number] SP [id number] For Life Medigap Part B [id number] Family Dependent [id number] [place] Primary [id number] Self [id number] FOR LIFE HEA [id number] S [id number] MEDICARE MCA [id number] S [id number] D MEDICARE MCA [id number] S [id number] D FOR LIFE U [id number] Self [id number] MEDICARE A [id number] Self [id number] D For Life Medigap Part B [id number] Family Dependent [id number] [place] Primary [id number] Self [id number] WPS For Life Medigap Part B [id number] Self [id number] [place] Primary [id number] Self [id number] For Life Medigap Part B [id number] Family Dependent [id number] [place] Primary [id number] Self [id number] For Life Medigap Part B [id number] Family Dependent [id number] [place] Primary [id number] Self [id number] For Life Medigap Part B [id number] Family Dependent [id number] [place] Primary [id number] Self [id number] WPS For Life Medigap Part [id number] Self [id number] [place] Primary [id number] Self [id number] WPS For Life Medigap Part B [id number] Self [id number] [place] Primary [id number] Self [id number] FOR LIFE [id number] SP [id number] For Life Medigap Part B [id number] Family Dependent [id number] [place] Primary [id number] Self [id number] MEDICARE [id number] SP [id number] D MEDICARE [id number] SP [id number] D FOR LIFE [id number] SP [id number] WPS For Life Medigap Part [id number] Self [id number] [place] Primary [id number] Self [id number] For Life Medigap Part B [id number] Family Dependent [id number] [place] Primary [id number] Self [id number] MEDICARE PART A-O/P [id number] 18 [id number] MEDICARE PART A-O/P [id number] 18 [id number] For Life Medigap Part B [id number] Family Dependent [id number] [place] Primary [id number] Self [id number] For Life Medigap Part B [id number] Family Dependent [id number] [place] Primary [id number] Self [id number] For Life Medigap Part B [id number] Family Dependent [id number] [place] Primary [id number] Self [id number] MEDICARE C [id number] S [id number] D MEDICARE C [id number] S [id number] A MEDICARE PART A-O/P [id number] 18 [id number] For Life Medigap Part B [id number] Family Dependent [id number] [place] Primary [id number] Self [id number] MEDICARE C [id number] S [id number] D For Life Medigap Part B Family Dependent [place] Medicare Primary Self Health Net Federal [employer] Medigap Part B Family Depe ndent MEDICARE [id number] SP [id number] T FOR LIFE [id number] SP [id number] FOR LIFE [id number] SP [id number] MEDICARE -O/P [id number] 18 [id number] MEDICARE P [id number] S [id number] A MEDICARE P [id number] S [id number] D MEDICARE P [id number] S [id number] T MEDICARE 4 [id number] 1 [id number] D MEDICARE 4 [id number] 1 [id number] T SELF PAY 2 UNAVAILABLE 1 UNAVAILA BLE 6 [id number] Problems, Conditions, and Diagnoses Code Display Name Description Problem Type Effective Dates Data Source(s) 769722998 Dietary management surveillance Dietary manageme nt surveillance Problem 10/03/2020 12:00:00 AM EST [facility] ([facility] [id number] Carotid artery occlusion Carotid artery occlusion Prob sully 10/03/2020 12:00:00 AM EST [facility] ([facility]) 689730757 Pure hypercholesterolemia Pure hypercholesterolemia Pr oblem 10/03/2020 12:00:00 AM EST [facility] ([facility]) 9167178 Aortic valve disorder Aortic valve disorder Problem 10/03/2020 12:00:00 AM EST [facility] ([facility]) [id number] Screening for malignant neoplasm of colo n Screening for malignant neoplasm of colon Problem 09/18/2020 12:00:00 AM EDT [facility] ([facility]) 51974139 Intestinal obstruction Intestinal obstruction Problem 09/13/2020 12:00:00 AM EDT [facility] ([facility]) [id number] Pure hypercholesterolemia Pure hypercholesterolemia Pr oblem 09/11/2020 12:00:00 AM EDT [facility] ([facility]) 70713341 Essential hypertension Essential hypertension Problem 09/11/2020 12:00:00 AM EDT [facility] ([facility]) 165828469 Carotid bruit Carotid bruit Problem 04/09/2020 12:00:00 AM EDT [facility] ([facility]) 323031227 Electrocardiogram abnormal Electrocardiogram abnormal Problem 04/09/2020 12:00:00 AM EDT [facility] ([facility]) 46829359 Precordial pain Precordial pain Problem 04/09/2020 12:0 0:00 AM EDT [facility] ([facility]) 27381090 Benign hypertensive heart disease withou t congestive heart failure Benign hypertensive heart disease without congestive heart failure Problem 04/09/2020 12:00:00 AM EDT [facility] ([facility]) 070420503 Body mass index 30+ - obesity Body mass index 30+ - ob esity Problem 04/09/2020 12:00:00 AM EDT [facility] ([facility]) 773872718 Peripheral vascular disease Peripheral vascular diseas e Problem 04/09/2020 12:00:00 AM EDT [facility] ([facility]) 06906915 Chronic pulmonary heart disease Chronic pulmonar y heart disease Problem 04/09/2020 12:00:00 AM EDT [facility] ([facility] 05473600 Mitral valve disorder Mitral valve disorder Problem 04/09/2020 12:00:00 AM EDT [facility] ([facility]) 521202538 Dyspnea Dyspnea Problem 04/09/2020 12:00:00 AM ED T [facility] ([facility]) K70314 Encounter for preprocedural cardiovascul ar examination Encounter for preprocedural cardiovascular examination Diagnosis 12/07/2020 02:17:00 PM [facility] Z1211 Encounter for screening for malignant ne oplasm of colon Encounter for screening for malignant neoplasm of colon Diagnosis 10/04/2020 06:30:0 0 AM [facility] Z1159 Encounter for screening for other viral diseases Encounter for screening for other viral diseases Diagnosis [facility]counter for other preprocedural examin ation Encounter for other preprocedural examination [facility] 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 Z8719 Personal history of other diseases of th e digestive system Personal history of other diseases of the digestive system Diagnosis 08/31 01:08:00 PM [facility] R63802 Partial intestinal obstruction, unspecif ied as to cause Partial intestinal obstruction, unspecified as to cause Diagnosis 2019 03:08:00 PM [facility] V95022 Personal history of nicotine dependence Personal history of nicotine dependence Diagnosis 09/05/2020 10:52:00 AM [facility] D15080 Other terminal gauger (current) drug therapy O ther terminal gauger (current) drug therapy Diagnosis 09/05/2020 10:52:00 AM [facility] I10 Essential (primary) hypertension Essential (primary) h ypertension Diagnosis 09/05/2020 10:52:00 AM [facility] A0811 Acute gastroenteropathy due to [place] a gent Acute gastroenteropathy due to [place] agent Diagnosis 09/05/2020 10:52:00 AM [facility] R1013 Epigastric pain Epigastric pain Diagnosis 09/05/2020 10:5 2:00 AM [facility] [id number] Presence of other vascular implants and grafts Presence of other vascular implants and grafts Diagnosis 08/19/2020 06:48:00 AM [facility] [id number] Acquired absence of other specified part s of digestive tract Acquired absence of other specified parts of digestive tract Diagnosis 06:48:00 AM [facility] [id number] exterminator termite (current) use of aspirin exterminator termite (cu rrent) use of aspirin Diagnosis 08/19/2020 06:48:00 AM [facility] [id number] exterminator termite (current) use of a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/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 FPC (current) use of a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/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 Diagnosis 020 06:48:00 AM [facility] E869 Volume depletion, unspecified Volume depletion, unspec ified Diagnosis 08/19/2020 06:48:00 AM [facility] A09 Infectious gastroenteritis and colitis, unspecified Infectious gastroenteritis and colitis, unspecified Diagnosis 08/19/2020 06:48:00 AM [facility] Surgeries/Procedures Procedure Description Date Indications Data Source(s) ECG ROUTINE ECG W/LEAST 12 LDS W/I&R 12/03/2020 12:00: 00 AM EST [facility] ([facility]) ECG ROUTINE ECG W/LEAST 12 LDS W/I&R 10/03/2020 12:00: 00 AM EST [facility] ([facility]) Bone Mineral Density Test 06/20/2020 12:00:00 AM EDT [facility] ([facility] normal, recheck in 5 yrs MYOCARDIAL SPECT MULTIPLE STUDIES 05/07/2020 12:00:00 AM EDT [facility] ([facility]) CV STRS TST XERS&/OR RX CONT ECG PHYS SI&R 05/07/2020 12:00:00 AM EDT [facility] ([facility]) ECHO TTHRC R-T 2D W/WOM-MODE COMPL SPEC&COLR DOP 04/27 12:00:00 AM EDT [facility] ([facility]) ECG ROUTINE ECG W/LEAST 12 LDS W/I&R 04/09/2020 12:00: 00 AM EDT [facility] ([facility]) REVASCULARIZATION ILIAC ARTERY ANGIOP 1ST VSL 03/05/20 20 12:00:00 AM EDT [facility] ([facility], ) REVASCULARIZATION ILIAC ART ANGIOP EA IPSI VSL 020 12:00:00 AM EDT [facility] ([facility], ) Angiography Selective, Each Addtl Vessel Studied After Exam 03/05/2020 12:00:00 AM EDT [facility] ([facility]) Moderate Sedation Services; Same Phys Intl 15 Mins; PT >= 5 Years 03/05/2020 12:00:00 AM EDT [facility] ([facility]) Results ID Date Data Source [id number] 12/12/2020 10:00:00 AM EST [facility] Name Value Range Interpretation Code Description Data Adriane rce(s) Supporting Document(s) SARS coronavirus 2 RNA Not Detected [facility] [place] This lab was ordered by [facility] and reported by [facility]. ID Date Data Source [id number] 12/07/2020 02:20:00 PM EST [facility] ([facility] Name Value Range Interpretation Code Description Data Adriane rce(s) Supporting Document(s) Basic Metabolic Pane Laboratory test result [facility] ([facility] BASIC METABOLIC PANEL Potassium 4.0 meq/L 3.6-5.0 [facility] Sodium 136 meq/L 134-153 [facility] Chloride 96 meq/L 98-107 [facility] Co2 29 meq/L 22-30 [facility] Glucose 116 mg/dL 65-110 [facility] Creatinine 1.1 mg/dL 0.7-1.5 [facility] BUN/Creat 22 8-27 [facility] BUN 24 mg/dL 7-21 [facility] Calcium 9.2 mg/dL 8.4-10.2 [facility] Anion Gap 11.0 mmol/L 8.0-16.0 [facility] Age 75 yrs [facility] Afr Amer GFR Laboratory test result [facility] ([facility] Non-Aa GFR 52 mL/min [facility] Male GFR Interprentation 20-49 yrs >60 mL/min Normal 50-59 yrs >56 mL/min Normal 60-69 yrs >49 mL/min Normal 70-79yrs >42 mL/min Normal 80 and above >35 mL/min Normal Female GFR Interpretation 20-39 yrs >60 mL/min Normal 40-49 yrs >58 mL/min Normal 50-59 yrs >51 mL/min Normal 60-69 yrs >45 mL/min Normal 70-79 yrs >39 mL/min Normal 80 and above >32 mL/min Normal ID Date Data Source [id number] 12/07/2020 02:20:00 PM EST [facility] ([facility] Name Value Range Interpretation Code Description Data Adriane rce(s) Supporting Document(s) CBC No Diff Laboratory test result [facility] T ([facility] COMPLETE BLOOD COUNT WBC 8.7 10^3/uL 4.2-11.0 [facility] RBC 3.94 10^6/uL 4.20-5.40 [facility] ([facility] Hemoglobin 12.2 g/dL 12.0-16.0 [facility] Hematocrit 36.7 % 37.0-47.0 [facility] MCH 31.0 pg 27.0-34.0 [facility] MCV 93.1 fL 81.0-101 [facility] MCHC 33.2 g/dL 31.0-36.0 [facility] RDW 12.9 % 11.5-14.5 [facility] Platelets 275 10^3/uL 150-450 [facility] MPV 9.3 fL 7.4-10.4 [facility] ID Date Data Source [id number] 12/07/2020 02:20:00 PM EST [facility] ([facility] Name Value Range Interpretation Code Description Data Adriane rce(s) Supporting Document(s) Potassium 4.0 meq/L 3.6-5.0 [facility] Basic Metabolic Pane Laboratory test result [facility] ([facility]) BASIC METABOLIC PANEL Sodium 136 meq/L 134-153 [facility] Chloride 96 meq/L 98-107 [facility] Co2 29 meq/L 22-30 [facility] Glucose 116 mg/dL 65-110 [facility] BUN 24 mg/dL 7-21 [facility] Creatinine 1.1 mg/dL 0.7-1.5 [facility] ([facility]) BUN/Creat 22 8-27 [facility] Anion Gap 11.0 mmol/L 8.0-16.0 [facility] ([facility]) Calcium 9.2 mg/dL 8.4-10.2 [facility] Age 75 yrs [facility] Afr Amer GFR Laboratory test result [facility] NT ([facility]) Non-Aa GFR 52 mL/min [facility] ([facility]) Male GFR Interprentation 20-49 yrs >60 mL/min Normal 50-59 yrs >56 mL/min Normal 60-69 yrs >49 mL/min Normal 70-79yrs >42 mL/min Normal 80 and above >35 mL/min Normal Female GFR Interpretation 20-39 yrs >60 mL/min Normal 40-49 yrs >58 mL/min Normal 50-59 yrs >51 mL/min Normal 60-69 yrs >45 mL/min Normal 70-79 yrs >39 mL/min Normal 80 and above >32 mL/min Normal ID Date Data Source [id number] 12/07/2020 02:20:00 PM EST [facility] ([facility]) Name Value Range Interpretation Code Description Data Adriane rce(s) Supporting Document(s) CBC No Diff Laboratory test result [facility] T ([facility]) COMPLETE BLOOD COUNT WBC 8.7 10^3/uL 4.2-11.0 [facility] ([facility]) RBC 3.94 10^6/uL 4.20-5.40 [facility] ([facility]) Hemoglobin 12.2 g/dL 12.0-16.0 [facility] ([facility]) MCV 93.1 fL 81.0-101 [facility] ([facility]) Hematocrit 36.7 % 37.0-47.0 [facility] ([facility]) MCHC 33.2 g/dL 31.0-36.0 [facility] RDW 12.9 % 11.5-14.5 [facility] MCH 31.0 pg 27.0-34.0 [facility] MPV 9.3 fL 7.4-10.4 [facility] Platelets 275 10^3/uL 150-450 [facility] ([facility]) ID Date Data Source [id number] 12/07/2020 04:16:00 PM EST [facility] Name Value Range Interpretation Code Description Data Adriane rce(s) Supporting Document(s) BASIC METABOLIC PANEL [facility] BASIC METABOLIC PANEL Sodium [Moles/volume] in Serum or Plasma 136 mEq/L 134 - 153 [facility] Potassium [Moles/volume] in Serum or Plasma 4.0 mEq/L 3.6 - 5.0 [facility] Chloride [Moles/volume] in Serum or Plasma 96 mEq/L 98 - 107 L [facility] Carbon dioxide, total [Moles/volume] in Serum or Plasma 29 MEQ/L 22 - 30 [facility] Glucose [Mass/volume] in Serum or Plasma 116 MG/DL 65 - 110 H [facility] BUN 24 MG/DL 7 - 21 [facility] Creatinine [Mass/volume] in Serum or Plasma 1.1 MG/DL 0.7 - 1.5 [facility] BUN/CREAT 22 8 - 27 [facility] Calcium [Mass/volume] in Serum or Plasma 9.2 MG/DL 8.4 - 10.2 [facility] Anion gap 3 in Serum or Plasma 11.0 mmol/L 8.0 - 16.0 [facility] AGE 75 yrs [facility] AMER GFR >60 [facility] NON-AA GFR 52 mL/min [facility] Male GFR Inter prentation 20-49 yrs >60 mL/min Normal 50-59 yrs >56 mL/min Normal 60-69 yrs >49 mL/min Normal 70-79yrs >42 mL/min Normal 80 and above >35 mL/min Normal Female GFR Interpretation 20-39 yrs >60 mL/min Normal 40-49 yrs >58 mL/min Normal 50-59 yrs >51 mL/min Normal 60-69 yrs >45 mL/min Normal 70-79 yrs >39 mL/min Normal 80 and above >32 mL/min Normal ID Date Data Source [id number] 12/07/2020 02:35:00 PM EST [facility] Name Value Range Interpretation Code Description Data Adriane rce(s) Supporting Document(s) CBC NO DIFF [facility] COMPLETE BLOOD COUNT Leukocytes [#/volume] in Blood by Automated count 8.7 10^3/uL 4.2 - 1 1.0 [facility] Erythrocytes [#/volume] in Blood by Automated count 3.94 10^6/uL 4. 20 - 5.40 L [facility] Hemoglobin [Mass/volume] in Blood 12.2 g/dL 12.0 - 16.0 [facility] Hematocrit [Volume Fraction] of Blood by Automated count 36.7 % 3 7.0 - 47.0 L [facility] Erythrocyte mean corpuscular volume [Entitic volume] by Auto mated count 93.1 fL 81.0 - 101 [facility] Erythrocyte mean corpuscular hemoglobin [Entitic mass] by Automated count 31.0 pg 27.0 - 34.0 [facility] Erythrocyte mean corpuscular hemoglobin concentration [Mass/volume] by Automated count 33.2 g/dL 31.0 - 36.0 [facility] Erythrocyte distribution width [Ratio] by Automated count 12.9 % 11.5 - 14.5 [facility] Platelets [#/volume] in Blood by Automated count 275 10^3/uL 150 - 45 0 [facility] Platelet mean volume [Entitic volume] in Blood by Automated count 9.3 fL 7.4 - 10.4 [facility] ID Date Data Source [id number] 10/04/2020 08:27:00 [place] [address] OPERATIVE SUMMARYNAME: ANSELMO Tineo DATE OF : 7ATTENDING PHYS: Andrea Lopez MD DATE: 10/04/20 MR#: [id number] [id number] PROCEDURE: 10/04/2020PRE-OPERATIVE DIAGNOSIS: Screening colonoscopy.POST-OPERATIVE DIAGNOSIS: Screening colonoscopy.ANESTHESIA: IV sedation.ATTENDING SURGEON: Dr. Andrea Lopez.FINDINGS:Normal colonoscopy to the cecum.PROCEDURE PERFORMED: Colonoscopy.DETAILS OF PROCEDURE:Patient was brought to the operating room, placed in the left lateral decubitus position, given IVsedation. Flexible colonoscope was inserted in the patient's rectum, and negotiated through therectum, sigmoid, left colon, transverse colon, and right colon. The cecum was clearly identified.During the passage of the colonoscope, the mucosa examined appeared normal. There were nomasses, polyps, ulcerations, or inflammatory areas evident. Bowel prep was noted to be excellent.After the cecum was examined, the scope was slowly and carefully withdrawn with a full re-inspection performed, confirming the above findings. A digital rectal exam was performed at theend of the procedure, which was unremarkable.ESTIMATED BLOOD LOSS: None.IV FLUIDS: Crystalloid.DRAINS: None.COMPLICATIONS: None.DISPOSITION:Patient tolerated procedure well, and was sent to the recovery room in good condition.RECOMME NDATIONS:Repeat colonoscopy in ten years given the absence of additional risk factors. [address] [place] [address] OPERATIVE SUMMARYNAME: ANSELMO Tineo DATE OF : 1945TTENDING PHYS: Andrea Lopez MD DATE: 10/04/20 MR#: [id number]: Andrea Lopez MD 10/04/20 08:09DT: SSR 10/04/20 08:24DS: Andrea Lopez MD 10/10/20 11:01 2 Name Value Range Interpretation Code Description Data [facility] rce(s) Supporting Document(s) ID Date Data Source [id number] 09/29/2020 08:49:00 AM EDT [facility] ([facility] Name Value Range Interpretation Code Description Data [facility] rce(s) Supporting Document(s) Coronavirus Covid-19 Laboratory test result [facility] ([facility] This nucleic acid amplification test was developed and its performance characteristics determined by [facility]. Nucleic acid amplification tests include PCR and [...] negative (not detected) result in this assay. ID Date Data Source [id number] 09/29/2020 08:49:00 AM EDT [facility] Name Value Range Interpretation Code Description Data Adriane rce(s) Supporting Document(s) SARS coronavirus 2 RNA [facility] This lab was ordered by [facility] and reported by [facility]. ID Date Data Source [id number] 10/01/2020 07:00:00 AM EST [facility] Name Value Range Interpretation Code Description Data Adriane rce(s) Supporting Document(s) SARS-CoV-2, TAYLOR Not Detected Not Detected [facility] This nucleic acid amplification test was developed and its performancecharacteristics determined by [facility]. Nucleic acidamplification tests include PCR and TMA. This test has not been FDAcleared or approved. This test has been authorized by FDA under anEmergency Use Authorization (EUA). This test is only authorized forthe duration of time the declaration that circumstances existjustifying the authorization of the emergency use of in vitrodiagnostic tests for detection of SARS-CoV-2 virus and/or diagnosisof COVID-19 infection under section 564(b)(1) of the Act, 21 U.S.C.360bbb-3(b) (1), unless the authorization is terminated or revokedsooner.When diagnostic testing is negative, the possibility of a falsenegative result should be considered in the context of a patient'srecent exposures and the presence of clinical signs and symptomsconsistent with COVID- 19. An individual without symptoms of COVID-19and who is not shedding SARS-CoV-2 virus would expect to have anegative (not detected) result in this assay. ID Date Data Source [id number] 09/25/2020 09:24:00 AM EDT [facility] ([facility] Name Value Range Interpretation Code Description Data Adriane rce(s) Supporting Document(s) Creatinine 1.1 mg/dL 0.7-1.5 [facility] Age 75 yrs [facility] Non-Aa GFR 52 mL/min [facility] Afr Amer GFR Laboratory test result [facility] ([facility] Male GFR Interprentation 20-49 yrs >60 mL/min Normal 50-59 yrs >56 mL/min Normal 60-69 yrs >49 mL/min Normal 70-79yrs >42 mL/min Normal 80 and above >35 mL/min Normal Female GFR Interpretation 20-39 yrs >60 mL/min Normal 40-49 yrs >58 mL/min Normal 50-59 yrs >51 mL/min Normal 60-69 yrs >45 mL/min Normal 70-79 yrs >39 mL/min Normal 80 and above >32 mL/min Normal ID Date Data Source [id number] 09/25/2020 09:24:00 AM EDT [facility] ([facility] Name Value Range Interpretation Code Description Data Adriane rce(s) Supporting Document(s) Urea nitrogen [Mass/volume] in Serum or Plasma 17 mg/dL 7-21 [facility] ([facility] ID Date Data Source [id number] 09/25/2020 09:24:00 AM EDT [facility] ([facility]) Name Value Range Interpretation Code Description Data Adriane rce(s) Supporting Document(s) Creatinine 1.1 mg/dL 0.7-1.5 [facility] ([facility], ) Age 75 yrs [facility] ([facility]) Non-Aa GFR 52 mL/min [facility] ([facility]) Afr Amer GFR Laboratory test result [facility] ([facility]) Male GFR Interprentation 20-49 yrs >60 mL/min Normal 50-59 yrs >56 mL/min Normal 60-69 yrs >49 mL/min Normal 70-79yrs >42 mL/min Normal 80 and above >35 mL/min Normal Female GFR Interpretation 20-39 yrs >60 mL/min Normal 40-49 yrs >58 mL/min Normal 50-59 yrs >51 mL/min Normal 60-69 yrs >45 mL/min Normal 70-79 yrs >39 mL/min Normal 80 and above >32 mL/min Normal ID Date Data Source [id number] 09/25/2020 09:24:00 AM EDT [facility] Name Value Range Interpretation Code Description Data Adriane rce(s) Supporting Document(s) Urea nitrogen [Mass/volume] in Serum or Plasma 17 mg/dL 06-19 [facility]) ID Date Data Source [id number] 09/25/2020 10:23:00 AM EDT [facility] Name Value Range Interpretation Code Description Data Adriane rce(s) Supporting Document(s) Creatinine [Mass/volume] in Serum or Plasma 1.1 MG/DL 0.7 - 1.5 [facility] AGE 75 yrs [facility] NON-AA GFR 52 mL/min [facility] nehemiah AFR AMER GFR >60 [facility] Male GFR Interprenta tion 20-49 yrs >60 mL/min Normal 50-59 yrs >56 mL/min Normal 60-69 yrs >49 mL/min Normal 70-79yrs >42 mL/min Normal 80 and above >35 mL/min Normal Female GFR Interpretation 20-39 yrs >60 mL/min Normal 40-49 yrs >58 mL/min Normal 50-59 yrs >51 mL/min Normal 60-69 yrs >45 mL/min Normal 70-79 yrs >39 mL/min Normal 80 and above >32 mL/min Normal ID Date Data Source [id number] 09/25/2020 10:22:00 AM EDT [facility] Name Value Range Interpretation Code Description Data Adriane rce(s) Supporting Document(s) BUN 17 MG/DL [facility] ID Date Data Source [id number] 09/07/2020 01:45:00 PM EDT [facility] [address] [place] [address] PHONE: [phone] FAX: [phone] Name .................. : ANSELMO Tineo Acct Number.................. : [id number] ROOM. ................. : VT- MR Number ................... : [id number] Stay type ............. : E/R Discharge Date......... ... : Admit Date ......... : 09/05/20 Admit Phys .................... : SHANNAN VELAZQUEZ Date of ....... : 1945 Family Phys ................... : SHIRIN Kim Phone .................. : [phone] Age ................................ : 75 Film# .................. .:[id number] Sex ................................. : F Unsigned transcriptions are preliminary reports and do not represent a medical or legal document CT ABD & PELVIS W/ IV ONLY [id number] COMPLETE:09/05/20 11:23 55384 Reason(s): ABDOMINAL PAIN, N/V/D, HX OF SBO CT SCAN OF THE ABDOMEN & PELVIS WITH IV CONTRAST, 09/05/20: INDICATION: Abdominal pain, nausea, vomiting, and diarrhea, history of small bowel obstruction. FINDINGS: Lung bases show COPD. No discrete nodule or infiltrate is identified. A moderate hiatal hernia is identified, which has not significantly changed since prior study from 01/18/2019. Liver appears unremark able. Patient is status post cholecystectomy. The spleen shows calcified granulomata which have not significantly changed. Adrenal glands are normal. Pancreas is within normal limits. Gallbladder is absent surgically. The right kidney appears unremarkable. Left kidney demonstrates scarring in the interpolar region laterally, which has not significantly changed. No hydronephrosis is identified bilaterally. Multiple surgical hardeep are present in the central abdomen in the retroperitoneal region. These are not significantly changed since the previous examination. Enteric structures demonstrate a fluid-filled colon without significant dilation. No evidence of an obstructive process is identified. Small bowel loops are not grossly enlarged, and no air-fluid levels are identified. Osseous structures show degenerative changes. IMPRESSION: Fluid is identified throughout the colon without significant distention. Wall thickening is not identified. No free fluid is identified in the pelvis. Patient is status post cholecystectomy. Scarring in the left kidney. Moderate hiatal hernia. No significant changes identified as compared to the previous examination. While performing the above CT examination, radiation dose reduction was accomplished utilizing automated exposure control, adjusting of the mA and kV based on the patient's body size and/or the use of imperative reconstructive techniques. CT dose 1306.4 mGycm. Page 1 of 2 [place] [address] PHONE: [phone] FAX: [phone] Name .................. : ANSELMO Tineo Acct Number.................. : [id number] ROOM. ................. : VT-01 MR Number ................... : [id number] Stay type ............. : E/R Discharge Date......... ... : Admit Date ......... : 09/05/20 Admit Phys .................... : SHANNAN VELAZQUEZ Date of ....... : 1945 Family Phys ................... : SHIRIN Kim Phone .................. : [phone] Age ................................ : 75 Film# .................. .:[id number] Sex ................................. : F Unsigned transcriptions are preliminary reports and do not represent a medical or legal document CT ABD & PELVIS W/ IV ONLY [id number] COMPLETE:09/05/20 11:23 84245 Reason(s): ABDOMINAL PAIN, N/V/D, HX OF SBO Contrast agent in mL: 75 mL Isovue 370 Method of adm inistration: Intravenous Examination dictated by LISA Castro. Examination was reviewed with Dale Good MD, radiologist at the time of this dictation. Electronically Reviewed and Signed By Dale Good MD , 09/07/20 13:45, KGG Transcribe Initials: SSR, Transcribe Date: 09/05/20 14:41, Dictation Date: Copy for: EMERGENCY DEPT via modem Copy for: 710 MED REC DISCHARGED Page 2 of 2 Name Value Range Interpretation Code Description Data Adri[facility] rce(s) Supporting Document(s) ID Date Data Source [id number] 09/06/2020 12:57:00 PM EDT [address] [address] RESPIRATORY CARE REPORT ==== ---------NAME------- NUMBER SEX AGE ADMIT DISC. XRAY# F/C TYPELEEDER MOO C [id number] F 75 09/05/20 09/05/20 [id number] E/R DATE OF : 1945 M/R# [id number] #: [id number] VT-01 LOCATION: EMERGENCY DEPT [facility] [id number] COMP LETE:09/05/20 14:27 [place] [address] PHYSICIAN: SHANNAN VELAZQUEZ Name Value Range Interpretation Code Description Data Adriane rce(s) Supporting Document(s) ID Date Data Source [id number] 09/05/2020 10:52:00 AM EDT [facility] 1 OrderSheet [facility] Emergency Department [address] [place] [address] Phone #: [phone] 09/05/2020 10:52 Patient: MOO STAFFORD Sex: F : 1945 Age: 75yWEIGHT:104.3 kg (S) HEIGHT:64 inches (S) BMI:39.5ALLERGIES: No Known Drug AllergyCHIEF COMPLAINT: abdominal pain, vomiting, nauseaDIAGNOSIS: GastroenteritisLAB ORDERSOrder Description Priority Entered Acknowledged InitialedCBC w Diff STAT 11:21 05/2020 11:23 Shannan Pradhan Riccardo Lynnette R.N. M.D.;CMP STAT 11:21 09/05/2020 11:23 Shannan Pradhan Riccardo Lynnette R.N. M.D.;Lipase STAT 11:21 09/05/2020 11:23 Shannan Pradhan Riccardo Lynnette R.N. M.D.;Urinalysis (Clean STAT 11:21 09/05/2020 Ack'd: 14:17Catch) Bridgett aCmpbell Lynnette M.D.; R.N.Lactic Acid STAT 11:21 09/05/2020 11:23 Shannan Pradhan Riccardo Lynnette R.N. M.D.;DIAGNOSTIC STUDY ORDERSOrder Description Priority Entered Acknowledged InitialedCT Abd PEL W/ IV STAT 11:23 09/05/2020 Ack'd: 11:23 14:28 Carolynn,Contrast Only Bridgett Campbell Lynnette Lynnette R.N.(Oxygen?(No)) M.DPankaj; R.N.(IV?(Yes)) Reason for Study: ABDOMINAL PAIN, N/V/D, HX OF SBOMEDICATION/IV/DRIP/FLUID ORDERSOrder Description Priority Entered Acknowledged InitialedNS IV 500 mL 11:23 09/05/2020 11:38 Carolynn,Bolus: : Bolus 500 Shannan, Bridgett Marleye R.N.mL, then 150 mL/hr M.D.;(X1 ) 2 OrderSheet [facility] Emergency Department [address] [place] [address] Phone #: [phone] 09/05/2020 10:52 Patient: MOO STAFFORD Sex: F : 1945 Age: 75yMorphine IVP 4 mg 11:23 09/05/2020 11:43 Carolynn(HIGH ALERT Turrin, Bridgett Sudha R.N.MEDICATION) [place];Zofran 4 mg IVP X 1 11:23 09/05/2020 11:43 Carolynn,dose: 4 mg (NOW Turrin, Bridgett Sudha R.N.x1) M.DPankaj;Pepcid IVPB 20 11:23 09/05/2020 11:50 Carolynn,mg/50mL (NOW x1, Turrin, Bridgett Sudha R.N.Infuse over 30 M.D.;minutes.)Protonix IVPB 40 12:28 09/05/2020 Ack'd: 12:42 12:51 Carolynnmg with Dextrose Shannan, Sudha Terrelle R.N.100 ml spike bag M.D.; R.NPankaj(D5W)GENERAL ORDERSOrder Description Priority Entered Acknowledged InitialedNPO 11:21 09/05/2020 11:23 Shannan Pradhan Riccardo Lynnette R.N. M.D.;Saline Lock 11:21 09/05/2020 11:23 Shannan Pradhan Riccardo Lynnette R.N. M.D.;EKG 11:21 09/05/2020 11:23 Shannan Pradhan Riccardo Lynnette R.N. M.D.;[Electronically signed by Sudha Pradhan R.N. (14:44 09/05/2020)][Electronically signed by Bridgett Campbell M.D. (16:38 09/05/2020)][Electronically locked by Sudha Pradhan R.N. (14:44 09/05/2020)] Name Value Range Interpretation Code Description Data Adriane rce(s) Supporting Document(s) ID Date Data Source [id number] 09/05/2020 10:52:00 AM EDT [facility] 1 Medication Reconciliation Report [facility] Emergency Department [address] [place] [address] Phone #: ext- [phone] 09/05/2020 10:52 Patient: MOO STAFFORD Sex: F : 1945 Age: 75yWeight: 104.3 kgHeight/Length: 64 in.BMI: 39.5ALLERGIES: No Known Drug AllergyThe patient's Home Medications are listed below:CONTINUE TAKING THE FOLLOWING MEDICATIONS: Wolverine AmLODIPine Besylate Oral 5 mg, daily Aspir-81 Oral, daily Clopidogrel Bisulfate Oral 75 mg, daily FLUoxetine HCl Oral 20 mg, daily Gabapentin Oral 300 mg, daily [facility] Losartan Potassium Oral 100 mg, daily Pantoprazole Sodium Oral 40 mg, daily Spironolactone Oral 25 mg, dailyThe source(s) of the original Home Medication information:Not obtained.The following Medications were given to the patient in the Emergency Department:normal saline bolus IV Fluids bolus 0, then 500, administered: 09/05/2020 11:38:00 AMZofran [IVP] IVP 4 mg, administered: 09/05/2020 11:43:00 AM 2 Medication Reconciliation Report [facility] Emergency Department [address] [place] [address] Phone #: ext- [phone] 09/05/2020 10:52 Patient: MOO STAFFORD Sex: F : 1945 Age: 75yMorphine [IVP] IVP 4 mg, administered: 09/05/2020 11:43:00 AMPepcid [IVP] IVP 20 mg, administered: 09/05/2020 11:50:00 AMProtonix [IVPB] IVPB bolus 0, then 40 mg 200 mL/hr, administered: 09/05/2020 12:49:00 PMThe following Medications were prescribed to the patient:Zofran 4 mg tablet Take 1 tablet four times a day as needed for 4 days -- Dispense 16 tablet. Refills: 0.Substitution permitted.Pharmacy - [phone] - [id number] [facility] ; [place], [place] [id number]. . -- Bridgett Campbell M.D. Name Value Range Interpretation Code Description Data Adriane rce(s) Supporting Document(s) ID Date Data Source [id number] 09/05/2020 10:52:00 AM EDT [facility] 1 Medication Administration Record [facility] Emergency Department [address] [place] [address] Phone #: ext- [phone] 09/05/2020 10:52 Patient: MOO STAFFORD Sex: F : 1945 Age: 75yWeight: 104.3 kgHeight/Length: 64 inBMI: 39.5ALLERGIES: No Known Drug Allergy Date/Time Medication Administered Medication OrderedStart normal saline bolus * NS IV 500 mL Bolus: : Bolus 72010:38 09/05/2020 Dose: 500 * IV Fluids mL, then 150 mL/hr (X1)Sudha Pradhan R.N.----Stop14:42 09/05/2020Sudha Pradhan R.N.Given MORPHINE [IVP] Morphine IVP 4 mg (HIGH ALERT11:43 09/05/2020 Dose: 4 mg IVP MEDICATION)Sudha Pradhan R.N. Site: #1 left ACGiven ZOFRAN [IVP] (ONDANSETRON HCL) Zofran 4 mg IVP X 1 dose: 4 mg11:43 09/05/2020 Dose: 4 mg IVP (NOW x1)Sudha Pradhan R.N. Site: #1 left ACGiven PEPCID [IVP] Pepcid IVPB 20 mg/50mL (NOW11:50 09/05/2020 Dose: 20 mg IVP x1, Infuse over 30 minutes.)Sudha Pradhan R.N. Site: #1 left ACStart PROTONIX [IVPB] (PANTOPRAZOLE Protonix IVPB 40 mg with12:49 09/05/2020 SODIUM) Dextrose 100 ml spike bag (D5W)Sudha Pradhan R.N. Dose: 40 mg IVPB---- Rate: 200 mL/hr over 15 minute(s)Stop Dispensed: 100 mL bag13:10 09/05/2020 Site: #1 left Sudha Ware R.N. Name Value Range Interpretation Code Description Data Adriane rce(s) Supporting Document(s) ID Date Data Source [id number] 09/05/2020 10:52:00 AM EDT [facility] 1 General Instructions [facility] Emergency Department [address] [place] [address] Phone #: ext- [phone] 09/05/2020 10:52 Patient: MOO STAFFORD Sex: F : 1945 Age: 75yAcute norovirus gastroenteritis.INSTRUCTIONSAlternate Tylenol (Acetaminophen) or Motrin (Ibuprofen) for fever, temperature greater than 102 degreesorally. Take according to label instructions.Drink plenty of fluids. Avoid alcohol and NSAIDS. NSAIDS include aspirin, ibuprofen (Advil) and naproxen(Aleve). Avoid fatty, fried/greasy, lactose-containing (such as milk, cheese and ice cream), salty and spicyfoods.Warnings: Further evaluation is necessary. It is very important to follow up with a healthcare provider.GENERAL WARNINGS: Return or contact your physician immediately if your condition worsens orchanges unexpectedly, if not improving as expected, or if other problems arise. SPECIFICALLY, return ifyou develop pain in the abdomen, pelvis, back or shoulder, fever, vomiting, the inability to keep fluidsdown, blood in vomitus, blood in diarrhea, fainting or lightheadedness.Your Current Medications: Your current home medications have been reviewed.CONTINUE TAKING THE FOLLOWING MEDICATIONS:Wolverine*.AmLODIPine Besylate Oral : 5 mg daily.Aspir-81 Oral : daily.Clopidogrel Bisulfate Oral : 75 mg daily.FLUoxetine HCl Oral : 20 mg daily.Gabapentin Oral : 300 mg daily.[facility]*.Losartan Potassium Oral : 100 mg daily.Pantoprazole Sodium Oral : 40 mg daily.Spironolactone Oral : 25 mg daily.Prescription Medications:Zofran 4 mg tablet Take 1 tablet four times a day as needed for 4 days -- Dispense 16 tablet. Refills: 0.Substitution permitted.Pharmacy - [phone] - [phone] [facility] ; [place], [place] [id number]. .Follow-up:Return to the emergency department as needed. Follow up with your healthcare provider in [facility] if well. Call for an appointment. Reason for referral: evaluation and treatment. Summary of care 2 General Instructions [facility] Emergency Department [address] [place] [address] Phone #: ext- [phone] 09/05/2020 10:52 Patient: MOO STAFFORD Sex: F : 1945 Age: 75yprovided to patient via paper.Understanding of the discharge instructions verbalized by patient. Expected course of illness, dischargeinstructions, activ ity level, diet, prescriptions x1, follow-up appointment and risks and benefits of treatmentreviewed with patient and understanding verbalized. Agrees to plan of care. ADDITIONAL INFORMATIONViral Gastroenteritis (Adult)Gastroenteritis is commonly called the "stomach flu," although it has nothing to do with influenza. It ismost often caused by a virus that affects the stomach and intestinal tract and usually lasts from 2 to 7days. Common viruses causing gastroenteritis include norovirus, rotavirus, and hepatitis A. Non-viralcauses of gastroenteritis include bacteria, parasites, and toxins.The danger from repeated vomiting or diarrhea is dehydration. This is the loss of too much fluid fromthe body. When this occurs, body fluids must be replaced. Antibiotics don't help with this illnessbecause it is usually viral. Simple home treatment will be helpful.Symptoms of viral gastroenteritis may include: 3 General Instructions [facility] Emergency Department [address] [place] [address] Phone #: ext- [phone] 09/05/2020 10:52 Patient: MOO STAFFORD Sex: F : 1945 Age: 75y Watery, loose stools Stomach pain or abdominal cramps Fever and chills Nausea and vomiting Loss of bowel control HeadacheHome careGastroenteritis is transmitted by contact with the stool or vomit of an infected person. This can occurfrom person to person or from contact with a contaminated surface.Follow these guidelines when caring for yourself at home: If symptoms are severe, rest at home for the next 24 hours or until you are feeling better. Wash your hands with soap and water or use alcohol-based street engineer to prevent the spread of infection. Wash your hands after touching anyone who is sick. Wash your hands or use alcohol-based street engineer after using the toilet and before meals. Clean the toilet after each use.Remember these tips when preparing food: People with diarrhea should not prepare or serve food to others. When preparing foods, wash your hands before and after. Wash your hands after using cutting boards, countertops, knives, or utensils that have been in contact with raw food. Dry your hands with a single use towel. Keep uncooked meats away from cooked and czbwc-ee-ptc foods.MedicineYou may use acetaminophen or NSAID medicines like ibuprofen or naproxen to control fever unlessanother medicine was given. If you have chronic liver or kidney disease, talk with your healthcareprovider before using these medicines. Also talk with your provider if you've had a stomach ulceror gastrointestinal bleeding. Don't give aspirin to anyone under 18 years of age w ho is ill with a fever.It may cause severe liver damage. Don't use NSAIDS is you are already taking one for anothercondition (like arthritis) or are on aspirin (such as for heart disease or after a stroke). 4 General Instructions [facility] Emergency Department [address] [place] [address] Phone #: ext- [phone] 09/05/2020 10:52 Patient: MOO STAFFORD Sex: F : 1945 Age: 75yIf medicine for vomiting or diarrhea are prescribed, take these only as directed. Nausea and diarrheamedicines are generally OK unless you have bleeding, fever, or severe abdominal pain.DietFollow these guidelines for food: Water and liquids are important so you don't get dehydrated. Drink a small amount at a time or suck on ice chips if you are vomiting. If you eat, avoid fatty, greasy, spicy, or fried foods. Don't eat dairy if you have diarrhea. This can make diarrhea worse. Avoid tobacco, alcohol, and caffeine which may worsen symptoms.During the first 24 hours (the first full day), follow the diet below: Beverages. Sports drinks, soft drinks without caffeine, mila tomy, mineral water (plain or flavored), decaffeinated tea and coffee. If you are very dehydrated, sports drinks aren't a good choice. They have too much sugar and not enough electrolytes. In this case, commercially available products called oral rehydration solutions, are best. Soups. Eat clear broth, consomm, and bouillon. Desserts. Eat gelatin, ice pops, and fruit juice bars.During the next 24 hours (the second day), you may add the following to the above: Hot cereal, plain toast, bread, rolls, and crackers Plain noodles, rice, mashed potatoes, chicken noodle or rice soup Unsweetened canned fruit (avoid pineapple), bananas Limit fat intake to less than 15 grams per day. Do this by avoiding margarine, butter, oils, mayonnaise, sauces, gravies, fried foods, peanut butter, meat, poultry, and fish. Limit fiber and avoid raw or cooked vegetables, fresh fruits (except bananas), and bran cereals. Limit caffeine and chocolate. Don't use spices or seasonings other than salt. Limit dairy products. Avoid alcohol.During the next 24 hours: Gradually resume a normal diet as you feel better and your symptoms improve. 5 General Instructions [facility] Emergency Department [address] [place] [address] Phone #: ext- [phone] 09/05/2020 10:52 Patient: MOO STAFFORD Sex: Tono : 1945 Age: 75y If at any time it starts getting worse again, go back to clear liquids until you feel better.Follow-up careFollow up with your healthcare provider, or as advised. Call your provider if you don't get better hours or if diarrhea lasts more than a week. Also follow up if you are unable to keep down liquidsand get dehydrated. If a stool (diarrhea) sample was taken, call as directed for the results.Call [phone] if any of these occur: Trouble breathing Chest pain Confused Severe drowsiness or trouble awakening Fainting or loss of consciousness Rapid heart rate Seizure Stiff neckWhen to seek medical adviceCall your healthcare provider right away if any of these occur: Abdominal pain that gets worse Continued vomiting (unable to keep liquids down) Frequent diarrhea (more than 5 times a day) Blood in vomit or stool (black or red color) Dark urine, reduced urine output, or extreme thirst Weakness or dizziness Drowsiness Fever of 100.4F (38C) or higher, or as directed by your healthcare provider Mark galeano 6 General Instructions [facility] Emergency Department [address] [place] [address] Phone #: ext- [phone] 09/05/2020 10:52 Patient: MOO STAFFROD Sex: F : 1945 Age: 75y [phone] [employer]. [address] [place], [place] [id number]. All rights reserved. This information is not intended as asubstitute for professional medical care. Always follow your healthcare professional's instructions.Fever Control (Adult)A fever is a normal reaction of your body to an illness. The temperature itself usually isn't harmful. Itactually helps your body fight infections. You don't need to treat a fever unless you feel veryuncomfortable.Home careFollow these tips to take care of yourself at home: If you feel warm, check your temperature. Dress in light clothing. This will help you lose extra body heat through your skin. The fever will go up if you wear extra layers or wrap in blankets. Fever causes your body to lose water through evaporation. Drink plenty of fluids. These include water, juice, clear sodas, mila tomy, or lemonade.Fever medicinesYou can take acetaminophen every 4 to 6 hours if: You feel very uncomfortable Your oral temperature is 100.4F (38C) or higherIf you can't take or keep down oral medicine, ask your pharmacist for acetaminophen suppositories.You don't need a prescription for these.If the fever doesn't get better within 1 hour after you take acetaminophen, take ibuprofen. If thisworks, keep taking the ibuprofen every 6 to 8 hours.If you have chronic liver or kidney disease, talk with your healthcare provider before taking thesemedicines. Also talk with your provider if you ever had a stomach ulcer or GI (gastrointestinal)bleeding.If either medicine alone doesn't keep the fever down, you may switch off between the 2 medicinesevery 3 to 4 hours. But do this only if your healthcare provider has told you to. For example, takeibuprofen. Wait 3 hours. Then take acetaminophen. Wait 3 hours. Take ibuprofen, and so on. Followyour provider's instructions exactly.Don't give aspirin to anyone younger than age 19 who is ill with a fever. Aspirin can cause seriousside effects such as liver damage and Ilene syndrome. Although rare, Ilene syndrome is a very 7 General Instructions [facility] Emergency Department [address] [place] [address] Phone #: [phone]- [phone] 09/05/2020 10:52 Patient: MOO STAFFORD Sex: F : 1945 Age: 75yserious illness usually found in children younger than age 15. The syndrome is closely linked to theuse of aspirin or aspirin-containing medicine during viral infection.Follow-up careFollow up with your healthcare p makayla if you don't get better after 48 hours.When to seek medical adviceCall your healthcare provider right away if any of these occur: Fever, as directed by your healthcare provider, or: o Fever of 100.4F (38C) or above lasting for 24 to 48 hours o Fever lasting more than 3 days, even without other symptoms o Fever that happens after visiting a foreign country o Fever that happens within a month after visiting a country with malaria. Malaria is a serious illness. A fever can still be malaria even if you took medicine to prevent it. The medicine does not work in all cases. Confusion or trouble thinking Headache or stiff neck Flat, small, purplish red spots on your skin Low blood pressure Fast heart rate Fast (rapid) breathing You are You just had surgery, another medical procedure, or were just discharged from the hospital Use of medicines that suppress the immune system (immunosuppressants). These include Prednisone, cancer medicines, and organ transplant rejection medicines. If you are not sure about whether your medicines suppress your immune system, ask your healthcare provider.Call 911Someone should call 911 if you: Are having trouble breathing or shortness of breath 8 General Instructions [facility] Emergency Department [address] [place] [address] Phone #: ext- [phone] 09/05/2020 10:52 Patient: MOO STAFFORD Sex: F : 1945 Age: 75y Are unresponsiveImportant reminderCall your healthcare provider if you get a fever after visiting a place where infectious diseases arecommon. Many people peanut picker a cold or other virus while traveling. This usually goes away without aproblem. But, some places have more serious diseases. Fever with certain other symptoms maymean you have a serious illness. Symptoms to watch for include diarrhea, skin rashes, insect bites,and skin boils, or infections. Your provider may ask you: What you did on your trip How long you were there Where you stayed (hotel, [place] house, tent) What you ate and drank If you were bitten by insects or other bugs If you swam in freshwater If you had sex or got a tattoo or piercing while you were thereCheck the [facility] to get more information about specific infectious diseases in the areas you havetraveled. [phone] [employer]. [address] [place] [address]. All rights reserved. This information is not intended as asubstitute for professional medical care. Always follow your healthcare professional's instructions. You have been given the following additional information: Gastroenteritis, Viral (Adult) Fever Control (Adult)(Electronically signed by Bridgett Campbell M.D. 09/05/2020 16:38) Name Value Range Interpretation Code Description Data Adriane rce(s) Supporting Document(s) ID Date Data Source [id number] 09/05/2020 10:52:00 AM EDT [facility] 1 Clinical Report - Nurses [facility] Emergency Department [address] [place] [address] Phone #: ext- [phone] 09/05/2020 10:52 Patient: MOO STAFFORD Sex: F : 1945 Age: 75yTRIAGEArrived by private vehicle. Historian: patient. Accompanied by family. ( pt report she has been throwingup "feces" black, states this happens all the time, was seen here 2 weeks ago).Acuity: LEVEL 3.Chief Complaint: ABDOMINAL PAIN, NAUSEA and VOMITING.Alert.Onset. (0400). She has had nausea, vomiting, diarrhea and abdominal pain. The pain is described aslocated in the epigastrium. ( "feels warm", chills).Treatment BLOCK GREASER:None.SEPSIS SCREEN: SIRS Screen negative. Sepsis Screen negative. No suspected or confirmed signs ofinfection present. --10:59 09/05/20 Alejandra Donahue R.N.10:54 09/05/20. BP: 196/80. MAP: 118. HR: 109. RR: 18. O2 saturation: 97% on room air. Temp: 97.4 F.Pain level now: 08/09. --10:59 09/05/20 Alejandra Donahue R.N.Weight: 104.3 kg stated. Height/Length: 64 inches Per Patient. BMI: 39.5. --10:54 09/05/20 Alejandra Donahue R.N.MedicationsAmLODIPine Besylate Oral 5 mg, daily. Aspir-81 Oral, daily. Clopidogrel Bisulfate Oral 75 mg, daily. FLUoxetine HCl Oral 20 mg, daily. Gabapentin Oral 300 mg, daily. [facility]. Losartan Potassium Oral 100 mg, daily. Pantoprazole Sodium Oral 40 mg, daily. Spironolactone Oral 25 mg, daily. --10:55 09/05/20 Alejandra Donahue R.N. Wolverine. --10:56 09/05/20 Alejandra Donahue R.N.AllergiesNo Known Drug Allergy. --10:55 09/05/20 Alejandra Donahue R.N.PROBLEMS:Depression.Diarrhea.Constipation. 2 Clinical Report - Nurses [facility] Emergency Department [address] [place] [address] Phone #: ext- [phone] 09/05/2020 10:52 [id number] Sex: F : 1945 Age: 75yAbdominal Pain.Bowel Obstruction.Gastroenteritis.Other Disease.Vomiting.Hypertension.Gastroesophageal Reflux Disease.GI Disease. --10:56 09/05/20 Alejandra Donahue R.N.ADDITIONAL SURGERIES:Aortic repair.Bariatric Surgery.Cataract Surgery.Cholecystectomy.Fempop bypass (X3).Gastric sleeve [2013].Gastric sleeve.Hysterectomy.Lysis of adhesions [12/2018].Peripheral Vascular Surgery (Bilateral).Tubal Ligation. --10:56 09/05/20 Alejandra Donahue R.N.HistoryPAST MEDICAL HX: Immunizations: up-to-date. The patient has had a hysterectomy.SOCIAL HX: Smoker- current status unknown (quit 30 years ago). Occasional alcohol use. No drug use.No recent travel. No known contact with a sick individual. She was offered HIV testing but declined andhepatitis C testing but declined. She has not traveled outside the [place]Infectious disease exposure: No infectious disease exposure. Patient is not a known carrier of tuberculosis,hepatitis, HIV, MRSA or VRE. Patient is not a known carrier of CRE.SELF HARM ASSESSMENT: Self harm assessment was performed. The patient answered "no" to thequestion(s) "Have you recently felt down, depressed, or hopeless?", "Do you have thoughts of harming orkilling yourself?", "Do you have a plan for harming or killing yourself?", "Have you recently had thoughtsabout harming or killing others?", "Do you have any dangerous items in your possession?", "Have younoticed less interest or pleasure in doing things?", "Are you here because you tried to hurt yourself?" and"Have you ever tried to hurt yourself before today?".ABUSE ASSESSMENT: Abuse assessment. Abuse denied. No suspicion of abuse. No report of abuse.NUTRITIONAL RISK ASSESSMENT: The nutritional risk assessment revealed no deficiencies.FUNCTIONAL ASSESSMENT: Functional assessment: no impairments noted.LEARNING NEEDS ASSESSMENT: The learning needs assessment revealed no barriers. 3 Clinical Report - Nurses [facility] Emergency Department [address] [place] [address] Phone #: ext- [phone] 09/05/2020 10:52 Patient: MOO STAFFORD [id number] Sex: F : 1945 Age: 75y FALL RISK ASSESSMENT: Fall risk assessment completed. No risk factors identified. SKIN INTEGRITY ASSESSMENT: Skin integrity risk assessment completed. No skin integrity risk identified. --10:09/05/20 Alejandra Donahue R.N. Interventions Identification band on patient. To treatment room. --:09/05/20 Alejandra Donahue R.N.PHYSICAL ASSESSMENTGENERAL / NEURO / PSYCH: Alert. Oriented X 4. Appears anxious.RESPIRATORY: Respirations not labored.CVS: Normal sinus rhythm noted.GI / : The patient has had nausea. Obesity. Abdomen soft. Abdominal tenderness in the epigastricarea. ( pt reports dark colored emesis. bowel sounds present. pt has hx of barretts esophagus per patientand has been dealing with this issue for 4 years. [facility]SKIN: Skin is pale. Skin is warm and dry. --11:09/05/20 Sudha Pradhan R.N.NURSING PROGRESS NOTESCardiac monitor and NIBP monitor placed on patient. Patient gowned. Reassurance given. Two patientidentifiers checked. Call light placed in reach. Side rails up x 2. Bed placed in lowest position. Brakesof bed on. Patient ready for evaluation- ED physician and PA notified. --11:00 09/05/20 Alejandra Donahue R.N. 11:25 09/05/2020 Site #1 started via IV in the left antecubital space with an 20g angiocath, with aseptic technique and good blood return; one attempt. Blood drawn: rainbow set. Labeled in the presence of the patient. Saline lock flushed with 3 mL saline. --11:25 09/05/20 Sudha Pradhan R.N. 11:38 09/05/2020 normal saline bolus * IV Fluids 500 --11:38 09/05/20 Sudha Pradhan R.N. 11:43 09/05/2020 Zofran (Ondansetron HCl) IVP 4 mg given over 2 minute(s) via site #1. Allergies verified and confirmed 5 rights. IV patency established. IV site checked: no pain, redness, or swelling. IV flushed thoroughly pre- and post-medication administration. IVP given by RN. Information reviewed with patient including reason for taking this medication. Verbalizes understanding. --11:43 09/05/20 Sudha Pradhan R.N. 11:43 09/05/2020 Morphine IVP 4 mg given over 2 minute(s) via site #1. Allergies verified and confirmed 5 rights. IV patency established. IV site checked: no pain, redness, or swelling. IV flushed thoroughly pre- and post-medication administration. IVP given by RN. Information reviewed with patient including reason for taking this medication and sedative warning. Verbalizes understanding. --11:43 09/05/20 Sudha Pradhan R.N. 11:50 09/05/2020 Pepcid IVP 20 mg given over 30 minute(s) via site #1. Allergies verified and confirmed 5 rights. IV patency established. IV site checked: no pain, redness, or swelling. IV flushed thoroughly pre- 4 Clinical Report - Nurses [facility] Emergency Department [address] [place] [address] Phone #: ext- [phone] 09/05/2020 10:52 Patient: MOO STAFFORD Sex: F : 1945 Age: 75yand post-medication administration. IVP given by RN. Information reviewed with patient and familyincluding reason for taking this medication. Verbalizes understanding. --11:50 09/05/20 Sudha Pradhan R.N.( pt to bathroom and back to bed. pt placed back on monitor. pt unable to obtain UA at this time but didhave large BM.). --11:51 09/05/20 Sudha Pradhan R.N.12:20 09/05/2020 Normal saline bolus IV Fluids Discontinued: bag #1 completed. Total amount infused:500 mL. --12:20 09/05/20 Sudha Pradhan R.N. Correction. --12:09/05/20 Sudha Pradhan R.N.12:22 09/05/2020 Normal saline bolus IV Fluids Bag Change: bag #1 completed. Total amount infused:500. STARTED bag #2 (1000 mL) at 150 mL/hr via IV pump. Confirmed 5 rights. IV patency established. IVsite checked: no pain, redness, or swelling. IV flushed thoroughly. --12:22 09/05/20 Sudha Pradhan R.N.12:42 09/05/20. The patient reports no complaints and she is calm and resting quietly. ( awaiting CT).--13:43 09/05/20 Sudha Pradhan R.N.12:49 09/05/2020 Started 40 mg of Protonix (Pantoprazole Sodium) IVPB in bag #1 100 mL; at 100 mL/hrvia site #1. via IV pump. Allergies verified and confirmed 5 rights. IV patency established. IV site checked:no pain, redness, or swelling. IV flushed thoroughly pre- and post-medication administration. Informationreviewed with patient including reason for taking this medication. Verbalizes understanding. --12: Sudha Pradhan R.N. Correction. --13:19 09/05/20 Sudha Pradhan R.N.12:49 09/05/2020 Started 40 mg of Protonix (Pantoprazole Sodium) IVPB in bag #1 100 mL; at 200 mL/hrover 15 minute(s) via site #1. via IV pump. Allergies verified and confirmed 5 rights. IV patency established.IV site checked: no pain, redness, or swelling. IV flushed thoroughly pre- and post-medicationadministration. Information reviewed with patient including reason for taking this medication. Verbalizesunderstanding. --13:19 09/05/20 Sudha Pradhan R.N.The patient reports no complaints and she is calm and resting quietly. --13:42 09/05/20 Sudha Pradhan R.N.( pt appears to be sleeping.). --14:16 09/05/20 Sudha Pradhan R.N.( unable to obtain UA. pt chose to go home than to stay for observation.). --14:41 09/05/20 Sudha Pradhan R.N.13:10 09/05/2020 Protonix IVPB via IV site #1 Discontinued: completed. Total amount infused: 100 mL.--14:42 09/05/20 Sudha Pradhan R.N.14:42 09/05/2020 Site #1 removed upon discharge. Bandage applied. --14:42 09/05/20 Sudha Pradhan R.N.14:42 09/05/2020 Normal saline bolus IV Fluids Discontinued: discontinued upon discharge. Total amount 5 Clinical Report - Nurses [facility] Emergency Department [address] [place] [address] Phone #: ext- [phone] 09/05/2020 10:52 Patient: MOO STAFFORD Sex: F : 1945 Age: 75y infused: 300 mL. IV patency established. IV site checked: no pain, redness, or swelling. IV flushed thoroughly. --14:42 09/05/20 Sudha Pradhan R.N.DISPOSITION / DISCHARGE Departure time: 14:44 09/05/2020. Condition at departure: stable. No learning barriers present. Discharge instructions provided and reviewed with the patient. Reviewed medication(s). Treatments reviewed. Reviewed diet. Patient verbalized understanding. Written instructions provided in Frisian. The patient was discharged by the physician. She was discharged home and accompanied by family. She left ambulatory and via private vehicle. Family member driving. ( pt reports she has not taken home meds today. pt will take them when she gets home.). Medication list reviewed and validated. --14:44 09/05/20 Sudha Pradhan R.N. 14:42 09/05/20. BP: 138/80. HR: 78. RR: 19. O2 saturation: 96%. Temp: 97.9 F. Pain level now 0/10. --14:44 09/05/20 Nai Pradhan R.N.Locked/Released at 09/05/2020 14:44 by Sudha Pradhan R.N. Name Value Range Interpretation Code Description Data Adriane rce(s) Supporting Document(s) ID Date Data Source [id number] 0001 09/05/2020 10:52:00 AM EDT [facility] 1 Clinical Report - Physicians/Mid Levels [facility] Emergency Department [address] [place] [address] Phone #: ext- [phone] 09/05/2020 10:52 Patient: MOO STAFFORD Sex: F : 1945 Age: 75y Time Seen: 11:04 09/05/2020; initial patient contact. Arrived- By private vehicle. Historian- patient. Disposition decision: 14:28 09/05/2020.HISTORY OF PRESENT ILLNESS Chief Complaint: ABDOMINAL PAIN and VOMITING and NAUSEA. This started today 7 hours ago and is still present. It was gradual in onset and has been intermittent. It is described as "pain" and cramping and it is described as located in the epigastric area and left lower quadrant and in the upper abdomen. At its maximum, severity described as severe and 9 / 10. When seen in the E.D., severity described as severe and 9 / 10. Modifying factors- worsened by movement. Not relieved by anything. The patient has had loss of appetite, moderate nausea, vomiting. The vomiting has occurred several times and has been dark in color and loose stools. No recent travel. Similar symptoms previously. Patient has had similar symptoms many times. ( has Hx of recurrent SBO's, no NG tube since sinus obstruction, and is usually transferred to [facility] since her surgeon is there). Recent medical care: The patient was seen recently at this facility. ( 2-3 weeks ago for same, see ER records).REVIEW OF SYSTEMSNo constipation, black stools, hematemesis, difficulty with urination or pain with urination. No urinaryfrequency, bloody stools, fever, headache or sore throat. No blurred vision, chest pain, difficulty breathing,cough or joint pain. No skin rash, chills or back pain. The patient has not had weight loss. All othersystems reviewed and are negative.PAST HISTORYSee nurses notes. Problems: Depression. Diarrhea. Constipation. Abdominal Pain. Bowel Obstruction. Gastroenteritis. Other Disease. Vomiting. Hypertension. Gastroesophageal Reflux Disease. GI Disease. 2 Clinical Report - Physicians/Mid Levels [facility] Emergency Department [address] [place] [address] Phone #: ext- [phone] 09/05/2020 10:52 [id number] Sex: F : 1945 Age: 75y Additional Surgeries: Aortic repair. Bariatric Surgery. Cataract Surgery. Cholecystectomy. Fempop bypass. Gastric sleeve [2012]. Gastric sleeve. Hysterectomy. Lysis of adhesions [12/2018]. Peripheral Vascular Surgery. Tubal Ligation. Medications: Wolverine. AmLODIPine Besylate Oral 5 mg, daily. Aspir- 81 Oral, daily. Clopidogrel Bisulfate Oral 75 mg, daily. FLUoxetine HCl Oral 20 mg, daily. Gabapentin Oral 300 mg, daily. [facility]. Losartan Potassium Oral 100 mg, daily. Pantoprazole Sodium Oral 40 mg, daily. Spironolactone Oral 25 mg, daily. Allergies: No Known Drug Allergy.SOCIAL HISTORYFormer smoker, end date 1989. No alcohol use or drug use.ADDITIONAL NOTESThe nursing notes have been reviewed with agreement regarding the chief complaint, HPI, ROS, PMH andpatient medications and allergies.PHYSICAL EXAMVital Signs: 09/05/2020 10:54 BP: 196/80. MAP: 118. HR: 109. RR: 18. O2 saturation: 97% on room air.Temp: 97.4 F. Pain level now: 910. Have been reviewed. Oxygen saturation normal.Appearance: Alert. Oriented X3. Anxious. Appears to be in pain. Patient in mild distress. Distressappears due to pain.Eyes: Pupils equal, round and reactive to light. Eyes normal inspection.ENT: Ears normal. Nose n ormal. Pharynx normal.Neck: Normal inspection. Neck supple.CVS: Normal heart rate and rhythm. Heart sounds normal. Pulses normal. 3 Clinical Report - Physicians/Mid Levels [facility] Emergency Department [address] [place] [address] Phone #: ext- [phone] 09/05/2020 10:52 Patient: MOO STAFFORD Sex: F : 1945 Age: 75y Respiratory: No respiratory distress. Painless inspiration. Breath sounds normal. Chest nontender. Abdomen: Soft. Mild tenderness in the upper abdomen, epigastric area and left side of the abdomen. No guarding or rebound tenderness. Bowel sounds normal. No organomegaly. No mass. Femoral pulses equal. Mildly obese. Back: Normal inspection. No CVA tenderness. Skin: Skin warm and dry. Normal skin color. No rash. Normal skin turgor. Extremities: Extremities exhibit normal ROM. No lower extremity edema. Neuro: Oriented X 3. No motor deficit. No sensory deficit. Reflexes normal.LABS, X-RAYS, AND EKGEKG: No acute process. No acute ischemia. Normal EKG. Normal sinus rhythm. Rate: 94/min.Normal ST and T waves. EKG unchanged when compared with prior EKG. (08-19-20). The study hasbeen interpreted contemporaneously by me. The EKG appears to be a good tracing. Interpretation time:11:17 09/05/2020.Abdominal CT: see report, basically NAD, colon fluid filled. Study type: abdomen and pelvis. AbdominalCT performed with IV contrast. The study was interpreted by the radiologist. Interpretation time: 14:0809/05/2020.Laboratory Tests: Laboratory tests have been ordered, with results reviewed and considered in themedical decision making process. CBC w Diff: (SOLOMON: 09/05/2020 11:15) ( MsgRcvd 09/05/2020 11:40) Final results Test Result Flag Units (Reference) CBC W/AUTOMATED DIFF COMPLETE BLOOD COUNT WBC 12.8 H 10/uL (4.2 - 11.0) RBC 4.24 10/uL (4.20 - 5.40) HEMOGLOBIN 12.9 g/dL (12.0 - 16.0) HEMATOCRIT 38.5 % (37.0 - 47.0) MCV 90.8 fL (81.0 - 101) MCH 30.4 pg (27.0 - 34.0) MCHC 33.5 g/dL (31.0 - 36.0) RDW 13.3 % (11.5 - 14.5) PLATELETS 363 10/uL (150 - 450) MPV 9.6 fL (7.4 - 10.4) NEUT 84.4 H % (37.0 - 80.0) LYMPH 8.4 L % (25.0 - 40.0) MONO 5.9 % (3.0 - 8.0) EOS 0.5 % (0.0 - 7.0) BASO 0.3 % (0.0 - 2.5) %IG 0.5 H % (0.0 - 0.0) %NRBC 0.0 % (0.0 - 0.0) #NEUT 10.81 H 10/uL (2.00 - 6.90) #LYMPH 1.08 10/uL (0.60 - 3.40) #MONO 0.76 10/uL (0.00 - 0.90) #EOS 0.06 10/uL (0.00 - 0.70) #BASO 0.04 10/uL (0.00 - 0.20) #IG 0.06 10/uL (0.00 - 0.10) #NRBC 0.00 10/uL (0.00 - 0.00) MANUAL DIFF NOT INDICATED RBC MORPH NOT INDICATED CMP: (SOLOMON: 09/05/2020 11:15) ( MsgRcvd 09/05/2020 12:10) Final results 4 Clinical Report - Physicians/Mid Levels [facility] Emergency Department [address] [place] [address] Phone #: ext- [phone] 09/05/2020 10:52 Patient: MOO STAFFORD [id number] Sex: F : 1945 Age: 75y Test Result Flag Units (Reference) COMPREHENSIVE METABOLIC PANEL COMPREHENSIVE METABOLIC PANEL SODIUM 135 mEq/L (134 - 153) POTASSIUM 4.2 mEq/L (3.6 - 5.0) CHLORIDE 99 mEq/L (98 - 107) CO2 23 MEQ/L (22 - 30) GLUCOSE 152 H MG/DL (65 - 110) BUN 24 H MG/DL (7 - 21) CREATININE 1.1 MG/DL (0.7 - 1.5) BUN/CREAT 22 (8 - 27) TOTAL PROTEIN 7.9 G/DL (6.3 - 8.2) ALBUMIN 4.7 G/DL (3.9 - 5.0) GLOBULIN 3.2 GM/DL (2.4 - 3.2) A/G RATIO 1.5 (0.8 - 2.0) CALCIUM 10.5 H MG/DL (8.4 - 10.2) TOTAL BILI <0.7 MG/DL (0.2 - 1.3) ALKALINE PHOS 116 U/L (38 - 126) SGOT/AST 15 U/L (5 - 40) SGPT/ALT 15 U/L (7 - 56) ANION GAP 13.0 mmol/L (8.0 - 16.0) AGE 75 yrs NON-AA GFR 52 mL/min AFR AMER GFR >60 Male GFR Interprentation 20-49 yrs >60 mL/min Normal 50-59 yrs >56 mL/min Normal 60-69 yrs >49 mL/min Normal 70-79yrs >42 mL/min Normal 80 and above >35 mL/min Normal Female GFR Interpretation 20-39 yrs >60 mL/min Normal 40-49 yrs >58 mL/min Normal 50-59 yrs >51 mL/min Normal 60-69 yrs >45 mL/min Normal 70-79 yrs >39 mL/min Normal 80 and above >32 mL/min Normal Lipase: (SOLOMON: 09/05/2020 11:15) ( AkgRcvd 09/05/2020 12:05) Final results Test Result Flag Units (Reference) LIPASE 28 U/L (13 - 60) Lactic Acid: (SOLOMON: 09/05/2020 11:15) ( MsgRcvd 09/05/2020 11:42) Final results Test Result Flag Units (Reference) LACTIC ACID 3.5 HH MMOL/L (0.2 - 2.2) CALL/ READ BACK CALLED TO RICH BY: [facility] DATE/TIME 09.05.20 @ 3878.PROGRESS AND PROCEDURESCourse of Care: 12:16 09/05/20. WBC slightly high, as well as lactic at 3.5, waiting for CTAP w IV 13:18 09/05/20. workup all in and reviewed, still waiting for CTAP w IV 14:19 09/05/20. CTAP w IV results are in and basically nml; pt doing markedly better, abdomen soft, no pain, Dr. Byrnes, surgeon on- call, came to see pt and recommends d/c; pt understands d/c instructions, will return if recurrence; pt has probably viral GE. 5 Clinical Report - Physicians/Mid Levels [facility] Emergency Department [address] [place] [address] Phone #: [phone]- [phone] 09/05/2020 10:52 Patient: MOO STAFFORD Sex: F : 1945 Age: 75y Patient counseled in person regarding the patient's stable condition, test results, diagnosis and need for follow-up. Patient agrees with plan of care. Disposition: Condition: good and stable. Discharge decision based on the following: patient's condition is stable; patient's condition is improved ; patient is ambulatory; patient is active; patient drinking fluids; patient eating; patient's pain is controlled; patient's exam is improved; no seriously abnormal test results; improving condition on multiple repeat evaluations; social support is good; transportation is available; follow-up is available; clinical impression is consistent with outpatient treatment.CLINICAL IMPRESSION Acute norovirus gastroenteritis.INSTRUCTIONS Alternate Tylenol (Acetaminophen) or Motrin (Ibuprofen) for fever, temperature greater than 102 degrees orally. Take according to label instructions. Drink plenty of fluids. Avoid alcohol and NSAIDS. NSAIDS include aspirin, ibuprofen (Advil) and naproxen (Aleve). Avoid fatty, fried/greasy, lactose-containing (such as milk, cheese and ice cream), salty and spicy foods. Warnings: Further evaluation is necessary. It is very important to follow up with a healthcare provider. GENERAL WARNINGS: Return or contact your physician immediately if your condition worsens or changes u nexpectedly, if not improving as expected, or if other problems arise. SPECIFICALLY, return if you develop pain in the abdomen, pelvis, back or shoulder, fever, vomiting, the inability to keep fluids down, blood in vomitus, blood in diarrhea, fainting or lightheadedness. Your Current Medications: Your current home medications have been reviewed. CONTINUE TAKING THE FOLLOWING MEDICATIONS: Wolverine*. AmLODIPine Besylate Oral : 5 mg daily. Aspir-81 Oral : daily. Clopidogrel Bisulfate Oral : 75 mg daily. FLUoxetine HCl Oral : 20 mg daily. Gabapentin Oral : 300 mg daily. [facility]*. Losartan Potassium Oral : 100 mg daily. Pantoprazole Sodium Oral : 40 mg daily. Spironolactone Oral : 25 mg daily. Prescription Medications: 6 Clinical Report - Physicians/Mid Levels [facility] Emergency Department [address] [place] [address] Phone #: ext- [phone] 09/05/2020 10:52 Patient: MOO STAFFORDN: [id number] [id number] Sex: F : 1945 Age: 75y Zofran 4 mg tablet Take 1 tablet four times a day as needed for 4 days -- Dispense 16 tablet. Refills: 0. Substitution permitted. Pharmacy - [id number] [address] [place], [place] [id number]. . Follow-up: Return to the emergency department as needed. Follow up with your healthcare provider in two days even if well. Call for an appointment. Reason for referral: evaluation and treatment. Summary of care provided to patient via paper. Understanding of the discharge instructions verbalized by patient. Expected course of illness, discharge instructions, activity level, diet, prescriptions x1, follow-up appointment and risks and benefits of treatment reviewed with patient and understanding verbalized. Agrees to plan of care.(Electronically signed by Bridgett Campbell M.D. 09/05/2020 16:38) Name Value Range Interpretation Code Description [facility] Supporting Document(s) ID Date Data Source [id number] 09/05/2020 11:15:00 AM EDT [facility] Name Value Range Interpretation Code Description Data [facility] Supporting Document(s) CBC W/Automated Diff Laboratory test result [facility] COMPLETE BLOOD COUNT WBC 12.8 10^3/uL 4.2-11.0 [facility] RBC 4.24 10^6/uL 4.20-5.40 [facility] Hemoglobin 12.9 g/dL 12.0-16.0 [facility] Hematocrit 38.5 % 37.0-47.0 [facility] MCV 90.8 fL 81.0-101 [facility] MCHC 33.5 g/dL 31.0-36.0 [facility] MCH 30.4 pg 27.0-34.0 [facility] Platelets 363 10^3/uL 150-450 [facility] RDW 13.3 % 11.5-14.5 [facility] MPV 9.6 fL 7.4-10.4 [facility] Neut 84.4 % 37.0-80.0 [facility] Lymph 8.4 % 25.0-40.0 [facility] Russell 5.9 % 3.0-8.0 [facility] Baso 0.3 % 0.0-2.5 [facility] Eos 0.5 % 0.0-7.0 [facility] #Neut 10.81 10^3/uL 2.00-6.90 [facility] %Ig 0.5 % 0.0-0.0 [facility] %NRBC 0.0 % 0.0-0.0 [facility] #Lymph 1.08 10^3/uL 0.60-3.40 [facility] #Eos 0.06 10^3/uL 0.00-0.70 [facility] #Russell 0.76 10^3/uL 0.00-0.90 [facility] #Ig 0.06 10^3/uL 0.00-0.10 [facility] #NRBC 0.00 10^3/uL 0.00-0.00 [facility] #Baso 0.04 10^3/uL 0.00-0.20 [facility] RBC Morph Laboratory test result [facility] Manual Diff Laboratory test result [facility] ([facility] ID Date Data Source [id number] 09/05/2020 11:15:00 AM EDT [facility] Name Value Range Interpretation Code Description Data Adriane rce(s) Supporting Document(s) Call/ Read Back Laboratory test result [facility] Lactic Acid 3.5 mmol/L 0.2-2.2 Above upper panic limits [facility] Date/Time Laboratory test result [facility] By: Laboratory test result [facility] ID Date Data Source [id number] 09/05/2020 11:15:00 AM EDT [facility] Name Value Range Interpretation Code Description Data Adriane rce(s) Supporting Document(s) Lipoprotein lipase [Enzymatic activity/volume] in Serum or Plasm a 28 U/L 13-60 [facility] ID Date Data Source [id number] 09/05/2020 11:15:00 AM EDT [facility] Name Value Range Interpretation Code Description Data Adriane rce(s) Supporting Document(s) Sodium 135 meq/L 134-153 [facility] Comprehensive [facility]abo Laboratory test result [facility] COMPREHENSIVE METABOLIC PANEL Potassium 4.2 meq/L 3.6-5.0 [facility] Co2 23 meq/L 22-30 [facility] Chloride 99 meq/L 98-107 [facility] Glucose 152 mg/dL 65-110 [facility] BUN 24 mg/dL 7-21 [facility] BUN/Creat 22 8-27 [facility] Creatinine 1.1 mg/dL 0.7-1.5 [facility] Total Protein 7.9 g/dL 6.3-8.2 [facility] Albumin 4.7 g/dL 3.9-5.0 [facility] Globulin 3.2 GM/DL 2.4-3.2 [facility] Alkaline Phos 116 U/L 38-126 [facility] Calcium 10.5 mg/dL 8.4-10.2 [facility] A/G Ratio 1.5 0.8-2.0 [facility] Total Bili Laboratory test result 0.2-1.3 [facility] Anion Gap 13.0 mmol/L 8.0-16.0 [facility] SGPT/Alt 15 U/L 7-56 [facility] Sgot/Ast 15 U/L 5-40 [facility] Afr Amer GFR Laboratory test result [facility] Male GFR Interprentation 20-49 yrs >60 mL/min Normal 50-59 yrs >56 mL/min Normal 60-69 yrs >49 mL/min Normal 70-79yrs >42 mL/min Normal 80 and above >35 mL/min Normal Female GFR Interpretation 20-39 yrs >60 mL/min Normal 40-49 yrs >58 mL/min Normal 50-59 yrs >51 mL/min Normal 60-69 yrs >45 mL/min Normal 70-79 yrs >39 mL/min Normal 80 and above >32 mL/min Normal Non-Aa GFR 52 mL/min [facility] Age 75 yrs [facility] ID Date Data Source [id number] 09/05/2020 12:10:00 PM EDT [facility] Name Value Range Interpretation Code Description Data Adriane rce(s) Supporting Document(s) COMPREHENSIVE METABOLIC PANEL [facility] COMPREHENSIVE METABOLIC PANEL Sodium [Moles/volume] in Serum or Plasma 135 mEq/L 134 - 153 [facility] Potassium [Moles/volume] in Serum or Plasma 4.2 mEq/L 3.6 - 5.0 [facility] Chloride [Moles/volume] in Serum or Plasma 99 mEq/L 98 - 107 [facility] Carbon dioxide, total [Moles/volume] in Serum or Plasma 23 MEQ/L 22 - 30 [facility] Glucose [Mass/volume] in Serum or Plasma 152 MG/DL 65 - 110 H [facility] BUN 24 MG/DL 7 - 21 H [facility] Creatinine [Mass/volume] in Serum or Plasma 1.1 MG/DL 0.7 - 1.5 [facility] BUN/CREAT 22 8 - 27 [facility] Protein [Mass/volume] in Serum or Plasma 7.9 G/DL 6.3 - 8.2 [facility] Albumin [Mass/volume] in Serum or Plasma 4.7 G/DL 3.9 - 5.0 [facility] Globulin [Mass/volume] in Serum by calculation 3.2 GM/DL 2.4 - 3.2 [facility] A/G RATIO 1.5 0.8 - 2.0 [facility] Calcium [Mass/volume] in Serum or Plasma 10.5 MG/DL 8.4 - 10.2 H [facility] Bilirubin.total [Mass/volume] in Serum or Plasma <0.7 MG/DL 0.2 - 1.3 [facility] Alkaline phosphatase [Enzymatic activity/volume] in Serum or Plasma 116 U/L 38 - 126 [facility] Aspartate aminotransferase [Enzymatic activity/volume] in Serum or Plasma 15 U/L 5 - 40 [facility] Alanine aminotransferase [Enzymatic activity/volume] in Seru m or Plasma 15 U/L 7 - 56 [facility] Anion gap 3 in Serum or Plasma 13.0 mmol/L 8.0 - 16.0 [facility] AGE 75 yrs [facility] NON-AA GFR 52 mL[facility] AFR AMER GFR >60 [facility] Male GFR In terprentation 20-49 yrs >60 mL/min Normal 50-59 yrs >56 mL/min Normal 60-69 yrs >49 mL/min Normal 70-79yrs >42 mL/min Normal 80 and above >35 mL/min Normal Female GFR Interpretation 20-39 yrs >60 mL/min Normal 40-49 yrs >58 mL/min Normal 50-59 yrs >51 mL/min Normal 60-69 yrs >45 mL/min Normal 70-79 yrs >39 mL/min Normal 80 and above >32 mL/min Normal ID Date Data Source [id number] 09/05/2020 12:05:00 PM EDT [facility] Name Value Range Interpretation Code Description Data Adriane rce(s) Supporting Document(s) Lipase [Enzymatic activity/volume] in Serum or Plasma 28 U/L 13 - 60 [facility] ID Date Data Source [id number] 09/05/2020 11:40:00 AM EDT [facility] Name Value Range Interpretation Code Description Data Adriane rce(s) Supporting Document(s) Lactate [Moles/volume] in Serum or Plasma 3.5 MMOL/L 0.2 - 2.2 [facility] CALL/ READ BACK CALLED TO [facility] BY: JUSTO [facility] DATE/TIME 09.05.20 @ 1145 [facility] ospital ID Date Data Source [id number] 09/05/2020 11:40:00 AM EDT [facility] Name Value Range Interpretation Code Description Data Adriane rce(s) Supporting Document(s) CBC W/AUTOMATED DIFF [facility] COMPLETE BLOOD COUNT Leukocytes [#/volume] in Blood by Automated count 12.8 10^3/uL 4.2 - 11.0 H [facility] Erythrocytes [#/volume] in Blood by Automated count 4.24 10^6/uL 4. 20 - 5.40 [facility] Hemoglobin [Mass/volume] in Blood 12.9 g/dL 12.0 - 16.0 [facility] Hematocrit [Volume Fraction] of Blood by Automated count 38.5 % 3 7.0 - 47.0 [facility] Erythrocyte mean corpuscular volume [Entitic volume] by Auto mated count 90.8 fL 81.0 - 101 [facility] Erythrocyte mean corpuscular hemoglobin [Entitic mass] by Automated count 30.4 pg 27.0 - 34.0 [facility] Erythrocyte mean corpuscular hemoglobin concentration [Mass/volume] by Automated count 33.5 g/dL 31.0 - 36.0 [facility] Erythrocyte distribution width [Ratio] by Automated count 13.3 % 11.5 - 14.5 [facility] Platelets [#/volume] in Blood by Automated count 363 10^3/uL 150 - 45 0 [facility] Platelet mean volume [Entitic volume] in Blood by Automated count 9.6 fL 7.4 - 10.4 [facility] Neutrophils/100 leukocytes in Blood by Automated count 84.4 % 37. 0 - 80.0 H [facility] Lymphocytes/100 leukocytes in Blood by Manual count 8.4 % 25.0 - 40.0 L [facility] Monocytes/100 leukocytes in Blood by Automated count 5.9 % 3.0 - 8.0 [facility] Eosinophils/100 leukocytes in Blood by Automated count 0.5 % 0.0 - 7.0 [facility] Basophils/100 leukocytes in Blood by Automated count 0.3 % 0.0 - 2.5 [facility] %IG 0.5 % 0.0 - 0.0 H [facility] %NRBC 0.0 % 0.0 - 0.0 [facility] al Neutrophils [#/volume] in Blood by Automated count 10.81 10^3/uL 2. 00 - 6.90 H [facility] Lymphocytes [#/volume] in Blood by Automated count 1.08 10^3/uL 0.60 - 3.40 [facility] Monocytes [#/volume] in Blood by Automated count 0.76 10^3/uL 0.00 - 0.90 [facility] Eosinophils [#/volume] in Blood by Automated count 0.06 10^3/uL 0.00 - 0.70 [facility] Basophils [#/volume] in Blood by Automated count 0.04 10^3/uL 0.00 - 0.20 [facility] #IG 0.06 10^3/uL 0.00 - 0.10 [facility] #NRBC 0.00 10^3/uL 0.00 - 0.00 [facility] MANUAL DIFF NOT INDICATED [facility] RBC MORPH NOT INDICATED [facility] spital ID Date Data Source [id number] 08/21/2020 03:45:00 AM EDT [facility] [address] [place] [address] RESPIRATORY CARE REPORT ==== ---------NAME------- NUMBER SEX AGE ADMIT DISC. XRAY# F/C HELGA Tineo [id number] F 75 08/19/20 08/19/20 [id number] MB4 E/R DATE OF : 1945 M/R# [id number] PH#: [phone] TR- LOCATION: EKG [id number] COMPLETE:08/19/20 1 3:54 [id number] PHYSICIAN: VIRI GONZALEZ Name Value Range Interpretation Code Description Data Adriane rce(s) Supporting Document(s) ID Date Data Source [id number] 08/20/2020 11:00:00 [place] [address] PHONE: [phone] FAX: [phone] Name .................. : ANSELMO Tineo Acct Number.................. : [id number] ROOM. ................. : [facility] Number ................... : [id number] Stay type ............. : E/R Discharge Date......... ... : Admit Date ......... : 08/19/20 Admit Phys .................... : VIRI GONZALEZ Date of ....... : 1945 Family Phys ................... : SHIRIN Kim Phone .................. : [phone] Age ................................ : 75 Film# .................. .:[id number] Sex ................................. : F Unsigned transcriptions are preliminary reports and do not represent a medical or legal document CT ABD & PELV W/[place] W/[place] [id number] COMPLETE:08/19/20 07:56 33863 Reason(s): Abdominal Internal Pain CT OF THE ABDOMEN AND PELVIS WITHOUT CONTRAST: INDICATION: Abdominal pain. FINDINGS: The visualized portions of the heart and pericardium demonstrate no significant abnormalities. There is a small hiatal hernia. Examination of the lungs demonstrates no significant abnormalities. The liver, spleen, pancreas and adrenals demonstrate no significant abnormalities. There is no evidence of renal calculi or hydronephrosis. Patient is status post cholecystectomy. Examination of the gastrointestinal tract demonstrates normal caliber. There is no abnormal intra-abdominal fluid collections. There is no lymphadenopathy by CT size criteria. There are surgical clips in the retroperitoneum. IMPRESSION: No evidence of intestinal obstruction or abnormal abdominal fluid collection. No gross evidence of acute gastrointestinal pathology. While performing the above CT examination, radiation dose reduction was accomplished utilizing automated exposure control, adjusting of the mA and kV based on the patient's body size and/or the use of imperative reconstructive techniques. CT dose: 1317.3 mGycm Electronically Reviewed and Signed By Oskar Sosa MD , 08/20/20 11:00, IJW Transcribe Initials: TAMARA , Transcribe Date: 08/19/20 10:41, Dictation Date: Copy for: 710 MED REC DISCHARGED Page 1 of 1 Name Value Range Interpretation Code Description Data Adriane rce(s) Supporting Document(s) ID Date Data Source [id number] 08/19/2020 06:48:00 AM EDT [facility] 1 OrderSheet [facility] Emergency Department [address] [place] [address] Phone #: ext- [phone] 08/19/2020 06:44 Patient: MOO STAFFORD Sex: F : 1945 Age: 75yWEIGHT:104.3 kg (S) HEIGHT:64 inches (S) BMI:39.5ALLERGIES: No Known Drug AllergyCHIEF COMPLAINT: abdominal pain, vomiting, diarrhea, abdominal painDIAGNOSIS: Abdominal pain, Diarrhea, Vomiting, Abdominal pain, GastroenteritisLAB ORDERSOrder Description Priority Entered Acknowledged InitialedAmylase STAT 07:20 08/19/2020 07:21 Bert Díaz RN Physician;CBC w Diff STAT 07:20 08/19/2020 07:21 Bert Díaz RN Physician;CMP STAT 07:20 08/19/2020 07:21 Bert Díaz RN Physician;Lactic Acid STAT 07:20 08/19/2020 07:21 Bert Díaz RN Physician;Lipase STAT 07:20 08/19/2020 07:21 Bert Díaz RN Physician;Troponin-T STAT 07:20 08/19/2020 07:21 Bert Díaz RN Physician;Urinalysis (Clean STAT 07:20 08/19/2020 17:57 TerryCatchAurelia Díaz RN Physician;GI 4 Panel 07:20 08/19/2020 Ack'd: 07:21 08:09 Bert Díaz RN Physician;Blood Culture STAT 10:02 08/19/2020 10:14 [id number] X2 (Sched Darnell Díaz RN10:02 08/19/2020) Physician;Blood Culture STAT 10:02 08/19/2020 10:14 [id number] X2 (Sched Darnell Díaz RN10:12 08/19/2020) Physician; 2 OrderSheet [facility] Emergency Department [address] [place] [address] Phone #: ext- [phone] 08/19/2020 06:44 Patient: MOO STAFFORD Sex: F : 1945 Age: 75yDIAGNOSTIC STUDY ORDERSOrder Description Priority Entered Acknowledged InitialedCT ABD PEL W/O STAT 07:56 08/19/2020 08:03 TerryOral W/O IV Jefferson Díaz RNContrast Physician;(Oxygen?(No))(IV?(Yes)) Reason for Study: Abdominal Internal Pain, DiarrheaMEDICATION/IV/DRIP/FLUID ORDERSOrder Description Priority Entered Acknowledged Initial edIV NS : 250 mL/hr 07:20 08/19/2020 07:37 Bert(NOW) Jefferson Díaz RN Physician;Zofran IVP 4 mg 07:20 08/19/2020 07:37 Bert Díaz RN Physician;Rocephin 11:49 08/19/2020 12:08 Bert(1gm/50mL) IVPB Darnell Díaz [id number] mg with Physician;Dextrose 50 mlspike bag (D5W)GENERAL ORDERSOrder Description Priority Entered Acknowledged InitialedEKG 07:20 08/19/2020 07:37 Bert Díaz RN P hysician;Transfer: (Transfer 13:34 08/19/2020 13:36 Taina Beltran [facility] by Darnell Loya RNalittle [facility];direct admission asper Dr. Chapin(AcceptingHospitalist) - 12:)[Electronically signed by Jefferson Small Physician (08:55 08/19/2020)][Electronically signed by Bert Díaz RN (17:58 08/19/2020)][Electronically signed by Darnell Loya Physician (20:59 08/19/2020)][Electronically locked by Bert Díaz RN (17:58 08/19/2020)] Name Value Range Interpretation Code Description Data Adriane rce(s) Supporting Document(s) ID Date Data Source [id number] 08/19/2020 06:48:00 AM EDT [facility] 1 Medication Reconciliation Report [facility] Emergency Department [address] [place] [address] Phone #: ext- [phone] 08/19/2020 06:44 Patient: MOO STAFFORD Sex: F : 1945 Age: 75yWeight: 104.3 kgHeight/Length: 64 in.BMI: 39.5ALLERGIES: No Known Drug AllergyThe patient's Home Medications are listed below:THE FOLLOWING MEDICATIONS NEED TO BE RECONCILED: AmLODIPine Besylate Oral 5 mg, daily Aspir-81 Oral, daily Clopidogrel Bisulfate Oral 75 mg, daily FLUoxetine HCl Oral 20 mg, daily Gabapentin Oral 300 mg, daily [facility] Losartan Potassium Oral 100 mg, daily Pantoprazole Sodium Oral 40 mg, daily Spironolactone Oral 25 mg, dailyThe source(s) of the original Home Medication information:patientThe following Medications were given to the patient in the Emergency Department:IV NS IV Fluids bolus 0, then 250 mL/hr, administered: 08/19/2020 7:25:00 AMZofran [IVP] IVP 4 mg, administered: 08/19/2020 7:25:00 AMROCEPHIN (1GM/50ML) [IVPB] IVPB bolus 0, then 1 gm 100 mL/hr, administered: 08/19/2020 11:55:00 AM 2 Medication Reconciliation Report [facility] Emergency Department [address] [place] [address] Phone #: ext- [phone] 08/19/2020 06:44 Patient: MOO STAFFORD Sex: F : 1945 Age: 75yThe following Medications were prescribed to the patient:None. Name Value Range Interpretation Code Description Data Adriane rce(s) Supporting Document(s) ID Date Data Source [id number] 08/19/2020 06:48:00 AM EDT [facility] 1 Medication Administration Record [facility] Emergency Department [address] [place] [address] Phone #: [phone] 08/19/2020 06:44 Patient: MOO STAFFORD Sex: F : 1945 Age: 75yWeight: 104.3 kgHeight/Length: 64 inBMI: 39.5ALLERGIES: No Known Drug Allergy Date/Time Medication Administered Medication OrderedStart IV NS IV NS : 250 mL/hr (NOW)07:25 08/19/2020 Dose: IV FluidsBert Díaz RN Rate: 250 mL/hr over 4 hour(s)---- Dispensed: 1000 mL bagStop Site: #1 left AC13:36 08/19/2020Bert Díaz RNGiven ZOFRAN [IVP] (ONDANSETRON HCL) Zofran IVP 4 mg07:25 08/19/2020 Dose: 4 mg Matti Díaz RN Site: #1 left ACStart RO CEPHIN (1GM/50ML) [IVPB] Rocephin (1gm/50mL) IVPB 027701:55 08/19/2020 (CEFTRIAXONE SODIUM) mg with Dextrose 50 ml spike Tiffanie Díaz RN Dose: 1 gm IVPB (D5W)---- Rate: 100 mL/hr over 30 minute(s)Stop Dispensed: 50 mL bag12:30 08/19/2020 Site: #1 left ACTerry Díaz, RN Name Value Range Interpretation Code Description Data Adriane rce(s) Supporting Document(s) ID Date Data Source [id number] 08/19/2020 06:48:00 AM EDT [facility] 1 General Instructions [facility] Emergency Department [address] [place] [address] Phone #: ext- [phone] 08/19/2020 06:44 Patient: MOO STAFFORD Sex: F : 1945 Age: 75yVomiting with nausea and dehydration.DiarrheaAcute epigastric abdominal pain of unknown cause. ADDITIONAL INFORMATIONDiarrhea with Uncertain Cause (Adult)Diarrhea is when stools are loose and watery. This can be caused by: Viral infections Bacterial infections 2 General Instructions [facility] Emergency Department [address] [place] [address] Phone #: ext- [phone] 08/19/2020 06:44 Patient: MOO STAFFORD Sex: F : 1945 Age: 75y Food poisoning Parasites Irritable bowel syndrome (IBS) Inflammatory bowel diseases such as ulcerative colitis, Crohn's disease, and celiac disease Food intolerance, such as to lactose, the sugar found in milk and milk products Reaction to medicines like antibiotics, laxatives, cancer drugs, and antacidsAlong with diarrhea, you may also have: Abdominal pain and cramping Nausea and vomiting Loss of bowel control Fever and chills Bloody stoolsIn some cases, antibiotics may help to treat diarrhea. You may have a stool sample test. This is doneto see what is causing your diarrhea, and if antibiotics will help treat it. The results of a stool sampletest may take up to 2 days. The healthcare provider may not give you antibiotics until he or she hasthe stool test results.Diarrhea can cause dehydration. This is the loss of too much water and other fluids from the body.When this occurs, body fluid must be replaced. This can be done with oral rehydration solutions. Oralrehydration solutions are available at drugstores and grocery stores without a prescription. Sportsdrinks are not the best choice if you are very dehydrated. They have too much sugar and not enoughelectrolytes.Home careFollow all instructions given by your healthcare provider. Rest at home for the next 24 hours, or untilyou feel better. Avoid caffeine, tobacco, and alcohol. These can make diarrhea, cramping, and painworse.If taking medicines: Hqcy-kiv-vfjltfx nausea and diarrhea medicines are generally OK unless you experience fever or blood stool. Check with your doctor first in those circumstances. You may use acetaminophen or NSAID medicines like ibuprofen or naproxen to reduce pain and fever. Don't use these if you have chronic liver or kidney disease, or ever had a stomach 3 General Instructions [facility] Emergency Department [address] [place] [address] Phone #: ext- [phone] 08/19/2020 06:44 [id number] Sex: F : 1945 Age: 75y ulcer or gastrointestinal bleeding. Don't use NSAID medicines if you are already taking one for another condition (like arthritis) or are on daily aspirin therapy (such as for heart disease or after a stroke). Talk with your healthcare provider first. If antibiotics were prescribed, be sure you take them until they are finished. Don't stop takin g them even when you feel better. Antibiotics must be taken as a full course.To prevent the spread of illness: Remember that washing with soap and water and using alcohol-based street engineer is the best way to prevent the spread of infection. Dry your hands with a single use towel (like a paper towel). Clean the toilet after each use. Wash your hands before eating. Wash your hands before and after preparing food. Keep in mind that people with diarrhea or vomiting should not prepare food for others. Wash your hands after using cutting boards, countertops, and knives that have been in contact with raw foods. Wash and then peel fruits and vegetables. Keep uncooked meats away from cooked and nivas-vw-stu foods. Use a food thermometer when cooking. Cook poultry to at least 165F (74C). Cook ground meat (beef, veal, pork, florentino) to at least 160F (71C). Cook fresh beef, veal, florentino, and pork to at least 145F (63C). Don't eat raw or undercooked eggs (poached or mikaela side up), poultry, meat, or unpasteurized milk and juices.Food and drinksThe main goal while treating vomiting or diarrhea is to prevent dehydration. This is done by takingsmall amounts of liquids often. Keep in mind that liquids are more important than food right now. Drink only small amounts of liquids at a time. Don't force yourself to eat, especially if you are having cramping, vomi ting, or diarrhea. Don't eat large amounts at a time, even if you are hungry. If you eat, avoid fatty, greasy, spicy, or fried foods. 4 General Instructions [facility] Emergency Department [address] [place] [address] Phone #: ext- [phone] 08/19/2020 06:44 Patient: MOO STAFFORD Sex: F : 1945 Age: 75y Don't eat dairy foods or drink milk if you have diarrhea. These can make diarrhea worse.During the first 24 hours you can try: Oral rehydration solutions. Sports drinks may be used if you are not too dehydrated and are otherwise healthy. Soft drinks without caffeine Mila tomy Water (plain or flavored) Decaf tea or coffee Clear broth, consomm, or bouillon Gelatin, popsicles, or frozen fruit juice barsThe second 24 hours, if you are feeling better, you can add: Hot cereal, plain toast, bread, rolls, or crackers Plain noodles, rice, mashed potatoes, chicken noodle soup, or rice soup Unsweetened canned fruit (no pineapple) BananasAs you recover: Limit fat intake to less than 15 grams per day. Don't eat margarine, butter, oils, mayonnaise, sauces, gravies, fried foods, peanut butter, meat, poultry, or fish. Limit fiber. Don't eat raw or cooked vegetables, fresh fruits except bananas, or bran cereals. Limit caffeine and chocolate. Limit dairy. Don't use spices or seasonings except salt. Go back to your normal diet over time, as you feel better and your symptoms improve. If the symptoms come back, go back to a simple diet or clear liquids.Follow-up careFollow up with your healthcare provider, or as advised. If a stool sample was taken or cultures weredone, call the healthcare provider for the results as instructed. 5 General Instructions [facility] Emergency Department [address] [place] [address] Phone #: ext- [phone] 08/19/2020 06:44 Patient: MOO STAFFORD Sex: F : 1945 Age: 75yCall 911Call 911 if you have any of these symptoms: Trouble breathing Confusion Extreme drowsiness or trouble walking Loss of consciousness Rapid heart rate Chest pain Stiff neck SeizureWhen to seek medical adviceCall your healthcare provider right away if any of these occur: Abdominal pain that gets worse Constant lower right abdominal pain Continued vomiting and inability to keep liquids down Diarrhea more than 5 times a day Blood in vomit or stool Dark urine or no urine for 8 hours, dry mouth and tongue, tiredness, weakness, or dizziness Drowsiness New rash You don't get better in 2 to 3 days Fever of 100.4F (38C) or higher, or as directed by your healthcare provider [phone] [employer]. [address] [place] [address], [place] [address]. All rights reserved. This information is not intended as asubstitute for professional medical care. Always follow your healthcare professional's instructions. You have been given the following additional information: Diarrhea, Unknown Cause 6 General Instructions [facility] Emergency Department [address] [place] [address] Phone #: ext- [phone] 08/19/2020 06:44 Patient: MOO STAFFORD Sex: F : 1945 Age: 75y(Electronically signed by Jefferson Small, Physician 08/19/2020 08:55)Acute epigastric abdominal pain.Acute gastroenteritis with volume depletion (Unclear etiology - Possibly food poisoning / infection).Infectious gastroenteritis.(Electronically signed by Darnell Loya, Physician 08/19/2020 20:59) Name Value Range Interpretation Code Description Data Adriane rce(s) Supporting Document(s) ID Date Data Source [id number] 08/19/2020 06:48:00 AM EDT [facility] 1 Clinical Report - Nurses [facility] Emergency Department [address] [place] [address] Phone #: ext- [phone] 08/19/2020 06:44 Patient: MOO STAFFORD Sex: F : 1945 Age: 75yTRIAGEArrived by private vehicle. Historian: patient. Unaccompanied.Triage time: 06:45 08/19/2020. Acuity: LEVEL 3.Chief Complaint: ABDOMINAL PAIN, NAUSEA, VOMITING and DIARRHEA.Alert. No acute distress.This started last night. Onset. (1800). ( Pt states she started having abd pain/v/d since 6 pm last night,and states "i ate a bunch of shit at a baby shower yesterday". Pt c/o epigastric abdominal pain.). Shehas had nausea and vomiting. The vomiting has occurred numerous times. She has had diarrhea (6times). 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 Sepsis Screen negative. No suspected or confirmed signs ofinfection present. (06:50 08/19/2020). --06:50 08/19/20 Rhianna Ballard R.N.06:45 08/19/20. BP: 168/109. MAP: 128. HR: 116. RR: 23. O2 saturation: 97%. Temp: 97.1 F. Pain levelnow 09/08. --06:50 08/19/20 Rhianna Ballard R.N.Weight: 104.3 kg stated. Height/Length: 64 inches Per Patient. BMI: 39.5. --06:45 08/19/20 Rhianna Ballard R.N.MedicationsAmLODIPine Besylate Oral 5 mg, daily. Aspir-81 Oral, daily. Clopidogrel Bisulfate Oral 75 mg, daily. FLUoxetine HCl Oral 20 mg, daily. Gabapentin Oral 300 mg, daily. [facility]. Losartan Potassium Oral 100 mg, daily. Pantoprazole Sodium Oral 40 mg, daily. Spironolactone Oral 25 mg, daily. --07:42 08/19/20 Bert Díaz RN.AllergiesNo Known Drug Allergy. --07:42 08/19/20 Bert Díaz RN.Medication/allergy information source: the patient. --06:50 08/19/20 Rhianna Ballard R.N.History 2 Clinical Repo rt - Nurses [facility] Emergency Department [address] [place] [address] Phone #: ext- [phone] 08/19/2020 06:44 Patient: MOO STAFFORD [facility]#: [id number] Sex: F : 1945 Age: 75y PAST MEDICAL HX: Immunizations: up-to-date. The patient is post-menopausal. SOCIAL HX: Never smoker. Occasional alcohol use. No drug use. No recent travel. No known contact with a sick individual. She was offered HIV testing but declined. Patient education was provided. She was offered hepatitis C testing but declined. Patient education was provided. ( COVID screen negative). She has not traveled outside the [place] Infectious disease exposure: No infectious disease exposure. Patient is not a known carrier of tuberculosis, hepatitis, HIV, MRSA or VRE. Patient is not a known carrier of CRE. SELF HARM ASSESSMENT: Self harm assessment was performed. The patient answered "no" to the question(s) "Do you have thoughts of harming or killing yourself?" and "Do you have a plan for harming or killing yourself?". ABUSE ASSESSMENT: Abuse assessment. The patient had positive responses to the question(s) "Do you feel safe in your home?". Abuse denied. No suspicion of abuse. No report of abuse. NUTRITIONAL RISK ASSESSMENT: The nutritional risk assessment revealed no deficiencies. FUNCTIONAL ASSESSMENT: Functional assessment: no impairments noted. LEARNING NEEDS ASSESSMENT: The learning needs assessment revealed no barriers. FALL RISK ASSESSMENT: Fall risk assessment completed. No risk factors identified. SKIN INTEGRITY ASSESSMENT: Skin integrity risk assessment completed. No skin integrity risk identified. --06:50 08/19/20 Rhianna Ballard R.N. FAMILY HX: No significant family medical history. --07:15 08/19/20 Jefferson Small Physician. Interventions Identification band on patient. --06:50 08/19/20 Rhianna Ballard R.N.PHYSICAL LVAFFJCEZG90:38 08/19/20. Ambulatory to room.GENERAL / NEURO / PSYCH: Alert. Oriented X 4.RESPIRATORY: Respirations not labored. Breath sounds within normal limits.CVS: Cardiac rhythm: normal sinus rhythm.GI / : The patient has had nausea. Emesis noted. Has vomited numerous times. She has diarrhea. Ithas been watery. Diminished bowel sounds in all quadrants.SKIN: Skin is warm and dry. --07:38 08/19/20 Bert Díaz RN.NURSING PROGRESS NOTES07:15 08/19/2020 Site #1 started via IV in the left antecubital space with an 20g angiocath; one attempt.Blood drawn: rain bow set. Labeled in the presence of the patient and sent to the lab. Saline lock flushedwith 10 mL saline. --07:37 08/19/20 Bert Díaz RN 3 Clinical Report - Nurses [facility] Emergency Department [address] [place] [address] Phone #: ext- [phone] 08/19/2020 06:44 Patient: MOO STAFFORD Sex: F : 1945 Age: 75y07:25 08/19/2020 Started bag #1 1000 mL IV Fluids IV NS; at 250 mL/hr over 4 hour(s) via site #1 via IVpump. Allergies verified and confirmed 5 rights. IV patency established. IV site checked: no pain, redness,or swelling. IV flushed thoroughly pre- and post-medication administration. Information reviewed withpatient. --07:37 08/19/20 Bert Díaz RN07:08/19/2020 Zofran (Ondansetron HCl) IVP 4 mg given over 30 second(s) via site #1. Allergiesverified and confirmed 5 rights. IV patency established. IV site checked: no pain, redness, or swelling. IVflushed thoroughly pre- and post- medication administration. IVP given by RN. Information reviewed withpatient. --07:37 08/19/20 Bert Díaz RN07:40 08/19/20. EKG time: (07:31 08/19/2020). EKG was performed by a nurse and shown to the EDphysician. nsr. Checked patient name and birthdate: patient confirmed. Blood samples drawn from theleft antecubital space peripheral IV site by nurse per protocol ; labeled in presence of the patient and sentto lab: rainbow set. Line flushed with 10 mL normal saline post blood draw (6915). Patient gowned.Head of bed elevated 75 degrees. Two patient identifiers checked. Call light placed in reach. Bedplaced in lowest position. Brakes of bed on. Patient ready for evaluation- ED physician notified. --07: Bert Díaz RN08:10 08/19/20. Checked patient name and birthdate. Stool specimen sent. Labeled in the presence ofthe patient (0805 G 4 panel). Patient transported to CT by wheelchair with desktop technician. (0810).--08:10 08/19/20 Bert Díaz RNPatient returned from CT by wheelchair with desktop technician. (0820). --08:32 08/19/20 Bert Díaz RN08:39 08/19/20. BP: 155/74. MAP: 101. HR: 83. RR: 16. O2 saturation: 100%. --08:40 08/19/20 Zahra Jones ER Naot303:02 08/19/20. BP: 140/71. MAP: 94. HR: 82. RR: 16. O2 saturation: 96%. --09:02 08/19/20 Zahra Jones, ER Tech1( 0930 pt resting 60 degree with decreased bout watery diarrhea). --09:31 08/19/20 Bert Díaz RN08:00 08/19/2020 IV Fluids IV NS via IV site #1 Rate Changed: bag #1 increased to 500 mL/hr. --10: Bert Díaz RN08:30 08/19/2020 Zofran IVP Response: symptoms have improved the patient feels better. ED physiciannotified. --09:59 08/19/20 Bert Díaz RN10:00 08/19/2020 IV Fluids IV NS via IV site #1 Bag Change: bag #1 infused. Total amount infused: 1000.STA RTED bag #2 (1000 mL) at 500 mL/hr via IV pump. Confirmed 5 rights. IV patency established. IV sitechecked: no pain, redness, or swelling. IV flushed thoroughly. --10:00 08/19/20 Bert Díaz RN10:14 08/19/20. BP: 132/60. MAP: 84. HR: 81. RR: 18. O2 saturation: 100%. --10:14 08/19/20 [place] ED 4 Clinical Report - Nurses [facility] Emergency Department [address] [place] [address] Phone #: [phone] ext- [phone] 08/19/2020 06:44 Patient: MOO STAFFORD Sex: F : 1945 Age: 75y Zahra Bledsoe, [place] [id number] Stool specimen sent (1010 G 4 panel resent). --10:15 08/19/20 Bert Díaz RN Checked patient name and birthdate. Blood samples drawn by [facility]: blood culture (1st set). (1005). --10:15 08/19/20 Bert Díaz RN 07:37 08/19/20. BP: 157/68. MAP: 97. HR: 92. O2 saturation: 92% on room air. --10:17 08/19/20 Bert Díaz RN ( 1125 pt appears to be sle eping 45 degrees not disturbed). --11:25 08/19/20 Bert Díaz RN 11:59 08/19/20. BP: 118/62. MAP: 80. HR: 79. RR: 16. O2 saturation: 99%. --11:59 08/19/20 [place] journeyman level acoustic analystZahra Bledsoe ER Tech1 11:55 08/19/2020 Started 1 gm of ROCEPHIN (1GM/50ML) (cefTRIAXone Sodium) IVPB in bag #1 50 mL; at 100 mL/hr over 30 minute(s) via site #1. via IV pump. Allergies verified and confirmed 5 rights. IV patency established. IV site checked: no pain, redness, or swelling. IV flushed thoroughly pre- and post-medication administration. Information reviewed with patient. --12:08 08/19/20 Bert Díaz RN 11:12 08/19/20. BP: 124/60. MAP: 81. HR: 75. O2 saturation: 96% on room air. --12:13 08/19/20 Bert Díaz RN 13:14 08/19/20. BP: 121/60. MAP: 80. HR: 69. RR: 16. O2 saturation: 97%. --13:14 08/19/20 [place] journeyman level acoustic analyst, Zahra, Tech1.DISPOSITION / DISCHARGE Transferred to [facility]. Provided to EMS. Transported via ambulance. Report was given to a nurse. Report included information regarding patient's treatment, allergies and condition including: recent changes, current vital signs and labs. Report included treatment information regarding medications given or pending; type and amount of IV fluids and medications infusing. All questions were answered. Report was acknowledged. (Sisi albright). --13:23 08/19/20 Bert Díaz RN 13:14 08/19/20. BP: 121/60. MAP: 80. HR: 86. RR: 18. O2 saturation: 99% on room air. Temp: 97.1 F (oral). Pain level now: 0/10. --13:24 08/19/20 Bert Díaz RN 13:30 08/19/20. BP: 115/54. MAP: 74. HR: 121. RR: 16. O2 saturation: 95%. Temp: 98.2 F. Pain level now: 0/10. --13:31 08/19/20 Jie Beltran RN 12:30 08/19/2020 ROCEPHIN (1GM/50ML) IVPB via IV site #1 Discontinued: bag #1 infused. Total amount infused: 50 mL. IV patency established. IV site checked: no pain, redness, or swelling. IV flushed thoroughly. --13:41 08/19/20 Bert Díaz RN 13:00 08/19/2020 IV Fluids IV NS via IV site #1 Bag Change: bag #2 infused. Total amount infused: 1000. 5 Clinical Report - Nurses [facility] Emergency Department [address] [place] [address] Phone #: [phone] ext- [phone] 08/19/2020 06:44 Patient: MOO STAFFORD Sex: F : 1945 Age: 75y STARTED bag #3 (1000 mL) at 500 mL/hr via IV pump. Confirmed 5 rights. IV patency established. IV site checked: no pain, redness, or swelling. IV flushed thoroughly. --13:41 08/19/20 Bert Díaz RN 13:36 08/19/2020 Site #[address] upon transfer; flushes easily. --13:41 08/19/20 Bert Díaz RN 13:36 08/19/2020 IV Fluids IV NS via IV site #1 Discontinued: bag #3 STOPPED upon transfer. Total amount infused: 400 mL. IV patency established. IV site checked: no pain, redness, or swelling. IV flushed thoroughly. --13:41 08/19/20 Bert Díaz RN Departure time: 13:42 08/19/2020. --13:42 08/19/20 Bert Díaz RN.Locked/Released at 08/19/2020 17:58 by Bert Díaz RN Name Value Range Interpretation Code Description Data Adriane rce(s) Supporting Document(s) ID Date Data Source [id number] 0001 08/19/2020 06:48:00 AM EDT [facility] 1 Clinical Report - Physicians/Mid Levels [facility] Emergency Department [address] [place] [address] Phone #: ext- [phone] 08/19/2020 06:44 Patient: MOO STAFFORD Sex: F : 1945 Age: 75y Time Seen: 07:12 08/19/2020. Arrived- By private vehicle. Historian- patient.HISTORY OF PRESENT ILLNESS Chief Complaint: ABDOMINAL PAIN and VOMITING and DIARRHEA. This started yesterday 1899 and is still present. It is described as "pain". No radiation. It is described as located in the upper abdomen. Modifying factors. Not worsened by anything. Not relieved by anything. The patient has had nausea, loss of appetite and moderate vomiting. She has had severe diarrhea. This has occurred numerous times. It has been watery. No additional abdominal pain. No recent travel. Similar symptoms previously. Patient has had similar symptoms occasionally. Recent medical care: The patient was seen recently in the office.REVIEW OF SYSTEMSNo constipation, black stools, hematemesis, difficulty with urination or pain with urination. No urinaryfrequency, bloody stools, fever, headache or sore throat. No blurred vision, chest pain, difficulty breathing,cough or joint pain. No skin rash or back pain. The patient has had chills but not had weight loss.PAST HISTORYSee nurses notes. Problems: Depression. Constipation. Bowel Obstruction. Gastroesophageal Reflux Disease. Hypertension. Additional Surgeries: Aortic repair. Cataract Surgery. Cholecystectomy. Fempop bypass. Gastric sleeve. Hysterectomy. Peripheral Vascular Surgery. Tubal Ligation. 2 Clinical Report - Physicians/Mid Levels [facility] Emergency Department [address] [place] [address] Phone #: ext- [phone] 08/19/2020 06:44 Patient: MOO STAFFORD Sex: F : 1945 Age: 75y Medications: AmLODIPine Besylate Oral 5 mg, daily. Aspir-81 Oral, daily. Clopidogrel Bisulfate Oral 75 mg, daily. FLUoxetine HCl Oral 20 mg, daily. Gabapentin Oral 300 mg, daily. [facility]. Losartan Potassium Oral 100 mg, daily. Pantoprazole Sodium Oral 40 mg, daily. Spironolactone Oral 25 mg, daily. Allergies: No Known Drug Allergy.SOCIAL HISTORYNever smoker. Occasional alcohol use. No drug use. No recent travel.FAMILY HISTORYNo significant family medical history.ADDITIONAL NOTESThe nursing notes have been reviewed with agreement regarding the chief complaint, HPI, ROS, PMH andpatient medications and allergies.PHYSICAL EXAMVital Signs: 08/19/2020 06:45 BP: 168/109. MAP: 128. HR: 116. RR: 23. O2 saturation: 97%. Temp: 97.1F. Have been reviewed as abnormal. Hypertensive. Heart rate normal. Respiratory rate normal.Temperature normal. Oxygen saturation normal.Appearance: Alert. Oriented X3. Appears to be in pain. Patient in moderate distress.Eyes: Pupils equal, round and reactive to light. Eyes normal inspection.ENT: Ears normal. Nose normal. Dry mucous membranes present. Pharynx normal.Neck: Normal inspection. Neck supple.CVS: Tachycardia. Heart sounds normal. Pulses normal.Respiratory: No respiratory distress. Painless inspiration. Breath sounds normal. Chest nontender.Abdomen: Soft. Moderate tenderness in the upper abdomen. Guarding present. Rebound tenderness.Abnormal bowel sounds: diminished. No organomegaly. No mass. Obese.Back: Normal inspection.Skin: Skin warm and dry. Normal skin color. No rash. Normal skin turgor.Extremities: Extremities exh ibit normal ROM. No lower extremity edema.Neuro: Oriented X 3. No motor deficit. No sensory deficit.LABS, X-RAYS, AND EKGEKG: EKG time: 07:31 08/19/2020. Normal sinus rhythm. Rate: 93. Normal P waves. Left atrialenlargement. Normal HERIBERTO. Normal QRS complex. Normal axis. Normal ST and T waves. The studyhas been interpreted contemporaneously. Artifact present. Interpretation time: 07:45 08/19/2020. 3 Clinical Report - Physicians/Mid Levels [facility] Emergency Department [address] [place] [address] Phone #: ext- [phone] 08/19/2020 06:44 [id number] Sex: F : 1945 Age: 75yLaboratory Tests: Laboratory tests have been ordered, with results reviewed and considered in themedical decision making process.Amylase: (SOLOMON: 08/19/2020 07:15) ( [facility] 08/[facility] 08[facility]) Final results Test Result Flag Units (Reference) AMYLASE 57 U/L (30 - 110)CBC w Diff: (SOLOMON: 08/19/2020 07:15) ( [facility] 08/19/2020 07:43) Final results Test Result Flag Units (Reference) CBC W/AUTOMATED DIFF COMPLETE BLOOD COUNT WBC 17.3 H 10/uL (4.2 - 11.0) RBC 4.62 10/uL (4.20 - 5.40) HEMOGLOBIN 14.0 g/dL (12.0 - 16.0) HEMATOCRIT 41.9 % (37.0 - 47.0) MCV 90.7 fL (81.0 - 101) MCH 30.3 pg (27.0 - 34.0) MCHC 33.4 g/dL (31.0 - 36.0) RDW 13.2 % (11.5 - 14.5) PLATELETS 359 10/uL (150 - 450) MPV 9.7 fL (7.4 - 10.4) NEUT 88.0 H % (37.0 - 80.0) LYMPH 6.8 L % (25.0 - 40.0) MONO 4.1 % (3.0 - 8.0) EOS 0.1 % (0.0 - 7.0) BASO 0.3 % (0.0 - 2.5) %IG 0.7 H % (0.0 - 0.0) %NRBC 0.0 % (0.0 - 0.0) #NEUT 15.26 H 10/uL (2.00 - 6.90) #LYMPH 1.18 10/uL (0.60 - 3.40) #MONO 0.71 10/uL (0.00 - 0.90) #EOS 0.02 10/uL (0.00 - 0.70) #BASO 0.05 10/uL (0.00 - 0.20) #IG 0.12 H 10/uL (0.00 - 0.10) #NRBC 0.00 10/uL (0.00 - 0.00) MANUAL DIFF NOT INDICATED RBC MORPH NOT INDICATEDLactic Acid: (SOLOMON: 08/19/2020 07:15) ( [facility] 08/19/2020 07:56) Final results Test Result Flag Units (Reference) LACTIC ACID 6.0 HH MMOL/L (0.2 - 2.2) CALL/ READ BACK CALLED TO DR. SMALL BY: [facility] DATE/TIME 08/19/20 @ 0800Lipase: (SOLOMON: 08/19/2020 07:15) [facility] Final results Test Result Flag Units (Reference) LIPASE 28 U/L (13 - 60)Troponin-T: (SOLOMON: 08/19/2020 07:15) ( [facility] 08/19/2020 08:03) Final results Test Result Flag Units (Reference) TROPONIN T <0.01 NG/ML (0.00 - 0.10) TROPONIN T0.1 ng/ml Recommended as the clinical threshold value Padmini T. 4 Clinical Report - Physicians/Mid Levels [facility] Emergency Department [address] [place] [address] Phone #: ext- [phone] 08/19/2020 06:44 Patient: MOO STAFFORD Sex: F : 1945 Age: 75y.PROGRESS AND PROCEDURESCourse of Care: 08:04 Aug 19 2020. (Patient's history obtained and exam completed. treatment plandiscussed and agreed upon. IV fluids stated and Zofran given. Labs CT abdomen ordered.). 08:53 Jul. ED care transferred. Case discussed with Dr Loya. Assumed care. Tentative impression:Abdominal pain. Expected disposition: transfer.CLINICAL IMPRESSION Vomiting with nausea and dehydration. Diarrhea Acute epigastric abdominal pain o f unknown cause.(Electronically signed by Jefferson Small, Physician 08/19/2020 08:55) Time Seen: 08:45 08/19/2020 (Dr. Loya assumes care from Dr. Small). ED care transferred. Case discussed with receiving physician. Arrived- By private vehicle. Historian- patient. Disposition decision: 12:06 08/19/2020.HISTORY OF PRESENT ILLNESS Chief Complaint: ABDOMINAL PAIN. This started last night Ate several things at a baby shower and developed symptoms afterward. and is still present. It was abrupt in onset. It is described as "pain", sharp, stabbing, cramping and well localized. No radiation. It is described as located in the right upper quadrant, right abdomen and epigastric area and in the upper abdomen. When seen in the E.D., severity described as 10 / 10. Modifying factors- worsened by movement, walking, cough and deep breaths. The patient has had nausea, loss of appetite, vomiting and diarrhea. No recent travel. Similar symptoms previously. (since last night). Recent medical care: Not recently seen/assessed.REVIEW OF SYSTEMSNo constipation, black stools, hematemesis, difficulty with urination or pain with urination. No urinaryfrequency, bloody stools, fever, headache or sore throat. No blurred vision, chest pain, difficulty breathing, 5 Clinical Report - Physicians/Mid Levels [facility] Emergency Department [address] [place] [address] Phone #: ext- [phone] 08/19/2020 06:44 Patient: MOO STAFFORD [facility]#: [id number] Sex: F : 1945 Age: 75y cough or joint pain. No skin rash, chills or back pain. Denies current . The patient has not had weight loss.PAST HISTORYPast history not negative. See nurses notes. Hypertension. GI disease. Other disease. Chronic painDepressionGERD / Stomach painConstipationBowel obstruction. Surgeries: Bariatric surgery (Gastric sleeve). Cataract surgery. Cholecystectomy. Had hysterectomy. Tubal ligation. (Aortic repair Fem/pop bypass Lysis of adhesions).SOCIAL HISTORYNever smoker. Occasional alcohol use. No drug use. No recent travel.ADDITIONAL NOTESThe nursing notes have been reviewed with agreement regarding the chief complaint, HPI, ROS, PMH andpatient medications and allergies.PHYSICAL EXAMVital Signs: 08/19/2020 09:02 BP: 140/71. MAP: 94. HR: 82. RR: 16. O2 saturation: 96%.08/19/2020 08:39 BP: 155/74. MAP: 101. HR: 83. RR: 16. O2 saturation: 100%.08/19/2020 07:37 BP: 157/68. MAP: 97. HR: 92. O2 saturation: 92% on room air.08/19/2020 06:45 BP: 168/109. MAP: 128. HR: 116. RR: 23. O2 saturation: 97%. Temp: 97.1 F. Havemaria elena reviewed and appear to be correct. Hypertensive. Heart rate normal. Respiratory rate normal.Temperature normal. Oxygen saturation normal.Appearance: Alert. Oriented X3. Anxious. Appears to be in pain. Patient in moderate distress.Eyes: Pupils equal, round and reactive to light. Eyes inspection not normal. Pale conjunctivae.ENT: Nose normal. Pharynx abnormal. Dry mucous membranes present.Neck: Normal inspection. Neck supple.CVS: Normal heart rate and rhythm. Heart sounds normal. Pulses normal.Respiratory: No respiratory distress. Painless inspiration. Breath sounds normal. Chest nontender.Abdomen: Soft. Moderate tenderness in the upper abdomen and epigastric area. Bowel sounds normal.No organomegaly. No mass. Tenderness present.Back: Normal inspection.Skin: Skin warm and dry. Pallor. Abnormal skin color. No rash. Normal skin turgor.Extremities: Extremities exhibit normal ROM. No lower extremity edema.Neuro: Oriented X 3. No motor deficit. No sensory deficit.LABS, X-RAYS, AND EKGLaboratory Tests: Laboratory tests have been ordered, with results reviewed and considered in the 6 Clinical Report - Physicians/Mid Levels [facility] Emergency Department [address] [place] [address] Phone #: ext- [phone] 08/19/2020 06:44 Patient: MOO STAFFORD Sex: F : 1945 Age: 75ymedical decision making process.CT ABD PEL W/O Oral W/O IV Contrast: (SOLOMON: 08/19/2020 07:56) ( MsgRcvd 08/19/2020 14:23) InProgress Exam CT ABD //T// PELV W/O ORAL W/[place] [address] PHONE: [phone] FAX: [phone] Name .................. : ANSELMO Tineo Acct Number.................. : [id number] ROOM. ................. : TR-07 MR Number ................... : [id number] Stay type ............. : E/R Discharge Date......... ... : Admit Date ......... : 08/19/20 Admit Phys .................... : VIRI GONZALEZ Date of ....... : 1945 Family Phys ................... : SHIRIN Kim Phone .................. : [phone] Age ................................ : 75 Film# .................. .:[id number] Sex ................................. : F Unsigned trans criptions are preliminary reports and do not represent a medical or legal document CT ABD Reason(s): Abdominal Internal Pain Diarrhea CT OF THE ABDOMEN AND PELVIS WITHOUT CONTRAST: INDICATION: Abdominal pain. FINDINGS: The visualized portions of the heart and pericardium demonstrate no significant abnormalities. There is a small hiatal hernia. Examination of the lungs demonstrates no significant abnormalities. The liver, spleen, pancreas and adrenals demonstrate no significant abnormalities. There is no evidence of renal calculi or hydronephrosis. Nicole ent is status post cholecystectomy. Examination of the gastrointestinal tract demonstrates normal caliber. There is no abnormal intra-abdominal fluid collections. There is no lymphadenopathy by CT size criteria. There are surgical clips in the retroperitoneum. IMPRESSION: No evidence of intestinal obstruction or abnormal abdominal fluid collection. No gross evidence of acute gastrointestinal pathology. While performing the above CT examination, radiation dose reduction was accomplished utilizing automated exposure control, adjusting of the mA and kV based on the patient's body size and/or the use of imperative reconstructive techniques. CT dose: mGycm Electronically Reviewed and Signed By DCTNAME , SIGNDATE, IJW Transcribe Initials: TAMARA , Transcribe Date: 08/19/20 10:41, Dictation Date: <<REPDIST>> 7 Clinical Report - Physicians/Mid Levels [facility] Emergency Department [address] [place] [address] Phone #: ext- [phone] 08/19/2020 06:44 -- Patient: MOO STAFFORD Sex: F : 1945 Age: 75y Page 1of 1Amylase: (SOLOMON: 08/19/2020 07:15) ( [facility] 08/19/[facility] 08:06) Final results Test Result Flag Units (Reference) AMYLASE 57 U/L (30 - 110)CBC w Diff: (SOLOMON: 08/19/2020 07:15) ( [facility] 08/19/2020 07:43) Final results Test Result Flag Units (Reference) CBC W/AUTOMATED DIFF COMPLETE BLOOD COUNT WBC 17.3 H 10/uL (4.2 - 11.0) RBC 4.62 10/uL (4.20 - 5.40) HEMOGLOBIN 14.0 g/dL (12.0 - 16.0) HEMATOCRIT 41.9 % (37.0 - 47.0) MCV 90.7 fL (81.0 - 101) MCH 30.3 pg (27.0 - 34.0) MCHC 33.4 g/dL (31.0 - 36.0) RDW 13.2 % (11.5 - 14.5) PLATELETS 359 10/uL (150 - 450) MPV 9.7 fL (7.4 - 10.4) NEUT 88.0 H % (37.0 - 80.0) LYMPH 6.8 L % (25.0 - 40.0) MONO 4.1 % (3.0 - 8.0) EOS 0.1 % (0.0 - 7.0) BASO 0.3 % (0.0 - 2.5) %IG 0.7 H % (0.0 - 0.0) %NRBC 0.0 % (0.0 - 0.0) #NEUT 15.26 H 10/uL (2.00 - 6.90) #LYMPH 1.18 10/uL (0.60 - 3.40) #MONO 0.71 10/uL (0.00 - 0.90) #EOS 0.02 10/uL (0.00 - 0.70) #BASO 0.05 10/uL (0.00 - 0.20) #IG 0.12 H 10/uL (0.00 - 0.10) #NRBC 0.00 10/uL (0.00 - 0.00) MANUAL DIFF NOT INDICATED RBC MORPH NOT INDICATEDCMP: (SOLOMON: 08/19/2020 07:15) ( MsgRcvd 08/19/2020 08:11) Final results Test Result Flag Units (Reference) COMPREHENSIVE METABOLIC PANEL COMPREHENSIVE METABOLIC PANEL SODIUM 135 mEq/L (134 - 153) POTASSIUM 4.0 mEq/L (3.6 - 5.0) CHLORIDE 94 L mEq/L (98 - 107) CO2 20 L MEQ/L (22 - 30) GLUCOSE 195 H MG/DL (65 - 110) BUN 23 H MG/DL (7 - 21) CREATININE 1.3 MG/DL (0.7 - 1.5) BUN/CREAT 18 (8 - 27) TOTAL PROTEIN 8.1 G/DL (6.3 - 8.2) ALBUMIN 4.9 G/DL (3.9 - 5.0) GLOBULIN 3.2 GM/DL (2.4 - 3.2) A/G RATIO 1.5 (0.8 - 2.0) CALCIUM 10.7 H MG/DL (8.4 - 10.2) TOTAL BILI <0.7 MG/DL (0.2 - 1.3) 8 Clinical Report - Physicians/Mid Levels [facility] Emergency Department [address] [place] [address] Phone #: ext- [phone] 08/19/2020 06:44 Patient: MOO STAFFORD Sex: F : 1945 Age: 75y ALKALINE PHOS 115 U/L (38 - 126) SGOT/AST 15 U/L (5 - 40) SGPT/ALT 14 U/L (7 - 56) ANION GAP 21.0 H mmol/L (8.0 - 16.0) AGE 75 yrs NON-AA GFR 43 mL/min AFR AMER GFR >60 Male GFR Interprentation 20- 49 yrs >60 mL/min Normal 50-59 yrs >56 mL/min Normal 60-69 yrs >49 mL/min Normal 70-79yrs >42 mL/min Normal 80 and above >35 mL/min Normal Female GFR Interpretation 20-39 yrs >60 mL/min Normal 40-49 yrs >58 mL/min Normal 50-59 yrs >51 mL/min Normal 60-69 yrs >45 mL/min Normal 70- 79 yrs >39 mL/min Normal 80 and above >32 mL/min Normal Lactic Acid: (SOLOMON: 08/19/2020 07:15) ( [facility] 08/19/2020 07:56) Final results Test Result Flag Units (Reference) LACTIC ACID 6.0 HH MMOL/L (0.2 - 2.2) CALL/ READ BACK CALLED TO DR. SMALL BY: [facility] DATE/TIME 08/19/20 @ 0800 Lipase: (SOLOMON: 08/19/2020 07:15) ( [facility] 08/19/2020 08:06) Final results Test Result Flag Units (Reference) LIPASE 28 U/L (13 - 60) Troponin-T: (SOLOMON: 08/19/2020 07:15) ( [facility] 08/19/2020 08:03) Final results Test Result Flag Units (Reference) TROPONIN T <0.01 NG/ML (0.00 - 0.10) TROPONIN T0.1 ng/ml Recommended as the clinical threshold value forTroponin T. Urinalysis: (SOLOMON: 08/19/2020 07:20) ( [facility] 08/19/2020 16:23) Canceled SOURCE: Clean Catch . Note - Tests: (CT abdomen / pelvis - No acute GI findings. Multiple intraabdominal and retroperitoneal clips from prior surgery.).PROGRESS AND PROCEDURESCourse of Care: :Aug 19 2020. Patient is stable. :Aug 19 2020. Pt. has persistent upper abdominal pain, vomiting and diarrhea. Despite unremarkable CT scan of abdomen, she is still quite symptomatic. Since no beds are available here, I have made arrangements to transfer her to [facility] as direct admit to Dr. Chapin. Critical care performed (130 minutes). Time is exclusive of separately billable procedures. Time includes: direct patient care, patient reassessment, coordination of patient care, interpretation of data (laboratory data and pulse oximetry), review of patient's medical records, medical consultation and documentation of 9 Clinical Report - Physicians/Mid Levels [facility] Emergency Department [address] [place] [address] Phone #: ext- [phone] 08/19/2020 06:44 Patient: MOO STAFFORD Sex: F : 1945 Age: 75y patient care- see progress notes. Procedures included in critical care time: peripheral IV placement and phlebotomy- see progress notes. Disposition: Benefits, risks and alternatives to transfer explained to patient. Transferred to [facility]. Summary of care (CCDA) provided to transport team, EMS, patient, family and transfer facility via paper and digital media. Aug 19 2020 Transfer to [facility] as direct admit by ambulance as per Dr. Chapin (Accepting hospitalist). UTI (catheter associated) was not present prior to transfer. Pressure ulcer was not present prior to transfer. Vascular infection (catheter associated) was not present prior to transfer. Surgical site infection was not present prior to transfer. An object left in surgery was not present prior to transfer. Blood incompatibility was not present prior to transfer. Air embolism was not present prior to transfer.CLINICAL IMPRESSION Acute epigastric abdominal pain. Acute gastroenteritis with volume depletion (Unclear etiology - Possibly food poisoning / infection). Infectious gastroenteritis.(Electronically signed by Darnell Loya Physician 08/19/2020 20:59) Name Value Range Interpretation Code Description Data Adriane rce(s) Supporting Document(s) ID Date Data Source [id number] 08/19/2020 06:48:00 AM EDT [facility] VisitID: [id number] Date: 16:26GI panel came back normal, results faxed to [facility](Electronically signed by Jie Beltran RN - 08/19/2020 16:26) Name Value Range Interpretation Code Description Data Adriane rce(s) Supporting Document(s) ID Date Data Source [id number] 08/24/2020 11:24:[address] [facility] [id number] Gastrointestinal panel is a qualitativemultiplexed NAAT test - PCRFilmArray GI panel detects campylobacter,cdiff,plesiomonasshigelloides,salmonella,vibro,vibrio cholerae,yersiniaenterocolitica, diarrheagenic E coli, EAEC,EPEC,ETEC,STEC I and II, E coli 0157, shigella/enteroinvasive E.coli(EIEC),cryptosporidium,cyclospora cayetanensis,entamoebahistolytica,giardia lamblia,adenovirus F 40/ 41,astrovirus,norovirus GI/GII, rotavirus A, sapovirus.NORMAL VALUE FOR ALL PATHOGENS IS "NOT DETECTED"THE FilmARRAY GASTROINTESTINAL PANEL DOES NOT DIFFERENTIATEBETWEEN VIABLE AND NONVIABLE ORGANISMSTHE PERFORMANCE OF THIS TEST HAS NOT BEEN ESTABLISHED FORPATIENTS WITHOUT SIGNS AND SYMPTOMS OF GASTROINTESTINALILLNESS.THE PERFORMANCE OF THIS TEST HAS NOT BEEN ESTABLISHED FORMONITORING TREATMENT OF INFECTION WITH ANY OF THE PANELORGANISMS.RECENT ORAL ADMINISTRATION OF A ROTAVIRUS A VACCINE MAYCAUSE POSITIVE RESULTS FOR ROTAVIRUS A IF THE VIRUS ISPASSED IN THE STOOL.RESULT FROM THIS TEST MUST BE CORRELATED WITH THE CLINICALHISTORY, EPIDEMIOLOGICAL DATA AND OTHER DATA AVAILBLE TO THECLINICIAN EVALUATING THE PATIENT. NEGATIVE RESULTS SHOULDNOT BE USED THE SOLE BASIS FOR DIAGNOSIS, TREATMENT, OROTHER MANAGEMENT DECISIONS.DUE TO HIGH RATES OF ASYMPTOMATIC CARRIAGE OF C. DIFF,ESPECIALLY IN VERY YOUNG CHILDREN AND HOSPITALIZED PATIENTS,THE DETECTION OF TOXIGENIC C. DIFF SHOULD BE INTERPRETE DWITHIN THE CONTEXT OF QUIDELINES DEVELOPED BY THE TESTINGFACILITY OR OTHER EXPERTS. (E.G. GUIDELINES/POLICYSTATEMENTS PUBLISHED BY THE [employer] [employer] THE SOCIETY FOR HEALTHCARE EPIDEMIOLOGY [place] ANDTHE INFECTIOUS DISEASE SOCIETY OF [place]).No Organisms Detected Name Value Range Interpretation Code Description Data Adriane rce(s) Supporting Document(s) Bacteria identified in Blood by Culture [facility] NO GROWTH AFTER 5 DAYS ID Date Data Source [id number] 08/19/2020 01:15:[address] [facility] [id number] Gastrointestinal panel is a qualitativemultiplexed NAAT test - PCRFilmArraPersonal On Demand GI panel detects campylobacter,cdiff,plesiomonasshigelloides,salmonella,vibro,vibrio cholerae,yersiniaenterocolitica, diarrheagenic E coli, EAEC,EPEC,ETEC,STEC I and II, E coli 0157, shigella/enteroinvasive E.coli(EIEC),cryptosporidium,cyclospora cayetanensis,entamoebahistolytica,giardia lamblia,adenovirus F 40/ 41,astrovirus,norovirus GI/GII, rotavirus A, sapovirus.NORMAL VALUE FOR ALL PATHOGENS IS "NOT DETECTED"THE Acura PharmaceuticalsARRAY GASTROINTESTINAL PANEL DOES NOT DIFFERENTIATEBETWEEN VIABLE AND NONVIABLE ORGANISMSTHE PERFORMANCE OF THIS TEST HAS NOT BEEN ESTABLISHED FORPATIENTS WITHOUT SIGNS AND SYMPTOMS OF GASTROINTESTINALILLNESS.THE PERFORMANCE OF THIS TEST HAS NOT BEEN ESTABLISHED FORMONITORING TREATMENT OF INFECTION WITH ANY OF THE PANELORGANISMS.RECENT ORAL ADMINISTRATION OF A ROTAVIRUS A VACCINE MAYCAUSE POSITIVE RESULTS FOR ROTAVIRUS A IF THE VIRUS ISPASSED IN THE STOOL.RESULT FROM THIS TEST MUST BE CORRELATED WITH THE CLINICALHISTORY, EPIDEMIOLOGICAL DATA AND OTHER DATA AVAILBLE TO THECLINICIAN EVALUATING THE PATIENT. NEGATIVE RESULTS SHOULDNOT BE USED THE SOLE BASIS FOR DIAGNOSIS, TREATMENT, OROTHER MANAGEMENT DECISIONS.DUE TO HIGH RATES OF ASYMPTOMATIC CARRIAGE OF C. DIFF,ESPECIALLY IN VERY YOUNG CHILDREN AND HOSPITALIZED PATIENTS,THE DETECTION OF TOXIGENIC C. DIFF SHOULD BE INTERPRETE DWITHIN THE CONTEXT OF QUIDELINES DEVELOPED BY THE TESTINGFACILITY OR OTHER EXPERTS. (E.G. GUIDELINES/POLICYSTATEMENTS PUBLISHED BY THE [employer] [employer] THE SOCIETY FOR HEALTHCARE EPIDEMIOLOGY OF [place] ANDTHE INFECTIOUS DISEASE SOCIETY OF [place]).No Organisms Detected Name Value Range Interpretation Code Description Data Adriane rce(s) Supporting Document(s) ID Date Data Source [id number] 08/19/2020 10:17:00 AM EDT [facility] ([facility] Name Value Range Interpretation Code Description Data Adriane rce(s) Supporting Document(s) Culture Blood Laboratory test result [facility] ([facility] _CULTURE BLOOD_ [place] [address] CLIA# [id number] SEE SCANNED REPORT { PRELIM ID Date Data Source [id number] 08/25/2020 05:39:00 PM EDT [facility] Name Value Range Interpretation Code Description Data Adriane rce(s) Supporting Document(s) CULTURE BLOOD [facility] _CULTURE BLOOD_ [place] [address] CLIA# [id number] SEE SCANNED REPORT{ PRELIM ID Date Data Source [id number] 08/19/2020 10:13:00 AM EDT [facility] ([facility] Name Value Range Interpretation Code Description Data Adriane rce(s) Supporting Document(s) Culture Blood Laboratory test result [facility] ([facility] _CULTURE BLOOD_ [place] [address] CLIA# [id number] SEE SCANNED REPORT { PRELIM ID Date Data Source [id number] 08/25/2020 05:38:00 PM EDT [facility] Name Value Range Interpretation Code Description Data Adriane rce(s) Supporting Document(s) CULTURE BLOOD [facility] _CULTURE BLOOD_ TEST [place] [address] CLIA# [id number] SEE SCANNED REPORT{ PRELIM ID Date Data Source [id number] 08/19/2020 10:10:00 AM EDT [facility] ([facility] Name Value Range Interpretation Code Description Data Adriane rce(s) Supporting Document(s) GI Panel Laboratory test result [facility] ([facility] Test cancelled at client's request. PER MANIFEST: NO SPEC Test not performed [...] performed Test not performed Test not performed ID Date Data Source [id number] 08/22/2020 04:37:00 PM EDT [facility] Name Value Range Interpretation Code Description Data Adriane rce(s) Supporting Document(s) Campylobacter coli+jejuni+upsaliensis DN A [Presence] in Stool by Target amplification with non-probe based detection COMMENT [facility] Test cancelled at client's request.PER M ANIFEST: NO SPECTest not performedTest not performedTest not performedTest not performedTest not performedTest not performedTest not performedTest not performedTest not performedTest not performedTest not performedTest not performedTest not performedTest not performedTest not performedTest not performedTest not performedTest not performedTest not performedTest not performedTest not performed ID Date Data Source [id number] 08/19/2020 07:15:00 AM EDT [facility] Name Value Range Interpretation Code Description [facility](s[facility] Comprehensive [facility] Laboratory test result [facility] ([facility] COMPREHENSIVE METABOLIC PANEL Sodium 135 meq/L 134-153 [facility] Chloride 94 meq/L 98-107 [facility] Potassium 4.0 meq/L 3.6-5.0 [facility] Co2 20 meq/L 22-30 [facility] Glucose 195 mg/dL 65-110 [facility] BUN 23 mg/dL 7-21 [facility] Creatinine 1.3 mg/dL 0.7-1.5 [facility] BUN/Creat 18 8-27 [facility] Total Protein 8.1 g/dL 6.3-8.2 [facility] Albumin 4.9 g/dL 3.9-5.0 [facility] Globulin 3.2 GM/DL 2.4-3.2 [facility] Total Bili Laboratory test result 0.2-1.3 [facility] ([facility] Calcium 10.7 mg/dL 8.4-10.2 [facility] A/G Ratio 1.5 0.8-2.0 [facility] Alkaline Phos 115 U/L 38-126 [facility] SGPT/Alt 14 U/L 7-56 [facility] Sgot/Ast 15 U/L 5-40 [facility] Age 75 yrs [facility] Anion Gap 21.0 mmol/L 8.0-16.0 [facility] Non-Aa GFR 43 mL/min [facility] Afr Amer GFR Laboratory test result [facility] ([facility] Male GFR Interprentation 20-49 yrs >60 mL/min Normal 50-59 yrs >56 mL/min Normal 60-69 yrs >49 mL/min Normal 70-79yrs >42 mL/min Normal 80 and above >35 mL/min Normal Female GFR Interpretation 20-39 yrs >60 mL/min Normal 40-49 yrs >58 mL/min Normal 50-59 yrs >51 mL/min Normal 60-69 yrs >45 mL/min Normal 70-79 yrs >39 mL/min Normal 80 and above >32 mL/min Normal ID Date Data Source [id number] 08/19/2020 07:15:00 AM EDT [facility] ([facility] Name Value Range Interpretation Code Description Data Adriane rce(s) Supporting Document(s) Troponin T.cardiac [Mass/volume] in Serum or Plasma Laborato ry test result 0.00-0.10 [facility] ([facility] TROPONIN T 0.1 ng/ml Recommended as the clinical th reshold value for Troponin T. Lipoprotein lipase [Enzymatic activity/volume] in Serum or Plasm a 28 U/L 13-60 [facility] Amylase [Enzymatic activity/volume] in Serum or Plasma 57 U/L 30- 110 [facility] ID Date Data Source [id number] 08/19/2020 07:15:00 AM EDT [facility] ([facility] Name Value Range Interpretation Code Description Data Adriane rce(s) Supporting Document(s) Lactic Acid 6.0 mmol/L 0.2-2.2 Above upper panic limits [facility] Call/ Read Back Laboratory test result [facility] CALLED TO DR. SMALL By: Laboratory test result [facility] Date/Time Laboratory test result [facility] ID Date Data Source [id number] 08/19/2020 07:15:00 AM EDT [facility] ([facility] Name Value Range Interpretation Code Description Data Adriane rce(s) Supporting Document(s) CBC W/Automated Diff Laboratory test result [facility] ([facility] COMPLETE BLOOD COUNT RBC 4.62 10^6/uL 4.20-5.40 [facility] WBC 17.3 10^3/uL 4.2-11.0 [facility] Hemoglobin 14.0 g/dL 12.0-16.0 [facility] Hematocrit 41.9 % 37.0-47.0 [facility] MCH 30.3 pg 27.0-34.0 [facility] MCV 90.7 fL 81.0-101 [facility] RDW 13.2 % 11.5-14.5 [facility] MCHC 33.4 g/dL 31.0-36.0 [facility] Platelets 359 10^3/uL 150-450 [facility] MPV 9.7 fL 7.4-10.4 [facility] Neut 88.0 % 37.0-80.0 [facility] Lymph 6.8 % 25.0-40.0 [facility] Russell 4.1 % 3.0-8.0 [facility] Eos 0.1 % 0.0-7.0 [facility] Baso 0.3 % 0.0-2.5 [facility] %Ig 0.7 % 0.0-0.0 [facility] %NRBC 0.0 % 0.0-0.0 [facility] #Neut 15.26 10^3/uL 2.00-6.90 [facility] #Lymph 1.18 10^3/uL 0.60-3.40 [facility] #Eos 0.02 10^3/uL 0.00-0.70 [facility] #Russell 0.71 10^3/uL 0.00-0.90 [facility] #Baso 0.05 10^3/uL 0.00-0.20 [facility] #Ig 0.12 10^3/uL 0.00-0.10 [facility] Manual Diff Laboratory test result [facility] ([facility] #NRBC 0.00 10^3/uL 0.00-0.00 [facility] RBC Morph Laboratory test result [facility] ID Date Data Source [id number] 08/19/2020 08:06:00 AM EDT [facility] Name Value Range Interpretation Code Description Data Adriane rce(s) Supporting Document(s) Lipase [Enzymatic activity/volume] in Serum or Plasma 28 U/L 13 - 60 [facility] ID Date Data Source [id number] 08/19/2020 08:11:00 AM EDT [facility] Name Value Range Interpretation Code Description Data Adriane rce(s) Supporting Document(s) COMPREHENSIVE METABOLIC PANEL [facility] COMPREHENSIVE METABOLIC PANEL Sodium [Moles/volume] in Serum or Plasma 135 mEq/L 134 - 153 [facility] Potassium [Moles/volume] in Serum or Plasma 4.0 mEq/L 3.6 - 5.0 [facility] Chloride [Moles/volume] in Serum or Plasma 94 mEq/L 98 - 107 L [facility] Carbon dioxide, total [Moles/volume] in Serum or Plasma 20 MEQ/L 22 - 30 L [facility] Glucose [Mass/volume] in Serum or Plasma 195 MG/DL 65 - 110 H [facility] BUN 23 MG/DL 7 - 21 [facility] Creatinine [Mass/volume] in Serum or Plasma 1.3 MG/DL 0.7 - 1.5 [facility] BUN/CREAT 18 8 - 27 [facility] Protein [Mass/volume] in Serum or Plasma 8.1 G/DL 6.3 - 8.2 [facility] Albumin [Mass/volume] in Serum or Plasma 4.9 G/DL 3.9 - 5.0 [facility] Globulin [Mass/volume] in Serum by calculation 3.2 GM/DL 2.4 - 3.2 [facility] A/G RATIO 1.5 0.8 - 2.0 [facility] Calcium [Mass/volume] in Serum or Plasma 10.7 MG/DL 8.4 - 10.2 H [facility] Bilirubin.total [Mass/volume] in Serum or Plasma <0.7 MG/DL 0.2 - 1.3 [facility] Alkaline phosphatase [Enzymatic activity/volume] in Serum or Plasma 115 U/L 38 - 126 [facility] Aspartate aminotransferase [Enzymatic activity/volume] in Serum or Plasma 15 U/L 5 - 40 [facility] Alanine aminotransferase [Enzymatic activity/volume] in Seru m or Plasma 14 U/L 7 - 56 [facility] Anion gap 3 in Serum or Plasma 21.0 mmol/L 8.0 - 16.0 H [facility] AGE 75 yrs [facility] NON-AA GFR 43 mL/min [facility] nehemiah AFR AMER GFR >60 [facility] Male GFR In terprentation 20-49 yrs >60 mL/min Normal 50-59 yrs >56 mL/min Normal 60-69 yrs >49 mL/min Normal 70-79yrs >42 mL/min Normal 80 and above >35 mL/min Normal Female GFR Interpretation 20-39 yrs >60 mL/min Normal 40-49 yrs >58 mL/min Normal 50-59 yrs >51 mL/min Normal 60-69 yrs >45 mL/min Normal 70-79 yrs >39 mL/min Normal 80 and above >32 mL/min Normal ID Date Data Source [id number] 08/19/2020 08:06:00 AM EDT [facility] Name Value Range Interpretation Code Description Data Adriane rce(s) Supporting Document(s) Amylase [Enzymatic activity/volume] in Serum or Plasma 57 U/L 30 - 110 [facility] ID Date Data Source [id number] 08/19/2020 08:03:00 AM EDT [facility] Name Value Range Interpretation Code Description Data Adriane rce(s) Supporting Document(s) TROPONIN T <0.01 NG/ML 0.00 - 0.10 [facility] TROPONIN T0.1 ng/ml Recommended as the c linical threshold value forTroponin T. ID Date Data Source [id number] 08/19/2020 07:56:00 AM [facility] Name Value Range Interpretation Code Description Data Adriane rce(s) Supporting Document(s) Lactate [Moles/volume] in Serum or Plasma 6.0 MMOL/L 0.2 - 2.2 [facility] CALL/ READ BACK CALLED TO DR. VIRI Sargent [facility] BY: JUSTO [facility] DATE/TIME 08/19/20 @ 0800 [facility] ID Date Data Source [id number] 08/19/2020 07:43:00 AM EDT [facility] Name Value Range Interpretation Code Description Data Adriane rce(s) Supporting Document(s) CBC W/AUTOMATED DIFF [facility] COMPLETE BLOOD COUNT Leukocytes [#/volume] in Blood by Automated count 17.3 10^3/uL 4.2 - 11.0 H [facility] Erythrocytes [#/volume] in Blood by Automated count 4.62 10^6/uL 4. 20 - 5.40 [facility] Hemoglobin [Mass/volume] in Blood 14.0 g/dL 12.0 - 16.0 [facility] Hematocrit [Volume Fraction] of Blood by Automated count 41.9 % 3 7.0 - 47.0 [facility] Erythrocyte mean corpuscular volume [Entitic volume] by Auto mated count 90.7 fL 81.0 - 101 [facility] Erythrocyte mean corpuscular hemoglobin [Entitic mass] by Automated count 30.3 pg 27.0 - 34.0 [facility] Erythrocyte mean corpuscular hemoglobin concentration [Mass/volume] by Automated count 33.4 g/dL 31.0 - 36.0 [facility] Erythrocyte distribution width [Ratio] by Automated count 13.2 % 11.5 - 14.5 [facility] Platelets [#/volume] in Blood by Automated count 359 10^3/uL 150 - 45 0 [facility] Platelet mean volume [Entitic volume] in Blood by Automated count 9.7 fL 7.4 - 10.4 [facility] Neutrophils/100 leukocytes in Blood by Automated count 88.0 % 37. 0 - 80.0 H [facility] Lymphocytes/100 leukocytes in Blood by Manual count 6.8 % 25.0 - 40.0 L [facility] Monocytes/100 leukocytes in Blood by Automated count 4.1 % 3.0 - 8.0 [facility] Eosinophils/100 leukocytes in Blood by Automated count 0.1 % 0.0 - 7.0 [facility] Basophils/100 leukocytes in Blood by Automated count 0.3 % 0.0 - 2.5 [facility] %IG 0.7 % 0.0 - 0.0 [facility] %NRBC 0.0 % 0.0 - 0.0 [facility] Neutrophils [#/volume] in Blood by Automated count 15.26 10^3/uL 2. 00 - 6.90 H [facility] Lymphocytes [#/volume] in Blood by Automated count 1.18 10^3/uL 0.60 - 3.40 [facility] Monocytes [#/volume] in Blood by Automated count 0.71 10^3/uL 0.00 - 0.90 [facility] Eosinophils [#/volume] in Blood by Automated count 0.02 10^3/uL 0.00 - 0.70 [facility] Basophils [#/volume] in Blood by Automated count 0.05 10^3/uL 0.00 - 0.20 [facility] #IG 0.12 10^3/uL 0.00 - 0.10 H [facility] #NRBC 0.00 10^3/uL 0.00 - 0.00 [facility] MANUAL DIFF NOT INDICATED [facility] RBC MORPH NOT INDICATED [facility] ID Date Data Source [id number] 03/05/2020 11:20:00 AM EDT [facility] ([facility]) Name Value Range Interpretation Code Description Data Adriane rce(s) Supporting Document(s) Red Blood Count 3.97 4.00-5.40 [facility] ([facility]) Hemoglobin 12.2 [facility] (Cardiology [facility]) White Blood Count 7.9 4.0-10.0 [facility] (Card iology [facility]) Platelets 315 172-450 [facility] (Cardiology [facility]) Hematocrit 37.8 [facility] (Cardiology [facility]) ID Date Data Source [id number] 03/05/2020 11:20:00 AM EDT [facility] ([facility]) Name Value Range Interpretation Code Description Data Adriane rce(s) Supporting Document(s) Glucose 93 70-100 [facility] (Cardiology [facility]) Blood Urea Nitrogen 18 7-18 [facility] (Ca [facility]diology [facility]) Creatinine 1.08 0.55-1.30 [facility] (Cardiology [facility]) Potassium 3.6 3.5-5.1 [facility] (Cardiology A [facility]) Sodium 139 136-145 [facility] (Cardiology [facility]) Chloride 103 98-107 [facility] Calcium 9.0 8.2-9.6 [facility] (Cardiology A [facility]) Carbon Dioxide 30 21-32 [facility] (Cardiol [facility]gy [facility]) Glomerular filtration rate/1.73 sq M.pre dicted [Volume Rate/Area] in Serum or Plasma by Creatinine-based formula (MDRD) 53.1 [facility]) ID Date Data Source [id number] 03/05/2020 08:46:00 AM EDT [facility] ([facility], ) Name Value Range Interpretation Code Description Data Adriane rce(s) Supporting Document(s) Glucose, Fasting 93 mg/dL 70-100 Normal (applies to non-numeric results) [facility] ([facility]) Blood Urea Nitrogen 18 mg/dL 7-18 Normal (applies to non-nume fito results) [facility] ([facility]) Glomerular Filtration Rate 53.1 Normal (applies to n on-numeric results) [facility] ([facility]) <content>Units are mL/min/1.73 m2</content>
<content></content>
<content>Chronic Kidney Disease Staging per NKF:</content>
<content></content>
<content>Stage I & II GFR >=60 Normal to Mildly Decreased</content>
<content>Stage III GFR 30-59 Moderately Decreased</content>
<content>Stage IV GFR 15-29 Severely Decreased</content>
<content>Stage V GFR <15 Very Little GFR Left</content>
<content>ESRD GFR <15 on PHOTOGRAPHY INSTRUCTOR</content>
<content></content> Creatinine For GFR 1.08 mg/dL 0.55-1.30 Normal (applies to non -numeric results) [facility] ([facility]) Potassium Serum 3.6 meq/L 3.5-5.1 Normal (applies to non-numeric results) [facility] ([facility]) Sodium Level 139 meq/L 136-145 Normal (applies to non-numeric res ults) [facility] ([facility]) Chloride Level 103 meq/L 98-107 Normal (applies to non-numeric r esults) [facility]) Carbon Dioxide Level 30 meq/L 21-32 Normal (applies to non-num aj results) [facility] ([facility]) Anion Gap 6 meq/L 8-16 Below low normal [facility] ( [facility]) Calcium Level 9.0 mg/dL 8.8-10.2 Normal (applies to non-numeric re sults) [facility]) ID Date Data Source [id number] 03/05/2020 08:46:00 AM EDT [facility] ([facility]) Name Value Range Interpretation Code Description Data Adriane rce(s) Supporting Document(s) Prothrombin Time 14.2 s 11.8-14.0 Above high normal [facility] ([facility]) Inr 1.13 Normal (applies to non-numeric resul ts) [facility] ([facility]) THERAPUTIC HUMAN INR VALUES INDICATIONS NORMAL RANGES PROPHYLAXIS/TREATMENT OF: VENOUS THROMBOSIS 2.0-3.0 PULMONARY EMBOLISM 2.0-3.0 PREVENTION OF SYSTEMIC EMBOLISM FROM: TISSUE HEART VALVES 2.0-3.0 ACUTE MYOCARDIAL INFARCTION 2.0-3.0 VALVULAR HEART DISEASE 2.0-3.0 ATRIAL FIBRILLATION 2.0-3.0 MECHANICAL VALVES(HIGH RISK) 2.5-3.5 RECURRENT MYOCARDIAL INFARCTION 2.5-3.5 ID Date Data Source [id number] 03/05/2020 08:46:00 AM EDT [facility] ([facility]) Name Value Range Interpretation Code Description Data Adriane rce(s) Supporting Document(s) Red Blood Count 3.97 10 4.00-5.[address] [facility] ([facility]) White Blood Count 7.9 10 4.0-10.0 Normal (applies to non-numeri c results) [facility]) Hemoglobin 12.2 g/dL 12.0-15.5 Normal (applies to non-numeric resul ts) [facility], ) Mean Corpuscular Volume 95.2 fl 80.0-96.0 Normal ( applies to non-numeric results) [facility] ([facility]) Hematocrit 37.8 % 36.0-47.0 Normal (applies to non-numeric resul ts) [facility] ([facility]) Mean Corpuscular Hemoglobin 30.7 pg 27.0-33.0 Norm al (applies to non-numeric results) [facility] ([facility]) Mean Corpuscular HGB Conc 32.3 g/dL 32.0-36.5 Normal (applies to non-numeric results) [facility] ([facility]) Platelet Count, Automated 315 10 150-450 Normal (applies to non-numeric results) [facility] ([facility]) Red Cell Distribution Width 12.4 % 11.5-14.5 Norm al (applies to non-numeric results) [facility] ([facility]) Nucleated Red Blood Cell % 0.0 % 0-0 Normal (applies to n on-numeric results) [facility] ([facility]) ID Date Data Source [id number] 03/05/2020 08:46:00 AM EDT [facility] ([facility] Name Value Range Interpretation Code Description Data Adriane rce(s) Supporting Document(s) Glucose, Fasting 93 mg/dL 70-100 [facility] ([facility] Blood Urea Nitrogen 18 mg/dL 7-18 [facility] ([facility] Creatinine For GFR 1.08 mg/dL 0.55-1.30 [facility] ([facility] Sodium Level 139 meq/L 136-145 [facility] ([facility] Glomerular Filtration Rate 53.1 [facility] ([facility] <content>Units are mL/min/1.73 m2</content>
<content></content>
<content>Chronic Kidney Disease Staging per NKF:</content>
<content></content>
<content>Stage I & II GFR >=60 Normal to Mildly Decreased</content>
<content>Stage III GFR 30-59 Moderately Decreased</content>
<content>Stage IV GFR 15-29 Severely Decreased</content>
<content>Stage V GFR <15 Very Little GFR Left</content>
<content>ESRD GFR <15 on PHOTOGRAPHY INSTRUCTOR</content>
<content></content> Chloride Level 103 meq/L 98-107 [facility] ([facility] Potassium Serum 3.6 meq/L 3.5-5.1 [facility] ([facility] Carbon Dioxide Level 30 meq/L 21-32 [facility] ([facility] Calcium Level 9.0 mg/dL 8.8-10.2 [facility] ([facility] Anion Gap 6 meq/L 8-16 [facility] ([facility] ID Date Data Source [id number] 03/05/2020 08:46:00 AM EDT [facility] ([facility] Name Value Range Interpretation Code Description Data Adriane rce(s) Supporting Document(s) Inr 1.13 [facility] ([facility] THERAPUTIC HUMAN INR VALUES INDICATIONS NORMAL RANGES PROPHYLAXIS/TREATMENT OF: VENOUS THROMBOSIS 2.0-3.0 PULMONARY EMBOLISM 2.0-3.0 PREVENTION OF SYSTEMIC EMBOLISM FROM: TISSUE HEART VALVES 2.0-3.0 ACUTE MYOCARDIAL INFARCTION 2.0-3.0 VALVULAR HEART DISEASE 2.0-3.0 ATRIAL FIBRILLATION 2.0-3.0 MECHANICAL VALVES(HIGH RISK) 2.5-3.5 RECURRENT MYOCARDIAL INFARCTION 2.5-3.5 Prothrombin Time 14.2 s 11.8-14.0 [facility] ([facility] ID Date Data Source [id number] 03/05/2020 08:46:00 AM EDT [facility] ([facility] Name Value Range Interpretation Code Description Data Adriane rce(s) Supporting Document(s) White Blood Count 7.9 10 4.0-10.0 [facility] ([facility] Red Blood Count 3.97 10 4.00-5.40 [facility] ([facility] Mean Corpuscular Volume 95.2 fl 80.0-96.0 M [facility] ([facility] Hemoglobin 12.2 g/dL 12.0-15.5 [facility] ([facility] Hematocrit 37.8 % 36.0-47.0 [facility] ([facility] Mean Corpuscular Hemoglobin 30.7 pg 27.0-33.0 [facility] ([facility] Red Cell Distribution Width 12.4 % 11.5-14.5 [facility] ([facility] Platelet Count, Automated 315 10 150-450 [facility] ([facility] Mean Corpuscular HGB Conc 32.3 g/dL 32.0-36.5 [facility] ([facility] Nucleated Red Blood Cell % 0.0 % 0-0 [facility] ([facility] ID Date Data Source [id number] 02/28/2020 02:52:00 PM EDT [facility] ([facility] Name Value Range Interpretation Code Description Data Adriane rce(s) Supporting Document(s) Potassium 4.2 meq/L 3.6-5.0 [facility] ([facility] Basic Metabolic Pane Laboratory test result [facility] ([facility] BASIC METABOLIC PANEL Sodium 137 meq/L 134-153 [facility] ([facility] Co2 28 meq/L 22-30 [facility] ([facility] Glucose 76 mg/dL 65-110 [facility] ([facility] Chloride 98 meq/L 98-107 [facility] ([facility] Creatinine 1.2 mg/dL 0.7-1.5 [facility] ([facility] BUN 22 mg/dL 7-21 [facility] ([facility] Anion Gap 11.0 mmol/L 8.0-16.0 [facility] ([facility] Age 74 yrs [facility] ([facility] BUN/Creat 18 8-27 [facility] ([facility] Calcium 9.5 mg/dL 8.4-10.2 [facility] ([facility] Non-Aa GFR 47 mL/min [facility] ([facility] Male GFR Interprentation 20-49 yrs >60 mL/min Normal 50-59 yrs >56 mL/min Normal 60-69 yrs >49 mL/min Normal 70-79yrs >42 mL/min Normal 80 and above >35 mL/min Normal Female GFR Interpretation 20-39 yrs >60 mL/min Normal 40-49 yrs >58 mL/min Normal 50-59 yrs >51 mL/min Normal 60-69 yrs >45 mL/min Normal 70-79 yrs >39 mL/min Normal 80 and above >32 mL/min Normal Afr Amer GFR Laboratory test result [facility] ([facility] ID Date Data Source [id number] 02/28/2020 02:52:00 PM EDT [facility] ([facility]) Name Value Range Interpretation Code Description Data Adriane rce(s) Supporting Document(s) Basic Metabolic Pane Laboratory test result [facility] ([facility]) BASIC METABOLIC PANEL Sodium 137 meq/L 134-153 [facility] ([facility]) Potassium 4.2 meq/L 3.6-5.0 [facility] ([facility]) Chloride 98 meq/L 98-107 [facility] ([facility]) BUN 22 mg/dL 7-21 Above high normal [facility] ([facility]) Glucose 76 mg/dL 65-110 [facility] ([facility]) Co2 28 meq/L 22-30 [facility] ([facility]) BUN/Creat 18 8-27 [facility] ([facility]) Creatinine 1.2 mg/dL 0.7-1.5 [facility] ([facility]) Calcium 9.5 mg/dL 8.4-10.2 [facility] ([facility]) Anion Gap 11.0 mmol/L 8.0-16.0 [facility] ([facility]) Age 74 yrs [facility] ([facility]) Afr Amer GFR Laboratory test result [facility] ([facility]) Non-Aa GFR 47 mL/min [facility] ([facility]) Male GFR Interprentation 20-49 yrs >60 mL/min Normal 50-59 yrs >56 mL/min Normal 60-69 yrs >49 mL/min Normal 70-79yrs >42 mL/min Normal 80 and above >35 mL/min Normal Female GFR Interpretation 20-39 yrs >60 mL/min Normal 40-49 yrs >58 mL/min Normal 50-59 yrs >51 mL/min Normal 60-69 yrs >45 mL/min Normal 70-79 yrs >39 mL/min Normal 80 and above >32 mL/min Normal ID Date Data Source [id number] 02/28/2020 02:52:00 PM EDT [facility] ([facility]) Name Value Range Interpretation Code Description Data Adriane rce(s) Supporting Document(s) CBC No Diff Laboratory test result [facility] ([facility], ) COMPLETE BLOOD COUNT WBC 8.4 10^3/uL 4.2-11.0 [facility] ([facility]) Hematocrit 36.7 % 37.0-47.0 Below low normal [facility] ( [facility]) RBC 3.88 10^6/uL 4.20-5.40 Below low normal [facility] ([facility]) Hemoglobin 11.8 g/dL 12.0-16.0 Below low normal [facility] ( [facility]) MCV 94.6 fL 81.0-101 [facility] ([facility]) MCH 30.4 pg 27.0-34.0 [facility] ([facility]) RDW 12.5 % 11.5-14.5 [facility] ([facility]) MCHC 32.2 g/dL 31.0-36.0 [facility] ([facility]) Platelets 319 10^3/uL 150-450 [facility] ([facility]) MPV 9.5 fL 7.4-10.4 [facility] ([facility]) ID Date Data Source [id number] 02/28/2020 04:53:00 PM EDT [facility] Name Value Range Interpretation Code Description Data Adriane rce(s) Supporting Document(s) BASIC METABOLIC PANEL [facility] BASIC METABOLIC PANEL Sodium [Moles/volume] in Serum or Plasma 137 mEq/L 134 - 153 [facility] Potassium [Moles/volume] in Serum or Plasma 4.2 mEq/L 3.6 - 5.0 [facility] Chloride [Moles/volume] in Serum or Plasma 98 mEq/L 98 - 107 [facility] Carbon dioxide, total [Moles/volume] in Serum or Plasma 28 MEQ/L 22 - 30 [facility] Glucose [Mass/volume] in Serum or Plasma 76 MG/DL 65 - 110 [facility] BUN 22 MG/DL 7 - 21 [facility] Creatinine [Mass/volume] in Serum or Plasma 1.2 MG/DL 0.7 - 1.5 [facility] BUN/CREAT 18 8 - 27 [facility] Calcium [Mass/volume] in Serum or Plasma 9.5 MG/DL 8.4 - 10.2 [facility] Anion gap 3 in Serum or Plasma 11.0 mmol/L 8.0 - 16.0 [facility] AGE 74 yrs [facility] AFR AMER GFR >60 [facility] NON-AA GFR 47 mL/min [facility] Male GFR Inter prentation 20-49 yrs >60 mL/min Normal 50-59 yrs >56 mL/min Normal 60-69 yrs >49 mL/min Normal 70-79yrs >42 mL/min Normal 80 and above >35 mL/min Normal Female GFR Interpretation 20-39 yrs >60 mL/min Normal 40-49 yrs >58 mL/min Normal 50-59 yrs >51 mL/min Normal 60-69 yrs >45 mL/min Normal 70-79 yrs >39 mL/min Normal 80 and above >32 mL/min Normal ID Date Data Source [id number] 02/28/2020 03:17:00 PM EDT [facility] Name Value Range Interpretation Code Description Data Adriane rce(s) Supporting Document(s) CBC NO DIFF [facility] ital COMPLETE BLOOD COUNT Leukocytes [#/volume] in Blood by Automated count 8.4 10^3/uL 4.2 - 1 1.0 [facility] Erythrocytes [#/volume] in Blood by Automated count 3.88 10^6/uL 4. 20 - 5.40 L [facility] Hemoglobin [Mass/volume] in Blood 11.8 g/dL 12.0 - 16.0 L [facility] Hematocrit [Volume Fraction] of Blood by Automated count 36.7 % 3 7.0 - 47.0 L [facility] Erythrocyte mean corpuscular volume [Entitic volume] by Auto mated count 94.6 fL 81.0 - 101 [facility] Erythrocyte mean corpuscular hemoglobin [Entitic mass] by Automated count 30.4 pg 27.0 - 34.0 [facility] Erythrocyte mean corpuscular hemoglobin concentration [Mass/volume] by Automated count 32.2 g/dL 31.0 - 36.0 [facility] Erythrocyte distribution width [Ratio] by Automated count 12.5 % 11.5 - 14.5 [facility] Platelets [#/volume] in Blood by Automated count 319 10^3/uL 150 - 45 0 [facility] Platelet mean volume [Entitic volume] in Blood by Automated count 9.5 fL 7.4 - 10.4 [facility] ID Date Data Source [id number] 02/28/2020 02:52:00 PM EDT [facility] ([facility] Name Value Range Interpretation Code Description Data Adriane rce(s) Supporting Document(s) CBC No Diff Laboratory test result [facility] ([facility] COMPLETE BLOOD COUNT WBC 8.4 10^3/uL 4.2-11.0 [facility] ([facility] RBC 3.88 10^6/uL 4.20-5.40 [facility] ([facility] Hemoglobin 11.8 g/dL 12.0-16.0 [facility] ([facility] MCV 94.6 fL 81.0-101 [facility] ([facility] Hematocrit 36.7 % 37.0-47.0 [facility] ([facility] MCH 30.4 pg 27.0-34.0 [facility] ([facility] MCHC 32.2 g/dL 31.0-36.0 [facility] ([facility] Platelets 319 10^3/uL 150-450 [facility] ([facility] MPV 9.5 fL 7.4-10.4 [facility] ([facility] RDW 12.5 % 11.5-14.5 [facility] ([facility] Procedure Social History Code Duration Value Status Description Data Source(s ) Smoking 12/06/2020 12:00:00 AM EST Patient is a former smoker completed Patient is a former smoker [facility] ([facility] Smoking 12/03/2020 12:00:00 AM EST Patient is a former smoker completed Patient is a former smoker [facility] ([facility]) Smoking 08/23/2020 12:00:00 AM EDT - 11/30/1989 12:00:00 AM EST Patient is a former smoker completed Patient is a former smoker [facility] ([facility], ) Vital Signs ID Date Data Source [id number] Name Value Range Interpretation Code Description Data Source(s) Body mass index (BMI) [Ratio] 41.2 kg/m2 41.2 k g/m2 [facility] ([facility] Guffey body weight 115 [lb_av] 115 [lb_av] [facility] ([facility] Oxygen saturation in Arterial blood by Pulse oximetry 98 % 98 % [facility] ([facility] Body weight 232.38 [lb_av] 232.38 [lb_av] [facility] ([facility] Body height 63.0 [in_i] 63.0 [in_i] [facility] ([facility] 5'3" Respiratory rate 20 /min 20 /min [facility] ( [facility] Body temperature 96.8 [degF] 96.8 [degF] [facility] ([facility] Heart rate 102 /min 102 /min [facility] ([facility] Diastolic blood pressure 70 mm[Hg] 70 mm[Hg] [facility] ([facility] Systolic blood pressure 133 mm[Hg] 133 mm[Hg] [facility] ([facility] Diastolic blood pressure 76 mm[Hg] 76 mm[Hg] [facility] ([facility]) sitting Systolic blood pressure 132 mm[Hg] 132 mm[Hg] [facility] ([facility]) sitting Diastolic blood pressure 76 mm[Hg] 76 mm[Hg] [facility] ([facility]) sitting, large cuff Systolic blood pressure 128 mm[Hg] 128 mm[Hg] [facility]) sitting, large cuff Respiratory rate 16 /min 16 /min [facility] ( [facility]) Heart rate 72 /min 72 /min [facility] ([facility]) Regular Body mass index (BMI) [Ratio] 39.1 kg/m2 39.1 k g/m2 [facility] ([facility]) Body height 64 [in_i] 64 [in_i] [facility] ([facility]i [facility]) 5'4" Body weight 228.00 [lb_av] 228.00 [lb_av] [facility] ([facility]) Body surface area Derived from formula 2.08 m2 2.08 m2 [facility] ([facility]) Body weight 104.328 kg 104.328 kg [facility] ([facility]) Guffey body weight 120 [lb_av] 120 [lb_av] [facility] ([facility]) Body mass index (BMI) [Ratio] 39.5 kg/m2 39.5 k g/m2 [facility] ([facility]) Body weight 230.00 [lb_av] 230.00 [lb_av] [facility] ([facility]) Body height 64 [in_i] 64 [in_i] [facility] ([facility]) 5'4" Diastolic blood pressure 68 mm[Hg] 68 mm[Hg] [facility] ([facility]) Systolic blood pressure 126 mm[Hg] 126 mm[Hg] [facility] ([facility]) Diastolic blood pressure 74 mm[Hg] 74 mm[Hg] [facility] ([facility]) sitting Systolic blood pressure 128 mm[Hg] 128 mm[Hg] [facility] ([facility]) sitting Diastolic blood pressure 74 mm[Hg] 74 mm[Hg] [facility] ([facility]) sitting, large cuff Systolic blood pressure 126 mm[Hg] 126 mm[Hg] [facility] ([facility]) sitting, large cuff Respiratory rate 16 /min 16 /min [facility] ( [facility]) Heart rate 68 /min 68 /min [facility] ([facility]) Regular Body mass index (BMI) [Ratio] 38.8 kg/m2 38.8 k g/m2 [facility] ([facility]) Body height 64 [in_i] 64 [in_i] [facility] ([facility]) 5'4" Body weight 226.00 [lb_av] 226.00 [lb_av] [facility] ([facility]) Body surface area Derived from formula 2.07 m2 2.07 m2 [facility] ([facility]) Body weight 104.044 kg 104.044 kg [facility] ([facility]) Guffey body weight 120 [lb_av] 120 [lb_av] [facility] ([facility]) Body mass index (BMI) [Ratio] 39.4 kg/m2 39.4 k g/m2 [facility] ([facility]) Body weight 229.38 [lb_av] 229.38 [lb_av] [facility] ([facility]) Body height 64 [in_i] 64 [in_i] [facility] ([facility]) 5'4" Diastolic blood pressure 85 mm[Hg] 85 mm[Hg] [facility] ([facility]) Systolic blood pressure 139 mm[Hg] 139 mm[Hg] [facility]) Body surface area Derived from formula 2.05 m2 2.05 m2 [facility] ([facility]) Body mass index (BMI) [Ratio] 38.1 kg/m2 38.1 k g/m2 [facility] ([facility]) Body height 64 [in_i] 64 [in_i] [facility] ([facility]) 5'4" Body weight 100.699 kg 100.699 kg [facility] ([facility]) Body weight 222.00 [lb_av] 222.00 [lb_av] [facility] ([facility]) Respiratory rate 16 /min 16 /min [facility] ( [facility]) Body temperature 97.8 [degF] 97.8 [degF] [facility] ([facility]) Heart rate 82 /min 82 /min [facility] ([facility]) Diastolic blood pressure 69 mm[Hg] 69 mm[Hg] [facility] ([facility]) Systolic blood pressure 136 mm[Hg] 136 mm[Hg] [facility]) Body mass index (BMI) [Ratio] 40.4 kg/m2 40.4 k g/m2 [facility] ([facility] Guffey body weight 115 [lb_av] 115 [lb_av] [facility] ([facility] Oxygen saturation in Arterial blood by Pulse oximetry 98 % 98 % [facility] ([facility] Body weight 228.12 [lb_av] 228.12 [lb_av] [facility] ([facility] Body height 63.0 [in_i] 63.0 [in_i] [facility] ([facility] 5'3" Respiratory rate 22 /min 22 /min [facility] ( [facility] Body temperature 97.8 [degF] 97.8 [degF] [facility] ([facility] Heart rate 76 /min 76 /min [facility] ([facility] Diastolic blood pressure 65 mm[Hg] 65 mm[Hg] [facility] ([facility] Systolic blood pressure 123 mm[Hg] 123 mm[Hg] [facility] ([facility] Body weight 104.328 kg 104.328 kg [facility] ([facility]) Guffey body weight 120 [lb_av] 120 [lb_av] [facility] Body mass index (BMI) [Ratio] 39.5 kg/m2 39.5 k g/m2 [facility] ([facility]) Body weight 230.00 [lb_av] 230.00 [lb_av] [facility] Body height 64 [in_i] 64 [in_i] [facility] ([facility]) 5'4" Oxygen saturation in Arterial blood by Pulse oximetry 97 % 97 % [facility] ([facility]) Room Air Heart rate 80 /min 80 /min [facility] ([facility]) Diastolic blood pressure 78 mm[Hg] 78 mm[Hg] [facility] ([facility]) Systolic blood pressure 120 mm[Hg] 120 mm[Hg] [facility] ([facility]) Body weight 105.462 kg 105.462 kg [facility] ([facility]) Body mass index (BMI) [Ratio] 39.9 kg/m2 39.9 k g/m2 [facility] ([facility]) Body weight 232.50 [lb_av] 232.50 [lb_av] [facility] ([facility]) Body height 64 [in_i] 64 [in_i] [facility] ([facility]) 5'4" Diastolic blood pressure 64 mm[Hg] 64 mm[Hg] [facility] ([facility]) Systolic blood pressure 116 mm[Hg] 116 mm[Hg] [facility] ([facility]) Diastolic blood pressure--supine 72 mm[Hg] 72 mm[Hg] [facility] ([facility]) Systolic blood pressure--supine 123 mm[Hg] 123 mm[Hg] [facility] ([facility]) Diastolic blood pressure--sitting 66 mm[Hg] 66 mm[Hg] [facility] ([facility]) large cuff, Ra Systolic blood pressure--sitting 111 mm[Hg] 111 mm[Hg] [facility] ([facility]) large cuff, Ra Respiratory rate 16 /min 16 /min [facility] ( [facility]) Heart rate 72 /min 72 /min [facility] ([facility]) regular Body mass index (BMI) [Ratio] 39.3 kg/m2 39.3 k g/m2 [facility] ([facility]) Body height 64 [in_i] 64 [in_i] [facility] ([facility]) 5'4" Body weight 229.00 [lb_av] 229.00 [lb_av] [facility] ([facility]) Body weight 105.746 kg 105.746 kg [facility] ([facility]) Body mass index (BMI) [Ratio] 40.0 kg/m2 40.0 k g/m2 [facility] ([facility]) Body weight 233.12 [lb_av] 233.12 [lb_av] [facility] ([facility]) Body height 64 [in_i] 64 [in_i] [facility] ([facility]) 5'4" Diastolic blood pressure 80 mm[Hg] 80 mm[Hg] [facility] ([facility]) Systolic blood pressure 131 mm[Hg] 131 mm[Hg] [facility] ([facility]) Guffey body weight 115 [lb_av] 115 [lb_av] [facility] ([facility] Oxygen saturation in Arterial blood by Pulse oximetry 97 % 97 % [facility] ([facility] Body height 63.0 [in_i] 63.0 [in_i] [facility] ([facility] 5'3" Respiratory rate 32 /min 32 /min [facility] ( [facility] Body temperature 96.5 [degF] 96.5 [degF] [facility] ([facility] Heart rate 87 /min 87 /min [facility] ([facility] Diastolic blood pressure 76 mm[Hg] 76 mm[Hg] [facility] ([facility] Systolic blood pressure 149 mm[Hg] 149 mm[Hg] [facility] ([facility] Oxygen saturation in Arterial blood by Pulse oximetry --post exerci se 96 % 96 % [facility] ([facility]) On Room Air Oxygen saturation in Arterial blood by Pulse oximetry 98 % 98 % [facility] ([facility]) On Room Air Diastolic blood pressure--supine 60 mm[Hg] 60 mm[Hg] [facility] ([facility]) Ra Systolic blood pressure--supine 126 mm[Hg] 126 mm[Hg] [facility] ([facility]) Ra Diastolic blood pressure--sitting 56 mm[Hg] 56 mm[Hg] [facility] ([facility]) large cuff, Ra; 122/56 [place] Systolic blood pressure--sitting 118 mm[Hg] 118 mm[Hg] [facility] ([facility]) large cuff, Ra; 122/56 [place] Respiratory rate 18 /min 18 /min [facility] ( [facility]) Heart rate 76 /min 76 /min [facility] ([facility]) regular Body mass index (BMI) [Ratio] 39.3 kg/m2 39.3 k g/m2 [facility] ([facility]) Body height 64 [in_i] 64 [in_i] [facility] ([facility]) 5'4" Body weight 229.00 [lb_av] 229.00 [lb_av] [facility] ([facility]) Body weight 102.967 kg 102.967 kg [facility] ([facility]) Body mass index (BMI) [Ratio] 39.0 kg/m2 39.0 k g/m2 [facility] ([facility]) Body weight 227.00 [lb_av] 227.00 [lb_av] [facility] ([facility]) Body height 64 [in_i] 64 [in_i] [facility] ([facility]) 5'4" Body temperature 98.3 [degF] 98.3 [degF] [facility] ([facility]) Diastolic blood pressure 72 mm[Hg] 72 mm[Hg] [facility] ([facility]) Systolic blood pressure 124 mm[Hg] 124 mm[Hg] [facility] ([facility]) Body weight 104.498 kg 104.498 kg [facility] ([facility]) Body mass index (BMI) [Ratio] 39.5 kg/m2 39.5 k g/m2 [facility] ([facility]) Body weight 230.38 [lb_av] 230.38 [lb_av] [facility] Body height 64 [in_i] 64 [in_i] [facility] ([facility]) 5'4" Diastolic blood pressure 84 mm[Hg] 84 mm[Hg] [facility] ([facility]) Systolic blood pressure 136 mm[Hg] 136 mm[Hg] [facility] ([facility]) Body weight 102.060 kg 102.060 kg [facility] ([facility]) Body mass index (BMI) [Ratio] 38.6 kg/m2 38.6 k g/m2 [facility] ([facility]) Body weight 225.00 [lb_av] 225.00 [lb_av] [facility] Body height 64 [in_i] 64 [in_i] [facility] ([facility]) 5'4" Oxygen saturation in Arterial blood by Pulse oximetry 97 % 97 % [facility] ([facility]) Heart rate 87 /min 87 /min [facility] ([facility]) Diastolic blood pressure 72 mm[Hg] 72 mm[Hg] [facility] ([facility]) Systolic blood pressure 148 mm[Hg] 148 mm[Hg] [facility] ([facility]) Body weight 102.060 kg 102.060 kg [facility] ([facility]) Body mass index (BMI) [Ratio] 38.6 kg/m2 38.6 k g/m2 [facility] ([facility]) Body weight 225.00 [lb_av] 225.00 [lb_av] [facility] ([facility]) Body height 64 [in_i] 64 [in_i] [facility] ([facility]) 5'4" Heart rate 86 /min 86 /min [facility] ([facility]) Diastolic blood pressure 73 mm[Hg] 73 mm[Hg] [facility] ([facility]) Systolic blood pressure 129 mm[Hg] 129 mm[Hg] [facility] ([facility]) Diastolic blood pressure 74 mm[Hg] 74 mm[Hg] [facility] Systolic blood pressure 138 mm[Hg] 138 mm[Hg] [facility] ([facility] Body mass index (BMI) [Ratio] 39.9 kg/m2 39.9 k g/m2 [facility] ([facility] Guffey body weight 115 [lb_av] 115 [lb_av] [facility] ([facility] Oxygen saturation in Arterial blood by Pulse oximetry 97 % 97 % [facility] ([facility] Body weight 225.38 [lb_av] 225.38 [lb_av] [facility] ([facility] Body height 63.0 [in_i] 63.0 [in_i] [facility] ([facility] 5'3" Respiratory rate 16 /min 16 /min [facility] ( [facility] Body temperature 97.7 [degF] 97.7 [degF] [facility] ([facility] Heart rate 79 /min 79 /min [facility] ([facility] Body weight 104.101 kg 104.101 kg [facility] ([facility]) Body mass index (BMI) [Ratio] 39.4 kg/m2 39.4 k g/m2 [facility] ([facility]) Body weight 229.50 [lb_av] 229.50 [lb_av] [facility] ([facility], ) Body height 64 [in_i] 64 [in_i] [facility] ([facility]) 5'4" Diastolic blood pressure 87 mm[Hg] 87 mm[Hg] [facility] Systolic blood pressure 163 mm[Hg] 163 mm[Hg] M [facility] ([facility]) ID Date Data Source [id number] 10/10/2020 11:02:43 AM EST [facility] Name Value Range Interpretation Code Description Data Source(s) WEIGHT RECORDED 230.00 pounds 230.00 pounds [facility] Height 64 Inches 064 Inches [facility]
[2020-12-17 06:37] LABS: HEMATOCRIT 37.2 % (36.0-47.0); HEMOGLOBIN 12.1 g/dl (12.0-15.5); MEAN CORPUSCULAR HEMOGLOBIN 31.3 pg (27.0-33.0); MEAN CORPUSCULAR HGB CONC 32.5 g/dl (32.0-36.5); MEAN CORPUSCULAR VOLUME 96.4 fl (80.0-96.0); PLATELET COUNT, AUTOMATED 275 10^3/uL (150-450); RED BLOOD COUNT 3.86 10^6/uL (4.00-5.40); WHITE BLOOD COUNT 8.8 10^3/uL (4.0-10.0)
[2020-12-17 06:52] LABS: INR 1.05; PROTHROMBIN TIME 13.9 SECONDS (12.5-14.3)
[2020-12-17 06:53] LABS: PARTIAL THROMBOPLASTIN TIME 30.3 SECONDS (24.2-38.5)
[2020-12-17] MEDS ORDERED: LR 1,000 ML IV ONE (07:00)
[2020-12-17] MEDS ORDERED: ceFAZolin SOD 2 GM in IV 1 EA IV ONE (07:00)
[2020-12-17 07:01] LABS: CALCIUM LEVEL 9.8 MG/DL (8.8-10.2); CREATININE FOR GFR 1.24 MG/DL (0.55-1.30); GLOMERULAR FILTRATION RATE 45.1 (>39); POTASSIUM SERUM 3.9 MEQ/L (3.5-5.1)
[2020-12-17] MEDS ORDERED: dexameTHASONE 4 MG/ML 1ML VIAL (J1100 PER 1MG) As Ordered ONE (07:12)
[2020-12-17] MEDS ORDERED: ONDANSETRON 4MG/2ML VIAL As Ordered ONE (07:12)
[2020-12-17] MEDS ORDERED: fentaNYL 100 MCG/2 ML INJECTION (J3010) As Ordered ONE ×2 (07:13→08:22)
[2020-12-17] MEDS ORDERED: LIDOCAINE 2% 100MG/5ML SDV (FOR ANES.) As Ordered ONE (07:13)
[2020-12-17] MEDS ORDERED: MIDAZOLAM INJ 2MG/2ML VIAL (J2250 PER 1MG) As Ordered ONE (07:13)
[2020-12-17] MEDS ORDERED: ROCURONIUM BROMIDE 50 MG/5 ML VIAL As Ordered ONE ×2 (07:13→08:31)
[2020-12-17] MEDS ORDERED: propofoL 200 MG/20 ML VIAL As Ordered ONE (07:13)
[2020-12-17] MEDS ORDERED: LIDOCAINE 2% W/EPINEPHRINE 20ML VIAL **PRES FREE As Ordered ONE (07:14)
[2020-12-17] MEDS ORDERED: THROMBIN SOLN 20,000 UNITS KIT As Ordered ONE (07:14)
[2020-12-17] MEDS ORDERED: HEPARIN SOD (PORCINE) 5000UNITS/ML 1ML VIAL/SYRINGE As Ordered ONE ×2 (07:15→09:41)
[2020-12-17] MEDS ORDERED: ISOVUE-300 61% 50ML VIAL As Ordered ONE (07:15)
[2020-12-17] MEDS ORDERED: SUGAMMADEX SODIUM 500 MG/5 ML VIAL (BRIDION) As Ordered ONE (08:31)
[2020-12-17] MEDS ORDERED: ACETAMINOPHEN 1000MG 100ML IV BTL (OFIRMEV) (J0131 PER 10MG) As Ordered ONE (08:31)
[2020-12-17] MEDS ORDERED: PHENYLephrine 500MCG 5ML (100MCG/ML) SYRINGE As Ordered ONE (08:55)
[2020-12-17] MEDS ORDERED: ePHEDrine SULFATE 25 MG/5 ML(5MG/ML) SYRINGE As Ordered ONE (08:55)
[2020-12-17] MEDS ORDERED: HYDROmorphone HCL 2 MG/ML 1ML VIAL (J1170) As Ordered ONE (08:57)
[2020-12-17] MEDS ORDERED: LABETALOL 100MG/20ML VIAL As Ordered ONE (10:21)
[2020-12-17] MEDS ORDERED: ceFAZolin 2 GM/D5W 50 ML IV BAG (J0690 PER 500MG) As Ordered ONE (11:19)
--- NOTE | 2020-12-17 12:26 | ROOPDOC ---
[facility] Report Of Operation Report of Operation DATE OF PROCEDURE: 12/17/20 PREPROCEDURE DIAGNOSES: Atherosclerosis of the [place] femoral artery and in- graft stenosis left iliofemoral bypass graft; lifestyle limiting claudication POSTPROCEDURE DIAGNOSES: Same PROCEDURE: 1. Redo exposure left femoral vessels and bypass: 1 hour 2. Removal old femoral patch and redo femoral endarterectomy with Xenosure patch angioplasty 3. Revision left femoral graft anastomosis 4. Left sartorius muscle flap SURGEON: Mariano Moody MD ANESTHESIA: Gen. anesthesia and local anesthesia INDICATION FOR PROCEDURE: This is a very pleasant 75-year-old patient with severe long-standing atherosclerosis of the [place] arteries and recurrent plaque stenosis of her left femoral vessels status post left femoral endarterectomies in the past and a left iliofemoral bypass. Her claudication is getting progressively worse, and it is short distance with long recovery period in the left leg. Risks benefits and alternatives to a redo left femoral vessel exposure, redo femoral endarterectomy with patch angioplasty, revision left limb of her iliofemoral bypass, and possible muscle flap were explained to the patient. She was agreeable to proceed. Informed consent was obtained. REPORT OF OPERATION: The patient was brought to the or in stable condition. General anesthesia and antibiotics were administered without complication. Her left abdomen groin and thigh were prepped and draped in a sterile fashion. A timeout was performed. An oblique incision was made over the lateral inguinal ligament and carried down longitudinally through her pre-existing groin incision. We then dissected down through the subcutaneous tissue with Bovie cautery. Inferiorly, we began our dissection over the [place] superficial femoral artery and profunda. There was dense scar tissue, but we were able to skeletonized than proximally and distally and Vesseloops replaced. We then carefully dissected more proximally towards the inguinal ligament. There was extensive scar tissue and it was impossible to separate the graft from the [place] femoral vessel. We continued to dissected proximally up under the inguinal ligament to the [place] external iliac artery in the proximal graft. Care was taken not to disrupt the peritoneum or the inguinal ligament. We had a very difficult femoral dissection due to scar tissue, and her total dissection time was just over 1 hour. 5000 units of heparin was given allowed to circulate. Circumflex vessels were identified and Vesseloops replaced. We secured a clamp on the proximal graft and femoral vessel, and secured the Vesseloops on the distal vessels. Through the scar tissue, we made an arteriotomy this was carefully continued distally onto the proximal superficial femoral artery. It was carried proximally up to the graft anastomosis. The graft was then carefully removed by ligating the sutures. Thrombus was noted within the very distal aspect of the graft and this was removed. Our arteriotomy was carried proximally onto the distal external iliac artery. We noted extensive thick heavy bulky calcified plaque, in addition to friable granular plaque, in addition to intimal hyperplasia. This was an extremely challenging endarterectomy as the plaque had grown into the wall of the vessel and was extremely difficult to separate from the vessel. Great care was taken not to injure the vessel during endarterectomy. An additional hour was required to perform the endarterectomy successfully. We then identified and carefully removed and old patch from the arterial edge at the suture line. We then irrigated with saline, continue to remove any loose intima debris, made sure that are superficial femoral artery and profunda artery origins were widely patent, and then we did patch to arteriotomy anastomosis with running Prolene suture. Before the final sutures are placed, we flushed the inflow and outflow and irrigated with heparinized saline. We then placed her final sutures unrestored flow to the leg. Good hemostasis was noted. We given additional thousand units of heparin and allowed this to circulate. Our clamps and Vesseloops were resecured an arteriotomy was made in the proximal patch. We then anastomosis the graft and an end-to-side fashion to the patch with running Prolene suture. Before the final sutures are placed, we flushed the inflow and outflow and irrigated with heparinized saline. Final sutures were placed and good hemostasis was noted. With flow restored to the leg, Doppler confirmed excellent flow through the femoral artery, the profunda, and the SFA. There was a large deficit from the scar tissue dissection, the patient is obese, and since this is an existing Dacron graft with a new patch, there is a higher risk of infection postoperatively. Therefore, we dissected along the lateral edge of the sartorius and mobilized the proximal aspect of the sartorius muscle off of the anterior superior iliac spine. We then irrigated with copious amounts of saline. Local anesthesia was administered to the subcutaneous tissue and around the femoral nerves. The deep tissues proximally near the inguinal ligament were carefully closed with [id number] Vicryl sutures. The sartorius muscle flap was then folded from lateral to medial over the femoral vessels. It was tacked along the medial edge with [id number] Vicryl sutures. It was tacked along near the inferior aspect of the inguinal ligament with interrupted Vicryl singh tures. We then again irrigated with saline. We closed the space where the sartorius muscle normally lies with Vicryl tacking sutures. We then closed the fascia in the left groin in 3 layers with running 2-0 Vicryl suture. The deep dermal layer was approximated with interrupted 4-0 Vicryl sutures. The skin was closed with skin hardeep. The incision was clean and dry. 4 x 4's and Tegaderms were placed as a final dressing. The patient was allowed to awaken from anesthesia and was taken to PACU in stable condition. Her Youssef was removed prior to leaving the OR, and we will remove her arterial line in recovery. ESTIMATED BLOOD LOSS: Approximately 135 mL. SPECIMENS: 1. Left femoral artery plaque sent for pathology 2. Old left femoral arterial patch sent for pathology COMPLICATIONS: None. PLAN: Patient will be admitted to the hospitalist service for supportive postoperative care. She has a history of renal insufficiency and made little urine during the procedure, so we will monitor this closely postop and she will need a nephrology consult prn. We will advance diet as tolerated, analgesia prn. She will be on bedrest until morning, and then activity ad juanito with assistance. MARIANO MOODY MD Dec 17, 2020 12:26
[2020-12-17] MEDS ORDERED: HYDROmorphone 2 MG TAB PO PRN (12:30)
[2020-12-17] MEDS ORDERED: LR 1,000 ML IV SCH (12:30)
[2020-12-17] MEDS ORDERED: ONDANSETRON 4MG/2ML VIAL IV PRN ×2 (12:30)
[2020-12-17] MEDS ORDERED: fentaNYL 100 MCG/2 ML INJECTION (J3010) IV PRN (12:30)
[2020-12-17] MEDS ORDERED: oxyCODONE 5MG TAB PO PRN (12:30)
[2020-12-17] MEDS ORDERED: MEPERIDINE INJ 25 MG/ML VIAL (J2175) IV PRN (12:30)
[2020-12-17] MEDS ORDERED: METOCLOPRAMIDE INJ 10MG/2ML VIAL (J2765 PER 1) IV PRN (12:30)
[2020-12-17] MEDS ORDERED: ACETAMINOPHEN TAB 650MG DOSE (2X325MG) PO PRN (13:45)
[2020-12-17] MEDS ORDERED: AZELASTINE 137MCG NASAL SPY 30 ML (ASTELIN) PRN (13:45)
--- NOTE | 2020-12-17 15:36 | HPEPDOC ---
[facility] Medical History & Physical Date of Admission Dec 17, 2020 Date of Service: Dec 17, 2020 History and Physical Chief complaint: Percent [facility] for an elective vascular procedure History of present illness: Patient is a 75-year-old female who presented to [facility] for a revision of the femoral aspect of her iliofemoral bypass, new endarterectomy with patch angioplasty and a re-anastomosis of distal graft. Patient has received preoperative clearance from her primary care provider, Dr. Eli Underwood. Hospitalist services contacted post operatively to take over care while patient is in the hospital. Currently patient denies any headache, nausea, vomiting, chest pain, shortness of breath, palpitations, abdominal pain, constipation or diarrhea. She has not experience any recent burning with urination. Patient denies any recent fevers or chills. Patient reports that her appetite is fairly normal and reports that her weight has remained consistent. Past Medical History: HTN Peripheral vascular disease DLP Anxiety / Depression Obesity GERD Past Surgical History: Tubal ligation 1973 Aortic graft surgery 1985 Left leg bypass procedures in 1988 and 1999 Gastric sleeve 2012 Hysterectomy 2013 Laparoscopic cholecystectomy 2017 Laparoscopic lysis of adhesions 2018 Left lower extremity angiogram 03/05/2020 Allergies: See below Medications: See below Family History: - Mother is - Sister with a history of lung cancer - Father with a history of rheumatic fever Social History: - Denies the use of illicit drugs; patient reports social alcohol use; reports she quit smoking in 1988, but was a smoker of 20 years at 2 PPD - Denies recent travel or sick contacts - Lives alone - Occupation; 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 [employer] 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 Review of Systems: 10 point review of systems complete, all negative otherwise stated in HPI Physical exam: - Vitals: BP [125/67], HR [78], RR [18], Sat [92%NC2L], Temp [98.1F] - General: Lying in bed, No acute distress, Speaking in full sentences, AAOx3 - HEENT: NC, AT, PERRLA - CVS: RRR, +S1S2 - Lungs: Fair air entry bilaterally, No appreciable wheezing / rales / rhonchi - Abdomen: Soft, Non-distended, Non-tender - Extremities: No lower extremity edema, No calf tenderness, L groin with dressing in place - Neuro: No focal motor or sensory deficit - Skin: No visible rashes Labs: See below Imaging: See below EKG: See below Assessment and Plan: Revision of femoral aspect of her iliofemoral bypass / new endarterectomy with patch angioplasty /re-anastomosis of distal graft - History of peripheral vascular disease with interventions completed in the past - Has received medical clearance from her primary care provider as an outpatient - Will continue with ASA and Plavix starting tomorrow - c/w statin therapy - Discussed case with vascular surgery; will continue to follow during this hospitalization - Pain control and physical therapy based on their recommendations Elevated Cr - Patients baseline Cr of 0.8-1.0; patient had presented today with a Cr of 1.24 - Has received fluids in the OR; 2300 in - Will continue to follow output - Will check UA / Urine electrolytes - Will repeat renal function in AM - Will check bladder scans [id number] HTN - BP well controlled DLP - c/w Atorvastatin Anxiety / Depression - c/w Fluoxetine Obesity - BMI of 39.5 - Complicating medical care Vitamin D deficiency - c/w supplementation GERD - c/w Protonix DVT prophylaxis - Will start Heparin Vital Signs Vital Signs Date Time Temp Pulse Resp B/P (MAP) Pulse Ox O2 Delivery O2 Flow Rate FiO2 12/17/20 14:40 98.1 78 18 125/67 (86) 92 Nasal Cannula 2.0 Laboratory Data Labs 24H Laboratory Tests 2 12/17/20 06:30: Nucleated Red Blood Cells % (auto) 0.0, Prothrombin Time 13.9, Prothromb Time International Ratio 1.05, Activated Partial Thromboplast Time 30.3, Anion Gap 5L, Glomerular Filtration Rate 45.1, Calcium Level 9.8 12/17/20 14:34: Osmolality 294 CBC/BMP Laboratory Tests 12/17/20 06:30 Home Medications Scheduled Amlodipine Besylate (Amlodipine Besylate) 5 Mg Tab, 5 MG PO DAILY Aspirin (Aspirin EC) 81 Mg Tab, 81 MG PO DAILY Atorvastatin Calcium (Atorvastatin Calcium) 40 Mg Tablet, 40 MG PO QHS Bifidobacterium Infantis (Align) 10.5 Mg Tab.chew, 1 TAB PO DAILY Biotin (Biotin) 1 Mg Capsule, 1 MG PO DAILY Cholecalciferol (Vitamin D3) (Vitamin D3) 1,000 Unit Tablet, 1,000 UNITS PO DAILY Clopidogrel Bisulfate (Plavix) 75 Mg Tab, 75 MG PO DAILY Docusate Sodium (Colace) 100 Mg Cap, 100 MG PO DAILY Fluoxetine Hcl (Fluoxetine HCl) 20 Mg Cap, 20 MG PO DAILY Losartan/Hydrochlorothiazide (Losartan-Hctz 100-25 mg Tab) 1 Each Tablet, 1 TAB PO DAILY Multivitamins (Thera M Plus Tablet) 1 Each Tablet, 1 TAB PO QAM Pantoprazole Sodium (Pantoprazole Sodium) 40 Mg Tab, 40 MG PO DAILY Spironolactone (Spironolactone) 25 Mg Tab, 25 MG PO DAILY Scheduled PRN Acetaminophen (Acetaminophen) 325 Mg Tablet, 650 MG PO Q4H PRN for PAIN Azelastine HCl (Azelastine HCl) 0.1% Limestone.pump, 2 SPRAY NARES BID PRN for ALLERGIES Allergies Coded Allergies: No Known Allergies (Unverified , 12/04/20) ROSINA GRIMALDO MD Dec 17, 2020 15:36
[2020-12-17] MEDS: PERCOCET 5MG/325MG TAB PO PRN ×2 (17:14→21:18)
[2020-12-17] MEDS: ATORVASTATIN 20 MG TAB PO SCH (21:09)
[2020-12-17] MEDS: HEPARIN SOD (PORCINE) 5000UNITS/ML 1ML VIAL/SYRINGE SC SCH (21:10)
[2020-12-18 02:00] VITALS: BP 123/54
[2020-12-18] MEDS: PERCOCET 5MG/325MG TAB PO PRN ×3 (02:21→20:23)
[2020-12-18] MEDS: HEPARIN SOD (PORCINE) 5000UNITS/ML 1ML VIAL/SYRINGE SC SCH ×3 (05:25→21:35)
[2020-12-18 06:00] VITALS: BP 125/54
--- NOTE | 2020-12-18 07:41 | IPNPDOC ---
Date Seen The patient was seen on 12/18/20. Progress Note Patient seen and examined. Aside from appropriate postop pain, she says she is doing well postoperative day one status post extensive redo femoral artery exposure, excision of femoral patch and extensive femoral endarterectomy with patch angioplasty, redo anastomosis left iliofemoral graft, and sartorius muscle flap. This is an extensive groin operation, and the patient will likely have considerable discomfort for at least a few days postop, and we'll need to take it easy for the next 2-3 weeks until her groin is completely healed. We went over this at length today. No lifting greater than 5-10 pounds, no strenuous exercise. Today, the patient can get out of bed. It is okay for her to shower with her dressings off. She will need a replacement dry gauze and paper tape after her shower. It is okay for her to walk in the room and in the sotelo with nurse assist. On exam, her left groin incision is clean dry and intact. It was cleaned and redressed. The perfusion her left lower extremity is excellent. She has good Doppler signals over the SFA and profunda in the groin, and at the DP and PT. Her Refill is less than 1 second. She says her foot feels warm and much better. She did not have much urine output in the OR despite 2300 and IV fluids, and has some renal insufficiency at baseline, but we would expect that her urine output. She says she had an incontinence episode overnight as well as a normal void into a bedpan, and has had good urine output. We will continue to watch this, and I have ordered labs for this morning. We will continue to follow closely and we appreciate the hospitalist excellent care of this patient. VS, I&O, 24H, Fishbone Vital Signs/I&O Vital Signs Date Time Temp Pulse Resp B/P (MAP) Pulse Ox O2 Delivery O2 Flow Rate FiO2 12/18/20 06:00 97.6 64 16 125/54 (77) 96 Nasal Cannula 2.0 I&O- Last 24 Hours up to 6 AM 12/18/20 06:00 Intake Total 3300 ml Output Total 1440 ml Balance 1860 ml Laboratory Data 24H LABS Laboratory Tests 2 12/17/20 14:34: Osmolality 294 MARIANO MAST MD Dec 18, 2020 07:41
[2020-12-18] MEDS: PANTOPRAZOLE 40MG TAB (PROTONIX) PO SCH (08:15)
[2020-12-18] MEDS: FLUoxetine 20 MG CAP PO SCH (08:15)
[2020-12-18] MEDS: DOCUSATE SODIUM 100MG CAPSULE PO SCH (08:15)
[2020-12-18] MEDS: VITAMIN D 1,000 INTERNATIONAL UNITS TABLET PO SCH (08:15)
[2020-12-18] MEDS: MULTIVITAMINS/MINERALS THERAP 1 TAB PO SCH (08:15)
[2020-12-18] MEDS: ASPIRIN 81 MG ENTERIC TAB PO SCH (08:15)
[2020-12-18] MEDS: CLOPIDOGREL 75 MG TAB PO SCH (08:15)
[2020-12-18] MEDS: amLODIPine 5 MG TAB PO SCH (08:16)
[2020-12-18 09:34] LABS: HEMATOCRIT 32.6 % (36.0-47.0); HEMOGLOBIN 10.8 g/dl (12.0-15.5); MEAN CORPUSCULAR HEMOGLOBIN 31.8 pg (27.0-33.0); MEAN CORPUSCULAR HGB CONC 33.1 g/dl (32.0-36.5); MEAN CORPUSCULAR VOLUME 95.9 fl (80.0-96.0); PLATELET COUNT, AUTOMATED 227 10^3/uL (150-450); WHITE BLOOD COUNT 11.5 10^3/uL (4.0-10.0)
[2020-12-18 10:05] LABS: CALCIUM LEVEL 9.5 MG/DL (8.8-10.2); CREATININE FOR GFR 1.18 MG/DL (0.55-1.30); GLOMERULAR FILTRATION RATE 47.8 (>39); POTASSIUM SERUM 4.6 MEQ/L (3.5-5.1)
[2020-12-18 12:00] VITALS: BP 124/56
--- NOTE | 2020-12-18 12:45 | IPNPDOC ---
Date Seen The patient was seen on 12/18/20. Progress Note SUBJECTIVE: c/o groin discomfort 6/10 pain scale worse when she moves. no fever or chills. c/o b/l hand numbness which occur at home at times w/o neck or upper back pain/ or b/l hand weakness. c/o left thigh numbness w/o left foot or leg weakness. This AM, per RN, pt was lowered to the floor with 2 person assistance when she attempted to stand and pivot. OBJECTIVE PHYSICAL EXAMINATION: VITAL SIGNS: Please see below. GENERAL: AAOX3 no distress HEENT: moist mm no jvd CARDIOVASCULAR: S1S2 RRR. RESPIRATORY: CTAB ABDOMINAL: obese soft nt nd. groin w dressing. EXTREMITIES: no edema. dp pt b/l by doppler SKIN: warm dry pink in color NEUROLOGICALmotor 5/5/ x 4 extremities. 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 ASSESSMENT AND PLAN: 75 y/o F w peripheral arterial disease Peripheral Arterial Disease -postoperative day one status post extensive redo femoral artery exposure, excision of femoral patch and extensive femoral endarterectomy with patch angioplasty, redo anastomosis left iliofemoral graft, and sartorius muscle flap. -No lifting greater than 5-10 pounds, no strenuous exercise. -per vascular surgery, 2-3 weeks for complete recovery -post ope mgt per vascular surgery including pain meds, dvt prophylaxis, activity, bowel regimen, dressing changes -resumed on ASA, plavix, lipitor -prn pain meds per vascular surgery Hypertension -controlled on norvasc Anxiety -no acute issues Depression -no acute issues Dyslipidemia -on lipitor GERD -denies any symptoms Obesity. BMI 39.5 -complicating care -monitoring respiratory status while on opioids due to increased risk of respiratory acidosis Deconditioning -ARU /PT/OT consulted but will need to abide by vascular surgery activity recommendations. disposition: pending vascular surgery clearance for home. VS, I&O, 24H, Fishbone Vital Signs/I&O Vital Signs Date Time Temp Pulse Resp B/P (MAP) Pulse Ox O2 Delivery O2 Flow Rate FiO2 12/18/20 11:37 20 12/18/20 08:16 63 125/55 12/18/20 06:00 97.6 96 Nasal Cannula 2.0 I&O- Last 24 Hours up to 6 AM 12/18/20 06:00 Intake Total 3300 ml Output Total 1440 ml Balance 1860 ml Laboratory Data 24H LABS Laboratory Tests 2 12/17/20 14:34: Osmolality 294 12/18/20 09:16: Nucleated Red Blood Cells % (auto) 0.0, Anion Gap 7L, Glomerular Filtration Rate 47.8, Calcium Level 9.5 CBC/BMP Laboratory Tests 12/18/20 09:16 PERRY JOSUE MD Dec 18, 2020 12:38
[2020-12-18 14:00] VITALS: BP 127/58
[2020-12-18] MEDS: ATORVASTATIN 20 MG TAB PO SCH (20:21)
[2020-12-18 22:00] VITALS: BP 123/56
[2020-12-19] MEDS: HEPARIN SOD (PORCINE) 5000UNITS/ML 1ML VIAL/SYRINGE SC SCH ×3 (05:09→21:00)
[2020-12-19] MEDS: PERCOCET 5MG/325MG TAB PO PRN ×2 (05:10→15:49)
[2020-12-19 06:00] VITALS: BP 128/72
--- NOTE | 2020-12-19 06:26 | REPVR ---
PROCEDURE INFORMATION: Exam: XR Chest, 1 View Exam date and time: 12/19/2020 5:59 AM Age: 75 years old Clinical indication: Fever; Additional info: Postop fever R/O pneumonia vs atelectasis TECHNIQUE: Imaging protocol: XR of the chest Views: 1 view. COMPARISON: CR Chest, 1 view 08/19/2020 3:42 PM FINDINGS: Lungs: Minor interstitial thickening lower lungs. Mild central vascular congestion without overt edema. Pleural space: Unremarkable. No pleural effusion. No pneumothorax. Heart/Mediastinum: Upper normal size or borderline cardiac enlargement. Bones/joints: Degenerative change of the spine. IMPRESSION: 1. Stable heart size. 2. Overall interstitial coarsening/thickening versus component of low-grade interstitial vascular congestion. Electronically signed by: Becky Huerta On 12/19/2020 06:25:26 AM
[2020-12-19 06:31] LABS: BASO % 0.4 % (0.0-1.0); EOS # 0.3 10^3/uL (0.0-0.5); EOS % 2.6 % (0.0-3.0); HEMATOCRIT 32.4 % (36.0-47.0); HEMOGLOBIN 10.4 g/dl (12.0-15.5); LYMPH # 1.9 10^3/uL (1.5-5.0); LYMPH % 17.8 % (24.0-44.0); MEAN CORPUSCULAR HEMOGLOBIN 31.2 pg (27.0-33.0); MEAN CORPUSCULAR HGB CONC 32.1 g/dl (32.0-36.5); MEAN CORPUSCULAR VOLUME 97.3 fl (80.0-96.0); MONO # 1.3 10^3/uL (0.0-0.8); MONO % 11.9 % (0.0-5.0); NEUTROPHILS # 7.1 10^3/uL (1.5-8.5); NEUTROPHILS % 66.9 % (36.0-66.0); PLATELET COUNT, AUTOMATED 225 10^3/uL (150-450); RED BLOOD COUNT 3.33 10^6/uL (4.00-5.40); WHITE BLOOD COUNT 10.5 10^3/uL (4.0-10.0)
[2020-12-19 07:04] LABS: C REACTIVE PROTEIN QUANTITATIV 2.86 MG/DL (0.00-0.30); CALCIUM LEVEL 9.1 MG/DL (8.8-10.2); CREATININE FOR GFR 1.07 MG/DL (0.55-1.30); GLOMERULAR FILTRATION RATE 53.5 (>39); POTASSIUM SERUM 4.1 MEQ/L (3.5-5.1)
--- NOTE | 2020-12-19 08:03 | IPNPDOC ---
Date Seen The patient was seen on 12/19/20. Progress Note Patient seen and examined postoperative day 2 status post extensive redo left femoral arterial exposure, redo challenging left femoral endarterectomy with patch angioplasty, revision left iliofemoral anastomosis bypass graft and sartorius muscle flap. The nurse informed me that overnight she had a fever, but the temperature max was 100.1, which is low-grade. Postop we consider fever 101.5 Fahrenheit, but she's been afebrile since receiving Tylenol. She had a chest x-ray, which I reviewed. The patient has mild vascular congestion, likely due to her renal insufficiency and large intraoperative fluid volume that she received. The hospitalists are managing her fluid status. She also has some mild by basilar atelectasis, which should improve when she is up and moving around more. I did order her incentive spirometer and encouraged her to use this 10 times every hour while awake. Yesterday, the nurses try to get the patient out of bed to the commode, but they ended up having to lower her to the floor because she said her left leg was numb. I talked to her about this and asked why she did not just bear weight on her right leg, which we did not operate on, and she says she doesn't know. I checked her lower extremity strength today. She has 5 out of 5 dorsiflexion and plantar flexion of the foot on the left and the right, and her extensor and flexion at the knee is also 5 out of 5 on both the left and the right. She has some decreased sensation over the left medial thigh and some decreased sensation on the plantar foot, but she can sense me touching her. Preoperatively, we discussed that there is no way to avoid the femoral nerve with her extensive scar tissue from previous surgeries, and she would for sure have some numbness along the medial thigh postop that may or may not improve with time. As far as the numbness on her foot, I suspect it is related to her complaints of paresthesias in the bilateral upper arms, which I feel are related to her being and surgery for 5 hours, then in bed the rest of the day, and she is likely a little bit stiff in her neck and back. This also should improve with getting up with increased mobility. Physical therapy and occupational therapy has been ordered, and we will evaluate her for rehabilitation versus home depending on her progress. I've given her a lot of encouragement this morning, and I think she is feeling better today than yesterday. Her left groin incision is clean dry and intact and we thoroughly cleaned this and place a dry dressing. The patient tolerated this well. We're hopeful that with increased activity she will continue to improve. We will follow closely. We appreciate the hospitalist excellent care of this patient. VS, I&O, 24H, Fishbone Vital Signs/I&O Vital Signs Date Time Temp Pulse Resp B/P (MAP) Pulse Ox O2 Delivery O2 Flow Rate FiO2 12/19/20 06:00 97.7 70 18 128/72 (90) 100 Room Air 12/18/20 06:00 2.0 I&O- Last 24 Hours up to 6 AM 12/19/20 06:00 Intake Total 900 ml Output Total 1850 ml Balance -950 ml Laboratory Data 24H LABS Laboratory Tests 2 12/18/20 09:16: Nucleated Red Blood Cells % (auto) 0.0, Anion Gap 7L, Glomerular Filtration Rate 47.8, Calcium Level 9.5 12/19/20 04:24: Urine Color YELLOW, Urine Appearance CLEAR, Urine pH 5.0, Urine Specific [place] 1.020, Urine Protein NEGATIVE, Urine Glucose (UA) NEGATIVE, Urine Ketones NEGATIVE, Urine Blood NEGATIVE, Urine Nitrite NEGATIVE, Urine Bilirubin NEGATIVE, Urine Urobilinogen 0.2, Urine Leukocyte Esterase NEGATIVE, Urine WBC (Auto) 1, Urine RBC (Auto) 2, Urine Hyaline Casts (Auto) 0, Urine Bacteria (Auto) NEGATIVE, Urine Squamous Epithelial Cells 1, Urine Mucus (Auto) SMALL, Urine Sperm (Auto) , Urine Random Osmolality 699, Urine Random Creatinine 143.0, Urine Random Sodium 38 12/19/20 05:45: Nucleated Red Blood Cells % (auto) 0.0, Anion Gap 4L, Glomerular Filtration Rate 53.5, Calcium Level 9.1, Immature Granulocyte % (Auto) 0.4, Neutrophils (%) (Auto) 66.9H, Lymphocytes (%) (Auto) 17.8L, Monocytes (%) (Auto) 11.9H, Eosinophils (%) (Auto) 2.6, Basophils (%) (Auto) 0.4, Neutrophils # (Auto) 7.1, Lymphocytes # (Auto) 1.9, Monocytes # (Auto) 1.3H, Eosinophils # (Auto) 0.3, Basophils # (Auto) 0.0, Osmolality 293, C-Reactive Protein, Quantitative 2.86H CBC/BMP Laboratory Tests 12/18/20 09:16 12/19/20 05:45 MARIANO MAST MD Dec 19, 2020 08:03
[2020-12-19] MEDS: FLUoxetine 20 MG CAP PO SCH (09:55)
[2020-12-19] MEDS: DOCUSATE SODIUM 100MG CAPSULE PO SCH (09:55)
[2020-12-19] MEDS: CLOPIDOGREL 75 MG TAB PO SCH (09:55)
[2020-12-19] MEDS: ASPIRIN 81 MG ENTERIC TAB PO SCH (09:55)
[2020-12-19] MEDS: VITAMIN D 1,000 INTERNATIONAL UNITS TABLET PO SCH (09:55)
[2020-12-19] MEDS: MULTIVITAMINS/MINERALS THERAP 1 TAB PO SCH (09:55)
[2020-12-19] MEDS: PANTOPRAZOLE 40MG TAB (PROTONIX) PO SCH (09:55)
[2020-12-19] MEDS: amLODIPine 5 MG TAB PO SCH (09:58)
[2020-12-19 10:31] LABS: ERYTHROCYTE SEDIMENTATION RATE 67 mm/hr (0-30)
--- NOTE | 2020-12-19 11:18 | IPNPDOC ---
Date Seen The patient was seen on 12/19/20. Progress Note SUBJECTIVE: low grade temp 100.1-negative ua, negative cxr?coarsening vs vascular congestion, bnp <500. still c/o b/l finger numbness and left thigh numbness unchanged from yesterday which vascular surgery thinks is related to 5hr surgery. Pt was lowered to the ground yesterday by 2 [facility] staff when she c/o weakness when she attempted to stand and pivot out of bed. no fall no trauma overnight. left groin pain persistent despite pain meds 5/10 pain scale but no change in pain meds per patient request. OBJECTIVE PHYSICAL EXAMINATION: VITAL SIGNS: Please see below. GENERAL: AAOX3 no distress no pallor HEENT: moist mm no jvd no cervical LAD CARDIOVASCULAR: S1S2 RRR. RESPIRATORY: CTAB no adventitious breath sounds ABDOMINAL: obese soft nt nd. groin w dressing. EXTREMITIES: no edema. dp pt b/l by doppler SKIN: warm dry pink in color NEUROLOGICALmotor 5/5/ x 4 extremities. 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 ASSESSMENT AND PLAN: 75 y/o F w peripheral arterial disease Peripheral Arterial Disease -postoperative day o2 status post extensive redo femoral artery exposure, excision of femoral patch and extensive femoral endarterectomy with patch angioplasty, redo anastomosis left iliofemoral graft, and sartorius muscle flap. -No lifting greater than 5-10 pounds, no strenuous exercise. -per vascular surgery, 2-3 weeks for complete recovery -post op mgt per vascular surgery including pain meds, dvt prophylaxis, activity, bowel regimen, dressing changes -resumed on ASA, plavix, lipitor -prn pain meds per vascular surgery -numbness of the fingers b/l and left hhigh most likely due to 5hr surgery per vascular. Low grade temp -ua, cxr 12/18/20 negative for uti or pneumonia -most likely due to atelectasis -incentive spirometry Hypertension -resumed on norvasc Anxiety -no acute issues Depression -no acute issues Dyslipidemia -on lipitor GERD -denies any symptoms Obesity. BMI 39.5 -complicating care -monitoring respiratory status while on opioids due to increased risk of respiratory acidosis Deconditioning -ARU placement disposition: pending vascular surgery clearance for medical discharge to ARU. VS, I&O, 24H, [facility] Vital Signs/I&O Vital Signs Date Time Temp Pulse Resp B/P (MAP) Pulse Ox O2 Delivery O2 Flow Rate FiO2 12/19/20 09:58 78 136/66 12/19/20 06:00 97.7 18 100 Room Air 12/18/20 06:00 2.0 I&O- Last 24 Hours up to 6 AM 12/19/20 06:00 Intake Total 900 ml Output Total 1850 ml Balance -950 ml Laboratory Data 24H LABS Laboratory Tests 2 12/19/20 04:24: Urine Color YELLOW, Urine Appearance CLEAR, Urine pH 5.0, Urine Specific [place] 1.020, Urine Protein NEGATIVE, Urine Glucose (UA) NEGATIVE, Urine Ketones NEGATIVE, Urine Blood NEGATIVE, Urine Nitrite NEGATIVE, Urine Bilirubin NEGATIVE, Urine Urobilinogen 0.2, Urine Leukocyte Esterase NEGATIVE, Urine WBC (Auto) 1, Urine RBC (Auto) 2, Urine Hyaline Casts (Auto) 0, Urine Bacteria (Auto) NEGATIVE, Urine Squamous Epithelial Cells 1, Urine Mucus (Auto) SMALL, Urine Sperm (Auto) , Urine Random Osmolality 699, Urine Random Creatinine 143.0, Urine Random Sodium 38 12/19/20 05:45: Immature Granulocyte % (Auto) 0.4, Neutrophils (%) (Auto) 66.9H, Lymphocytes (%) (Auto) 17.8L, Monocytes (%) (Auto) 11.9H, Eosinophils (%) (Auto) 2.6, Basophils (%) (Auto) 0.4, Neutrophils # (Auto) 7.1, Lymphocytes # (Auto) 1.9, Monocytes # (Auto) 1.3H, Eosinophils # (Auto) 0.3, Basophils # (Auto) 0.0, Nucleated Red Blood Cells % (auto) 0.0, Erythrocyte Sedimentation Rate 67H, Anion Gap 4L, Glomerular Filtration Rate 53.5, Osmolality 293, Calcium Level 9.1, C-Reactive Protein, Quantitative 2.86H, ZC-Xtd-I-Type Natriuretic Peptide 297H CBC/BMP Laboratory Tests 12/19/20 05:45 PERRY JOSUE MD Dec 19, 2020 11:18
[2020-12-19 14:00] VITALS: BP 119/56
[2020-12-19] MEDS: ATORVASTATIN 20 MG TAB PO SCH (20:05)
[2020-12-19 22:00] VITALS: BP 112/67
[2020-12-20] MEDS: PERCOCET 5MG/325MG TAB PO PRN ×3 (00:29→14:05)
[2020-12-20] MEDS: HEPARIN SOD (PORCINE) 5000UNITS/ML 1ML VIAL/SYRINGE SC SCH ×3 (05:33→21:19)
[2020-12-20 06:00] VITALS: BP 120/57
--- NOTE | 2020-12-20 07:58 | IPNPDOC ---
Date Seen The patient was seen on 12/20/20. Progress Note Patient seen and examined postoperative day 2 status post extensive redo left femoral arterial exposure, redo challenging left femoral endarterectomy with patch angioplasty, revision left iliofemoral anastomosis bypass graft and sartorius muscle flap. That she is using her incentive spirometer and is doing well with that. She is not having as many complaints about her seizures or numbness in her foot upper extremities today, says she thinks all of that is improving, likely because she is getting out of bed and moving around more. The numbness on her medial thigh is stable as expected postop. Her left groin incision is clean dry and intact. This was thoroughly cleaned and redressed with dry gauze. The patient is still requesting to shower but has not showered. It is in her orders that it is okay from a vascular standpoint Aldo with her dressing off, then replace dry gauze left groin. She has excellent pe rfusion bilateral lower extremities with good signals at the DP and PT and less than 1 second capillary refill with warm feet. I checked her lower extremity strength today. She has 5 out of 5 dorsiflexion and plantar flexion of the foot on the left and the right, and her extensor and flexion at the knee is also 5 out of 5 on both the left and the right. She has some decreased sensation over the left medial thigh but she can feel me touching her on the plantar and dorsal aspect of her left foot and fingertips. Physical therapy and occupational therapy has been working with her, and we will evaluate her for rehabilitation versus home depending on her progress. I've given her a lot of encouragement again this morning, and I think she is feeling better today overall. We're hopeful that with increased activity she will continue to improve. We will follow closely. We appreciate the hospitalist excellent care of this patient. VS, I&O, 24H, Fishbone Vital Signs/I&O Vital Signs Date Time Temp Pulse Resp B/P (MAP) Pulse Ox O2 Delivery O2 Flow Rate FiO2 12/20/20 06:00 98.8 71 19 120/57 (78) 94 Room Air 12/18/20 06:00 2.0 I&O- Last 24 Hours up to 6 AM 12/20/20 06:00 Intake Total 1080 ml Output Total 275 ml Balance 805 ml MARIANO MAST MD Dec 20, 2020 07:58
[2020-12-20] MEDS: PANTOPRAZOLE 40MG TAB (PROTONIX) PO SCH (08:32)
[2020-12-20] MEDS: VITAMIN D 1,000 INTERNATIONAL UNITS TABLET PO SCH (08:32)
[2020-12-20] MEDS: CLOPIDOGREL 75 MG TAB PO SCH (08:32)
[2020-12-20] MEDS: MULTIVITAMINS/MINERALS THERAP 1 TAB PO SCH (08:32)
[2020-12-20] MEDS: ASPIRIN 81 MG ENTERIC TAB PO SCH (08:32)
[2020-12-20] MEDS: DOCUSATE SODIUM 100MG CAPSULE PO SCH (08:32)
[2020-12-20] MEDS: FLUoxetine 20 MG CAP PO SCH (08:32)
[2020-12-20] MEDS: amLODIPine 5 MG TAB PO SCH (08:33)
--- NOTE | 2020-12-20 11:11 | IPNPDOC ---
Date Seen The patient was seen on 12/20/20. Progress Note SUBJECTIVE: c/o increasing numbness of the left le now involving the leg and foot. b/l fingers numbness improved today. no c/o weakness. tolerable pain in the left groin 4/10 pain. no fever or chills . no sob. OBJECTIVE PHYSICAL EXAMINATION: VITAL SIGNS: Please see below. GENERAL: no distress HEENT:no cervical LAD moist mm CARDIOVASCULAR: S1S2 RRR. RESPIRATORY: CTAB ABDOMINAL: obese soft nt nd. groin w dressing. EXTREMITIES: no edema. dp pt b/l by doppler SKIN: warm dry pink in color NEUROLOGICALmotor 5/5/ x 4 extremities. 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 ASSESSMENT AND PLAN: 75 y/o F w peripheral arterial disease Peripheral Arterial Disease left LE numbness secondary to prolonged surgery. Hypertension Anxiety Depression Dyslipidemia GERD Obesity. BMI 39.5 Deconditioning B/L hand paresthesias PLAN: S/P status post extensive redo femoral artery exposure, excision of femoral patch and extensive femoral endarterectomy with patch angioplasty, redo anastomosis left iliofemoral graft, and sartorius muscle flap. postop mgt per vascular surgery. awaiting aru acceptance. VS, I&O, 24H, Fishbone Vital Signs/I&O Vital Signs Date Time Temp Pulse Resp B/P (MAP) Pulse Ox O2 Delivery O2 Flow Rate FiO2 12/20/20 09:03 18 12/20/20 08:33 69 154/70 12/20/20 08:33 T-piece 12/20/20 06:00 98.8 94 12/18/20 06:00 2.0 I&O- Last 24 Hours up to 6 AM 12/20/20 05:59 Intake Total 1080 ml Output Total 575 ml Balance 505 ml PERRY JOSUE MD Dec 20, 2020 11:11
[2020-12-20 14:00] VITALS: BP 131/58
[2020-12-20] MEDS: ATORVASTATIN 20 MG TAB PO SCH (21:19)
[2020-12-20 22:00] VITALS: BP 122/49
[2020-12-21] MEDS: HEPARIN SOD (PORCINE) 5000UNITS/ML 1ML VIAL/SYRINGE SC SCH (05:52)
[2020-12-21 06:00] VITALS: BP 125/52
[2020-12-21] MEDS: VITAMIN D 1,000 INTERNATIONAL UNITS TABLET PO SCH (08:33)
[2020-12-21] MEDS: DOCUSATE SODIUM 100MG CAPSULE PO SCH (08:33)
[2020-12-21 08:34] VITALS: BP 124/56
[2020-12-21] MEDS: CLOPIDOGREL 75 MG TAB PO SCH (08:34)
[2020-12-21] MEDS: MULTIVITAMINS/MINERALS THERAP 1 TAB PO SCH (08:34)
[2020-12-21] MEDS: amLODIPine 5 MG TAB PO SCH (08:34)
[2020-12-21] MEDS: FLUoxetine 20 MG CAP PO SCH (08:34)
[2020-12-21] MEDS: PERCOCET 5MG/325MG TAB PO PRN (08:35)
[2020-12-21] MEDS: ASPIRIN 81 MG ENTERIC TAB PO SCH (08:35)
[2020-12-21] MEDS: PANTOPRAZOLE 40MG TAB (PROTONIX) PO SCH (08:35)
[2020-12-21] MEDS ORDERED: DILA2TAB6 PO (10:52)
[2020-12-21] MEDS ORDERED: PERCOCET PO (10:52)
--- NOTE | 2020-12-21 11:47 | IPNPDOC ---
Text Note Date of Service The patient was seen on 12/21/20. NOTE Vascular surgery. Dr. Moody Patient seen and examined postoperative day 3 status post extensive redo left femoral arterial exposure, redo challenging left femoral endarterectomy with patch angioplasty, revision left iliofemoral anastomosis bypass graft and sartorius muscle flap. The patient states she showered yesterday. Pain has been controlled. States overall she is beginning to feel better. Her left groin incision is clean dry and intact. This was thoroughly cleaned and redressed with dry gauze. She has excellent perfusion bilateral lower extremities with good signals at the DP and PT and less than 1 second capillary refill with warm feet. Physical therapy and occupational therapy has been working with her, possibly consider rehabilitation. We will follow closely. We appreciate the hospitalist excellent care of this patient. Addendum. The patient is planning to discharge today to [facility] for STR. From vascular standpoint we have recommended the patient to shower daily with her dressings off. Pat dry with a clean towel. Wipe over the hardeep with an alcohol pad. Apply dry gauze dressing with paper tape daily. Change dressings daily. The patient should follow-up in the vascular surgery clinic in 5-7 days to recheck left groin incision and perfusion. Plan for staple removal in the clinic in 17-21 days. VS,Fishbone, I+O VS, Fishbone, I+O Vital Signs Date Time Temp Pulse Resp B/P (MAP) Pulse Ox O2 Delivery O2 Flow Rate FiO2 12/21/20 09:05 16 12/21/20 08:34 72 124/56 12/21/20 06:00 98.2 94 Room Air 12/18/20 06:00 2.0 I&O- Last 24 Hours up to 6 AM 12/21/20 06:00 Intake Total 1600 ml Output Total 1600 ml Balance 0 ml Sara Alexandra Dec 21, 2020 11:47
--- NOTE | 2020-12-21 12:18 | DS.PDOC ---
Discharge Summary General Date of Admission Dec 17, 2020 at 06:15 Date of Discharge 12/21/20 DISCHARGED TO [facility]. 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 Peripheral Arterial Disease left LE numbness secondary to prolonged surgery. Hypertension Anxiety Depression Dyslipidemia GERD Obesity. BMI 39.5 Deconditioning B/L hand paresthesias DISCHARGE MEDICATIONS: SEE BELOW ALLERGIES: SEE BELOW DISCHARGE INSTRUCTIONS: POSTOP MGT PER VASCULAR SURGERY INCLUDING PAIN CONTROL, ACTIVITY, DVT PROPHYLAXIS, WOUND CARE, AND FU APPT. HOSPITAL COURSE: 75-year-old female with long-standing atherosclerosis of the [place] arteries and a history of aortobifemoral bypass with stenosis of the left limb of the bypass at the anastomosis with the left common femoral artery. The patient continues to report lifestyle limiting claudication. Plan is to proceed with revision of the femoral aspect of her iliofemoral bypass, new endarterectomy with patch angioplasty and a re-anastomosis of the distal graft as per Dr. Moody 12/17/20. Peripheral Arterial Disease -postoperative day o2 status post extensive redo femoral artery exposure, excision of femoral patch and extensive femoral endarterectomy with patch angioplasty, redo anastomosis left iliofemoral graft, and sartorius muscle flap. -No lifting greater than 5-10 pounds, no strenuous exercise. -per vascular surgery, 2-3 weeks for complete recovery -post op mgt per vascular surgery including pain meds, dvt prophylaxis, activity, bowel regimen, dressing changes -resumed on ASA, plavix, lipitor -prn pain meds per vascular surgery -numbness of the fingers b/l and left hhigh most likely due to 5hr surgery per vascular. Low grade temp -ua, cxr 12/18/20 negative for uti or pneumonia -most likely due to atelectasis -incentive spirometry Hypertension -resumed on norvasc Anxiety -no acute issues Depression -no acute issues Dyslipidemia -on lipitor GERD -denies any symptoms Obesity. BMI 39.5 -complicating care -monitoring respiratory status while on opioids due to increased risk of respiratory acidosis DISCHARGE PHYSICAL EXAMINATION: VITAL SIGNS: Please see below. GENERAL: no distress HEENT:no cervical LAD moist mm CARDIOVASCULAR: S1S2 RRR. RESPIRATORY: CTAB ABDOMINAL: obese soft nt nd. groin w dressing. EXTREMITIES: no edema. dp pt b/l by doppler SKIN: warm dry pink in color NEUROLOGICALmotor 5/5/ x 4 extremities. 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 12/19/20 CXR Exam: XR Chest, 1 View Exam date and time: 12/19/2020 5:59 AM Age: 75 years old Clinical indication: Fever; Additional info: Postop fever R/O pneumonia vs atelectasis TECHNIQUE: Imaging protocol: XR of the chest Views: 1 view. COMPARISON: CR Chest, 1 view 08/19/2020 3:42 PM FINDINGS: Lungs: Minor interstitial thickening lower lungs. Mild central vascular congestion without overt edema. Pleural space: Unremarkable. No pleural effusion. No pneumothorax. Heart/Mediastinum: Upper normal size or borderline cardiac enlargement. Bones/joints: Degenerative change of the spine. IMPRESSION: 1. Stable heart size. 2. Overall interstitial coarsening/thickening versus component of low-grade interstitial vascular congestion. Electronically signed by: Becky Huerta On 12/19/2020 06:25:26 AM Bilateral lower extremity arterial Doppler ultrasound: History: Atherosclerotic disease. Claudication. Comparison study May 17, 2019. Ankle brachial indices are measured at 0.93 on the right and 0.62 on the left. Distal abdominal aortic peak systolic flow velocity is normal at the 124 cm/sec. The left common femoral artery is dilated at the left lung of the graft anastomoses as before. There is stenotic elevated flow velocity of 256 and 1 cm/sec at the level of the graft anastomoses at the CF A. Monophasic arterial Doppler waveforms are noted throughout the left lower extremity. Biphasic waveforms are noted on the right to the level of the proximal calf. Via peroneal trunk and distal posterior tibial and anterior tibial artery wave forms are monophasic. Velocity chart right lower extremity arteries: Right KUNAL 130 cm/S E I A 128 CF A 111 Profunda 95 Proximal SFA 100 Mid SFA 92 Distal SFA 79 Popliteal 46 Proximal AT A 57 Tibioperoneal trunk 29 Mid DATA CONVERSION DEVELOPER 828 Distal DATA CONVERSION DEVELOPER 38 Distal AT A 33 Dorsalis pedis artery 29 Velocity chart left lower extremity arteries: Left KUNAL 151 cm/S E I A 45 CF A 173/251 Profunda 35 Proximal SFA 83 Mid SFA 71 Distal SFA 68 Popliteal 60 Proximal AT A 47 Tibioperoneal trunk 65 Mid DATA CONVERSION DEVELOPER 52 Distal DATA CONVERSION DEVELOPER 35 Distal AT A 39 Dorsalis pedis 31 Electronically Signed by Amandeep Castro MD 01/19/2020 10:45 A TIME SPENT ON DISCHARGE: 30MIN Vital Signs/I&Os Vital Signs Date Time Temp Pulse Resp B/P (MAP) Pulse Ox O2 Delivery O2 Flow Rate FiO2 12/21/20 09:05 16 12/21/20 08:34 72 124/56 12/21/20 06:00 98.2 94 Room Air 12/18/20 06:00 2.0 I&O- Last 24 Hours up to 6 AM 12/21/20 06:00 Intake Total 1600 ml Output Total 1600 ml Balance 0 ml Laboratory Data Labs 24H Laboratory Tests 2 12/21/20 10:50: Coronavirus (COVID-19)(PCR) NEGATIVE Discharge Medications Scheduled Amlodipine Besylate (Amlodipine Besylate) 5 Mg Tab, 5 MG PO DAILY, (Reported) Aspirin (Aspirin EC) 81 Mg Tab, 81 MG PO DAILY, (Reported) Atorvastatin Calcium (Atorvastatin Calcium) 40 Mg Tablet, 40 MG PO QHS, (Reported) Bifidobacterium Infantis (Align) 10.5 Mg Tab.chew, 1 TAB PO DAILY, (Reported) Biotin (Biotin) 1 Mg Capsule, 1 MG PO DAILY, (Reported) Cholecalciferol (Vitamin D3) (Vitamin D3) 1,000 Unit Tablet, 1,000 UNITS PO DAILY, (Reported) Clopidogrel Bisulfate (Plavix) 75 Mg Tab, 75 MG PO DAILY, (Reported) Docusate Sodium (Colace) 100 Mg Cap, 100 MG PO DAILY, (Reported) Fluoxetine Hcl (Fluoxetine HCl) 20 Mg Cap, 20 MG PO DAILY, (Reported) Losartan/Hydrochlorothiazide (Losartan-Hctz 100-25 mg Tab) 1 Each Tablet, 1 TAB PO DAILY, (Reported) Multivitamins (Thera M Plus Tablet) 1 Each Tablet, 1 TAB PO QAM, (Reported) Pantoprazole Sodium (Pantoprazole Sodium) 40 Mg Tab, 40 MG PO DAILY, (Reported) Spironolactone (Spironolactone) 25 Mg Tab, 25 MG PO DAILY, (Reported) Scheduled PRN Acetaminophen (Acetaminophen) 325 Mg Tablet, 650 MG PO Q4H PRN for PAIN, (Reported) Azelastine HCl (Azelastine HCl) 0.1% [place].pump, 2 SPRAY NARES BID PRN for ALLERGIES, (Reported) Hydromorphone HCl (Dilaudid) 2 Mg Tablet, 1 MG PO Q4HP PRN for BREAKTHROUGH PAIN Oxycodone/Acetaminophen (Oxycodone-Acetaminophen 5-325) 1 Each Tablet, 1 TAB PO Q4HP PRN for MODERATE PAIN (PS 5-7) Oxycodone/Acetaminophen (Oxycodone-Acetaminophen 5-325) 1 Each Tablet, 2 TAB PO Q4HP PRN for SEVERE PAIN (PS 8-10) Allergies Coded Allergies: No Known Allergies (Unverified , 12/04/20) PERRY JOSUE MD Dec 21, 2020 12:13
== END 2020-12-21 11:59 | DRG 253 ==
LOC: M OR 12-17 06:15 → M MSPAV 12-17 13:42
PROVIDERS: ADMIT Surgery Vascular Surgery; ATTEND General Practice
PROC: 04CL0ZZ Extirpation of Matter from Left Femoral Artery, Open Approach (ICD-10-PCS; 2020-12-17)
PROC: 04UL07Z Supplement Left Femoral Artery with Autologous Tissue Substitute, Open Approach (ICD-10-PCS; 2020-12-17)
PROC: 04WY0JZ Revision of Synthetic Substitute in Lower Artery, Open Approach (ICD-10-PCS; principal; 2020-12-17 07:30)
DX: T82.858A Stenosis of other vascular prosthetic devices, implants and grafts, initial encounter (principal); J98.11 Atelectasis; I70.212 Atherosclerosis of native arteries of extremities with intermittent claudication, left leg; I10 Essential (primary) hypertension; F41.9 Anxiety disorder, unspecified; F32.9 Major depressive disorder, single episode, unspecified; E78.5 Hyperlipidemia, unspecified; K21.9 Gastro-esophageal reflux disease without esophagitis; R20.0 Anesthesia of skin; E66.9 Obesity, unspecified; Z68.39 Body mass index [BMI] 39.0-39.9, adult; Z87.891 Personal history of nicotine dependence; Z79.82 Long term (current) use of aspirin; Z79.02 Long term (current) use of a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/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; Z79.899 Other long term (current) drug therapy

== ENCOUNTER → 2020-12-12 | Outpatient (CLI) | payer MEDICARE, OTHER | LOC: M LABSMTC 09:29 | PROVIDERS: ATTEND Anesthesiology | DX: Z01.812 Encounter for preprocedural laboratory examination (principal); Z20.822 Contact with and (suspected) exposure to COVID-19 ==

== ENCOUNTER → 2020-12-25 | Outpatient (REF) | payer MEDICARE, OTHER ==
[~2020-12-25] MED LIST changes: +DILA2TAB6 PO; +PERCOCET PO
[2020-12-25 09:18] LABS: HEMATOCRIT 35.3 % (36.0-47.0); HEMOGLOBIN 11.4 g/dl (12.0-15.5); MEAN CORPUSCULAR HEMOGLOBIN 31.3 pg (27.0-33.0); MEAN CORPUSCULAR HGB CONC 32.3 g/dl (32.0-36.5); PLATELET COUNT, AUTOMATED 331 10^3/uL (150-450); RED BLOOD COUNT 3.64 10^6/uL (4.00-5.40); WHITE BLOOD COUNT 8.6 10^3/uL (4.0-10.0)
[2020-12-25 09:45] LABS: CALCIUM LEVEL 9.6 MG/DL (8.8-10.2); CREATININE FOR GFR 1.04 MG/DL (0.55-1.30); GLOMERULAR FILTRATION RATE 55.3 (>39); POTASSIUM SERUM 3.9 MEQ/L (3.5-5.1)
== END ==
LOC: SKLAB2 07:00
PROVIDERS: ATTEND Internal Medicine
DX: D64.9 Anemia, unspecified (principal); I10 Essential (primary) hypertension

== ENCOUNTER → 2020-12-26 | Outpatient (REF) | LOC: SKLAB2 14:14 | PROVIDERS: ATTEND Internal Medicine | DX: Z20.822 Contact with and (suspected) exposure to COVID-19 (principal) ==

== ENCOUNTER → 2021-01-30 | Outpatient (CLI) | payer MEDICARE, OTHER ==
--- NOTE | 2021-01-30 17:15 | REP ---
INDICATION: CLAUDICATION COMPARISON: 01/19/2020. TECHNIQUE: Real time browning scale and Duplex Doppler evaluation of the bilateral lower extremity arterial vasculature using linear high frequency transducer. FINDINGS: Browning scale and duplex doppler images demonstrate moderate diffuse plaquing bilaterally. Diffuse triphasic and biphasic waveforms are seen bilaterally except for monophasic waveforms in the right distal anterior and posterior tibial arteries, in the left distal popliteal artery and all left calf arteries. No focal hemodynamically significant stenosis is observed. However there is occlusion of the mid left anterior tibial artery with reconstitution distally. There appears to be improved flow in the left lower extremity compared to the prior study. KEKE right 0.94 and left 0.85. Peak systolic velocities (cm/sec) Common femoral artery: Right 107; Left 160 Profunda femoris: Right 100; Left 67 SFA (proximal): Right 86; Left 212 SFA (mid): Right 96; Left 96 SFA (distal): Right 102; Left 86 Popliteal artery: Right 99; Left 85 SUSY (prox.): Right 54; Left 70 Tibioperoneal trunk: Right 37; Left 64 CLINIC MD ASSOCIATE (prox.): Right 33; Left 47 CLINIC MD ASSOCIATE (distal): Right 57; Left 52 SUSY (distal): Right 26; Left occluded/39 IMPRESSION: Moderate diffuse plaquing bilaterally. Occlusion mid left anterior tibial artery with reconstitution distally. No other stenosis or occlusion. Improved flow left lower extremity compared to the prior study. <Electronically signed by Carlos Browning > 01/30/21 [id number]
== END ==
LOC: M RAD 11:15
PROVIDERS: ATTEND Physician Assistant
DX: T82.858A Stenosis of other vascular prosthetic devices, implants and grafts, initial encounter (principal); I70.212 Atherosclerosis of native arteries of extremities with intermittent claudication, left leg

== ENCOUNTER → 2021-02-18 | Outpatient (CLI) | payer MEDICARE, OTHER ==
--- NOTE | 2021-02-18 14:31 | REP ---
INDICATION: OTHER NON SPECIFIC ABNORMAL FINDING OF LUNG FIELD. COMPARISON: Chest CT dated 07/31/2020. TECHNIQUE: The study is performed without IV contrast. FINDINGS: The known ground-glass density in the superior segment of the right lower lobe today maximally measures 2.0 cm. This measured 2.3 cm previously. The solid component within this ground-glass density today measures 7 mm. This previously measured 7.5 mm. There are no other lung masses or nodules. There are no infiltrates or pleural effusions. There is a small calcified granuloma in the right upper lobe just inferior to this ground-glass density, unchanged. There is no mediastinal lymph node enlargement. No axillary lymph node enlargement. In the absence of IV contrast the study is insensitive for hilar lymph node enlargement. The thoracic aorta is unremarkable. Cardiac size is normal. There is no pericardial effusion. There is a fixed hiatal hernia, unchanged. Upper abdomen: There are surgical clips in the gallbladder fossa. This is unchanged. There is no adrenal mass. The visualized unenhanced hepatic parenchyma, pancreas and spleen are unremarkable. IMPRESSION: The known right lower lobe ground-glass density and its central solid component have both decreased in size, compatible with benign findings. There are no new lung nodules. There are no acute infiltrates or effusions. Fixed hiatal hernia, unchanged. <Electronically signed by Carlos Almonte > 02/18/21 [id number]
== END ==
LOC: M RAD 10:59
PROVIDERS: ATTEND Internal Medicine Pulmonary Disease
DX: R91.8 Other nonspecific abnormal finding of lung field (principal)

== ENCOUNTER → 2021-05-22 | Outpatient (CLI) | payer MEDICARE, OTHER ==
--- NOTE | 2021-05-22 12:28 | REPMRS ---
Patient History The patient states she has not had a clinical breast exam in over a year. Patient is postmenopausal and has history of endometrial cancer at age 59. No known family history of cancer. Patient states no breast complaints today. Patient has signed MRS History Sheet. Digital Woman Screen Mammo: May 22, 2021 - Exam #: [id number] Bilateral CC and MLO view(s) were taken. Technologist: Cheyenne Molina, Technologist Prior study comparison: July 28, 2018, bilateral digital mammo screening bilat, performed at [facility]. August 26, 2016, bilateral digital mammo screening bilat, performed at [facility]. March 06, 2015, bilateral digital mammo screening bilat, performed at [facility]. FINDINGS: The breast tissue is almost entirely fat. The [place] volumetric breast density category is: A. There has been no change in the appearance of the mammogram from the prior studies. There is no interval development of dominant mass, architectural distortion, or grouped microcalcification typical of malignancy. 3-D tomosynthesis shows no additional findings. Assessment: BI-RADS/ACR category 1 mammogram. Negative Mammogram. Recommendation Routine screening mammogram of both breasts in 1 year (for women over age 40). This patient's [facility] Lifetime Breast Cancer RIsk is estimated at 3.4 %. This mammogram was interpreted with the aid of an FDA-approved computer-aided dectection system. Electronically Signed By: Rocael Castro MD 05/22/21 [id number]
== END ==
LOC: M WHC 11:10
PROVIDERS: ATTEND Nurse Practitioner Family
DX: Z12.31 Encounter for screening mammogram for malignant neoplasm of breast (principal)

== ENCOUNTER → 2021-08-01 | Outpatient (CLI) | payer MEDICARE, OTHER ==
--- NOTE | 2021-08-01 12:03 | REP ---
INDICATION: PAIN IN KNEE. COMPARISON: None. TECHNIQUE: AP bilateral knee study done standing. Single-view. FINDINGS: There is bilateral medial compartment and right lateral compartment chondro calcinosis. There is mild bilateral medial compartment joint space narrowing and medial compartment tibiofemoral spurring is present. This is symmetric. Bones, joints and soft tissues are otherwise unremarkable. IMPRESSION: Bilateral medial tibiofemoral compartment joint space narrowing and spur formation. Bilateral chondrocalcinosis. <Electronically signed by Rocael Castro > 08/01/21 [id number]
== END ==
LOC: M SOG 11:08
PROVIDERS: ATTEND Orthopaedic Surgery Adult Reconstructive Orthopaedic Surgery
DX: M25.569 Pain in unspecified knee (principal); M11.251 Other chondrocalcinosis, right hip; M11.252 Other chondrocalcinosis, left hip; M76.9 Unspecified enthesopathy, lower limb, excluding foot

== ENCOUNTER → 2021-08-16 | Outpatient (CLI) | payer MEDICARE, OTHER ==
--- NOTE | 2021-08-16 16:06 | REP ---
INDICATION: LT KNEE PAIN ? INTERNAL DERANGEMENT. COMPARISON: None. TECHNIQUE: Sagittal spin-echo proton density, T2 STIR and T2 FLASH. Coronal spin-echo proton density and fat suppressed proton density. Axial fat suppressed proton density. FINDINGS: The anterior and posterior horns of the lateral meniscus are within normal limits. Grade 1 signal changes are seen in the anterior and particularly posterior horn of the medial meniscus. The anterior and posterior cruciate ligaments are intact. The quadriceps and patellar tendons are intact. The medial and lateral collateral ligaments are intact. The medial and lateral patellar retinacula are intact. There is thinning and mild irregularity of all articular cartilages. There is a small amount of fluid seen between the tendons of the medial head of the gastrocnemius muscle and the semimembranosus muscle without a alexandra Albert's cyst. There is no joint effusion. The marrow signal is within normal limits. IMPRESSION: 1. Tricompartmental chondromalacia and medial meniscal degenerative type signal changes without evidence of a tear. 2. Other findings as described above. <Electronically signed by Aly Foster > 08/16/21 [id number]
== END ==
LOC: M PLARAD 11:59
PROVIDERS: ATTEND Orthopaedic Surgery Adult Reconstructive Orthopaedic Surgery
DX: M23.92 Unspecified internal derangement of left knee (principal); M94.262 Chondromalacia, left knee

== ENCOUNTER → 2021-09-17 | Outpatient (CLI) | payer MEDICARE, OTHER ==
--- NOTE | 2021-09-17 11:33 | REP ---
INDICATION: ABN FINDINGS OF LUNG FIELD COMPARISON: Multiple the latest 02/18/2021 also without contrast TECHNIQUE: Standard helical technique without contrast FINDINGS: The mediastinum and pulmonary kehinde appear stable. No gross mass or adenopathy has developed. There is no evidence of a pleural or pericardial effusion. There is no significant change in appearance of the imaged upper abdomen or imaged osseous structures. Evaluation of the lung iglesias shows a persistent ground-glass and nodular density in the right lower lobe with irregular margins within approximate overall measurement of 2.3-2.5 cm. Scattered fibrotic changes are noted status quo. There is cylindrical bronchiectasis status quo. IMPRESSION: Persistent and possibly slightly involving right lower lobe ground-glass opacity as described above. The was initially partially imaged on lung base images obtained during CT abdomen and pelvis on 08/20/2015 but imaged completely for the 1st time on an outside chest CT of 12/17/2018. The appearance of this has changed rather significantly when compared to that chest CT. PET-CT should be considered at this time. I cannot completely rule out the possibility of malignancy. <Electronically signed by Aly Foster > 09/17/21 [id number]
== END ==
LOC: M RAD 10:33
PROVIDERS: ATTEND Internal Medicine Pulmonary Disease
DX: R91.8 Other nonspecific abnormal finding of lung field (principal)

== ENCOUNTER → 2021-10-21 | Outpatient (CLI) | payer MEDICARE, OTHER ==
--- NOTE | 2021-10-22 11:41 | REP ---
INDICATION: DIAGNOSING LUNG NODULE R91.1. COMPARISON: Prior chest CT of 09/17/2021. There are no prior PET CTs for comparison TECHNIQUE: After the intravenous administration of 9.26 mCi of FDG 18 triplane whole-body PET-CT was performed from the skull base to the mid thigh FINDINGS: There is hypermetabolic activity seen in the right lung pleura between the 5th and 6 ribs denisse laterally having a maximal SUV value of 5.7. There is a focus of abnormal hypermetabolic activity between the 7th and 8th ribs on the right posterior laterally in the region of the pleura and having a maximal SUV value of 5.07. This hypermetabolic activity continues inferiorly to the right lung base and abuts the hemidiaphragm with a maximal SUV value of 4.06. There is a focus of hypermetabolic activity seen between the left 7th and 8th ribs in the region of the pleura having a maximal SUV value of 4.33. These same areas have lung parenchymal ground-glass opacities abutting them. The ground-glass opacity seen in the right lung lower lobe on the prior chest CT is frankly the greatest of the hypermetabolic regions. There is left adrenal gland hypermetabolism with a maximal SUV value of 3.09. There is extensive axial skeletal hypermetabolism with a maximal SUV value in the lumbar spine of 6.10 and a maximal SUV value in the thoracic spine of 6.24. There is bilateral multifocal hypermetabolic activity in the bony pelvis with maximal SUV values ranging from 3.85 to 4.08. IMPRESSION: 1. There is abnormal pulmonary parenchymal and pleural hypermetabolism bilaterally as described above. 2. There is left adrenal gland hypermetabolism as described above. Non malignant and malignant causes should be evaluated for. The non malignant causes include adrenal gland hyperplasia and adenomas. Certainly, metastatic disease cannot be ruled out. 3. Diffuse abnormal skeletal hypermetabolism concerning for metastatic disease. <Electronically signed by Aly Foster > 10/22/21 [id number]
== END ==
LOC: M PLARAD 13:58
PROVIDERS: ATTEND Internal Medicine Pulmonary Disease
DX: R91.1 Solitary pulmonary nodule (principal)
CPT/HCPCS: 78815; A9552

== ENCOUNTER → 2022-01-14 | Outpatient (CLI) | payer MEDICARE, OTHER ==
[~2022-01-14] MED LIST changes: +FLUO-96 PO; -FLUO20CA20 PO; +LOSA100T45 PO; -LOSA100T50 PO
== END ==
LOC: M RAD 15:56
PROVIDERS: ATTEND Internal Medicine Pulmonary Disease
DX: R91.8 Other nonspecific abnormal finding of lung field (principal); J47.9 Bronchiectasis, uncomplicated; J84.10 Pulmonary fibrosis, unspecified; I70.0 Atherosclerosis of aorta; M19.011 Primary osteoarthritis, right shoulder; M19.012 Primary osteoarthritis, left shoulder; K44.9 Diaphragmatic hernia without obstruction or gangrene; Z90.49 Acquired absence of other specified parts of digestive tract; J43.2 Centrilobular emphysema; I27.20 Pulmonary hypertension, unspecified

== ENCOUNTER → 2022-05-12 | Outpatient (CLI) | payer MEDICARE, OTHER ==
[~2022-05-12] MED LIST changes: -D31000TA2 PO; +VITA100093 PO
== END ==
LOC: M PLARAD 09:50
PROVIDERS: ATTEND Internal Medicine Pulmonary Disease
DX: R91.8 Other nonspecific abnormal finding of lung field (principal); I65.23 Occlusion and stenosis of bilateral carotid arteries; J34.2 Deviated nasal septum; J84.9 Interstitial pulmonary disease, unspecified; J47.9 Bronchiectasis, uncomplicated; I70.0 Atherosclerosis of aorta; I25.10 Atherosclerotic heart disease of native coronary artery without angina pectoris; I34.8 Other nonrheumatic mitral valve disorders
CPT/HCPCS: 78815; A9552

== ENCOUNTER → 2022-10-22 | Outpatient (CLI) | payer MEDICARE, OTHER ==
[~2022-10-22] MED LIST changes: +ATOR80TA59 PO; +CLOP75TA2 PO; +CLOP75TA99 PO; +CYAN100050 PO; +METO25TA4 PO; -PLAV1TAB2 PO; +VITA1CAP4 PO; +XARE10TA PO
== END ==
LOC: M LABSMTC 11:06
PROVIDERS: ATTEND Anesthesiology
DX: Z01.812 Encounter for preprocedural laboratory examination (principal); Z20.822 Contact with and (suspected) exposure to COVID-19

== ENCOUNTER 2022-10-27 09:44 | Day surgery (SDC) | payer MEDICARE, OTHER ==
[~2022-10-27] VITALS: Ht 162.6 cm; Wt 100.9 kg
[~2022-10-27 09:44] MED LIST changes: +NS 1,000 ML IV ONE
[2022-10-27] MEDS ORDERED: MIDAZOLAM INJ 2MG/2ML VIAL (J2250 PER 1MG) As Ordered ONE (09:47)
[2022-10-27] MEDS ORDERED: propofoL 200 MG/20 ML VIAL As Ordered ONE ×2 (09:48→10:36)
[2022-10-27] MEDS ORDERED: LIDOCAINE 2% 100MG/5ML SDV (FOR ANES.) As Ordered ONE (09:48)
[2022-10-27] MEDS ORDERED: hydrALAZINE 20MG/ML 1ML VIAL (J0360 PER 20MG) As Ordered ONE (10:48)
[2022-10-27 11:30] VITALS: BP 126/60
== END 2022-10-27 11:32 | disposition home or self-care (01) ==
LOC: M OPP 09:44
PROVIDERS: ATTEND Internal Medicine Gastroenterology
DX: K57.30 Diverticulosis of large intestine without perforation or abscess without bleeding (principal); K63.5 Polyp of colon; K64.8 Other hemorrhoids; K44.9 Diaphragmatic hernia without obstruction or gangrene; Z98.84 Bariatric surgery status; I48.91 Unspecified atrial fibrillation; I10 Essential (primary) hypertension; E78.5 Hyperlipidemia, unspecified; I73.9 Peripheral vascular disease, unspecified; K21.9 Gastro-esophageal reflux disease without esophagitis; M19.90 Unspecified osteoarthritis, unspecified site; F41.9 Anxiety disorder, unspecified; F32.A Depression, unspecified; K22.70 Barrett's esophagus without dysplasia; K27.9 Peptic ulcer, site unspecified, unspecified as acute or chronic, without hemorrhage or perforation; G62.9 Polyneuropathy, unspecified; Z85.42 Personal history of malignant neoplasm of other parts of uterus; Z92.3 Personal history of irradiation; Z87.891 Personal history of nicotine dependence; Z79.01 Long term (current) use of anticoagulants; Z79.899 Other long term (current) drug therapy; Z80.0 Family history of malignant neoplasm of digestive organs
CPT/HCPCS: 43235; 45380; 45385; 88305; J0360; J2250

== ENCOUNTER → 2023-03-20 | Outpatient (CLI) | payer MEDICARE, OTHER ==
[~2023-03-20] MED LIST changes: -NS 1,000 ML IV ONE
== END ==
LOC: M RAD 12:02
PROVIDERS: ATTEND Surgery Vascular Surgery
DX: I70.203 Unspecified atherosclerosis of native arteries of extremities, bilateral legs (principal)

== ENCOUNTER → 2023-12-17 | Outpatient (CLI) | payer MEDICARE, OTHER ==
[~2023-12-17] MED LIST changes: +CYAN-1 PO; -CYAN100050 PO; -LOSA100T45 PO; +LOSA100T46 PO
== END ==
LOC: M RAD 11:27
PROVIDERS: ATTEND Surgery Vascular Surgery
DX: I70.203 Unspecified atherosclerosis of native arteries of extremities, bilateral legs (principal)